=== PATIENT | male | born 1955 | race Caucasian/White ===

== ENCOUNTER → 2022-03-12 | Outpatient (CLI) | payer MEDICARE, SELFPAY ==
[2022-03-14 16:08] LABS: Endomysial Antibody IgA Negative (Negative)
[2022-03-15 17:27] LABS: Immunoglobulin A 416 mg/dL (61-437); t-Transglutaminase IgA <2 U/mL (0-3)
== END | disposition home or self-care (01) ==
PROVIDERS: PCP Nurse Practitioner Primary Care; Referring Provider Internal Medicine Gastroenterology; Visit Provider Internal Medicine Gastroenterology
DX: R19.7 Diarrhea, unspecified (principal)
CPT/HCPCS: 36415; 82784; 83516; 86140; 86255

== ENCOUNTER 2022-09-21 11:38 | Emergency (ER) | payer MEDICARE, MEDICAID, SELFPAY ==
[2022-09-21 11:38] VITALS: BP 159/99; PULSE 81; RESP 24; TEMP 35.3; O2SAT 94; BMI 50.8
--- NOTE | 2022-09-21 13:09 | EDS_ITS ---
HPI History of Present Illness Chief Complaint: General Illness Narrative Narrative: 67-year-old male presenting with presenting with chronic diarrhea which has had for a year. He states he had a colonoscopy in February with Dr. Paz and states he had a polyp removed. Patient states that there was an illness in his household last week and his and children were sick. They had cough and congestion. Over this timeframe he had nausea and vomiting 4 to 5 days ago. The nausea and vomiting has resolved but he continues to have diarrhea. He had no black or bloody emesis but does note that he had black stools for the last 4 to 5 days. He does admit to taking Pepto-Bismol. Patient states he took this for some epigastric discomfort he has been having. He has a history of GERD. Patient takes daily aspirin but no other oral anticoagulation. He has not had fever, chills. PFSH PFSH Medical History no medical history Allergy/AdvReac Type Severity Reaction Status Date / Time No Known Allergies Allergy Verified 09/21/22 11:41 Social History Smoking Status: Unknown if ever smoked ROS ROS ED Constitutional Constitutional ED: Denies chills or fever(s) Eyes Eyes: Denies change in vision or diplopia ENT ENT ED: Denies rhinorrhea or sore throat Cardiovascular Cardiovascular: Denies chest pain or palpitations Respiratory/Chest Respiratory/Chest: Denies cough or dyspnea Gastrointestinal Gastrointestinal: Reports abdominal pain, nausea and vomiting Genitourinary Genitourinary ED: Denies dysuria or hematuria Musculoskeletal Musculoskeletal: Denies arthralgias Integumentary Denies abscess or Abrasions Neurologic Neurologic: Denies headache(s) or paresthesias Psychiatric Psychiatric: Denies anxiety or depression EXAM Physical Exam Const Vital Signs: 09/21/22 11:38 09/21/22 13:17 09/21/22 13:59 Temperature 95.5 F L Temperature Source Temporal Pulse Rate 81 67 Respiratory Rate 24 H Respiratory Effort Normal Respiratory Pattern Normal Blood Pressure 159/99 H Blood Pressure Mean 119 Pulse Ox 94 95 Oxygen Delivery Method Room Air Room Air 09/21/22 15:22 Temperature 97.4 F L Temperature Source Temporal Pulse Rate 71 Respiratory Rate 17 Respiratory Effort Respiratory Pattern Blood Pressure 121/63 H Blood Pressure Mean 82 Pulse Ox 97 Oxygen Delivery Method Room Air Positive well nourished and obese General Appearance ED: NAD; Negative for pallor Nutritional Appearance: obese HEENT Reports moist mucous membranes Eyes PERRL Chest Wall inspection of chest normal and palpation of chest normal Resp normal respiratory effort and clear to auscultation bilaterally Cardio regular rate and regular rhythm GI Palpation: tender epigastric Back/Spine no CVA tenderness Neuro oriented x3 and CN's II-XII intact bilaterally Sensorium / Orientation: alert Psych mental status grossly normal Skin no rashes or lesions noted and no wounds General Skin Exam: Negative for jaundice or pallor MDM MDM MDM Narrative Medical decision making narrative: 67-year-old male presenting with epigastric pain which is mild. He has had nausea and vomiting this week which was resolved but now has diarrhea. He does state that his family is all been ill this last week. He denies fever, chills, body aches. Blood work was obtained and his CBC is unremarkable. Renal function and electrolytes are normal. LFTs within normal limits. Urinalysis negative for infection. CT of the abdomen pelvis with IV contrast does not show any acute intra-abdominal abnormality. The radiologist interpret a possible right lower lobe pneumonitis although the patient is not having cough, shortness of breath, chest pain. His lungs are clear. He is 97% on room air. I do not believe he needs antibiotics for this. Patient is to follow-up with Dr. Paz and his primary care physician. Return precautions discussed. Impression: 1. Abdominal pain 2. Nausea/vomiting resolved 3. Diarrhea Lab Data Attestation: I reviewed the patient's lab results. Labs: Laboratory Results - last 24 hr 09/21/22 09/21/22 09/21/22 13:20 13:30 13:30 WBC 10.6 RBC 5.27 Hgb 16.6 H Hct 47.9 MCV 90.9 MCH 31.5 MCHC 34.7 RDW Std Deviation 42.5 RDW Coeff of Nena 12.8 Plt Count 186 MPV 11.6 Immature Gran % (Auto) 0.300 Neut % (Auto) 55.0 Lymph % (Auto) 31.9 [place] % (Auto) 8.7 Eos % (Auto) 3.3 Baso % (Auto) 0.8 Absolute Neuts (auto) 5.8 Absolute Lymphs (auto) 3.37 Nucleated RBC % 0 Sodium 139 Potassium 3.6 Chloride 107 Carbon Dioxide 26.0 Anion Gap 6 BUN 15 Creatinine 0.93 Estim Creat Clear Calc 62.77 Est GFR (MDRD) Af Amer 104 Est GFR (MDRD) Non-Af 86 BUN/Creatinine Ratio 16.2 Glucose 95 Calcium 9.4 Total Bilirubin 0.50 AST 26 ALT 44 Alkaline Phosphatase 56 Total Protein 8.1 Albumin 3.1 L Globulin 5.0 H Albumin/Globulin Ratio 0.6 L Lipase 179 Urine Color Yellow Urine Clarity Clear Urine pH 7.0 Ur Specific [place] 1.010 Urine Protein 15 H Urine Glucose (UA) Normal Urine Ketones 5 H Urine Occult Blood 10 H Urine Nitrite Negative Urine Bilirubin Negative Urine Urobilinogen 4 H Ur Leukocyte Esterase 25 H Urine RBC 0 SEEN Urine WBC 0-5 SEEN Ur Squamous Epith Cells 0 SEEN Urine Bacteria 0 SEEN Urine Mucus 0 SEEN Radiography Diagnostic Testing: Clinical Impression(s) from Imaging Studies Abdomen/Pelvis CT 09/21/22 13:09 IMPRESSION: Mild right lower lobe pneumonia or pneumonitis. Colonic diverticulosis without acute diverticulitis. Hepatic steatosis. Cholecystectomy. Small renal cysts. Electronically Signed: Jaky Kwon MD at 15:25 EST , Discharge Plan Triage Chief Complaint: General Illness ED Provider: Salinas Viveros Dx/Rx/DC Orders Instructions: ED Diarrhea, Viral (Adult), ED Abdominal Pain Unkn Cause Male... Primary Care Provider: Iveth Arreola NP Referrals: Iveth Arreola NP, [employer] [Primary Care Provider] - Disposition Disposition: Home, Self Care
--- NOTE | 2022-09-21 13:09 | CT_ITS ---
HISTORY: epigastric, diarrhea. TECHNIQUE: Helically acquired images were obtained of the abdomen and pelvis after the intravenous administration of 100 mL Isovue-370 and oral Gastrografin. A radiation dose optimization technique was used for this scan. 480 images. COMPARISON: None. FINDINGS: LOWER CHEST: Mild groundglass tree-in-bud and nodular alveolar opacities in the dependent right lower lobe. BOWEL: Bowel including appendix nondilated. Colonic diverticulosis without focal inflammatory change observed. PERITONEUM: No significant ascites. Mildly prominent right upper quadrant lymph nodes, possibly reactive. LIVER: No enhancing mass. Fatty infiltration. GALLBLADDER/BILIARY TREE: Cholecystectomy. SPLEEN/PANCREAS: No enhancing lesions. KIDNEYS: No hydronephrosis. Small cysts bilaterally measuring up to 10 mm on the right. ADRENAL GLANDS: No nodules. VESSELS: No abdominal aortic aneurysm. PELVIC ORGANS: Small prostate calcifications. BONES: Degenerative change. CT/Abdomen/Pelvis WITH Contrast IMPRESSION: Mild right lower lobe pneumonia or pneumonitis. Colonic diverticulosis without acute diverticulitis. Hepatic steatosis. Cholecystectomy. Small renal cysts. Electronically Signed: Jaky Kwon MD at 15:25 EST ,
[2022-09-21] MEDS: 0.9% Normal Saline 1,000 ML 1000 ML IV (13:41)
[2022-09-21 13:44] LABS: Bacteria 0 SEEN /hpf (None Seen); Mucous, Urine 0 SEEN /hpf (<or=2+); Red Blood Cells-Urine 0 SEEN /hpf (0-5); Squamous Epithelial Cells - UA 0 SEEN /hpf (0-5)
[2022-09-21 13:46] LABS: Absolute Lymphocyte Count 3.37 X10^3/uL (0.83-4.51); Absolute Neutrophil Count 5.8 X10^3/uL (2.0-7.7); Basophil# 0.08 X10^3/uL; Basophil% 0.8 % (0-1); Eosinophil# 0.35 X10^3/uL; Eosinophils% 3.3 % (0-5); Hematocrit 47.9 % (40-54); Hemoglobin 16.6 g/dL (13.0-16.5); Lymphocyte # 3.37 X10^3/ul (0.83-4.51); Lymphocyte % 31.9 % (19-41); Mean Corp Hgb Conc 34.7 g/dL (32-36); Mean Corpuscular Hgb 31.5 pg (27.0-32.0); Mean Corpuscular Volume 90.9 fL (80-94); Mean Platelet Vol. 11.6 fl (6.2-12.0); Monocyte# 0.92 X10^3/uL; Monocyte% 8.7 % (0-10); NRBC Flagged by Analyzer 0 % (0-5); Platelet Count 186 K/mm3 (150-450); RBC Distribution Width CV 12.8 % (11.6-14.6); RBC Distribution Width SD 42.5 fl (35.1-43.9); Red Blood Count 5.27 M/mm3 (4.6-6.2); White Blood Count 10.6 K/mm3 (4.4-11.0)
[2022-09-21 13:51] LABS: Color, Urine Yellow (Yellow); Glucose, Dipstick Normal (Normal); Ketone-Dipstick 5 mg/dl (Negative); Leukocyte Esterase-Dipstick 25 /ul (Negative); Nitrite-Dipstick Negative (Negative); Occult Blood-Urine 10 /ul (Negative); Protein-Dipstick 15 mg/dl (Negative); Urine Bilirubin Dipstick Negative (Negative); Urine Clarity Clear (Clear); Urine Urobilinogen 4 mg/dl (Normal)
[2022-09-21 13:59] VITALS: PULSE 67; O2SAT 95
[2022-09-21 14:03] LABS: ALB/GLOB Ratio 0.6 RATIO (0.9-2.4); AST(SGOT) 26 U/L (15-37); Alanine Aminotransfer ALT/SGPT 44 U/L (16-61); Albumin, Serum 3.1 g/dL (3.2-5.0); Alkaline Phosphatase 56 U/L (45-117); Anion Gap 6 (5-15); BUN 15 mg/dL (7-18); BUN/Creat Ratio 16.2 RATIO (10-20); Calcium,Total 9.4 mg/dL (8.5-10.1); Chloride 107 mmol/L (98-107); Creatinine, Serum 0.93 mg/dL (0.70-1.30); EST Glomerular Filtration Rate 86 mL/min (>60); Est Glom Filt Rate - Afr Amer 104 mL/min (>60); Estimated Creatinine Clearance 62.77 ml/min; Glucose 95 mg/dL (74-106); Lipase 179 U/L (73-393); Potassium 3.6 mmol/L (3.5-5.1); Protein, Total 8.1 g/dL (6.4-8.2); Sodium Level 139 mmol/L (136-145)
[2022-09-21 14:07] LABS: White Blood Cells 0-5 SEEN /hpf (0-5)
[2022-09-21 15:22] VITALS: BP 121/63; PULSE 71; RESP 17; TEMP 36.3; O2SAT 97
[2022-09-21 17:04] VITALS: PULSE 77; RESP 17; O2SAT 96
== END 2022-09-21 17:09 | disposition home or self-care (01) ==
PROVIDERS: Emergency Provider Student in an Organized Health Care Education/Training Program; PCP Nurse Practitioner Primary Care; Visit Provider Student in an Organized Health Care Education/Training Program
DX: K52.9 Noninfective gastroenteritis and colitis, unspecified (principal); R11.2 Nausea with vomiting, unspecified; R10.9 Unspecified abdominal pain
CPT/HCPCS: 74177; 80053; 81001; 83690; 85025; 96360; 99283; J7030; Q9967

== ENCOUNTER → 2022-11-16 | Outpatient (CLI) | payer MEDICARE, MEDICAID, SELFPAY ==
--- NOTE | 2022-11-16 07:58 | MRI_ITS ---
STUDY: MRI RIGHT MIDFOOT REASON FOR EXAM: Male, 67 years old. RT MIDFOOT, OSTEOARTHRITIS FRACTURE TECHNIQUE: Standardized fat and water weighted pulse sequences were obtained in all 3 orthogonal planes. COMPARISON: None. FINDINGS: There is moderate degenerative arthrosis of the talonavicular articulation. Normal calcaneocuboid articulation. Normal navicular-cuneiform articulations. Normal intercuneiform articulations. Normal first tarsometatarsal articulation. Normal Lisfranc ligament. Mild second tarsal metatarsal joint arthrosis with small erosions of the second cuneiform bone. Normal third tarsometatarsal joint. Capsulitis of the fourth and fifth tarsometatarsal joints with effusions. Severe stress reaction of the proximal shaft of the third metatarsal bone. No discrete fracture. Normal tibialis anterior tendon. Normal extensor hallucis longus tendon. Normal extensor digitorum longus tendons. Normal peroneus longus tendon and distal insertion. Normal peroneus brevis tendon and distal insertion. Normal intrinsic muscles of the mid and forefoot region. Normal extensor digitorum brevis muscle. Normal subcutis adipose space. MRI/Lower Ext/No Jt/w/o IMPRESSION: 1. Mild midfoot arthrosis as described above. 2. Focal severe stress reaction the proximal shaft of the third metatarsal bone without discrete fracture. Electronically Signed: Stef Cannon MD at 9:03 EST ,
== END | disposition home or self-care (01) ==
PROVIDERS: PCP Nurse Practitioner Primary Care; Referring Provider Podiatrist; Visit Provider Podiatrist
DX: M19.071 Primary osteoarthritis, right ankle and foot (principal); M84.374A Stress fracture, right foot, initial encounter for fracture; X58.XXXA Exposure to other specified factors, initial encounter
CPT/HCPCS: 73718

== ENCOUNTER → 2022-11-28 | Outpatient (CLI) | payer MEDICARE, MEDICAID, SELFPAY ==
[2022-11-28 10:54] LABS: Vitamin D,25 Hydroxy 28.4 ng/mL
[2022-11-28 10:59] LABS: ALB/GLOB Ratio 0.7 RATIO (0.9-2.4); AST(SGOT) 42 U/L (15-37); Alanine Aminotransfer ALT/SGPT 44 U/L (16-61); Albumin, Serum 3.6 g/dL (3.2-5.0); Alkaline Phosphatase 48 U/L (45-117); Anion Gap 7 (5-15); BUN 21 mg/dL (7-18); BUN/Creat Ratio 16.7 RATIO (10-20); Calcium,Total 9.8 mg/dL (8.5-10.1); Chloride 105 mmol/L (98-107); Creatinine, Serum 1.26 mg/dL (0.70-1.30); EST Glomerular Filtration Rate 60 mL/min (>60); Est Glom Filt Rate - Afr Amer 73 mL/min (>60); Globulin 4.9 g/dL (2.2-4.2); Glucose 113 mg/dL (74-106); Potassium 3.9 mmol/L (3.5-5.1); Protein, Total 8.5 g/dL (6.4-8.2); Sodium Level 139 mmol/L (136-145)
== END | disposition home or self-care (01) ==
LOC: MTLAB 08:05
PROVIDERS: PCP Nurse Practitioner Primary Care; Referring Provider Podiatrist; Visit Provider Podiatrist
DX: M84.374A Stress fracture, right foot, initial encounter for fracture (principal)
CPT/HCPCS: 36415; 80053; 82306

== ENCOUNTER 2023-01-02 11:43 | Emergency (ER) | payer MEDICARE, MEDICAID, SELFPAY ==
[2023-01-02 11:43] VITALS: BP 135/74; PULSE 82; RESP 18; TEMP 37; O2SAT 98; BMI 49.6
--- NOTE | 2023-01-02 12:27 | EX.ED.DYSGE1 ---
HPI <BRENDA Blanco - Last Filed: 01/02/23 20:57> History of Present Illness Chief Complaint: Flank Pain Narrative Narrative: Patient presenting today with left side pain that he has had for the past 4 days. He states that the pain is worsened with movement and improves somewhat with rest. He states that sometimes feels like the muscles are spasming on the left side. He denies any injury to the area. He denies any urinary symptoms such as hematuria, dysuria, or urinary urgency/frequency. He denies a history of kidney stones, abdominal pain, nausea, vomiting, diarrhea, constipation, fever, and chills. PFSH <BRENDA Blanco - Last Filed: 01/02/23 20:57> PFSH Home Medications doxycycline hyclate 100 mg capsule 100 mg PO BID #20 caps 01/02/23 [Rx Last Taken Unknown] hydrocodone-acetaminophen 5-325mg 5mg-325mg 1 tab PO Q4H PRN PRN Pain 5 days #10 TABLETS 01/02/23 [Rx Last Taken Unknown] Allergy/AdvReac Type Severity Reaction Status Date / Time No Known Allergies Allergy Verified 01/02/23 11:46 Social History Smoking Status: Unknown if ever smoked ROS <BRENDA Blanco - Last Filed: 01/02/23 20:57> ROS ED Constitutional Constitutional ED: Denies chills, fever(s) or sweats Cardiovascular Cardiovascular: Denies chest pain or palpitations Respiratory/Chest Respiratory/Chest: Denies cough, dyspnea, tachypnea or wheezing Gastrointestinal Gastrointestinal: Denies abdominal pain, constipation, diarrhea, nausea or vomiting Genitourinary Genitourinary ED: Denies dysuria, hematuria or urinary urgency Musculoskeletal Musculoskeletal: Reports arthralgias and myalgias; Denies back pain or neck pain Integumentary Denies abscess, Abrasions or rash Neurologic Neurologic: Denies confusion, dizziness or paresthesias Psychiatric Psychiatric: Denies anxiety, depression, suicidal ideation or suicidal thoughts EXAM <BRENDA Blanco - Last Filed: 01/02/23 20:57> Physical Exam Const Vital Signs: 01/02/23 11:43 01/02/23 11:43 01/02/23 17:25 Temperature 98.6 F Temperature Source Temporal Pulse Rate 82 88 Respiratory Rate 18 19 H Blood Pressure 135/74 H 154/67 H Blood Pressure Mean 94 96 Pulse Ox 98 95 Oxygen Delivery Method Room Air Positive well nourished, well developed and no apparent distress General Appearance ED: well developed HEENT Reports normocephalic and head/scalp atraumatic Mouth ED: Yes moist mucous membranes normal Eyes PERRL and EOMs intact bilaterally Neck full ROM and supple Chest Wall inspection of chest normal Resp normal respiratory effort and clear to auscultation bilaterally Cardio regular rate and regular rhythm GI soft to palpation, non-distended and no masses GI Narrative: Left lower quadrant pain to palpation. Back/Spine normal ROM and normal to inspection Back/Spine Narrative: Pain to palpation to the left lateral rib cage. No ecchymosis or erythema to the area. General Back: Negative for CVA tenderness Extremity normal to inspection and full ROM Neuro oriented x3, CN's II-XII intact bilaterally, moves all extremities, no focal motor deficits and no sensory deficits noted Sensorium / Orientation: awake and alert Psych mental status grossly normal and thought process normal Skin no rashes or lesions noted and no wounds <Dr. Shelley Babin DO - Last Filed: 01/02/23 17:42> Physical Exam Const Vital Signs: 01/02/23 11:43 01/02/23 11:43 01/02/23 17:25 Temperature 98.6 F Temperature Source Temporal Pulse Rate 82 88 Respiratory Rate 18 19 H Blood Pressure 135/74 H 154/67 H Blood Pressure Mean 94 96 Pulse Ox 98 95 Oxygen Delivery Method Room Air [facility] <BRENDA Blanco - Last Filed: 01/02/23 20:57> [facility] Narrative Medical decision making narrative: Patient presenting today with pain in his left lateral rib cage and left lower abdomen that he has had for the past 4 days. Pain is worsened with movement and he is very tender to palpation along the left lateral rib cage and the left lower quadrant of the abdomen. Patient has been given pain control here. Because of patient's abdominal tenderness to palpation CT of the abdomen and pelvis with contrast will be obtained to rule out diverticulitis, kidney stone, and other abdominal etiology. This showed is patchy stable infiltrate of the right lower lobe. D-dimer was elevated for patient and a CTA was obtained which was negative for PE but did show right upper lobe infiltrate suspicious for pneumonia. Patient does have leukocytosis with a left shift. patient will be treated for this with doxycycline. He has been given pain control for home. I think patient's left-sided pain could likely be attributed to muscular strain. He will be discharged home in stable condition and is to follow-up with his PCP. He has been given return precautions and is comfortable with plan. I have personally performed a face to face assessment of the patient and have reviewed the [facility] Note. I performed a substantive portion of the visit including all aspects of the following. My crowe findings include: History is [patient presents with left-sided abdomen/flank pain that he has had for about 4 days. Patient tells me the pain is been continuous. Pain is worse with certain movements. Pain is not pleuritic. He denies nausea or vomiting. He denies diarrhea. He denies blood in his stool. Patient does tell me he has had some black-colored stools for about 6 months. Patient denies fevers. No history of kidney stones or diverticulitis history. Patient denies urinary symptoms. He denies recent travel or surgery. He denies chest pain.] Exam is [HEENT-PERRLA, EOMI. Cranial nerves II through XII grossly intact. TMs clear. Mucous membranes moist. No adenopathy. Cardiovascular-regular rate and rhythm without murmur or ectopy Lungs-clear to auscultation, chest wall stable without crepitus or subcu emphysema Abdomen-normoactive bowel sounds, soft. Patient has tenderness palpation over left lower quadrant with guarding. There is no rebound, rigidity, or. Signs. No mass palpated. Extremities-intact ?4, normal range of motion, normal pulses, atraumatic] Medical Decison Making [patient presented with nondescript left-sided abdominal pain. CBC with differential showed an elevated white count 15.2 and chemistries were unremarkable other than a slightly depressed potassium of 3.2 for which I did give him 40 mEq of potassium chloride p.o. Lactate was 2.0. LFTs unremarkable. Patient had a CT scan of the abdomen pelvis with IV contrast showed stable patchy infiltrate posterior segment right lower lobe as well as sigmoid diverticulosis without evidence of diverticulitis. Patient also had a urinalysis that was unremarkable. Patient had a D-dimer that was elevated at 1.86 and a CTA of the chest was obtained which was negative for PE but did show a right upper lobe infiltrate suspicious for pneumonia. Patient also had some thyroid nodules for which they recommended outpatient follow-up and ultrasound. I discussed all these results with the patient. I will start him on doxycycline and give him a few hydrocodone for pain. Patient pain resolved with Toradol and morphine. He is comfortable going home and following up with his PCP. Patient advised to return if worsening pain, increasing shortness of breath, or condition should worsen anyway.] Other additions or changes: [None] Lab Data Attestation: I reviewed the patient's lab results. Lab results narrative: WBC 15 2, D-dimer 1.86, sodium 135, potassium 2, BUN 20, AST 45, Labs: Laboratory Results - last 24 hr 01/02/23 01/02/23 01/02/23 13:00 13:00 13:00 WBC 15.2 H RBC 5.17 Hgb 15.8 Hct 46.6 MCV 90.1 MCH 30.6 MCHC 33.9 RDW Std Deviation 42.1 RDW Coeff of Nena 12.8 Plt Count 200 MPV 11.2 Immature Gran % (Auto) 0.300 Neut % (Auto) 78.4 H Lymph % (Auto) 13.4 L [place] % (Auto) 6.7 Eos % (Auto) 0.7 Baso % (Auto) 0.5 Absolute Neuts (auto) 11.9 H Absolute Lymphs (auto) 2.04 Nucleated RBC % 0 D-Dimer Quant (PE/DVT) Sodium 135 L Potassium 3.2 L Chloride 99 Carbon Dioxide 29.0 Anion Gap 7 BUN 20 H Creatinine 1.23 Estim Creat Clear Calc 47.46 Est GFR (MDRD) Af Amer 75 Est GFR (MDRD) Non-Af 62 BUN/Creatinine Ratio 16.3 Glucose 113 H Lactic Acid 2.0 Calcium 9.5 Total Bilirubin 0.90 AST 45 H ALT 46 Alkaline Phosphatase 39 L Total Protein 8.1 Albumin 3.4 Globulin 4.7 H Albumin/Globulin Ratio 0.7 L Urine Color Urine Clarity Urine pH Ur Specific What Cheer Urine Protein Urine Glucose (UA) Urine Ketones Urine Occult Blood Urine Nitrite Urine Bilirubin Urine Urobilinogen Ur Leukocyte Esterase Urine RBC Urine WBC Ur Squamous Epith Cells Urine Bacteria Urine Mucus 01/02/23 01/02/23 01/02/23 15:00 15:05 17:23 WBC RBC Hgb Hct MCV MCH MCHC RDW Std Deviation RDW Coeff of Nena Plt Count MPV Immature Gran % (Auto) Neut % (Auto) Lymph % (Auto) [place] % (Auto) Eos % (Auto) Baso % (Auto) Absolute Neuts (auto) Absolute Lymphs (auto) Nucleated RBC % D-Dimer Quant (PE/DVT) 1.86 H* Sodium Potassium Chloride Carbon Dioxide Anion Gap BUN Creatinine Estim Creat Clear Calc Est GFR (MDRD) Af Amer Est GFR (MDRD) Non-Af BUN/Creatinine Ratio Glucose Lactic Acid 1.8 Calcium Total Bilirubin AST ALT Alkaline Phosphatase Total Protein Albumin Globulin Albumin/Globulin Ratio Urine Color Straw Urine Clarity Clear Urine pH 7.0 Ur Specific What Cheer 1.010 Urine Protein 15 H Urine Glucose (UA) Normal Urine Ketones Negative Urine Occult Blood 10 H Urine Nitrite Negative Urine Bilirubin Negative Urine Urobilinogen 4 H Ur Leukocyte Esterase Negative Urine RBC 0 SEEN Urine WBC 0 SEEN Ur Squamous Epith Cells 0 SEEN Urine Bacteria 0 SEEN Urine Mucus 0 SEEN Radiography Diagnostic Testing: Clinical Impression(s) from Imaging Studies Abdomen/Pelvis CT 01/02/23 12:49 IMPRESSION: Stable patchy infiltrate in the posterior segment of the right lower lobe. Sigmoid diverticulosis with no radiographic evidence of acute diverticulitis. Fatty infiltration of the liver. Status post cholecystectomy. Electronically Signed: Darron Abdi MD at 14:27 EDT , Chest CTA 01/02/23 15:56 IMPRESSION: 1. No demonstrated pulmonary embolism or arterial dissection. 2. There is infiltrate in the right upper lobe and superior segment of the right lower lobe ingesting a pneumonia. 3. The thyroid is heterogenous. It contains nodules. This should be further evaluated with ultrasound. This can be performed as an outpatient. Electronically Signed: Ramses Courtney MD at 17:05 EDT , <Dr. Shelley Babin, DO - Last Filed: 01/02/23 17:42> [facility] Narrative Medical decision making narrative: Patient presenting today with pain in his left lateral rib cage and left lower abdomen that he has had for the past 4 days. Pain is worsened with movement and he is very tender to palpation along the left lateral rib cage and the left lower quadrant of the abdomen. Because of patient's abdominal tenderness to palpation CT of the abdomen and pelvis with contrast will be obtained to rule out diverticulitis, kidney stone, and other abdominal etiology. I have personally performed a face to face assessment of the patient and have reviewed the [facility] Note. I performed a substantive portion of the visit including all aspects of the following. My crowe findings include: History is [patient presents with left-sided abdomen/flank pain that he has had for about 4 days. Patient tells me the pain is been continuous. Pain is worse with certain movements. Pain is not pleuritic. He denies nausea or vomiting. He denies diarrhea. He denies blood in his stool. Patient does tell me he has had some black-colored stools for about 6 months. Patient denies fevers. No history of kidney stones or diverticulitis history. Patient denies urinary symptoms. He denies recent travel or surgery. He denies chest pain.] Exam is [HEENT-PERRLA, EOMI. Cranial nerves II through XII grossly intact. TMs clear. Mucous membranes moist. No adenopathy. Cardiovascular-regular rate and rhythm without murmur or ectopy Lungs-clear to auscultation, chest wall stable without crepitus or subcu emphysema Abdomen-normoactive bowel sounds, soft. Patient has tenderness palpation over left lower quadrant with guarding. There is no rebound, rigidity, or. Signs. No mass palpated. Extremities-intact ?4, normal range of motion, normal pulses, atraumatic] Medical Decison Making [patient presented with nondescript left-sided abdominal pain. CBC with differential showed an elevated white count 15.2 and chemistries were unremarkable other than a slightly depressed potassium of 3.2 for which I did give him 40 mEq of potassium chloride p.o. Lactate was 2.0. LFTs unremarkable. Patient had a CT scan of the abdomen pelvis with IV contrast showed stable patchy infiltrate posterior segment right lower lobe as well as sigmoid diverticulosis without evidence of diverticulitis. Patient also had a urinalysis that was unremarkable. Patient had a D-dimer that was elevated at 1.86 and a CTA of the chest was obtained which was negative for PE but did show a right upper lobe infiltrate suspicious for pneumonia. Patient also had some thyroid nodules for which they recommended outpatient follow-up and ultrasound. I discussed all these results with the patient. I will start him on doxycycline and give him a few hydrocodone for pain. Patient pain resolved with Toradol and morphine. He is comfortable going home and following up with his PCP. Patient advised to return if worsening pain, increasing shortness of breath, or condition should worsen anyway.] Other additions or changes: [None] Lab Data Labs: Laboratory Results - last 24 hr 01/02/23 01/02/23 01/02/23 13:00 13:00 13:00 WBC 15.2 H RBC 5.17 Hgb 15.8 Hct 46.6 MCV 90.1 MCH 30.6 MCHC 33.9 RDW Std Deviation 42.1 RDW Coeff of Nena 12.8 Plt Count 200 MPV 11.2 Immature Gran % (Auto) 0.300 Neut % (Auto) 78.4 H Lymph % (Auto) 13.4 L [place] % (Auto) 6.7 Eos % (Auto) 0.7 Baso % (Auto) 0.5 Absolute Neuts (auto) 11.9 H Absolute Lymphs (auto) 2.04 Nucleated RBC % 0 D-Dimer Quant (PE/DVT) Sodium 135 L Potassium 3.2 L Chloride 99 Carbon Dioxide 29.0 Anion Gap 7 BUN 20 H Creatinine 1.23 Estim Creat Clear Calc 47.46 Est GFR (MDRD) Af Amer 75 Est GFR (MDRD) Non-Af 62 BUN/Creatinine Ratio 16.3 Glucose 113 H Lactic Acid 2.0 Calcium 9.5 Total Bilirubin 0.90 AST 45 H ALT 46 Alkaline Phosphatase 39 L Total Protein 8.1 Albumin 3.4 Globulin 4.7 H Albumin/Globulin Ratio 0.7 L Urine Color Urine Clarity Urine pH Ur Specific What Cheer Urine Protein Urine Glucose (UA) Urine Ketones Urine Occult Blood Urine Nitrite Urine Bilirubin Urine Urobilinogen Ur Leukocyte Esterase Urine RBC Urine WBC Ur Squamous Epith Cells Urine Bacteria Urine Mucus 01/02/23 01/02/23 01/02/23 15:00 15:05 17:23 WBC RBC Hgb Hct MCV MCH MCHC RDW Std Deviation RDW Coeff of Nena Plt Count MPV Immature Gran % (Auto) Neut % (Auto) Lymph % (Auto) [place] % (Auto) Eos % (Auto) Baso % (Auto) Absolute Neuts (auto) Absolute Lymphs (auto) Nucleated RBC % D-Dimer Quant (PE/DVT) 1.86 H* Sodium Potassium Chloride Carbon Dioxide Anion Gap BUN Creatinine Estim Creat Clear Calc Est GFR (MDRD) Af Amer Est GFR (MDRD) Non-Af BUN/Creatinine Ratio Glucose Lactic Acid 1.8 Calcium Total Bilirubin AST ALT Alkaline Phosphatase Total Protein Albumin Globulin Albumin/Globulin Ratio Urine Color Straw Urine Clarity Clear Urine pH 7.0 Ur Specific [place]er 1.010 Urine Protein 15 H Urine Glucose (UA) Normal Urine Ketones Negative Urine Occult Blood 10 H Urine Nitrite Negative Urine Bilirubin Negative Urine Urobilinogen 4 H Ur Leukocyte Esterase Negative Urine RBC 0 SEEN Urine WBC 0 SEEN Ur Squamous Epith Cells 0 SEEN Urine Bacteria 0 SEEN Urine Mucus 0 SEEN Radiography Diagnostic Testing: Clinical Impression(s) from Imaging Studies Abdomen/Pelvis CT 01/02/23 12:49 IMPRESSION: Stable patchy infiltrate in the posterior segment of the right lower lobe. Sigmoid diverticulosis with no radiographic evidence of acute diverticulitis. Fatty infiltration of the liver. Status post cholecystectomy. Electronically Signed: Darron Abdi MD at 14:27 EDT , Chest CTA 01/02/23 15:56 IMPRESSION: 1. No demonstrated pulmonary embolism or arterial dissection. 2. There is infiltrate in the right upper lobe and superior segment of the right lower lobe ingesting a pneumonia. 3. The thyroid is heterogenous. It contains nodules. This should be further evaluated with ultrasound. This can be performed as an outpatient. Electronically Signed: Ramses Courtney MD at 17:05 EDT , Discharge Plan Triage Chief Complaint: Flank Pain ED Midlevel Provider: Lynne Mcduffie ED Provider: Shelley Babin Dx/Rx/DC Orders Clinical Impression: Abdominal pain, Pneumonia, Acute hypokalemia, Thyroid nodule, Abdominal pain of unknown etiology Instructions: Abdominal Pain, ED Pneumonia (Adult) Prescriptions: New doxycycline hyclate 100 mg capsule 100 mg PO BID Qty: 20 0RF hydrocodone-acetaminophen 5-325 mg tablet 1 tab PO Q4H PRN PRN (Reason: Pain) 5 Days Qty: 10 0RF Primary Care Provider: Iveth Arreola NP Referrals: Iveth Arreola NP, [employer] [Primary Care Provider] - 3-5 Days Activity Restrictions/Additional Instructions: The chest CTA did show nodules on your thyroid, please have this evaluated with your PCP via outpatient ultrasound. Return for any worsening of your symptoms. Disposition Disposition: Home, Self Care Discharge Date/Time: 01/02/23 17:54
--- NOTE | 2023-01-02 12:49 | CT_ITS ---
STUDY: CT ABDOMEN AND PELVIS WITH CONTRAST REASON FOR EXAM: Male, 67 years old. LLQ pain. PRIOR CHOLECYSTECTOMY RADIATION DOSAGE (If Supplied By Facility): CTDIvol = ( 24.22 ) mGy, DLP = ( 1965.88 ) mGycm TECHNIQUE: Transaxial images were obtained from the dome of the diaphragm to the symphysis pubis without oral contrast. IV 100mL Isovue-300 was administered. Sagittal and coronal images were reconstructed. Individualized dose optimization techniques were used for this CT. COMPARISON: Comparison is made with prior study dated September 21, 2022. FINDINGS: Patchy infiltrate in the posterior medial segment of the right lower lobe. This has progressed slightly as compared to prior study. The visualized portions of the heart are within normal limits. There is decreased attenuation of the liver consistent with steatosis. There are surgical clips in the gallbladder fossa consistent with a prior cholecystectomy. Normal spleen. Normal pancreas. Normal bilateral adrenal glands. Stable 1 cm cyst in the upper pole of the right kidney. Normal left kidney. Normal visualized stomach. Normal small intestine. There are multiple colonic diverticula consistent with diverticulosis. The appendix is visualized and appears normal. Normal abdominal aorta. Normal inferior vena cava. Normal retroperitoneum. Normal urinary bladder. There are prostatic calcifications. Normal abdominal wall. There are degenerative changes of the visualized lumbar spine. CT/Abdomen/Pelvis W IV Cont ONLY IMPRESSION: Stable patchy infiltrate in the posterior segment of the right lower lobe. Sigmoid diverticulosis with no radiographic evidence of acute diverticulitis. Fatty infiltration of the liver. Status post cholecystectomy. Electronically Signed: Darron Abdi MD at 14:27 EDT ,
[2023-01-02] MEDS: Ketorolac 15 MG/ML Vial IV (13:05)
[2023-01-02 13:12] LABS: Absolute Lymphocyte Count 2.04 X10^3/uL (0.83-4.51); Absolute Neutrophil Count 11.9 X10^3/uL (2.0-7.7); Basophil# 0.07 X10^3/uL; Basophil% 0.5 % (0-1); Eosinophil# 0.11 X10^3/uL; Eosinophils% 0.7 % (0-5); Hematocrit 46.6 % (40-54); Hemoglobin 15.8 g/dL (13.0-16.5); Lymphocyte # 2.04 X10^3/ul (0.83-4.51); Lymphocyte % 13.4 % (19-41); Mean Corp Hgb Conc 33.9 g/dL (32-36); Mean Corpuscular Hgb 30.6 pg (27.0-32.0); Mean Corpuscular Volume 90.1 fL (80-94); Mean Platelet Vol. 11.2 fl (6.2-12.0); Monocyte# 1.01 X10^3/uL; Monocyte% 6.7 % (0-10); NRBC Flagged by Analyzer 0 % (0-5); Neutrophil # 11.91 X10^3/uL (2.7-7.7); Neutrophil % 78.4 % (47-70); Platelet Count 200 K/mm3 (150-450); RBC Distribution Width CV 12.8 % (11.6-14.6); RBC Distribution Width SD 42.1 fl (35.1-43.9); Red Blood Count 5.17 M/mm3 (4.6-6.2); White Blood Count 15.2 K/mm3 (4.4-11.0)
[2023-01-02 13:22] LABS: ALB/GLOB Ratio 0.7 RATIO (0.9-2.4); AST(SGOT) 45 U/L (15-37); Alanine Aminotransfer ALT/SGPT 46 U/L (16-61); Albumin, Serum 3.4 g/dL (3.2-5.0); Alkaline Phosphatase 39 U/L (45-117); Anion Gap 7 (5-15); BUN 20 mg/dL (7-18); BUN/Creat Ratio 16.3 RATIO (10-20); Calcium,Total 9.5 mg/dL (8.5-10.1); Chloride 99 mmol/L (98-107); Creatinine, Serum 1.23 mg/dL (0.70-1.30); EST Glomerular Filtration Rate 62 mL/min (>60); Est Glom Filt Rate - Afr Amer 75 mL/min (>60); Estimated Creatinine Clearance 47.46 ml/min; Globulin 4.7 g/dL (2.2-4.2); Glucose 113 mg/dL (74-106); Potassium 3.2 mmol/L (3.5-5.1); Protein, Total 8.1 g/dL (6.4-8.2); Sodium Level 135 mmol/L (136-145)
--- NOTE | 2023-01-02 13:36 | ED.RN ---
PT LACTIC AT 2.0. DR MELO
[2023-01-02] MEDS: Morphine 4 MG/ML Syringe IV (13:48)
[2023-01-02] MEDS: 0.9% Normal Saline 1,000 ML 999 ML IV (13:48)
[2023-01-02 15:14] LABS: Bacteria 0 SEEN /hpf (None Seen); Mucous, Urine 0 SEEN /hpf (<or=2+); Red Blood Cells-Urine 0 SEEN /hpf (0-5); Squamous Epithelial Cells - UA 0 SEEN /hpf (0-5); White Blood Cells 0 SEEN /hpf (0-5)
[2023-01-02 15:28] LABS: Color, Urine Straw (Yellow); Glucose, Dipstick Normal (Normal); Ketone-Dipstick Negative (Negative); Leukocyte Esterase-Dipstick Negative /ul (Negative); Nitrite-Dipstick Negative (Negative); Occult Blood-Urine 10 /ul (Negative); Protein-Dipstick 15 mg/dl (Negative); Urine Bilirubin Dipstick Negative (Negative); Urine Clarity Clear (Clear); Urine Urobilinogen 4 mg/dl (Normal)
[2023-01-02 15:52] LABS: D-Dimer Quantitative (DVT/PE) 1.86 FEU/ug/m (0.27-0.49)
--- NOTE | 2023-01-02 15:56 | CT_ITS ---
EXAM: CT ANGIOGRAPHY CHEST WITHOUT AND WITH INTRAVENOUS CONTRAST CLINICAL INDICATION: chest pain, elevated d-dimer TECHNIQUE: Helically acquired angiography images were obtained of the chest without and with intravenous contrast. This CT exam was performed using one or more of the following dose reduction techniques: automated exposure control, adjustment of the mA and/or kV according to patient size, and/or use of iterative reconstruction technique. This report was created using [employer] report generation technology. MIP reconstructed images were created and reviewed. CONTRAST: IV 75mL Isovue-370 RADIATION DOSE: CTDIvol = 18.05 mGy, DLP = 744.66 mGy-cm COMPARISON: None. FINDINGS: PULMONARY ARTERIES: Unremarkable. No demonstrated pulmonary embolism or arterial dissection. AORTA: There is atherosclerotic calcification of the aortic arch with tortuosity and elongation of the aortic arch and descending thoracic aorta. Normal in caliber. No evidence of dissection. GREAT VESSELS OF AORTIC ARCH: See above. LUNGS AND PLEURAL SPACES: There is infiltrate in the right upper lobe and superior segment of the right lower lobe ingesting a pneumonia. No mass. No pleural effusion or thickening. HEART: Unremarkable. Heart size is normal. No pericardial effusion. No signs of right heart strain, ratio of right ventricle to left ventricle measures less than 1. MEDIASTINUM: Unremarkable. No mediastinal or hilar adenopathy. Esophagus is unremarkable. No hiatal hernia. THYROID: The thyroid is heterogenous. It contains nodules. This should be further evaluated with ultrasound. This can be performed as an outpatient. BONES/JOINTS: There are degenerative changes of the shoulders. There are multi-level degenerative changes of the thoracic spine. No suspicious lytic or blastic abnormality. GALLBLADDER AND BILE DUCTS: The gallbladder is surgically absent. CT/CTA Chest W/WO Contrast IMPRESSION: 1. No demonstrated pulmonary embolism or arterial dissection. 2. There is infiltrate in the right upper lobe and superior segment of the right lower lobe ingesting a pneumonia. 3. The thyroid is heterogenous. It contains nodules. This should be further evaluated with ultrasound. This can be performed as an outpatient. Electronically Signed: Ramses Courtney MD at 17:05 EDT ,
[2023-01-02] MEDS: Potassium Chloride Oral Tablet 20 MEQ 40 MEQ PO (15:58)
[2023-01-02 17:03] LABS: Reflex Lactate? Y
[2023-01-02 17:25] VITALS: BP 154/67; PULSE 88; RESP 19; O2SAT 95
[2023-01-02 17:51] LABS: Lactic Acid 1.8 mmol/L (0.4-1.9)
== END 2023-01-02 17:54 | disposition home or self-care (01) ==
PROVIDERS: Physician Assistant; Emergency Provider Emergency Medicine; PCP Nurse Practitioner Primary Care; Visit Provider Emergency Medicine
DX: R10.32 Left lower quadrant pain (principal); J18.9 Pneumonia, unspecified organism; E04.1 Nontoxic single thyroid nodule; E87.6 Hypokalemia
CPT/HCPCS: 71275; 74177; 80053; 81001; 83605; 85025; 85379; 99283; J7030; Q9967; A4216

== ENCOUNTER → 2023-01-29 | Outpatient (CLI) | payer MEDICARE, MEDICAID, SELFPAY ==
--- NOTE | 2023-01-29 09:54 | US_ITS ---
PROCEDURE: ULTRASOUND GUIDED RIGHT THYROID FNA/BIOPSY. DATE: January 29, 2023 INDICATION: Male, 67 years old. Right thyroid nodule. PHYSICIAN: Darron Abdi M.D. MEDICATIONS: 2% lidocaine administered subcutaneously for local anesthesia. ACCESS SITE: Right - anterior approach. NEEDLE: 25-gauge FNA needle. SPECIMEN: Multiple FNA specimen collected and given to pathology. EBL: None. COMPLICATIONS: None immediate. PROCEDURE: The risks, benefits, and alternatives to the procedure were explained to the patient. The specific risk of hemorrhage requiring further treatment or intervention was detailed and accepted. Written informed consent was obtained. The patient was brought into the ultrasound room and placed in the supine position on the stretcher. An appropriate entry site was identified. The overlying skin was prepped and draped in the usual sterile fashion. 2% lidocaine was administered subcutaneously for local anesthesia. Under ultrasound guidance, a 25-gauge FNA needle was advanced into the lesion. Aspiration was performed and the needle was withdrawn. A total of 3 passes were performed with specimen collected and given to the pathologist who was present during the procedure. Hemostasis was achieved with manual compression. Repeat ultrasound images of the biopsy area was performed which demonstrated no gross bleeding or hematoma. An antibiotic ointment dressing was placed and the patient was given an icepack. The patient tolerated the procedure well without immediate complications. The patient was discharged in stable condition. US/FNA 1st Biopsy w/ US IMPRESSION: Successful ultrasound-guided right thyroid nodule FNA/biopsy, as described above. Electronically Signed: Darron Abdi MD at 12:40 EDT ,
[2023-01-29] MEDS: Lidocaine 2% (20 ml mdv) 20 ML Vial INFILT (10:45)
--- NOTE | 2023-01-29 11:00 | ASPIG_PTH ---
PATIENT: NELSON GOMEZ Sr. LOC: [facility]#:[id number] AGE/SX: 67/M ROOM: RE01/29/[address]: Iveth Arreola NP : 1955 BED: DIS: 01/29/2023 SPEC #: [id number] RECD: 01/29/23 12:22 STATUS: KERRIE BRITNEY #: [id number] HARRIET: 01/29/23 11:[address]: Iveth Arreola NP DEPT: CYTOLOGY RECD BY: Francesca Donaldson Tissues: Thyroid gland, NOS Procedures: FNA Specimen Adequacy Special Stain Group II Surgery Specimen Level IV Cytology Other HEADER OPERATION: Ultrasound-guided fine needle aspiration of right thyroid PRE-OP DIAGNOSIS: Right thyroid nodule TISSUE SUBMITTED: Right thyroid nodule DIAGNOSIS CYTOLOGY Fine needle aspiration, right thyroid nodule (smears, cytospin and cell block): 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 See comment. AM:rachael 01/30/2023 COMMENT The specimen is evaluated at the time of ultrasound by Dr. Castro. Immediate Evaluation: Pass 1 - Follicular cells are present. Pass 2 - Follicular cells are present. Pass 3 - Follicular cells are present. Per recommendations and a clinician-approved plan (a call was made to the referring doctor about the recommendation), genomic testing (Afirma) has been submitted. Results will be reported as an addendum and faxed to clinician. CYTOLOGY STUDY Slides are reviewed. CYTOLOGY GROSS Pass 1 - Received is 0.25 ml of reddish fluid labeled with the patient's name, and designated right thyroid nodule. Five imprints and three Paps are made from the submitted fluid and the rest is added to CytoLyt for cell block preparation. Submitted for cytology study. Pass 2 - Received is 0.2 ml of reddish fluid labeled with the patient's name, and designated right thyroid nodule. Four imprints and one pap are made from the submitted fluid and the rest is added to CytoLyt for cell block preparation. Submitted for cytology study. Pass 3 - Received is 0.25 ml of reddish fluid labeled with the patient's name, and designated right thyroid nodule. Three imprints and two Paps are made from the submitted fluid and the rest is added to CytoLyt for cell block preparation. Submitted for cytology study. / AM:rachael 01/29/2023 TC:? 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 Clinical correlation and surgical resection should be considered. Please see complete report in e-chart or EMR
== END | disposition home or self-care (01) ==
PROVIDERS: PCP Nurse Practitioner Primary Care; Referring Provider Nurse Practitioner Primary Care; Visit Provider Nurse Practitioner Primary Care
DX: E04.1 Nontoxic single thyroid nodule (principal)
CPT/HCPCS: 10006; 10005; 88161; 88172; 88305; 88313

== ENCOUNTER → 2023-09-24 | Outpatient (CLI) | payer MEDICARE, MEDICAID, SELFPAY ==
--- NOTE | 2023-09-24 13:56 | CT_ITS ---
STUDY: LOW DOSE CT LUNG CANCER SCREENING REASON FOR EXAM: Male, 68 years old. SCREENING. The patient smoked 1 pack per day for 57 years. RADIATION DOSAGE (If Supplied By Facility): CTDIvol = ( 4.02 ) mGy, DLP = ( 133.41 ) mGycm TECHNIQUE: No contrast was administered. Low dose technique was utilized (average mAS-38 and kVp 120). 1.25 mm axial source images with a slice interval of 1.25-mm were reconstructed in lung windows. 2.5 mm axial source images with a slice interval of 2.5-mm were reconstructed in lung windows. 5.0 mm axial source images with a slice interval of 5.0-mm were reconstructed in soft tissue windows. COMPARISON: Comparison is made with prior study dated January 02, 2023. NODULES: No suspicious nodule is seen. Emphysema: Mild emphysematous changes. Endobronchial lesion: None Aorta: Atherosclerotic calcific plaques CORONARY ARTERIES: Coronary artery calcification is not seen. Heart: Unremarkable Pulmonary artery: Unremarkable Mediastinal nodes: Unremarkable Other chest and abdominal findings: CT/Low Dose CT Lung Screening IMPRESSION: Lung-RADS category 2 - Continue annual screening with LDCT in 12 months. IMPORTANT NOTES FOR USE: ACR Lung-RADS Version 1.1 Assessment Categories Release Date: 2018 Category: Coded 0-4 bases on nodule(s) with highest degree of suspicion. Negative screen is defined as categories 1 and 2; a positive screen is defined as categories 3 and 4. Category 3 and 4A nodules that are unchanged on interval CT should be coded as category 2, and individuals returned to screening in 12 months. Category 4X: Category 3 or 4 nodules with additional imaging findings that increase the suspicion of lung cancer, such as spiculation, GGN that doubles in size in 1 year, enlarged lymph notes, etc. Category Modifiers: S (significant finding unrelated to lung cancer) Electronically Signed: Darron Abdi MD at 14:22 EST ,
== END | disposition home or self-care (01) ==
LOC: CT 13:49
PROVIDERS: PCP Nurse Practitioner Primary Care; Referring Provider Nurse Practitioner Primary Care; Visit Provider Nurse Practitioner Primary Care
DX: Z12.2 Encounter for screening for malignant neoplasm of respiratory organs (principal); F17.210 Nicotine dependence, cigarettes, uncomplicated
CPT/HCPCS: 71271

== ENCOUNTER 2023-10-11 06:00 | Emergency (ER) | payer MEDICAID, SELFPAY ==
[2023-10-11 06:01] VITALS: BP 130/69; PULSE 57; RESP 15; TEMP 36.6; O2SAT 95; BMI 49.1
[2023-10-11 06:30] LABS: Bacteria 0 SEEN /hpf (None Seen); Mucous, Urine 0 SEEN /hpf (<or=2+); Red Blood Cells-Urine 0 SEEN /hpf (0-5); Squamous Epithelial Cells - UA 0 SEEN /hpf (0-5); White Blood Cells 0 SEEN /hpf (0-5)
[2023-10-11 06:32] LABS: Absolute Lymphocyte Count 2.98 X10^3/uL (0.83-4.51); Absolute Neutrophil Count 4.5 X10^3/uL (2.0-7.7); Basophil# 0.08 X10^3/uL; Basophil% 0.9 % (0-1); Eosinophil# 0.33 X10^3/uL; Eosinophils% 3.8 % (0-5); Hematocrit 44.2 % (40-54); Hemoglobin 14.9 g/dL (13.0-16.5); Lymphocyte # 2.98 X10^3/ul (0.83-4.51); Lymphocyte % 34.3 % (19-41); Mean Corp Hgb Conc 33.7 g/dL (32-36); Mean Corpuscular Hgb 30.8 pg (27.0-32.0); Mean Corpuscular Volume 91.3 fL (80-94); Mean Platelet Vol. 11.9 fl (6.2-12.0); Monocyte# 0.76 X10^3/uL; Monocyte% 8.8 % (0-10); NRBC Flagged by Analyzer 0 % (0-5); Neutrophil # 4.51 X10^3/uL (2.7-7.7); Platelet Count 170 K/mm3 (150-450); RBC Distribution Width CV 12.8 % (11.6-14.6); RBC Distribution Width SD 42.9 fl (35.1-43.9); Red Blood Count 4.84 M/mm3 (4.6-6.2); White Blood Count 8.7 K/mm3 (4.4-11.0)
[2023-10-11 06:32] LABS: Color, Urine Yellow (Yellow); Glucose, Dipstick Normal (Normal); Ketone-Dipstick Negative (Negative); Leukocyte Esterase-Dipstick Negative /ul (Negative); Nitrite-Dipstick Negative (Negative); Occult Blood-Urine 10 /ul (Negative); Protein-Dipstick 15 mg/dl (Negative); Specific Gravity, Urine 1.015 (1.002-1.030); Urine Bilirubin Dipstick Negative (Negative); Urine Clarity Clear (Clear); Urine Urobilinogen 1 mg/dl (Normal); Urine pH 6.5 (5.0 - 8.0)
--- OUTSIDE RECORDS SUMMARY | 2023-10-11 06:36 | XMS RPT_ITS | CCD ---
Author Name Unknown Address [address] [facility] [address] [place] [id number] Organization [facility] Care Team Providers Care Director Dietetics Department Name Role Phone KINGA SOOD Primary Care Unavailable Carter John () Primary Care Provider [phone] Unavailable Primary Care Provider JE Ramirez Attending Unavailable SIOBHAN LAM Attending Unavailable Kinga Sood Primary Care Provider SEFFENS CRM MARKETING SPECIALIST-INSURANCE PROCESSOR, EMERITA Primary Care Physician FFENS CRM MARKETING SPECIALIST-INSURANCE PROCESSOR, EMERITA Attending Unavai lable SEFFEMILLIE CRM MARKETING SPECIALIST-INSURANCE PROCESSOR, EMERITA Primary Care Unavai lable FFEMILLIE CRM MARKETING SPECIALIST-INSURANCE PROCESSOR, EMERITA Attending Unavai lable FFEMILLIE CRM MARKETING SPECIALIST-INSURANCE PROCESSOR, EMERITA Primary Care Unavai lable FFEMILLIE CRM MARKETING SPECIALIST-INSURANCE PROCESSOR, EMERITA Attending Unavai lable XIOMY CRM MARKETING SPECIALIST-INSURANCE PROCESSOR, EMERITA Primary Care Unavai lable KARLEE MESA - KHADAR, EDELMIRA Jacome Attending U navailable SEFFENS CRM MARKETING SPECIALIST-INSURANCE PROCESSOR, EMERITA Primary Care Unavai lable KARLEE CRM MARKETING SPECIALIST - INSURANCE PROCESSOREDELMIRA Attending U navailable SEFFENS CRM MARKETING SPECIALIST-INSURANCE PROCESSOR, EMERITA Primary Care Unavai lable FFENS CRM MARKETING SPECIALIST-INSURANCE PROCESSOR, EMERITA Primary Care Unavai lable JOSEPHINE CRM MARKETING SPECIALIST-PEACE RUBALCAVA Admitting Unavailab Jennifer RAMIREZ, NATALIO Attending Unavailable ABIEL RAMIREZ, NATALIO Referring Unavailable SEFFENS CRM MARKETING SPECIALIST-INSURANCE PROCESSOR, EMERITA Attending Unavai lable SEFFENS CRM MARKETING SPECIALIST-INSURANCE PROCESSOR, EMERITA Primary Care Unavai lable SEFFENS CRM MARKETING SPECIALIST-INSURANCE PROCESSOR, EMERITA Attending Unavai lable FFENS CRM MARKETING SPECIALIST-INSURANCE PROCESSOR, EMERITA Primary Care Unavai lable SEFFENS CRM MARKETING SPECIALIST-INSURANCE PROCESSOR, EMERITA Attending Unavai lable SEFFENS CRM MARKETING SPECIALIST-INSURANCE PROCESSOR, EMERITA Primary Care Unavai lable SEFFENS CRM MARKETING SPECIALIST-INSURANCE PROCESSOR, EMERITA Attending Unavai lable SEFFENS CRM MARKETING SPECIALIST-INSURANCE PROCESSOR, EMERITA Primary Care Unavai lable SEFFENS CRM MARKETING SPECIALIST-INSURANCE PROCESSOR, EMERITA Attending Unavai lable SEFFENS CRM MARKETING SPECIALIST-INSURANCE PROCESSOR, EMERITA Primary Care Unavai lable SEFFENS CRM MARKETING SPECIALIST-INSURANCE PROCESSOR, EMERITA Attending Unavai lable SEFFENS CRM MARKETING SPECIALIST-INSURANCE PROCESSOR, EMERITA Primary Care Unavai lable SEFFENS CRM MARKETING SPECIALIST-INSURANCE PROCESSOR, EMERITA Attending Unavai lable SEFFENS CRM MARKETING SPECIALIST-INSURANCE PROCESSOR, [facility] Primary Care Unavai lable SEFFENS CRM MARKETING SPECIALIST-INSURANCE PROCESSOR, EMERITA Attending Unavai lable SEFFENS CRM MARKETING SPECIALIST-INSURANCE PROCESSOR, [facility] Primary Care Unavai lable SEFFENS CRM MARKETING SPECIALIST-INSURANCE PROCESSOR, EMERITA Attending Unavai lable SEFFENS CRM MARKETING SPECIALIST-INSURANCE PROCESSOR, [facility] Primary Care Unavai lable ÁNGELA RAMIREZ, DR YOSSI Lombardi Admitting Unavai lable SEFFENS CRM MARKETING SPECIALIST-INSURANCE PROCESSOR, [facility] Primary Care Unavai lable CED RAMIREZ, MIN Attending Unavailable JONATHAN MALDONADO MD Consulting Unavailable Unavailable Primary Care Provider UnavailLUIS Riggs Referring Unavailable LUIS CORONEL Attending Unavailable Medications Current Medications Medication Drug Class(es) Dates Sig (Normalized) Sig (Original) acetaminophen 500 mg oral tablet (9 sources) Start: 05-21-2022 Tylenol Extra Strength 500 mg oral tablet Dose : 2,000 mg = 4 tab(s), Oral, qAM, PRN as needed for fever Start Date: 05/21/22 Status: Ordered acetaminophen 325 mg / HYDROcodone bitartrate 5 mg oral tablet (3 sources) Opioid Agonist Start: 01-07-2023 End: 01-14-2023 take 1 tablet by mouth four times daily as needed for pain acetaminophen-hyd rocodone 325 mg-5 mg oral tablet Dose = 1 tab(s), Oral, QID, PRN as needed for pain, Fill Date: 01/07/2023, X 7 day(s), # 28 tab(s), 0 Refill(s), Pharmacy: [facility], Flank pain Thoracic back pain, 169.5, cm, 01/07/23 15:10:00 EDT, Height, 134.9 Start Date: 01/07/23 Stop Date: 01/14/23 Status: Ordered 200 actuat albuterol 0.09 mg/actuat metered dose inhaler (1 source) beta2-Adrenergic Agonist Start: 07-06-2020 take 2 puff(s) by inhalation four times daily as needed for wheezing albuterol sulfate HFA (VENTOLIN HFA) 108 (90 Base) MCG/ACT inhaler Inhale 2 puffs into the lungs 4 times daily as needed for Wheezing 1 Inhaler 0 07/06/2020 Active albuterol 90 mcg/actuation inhaler (1 source) Start: 03-28-2020 take 2 puff(s) by inhalation every six hours as needed for wheezing albuterol 90 mcg/actuation inhaler Inhale 2 (two) puffs every 6 (six) hours as needed for wheezing or shortness of breath . 1 Inhaler 2 03/28/2020 Active albuterol MDI (90 mcg/inh) CFC free inhalation aerosol (16 sources) Start: 12-13-2022 End: 03-13-2023 take 2 puff(s) by inhalation every six hours as needed for wheezing albuterol MDI (90 mcg/inh) CFC free inhalation aerosol 2 puff(s), Inhalation, q6hr, PRN as needed for wheezing, # 18 gram(s), 2 Refill(s), Pharmacy: [facility], 169.5, cm, 11/19/22 9:28:00 EST, Height, kg, 11/19/22 8:40:00 EST, Dosing Weight Start Date: 12/13/22 Stop Date: 03/13/23 Status: Ordered Completed/Discontinued Medications Medication Drug Class(es) Dates Sig (Normalized) Sig (Original) albuterol 0.833 mg/ml / ipratropium bromide 0.167 mg/ml inhalation solution (15 sources) Anticholinergic, beta2-Adrenergic Agonist Start: 08-20-2022 End: 12-07-2022 take 1 dose by inhalation every six hours as needed for wheezing albuterol-ipratro pium 2.5 mg-0.5 mg/3 mL inhalation solution Dose = 3 mL, Inhalation, q6hr, PRN Shortness of breath or wheezing, # 180 mL, 1 Refill(s), Pharmacy: [facility] [place], 169, cm, 10/08/22 8:59:00 EST, Height, kg, 10/08/22 8:59:00 EST, Dosing Weight Start Date: 10/08/22 Stop Date: 12/07/22 Status: Ordered Problems Active Problems Problem Classification Problem Date Documented Da te Episodic/Chronic Acute and unspecified renal failure (1 source) Acute renal failure syndrome; Translations: [Acute kidney failure, unspecified] Episodic Cataract (16 sources) Cataract 08-01-2021 Chronic Chronic kidney disease (1 source) Chronic kidney disease stage 2; Translations: [Chronic kidney disease, stage 2 (mild)] Chronic Chronic obstructive pulmonary disease and bronchiectasis (17 sources) Acute exacerbation of chronic obstructive airways disease; Translations: [Chronic obstructive lung disease] 03-28-2020 Chronic Diabetes mellitus with complications (1 source) Chronic kidney disease due to type 2 diabetes mellitus; Translations: [Type 2 diabetes mellitus with diabetic chronic kidney disease] Chronic Diabetes mellitus without complication (20 sources) Type 2 diabetes mellitus; Translations: [Diabetes mellitus] Onset: 05-09-2022 07-25-2021 Chronic Disorders of lipid metabolism (14 sources) Hypertriglyceridemia ; Translations: [Mixed hyperlipidemia] Onset: 08-15-2022 05-23-2022 Chronic Diverticulosis and diverticulitis (3 sources) Diverticulitis of intestine 01-07-2023 Chronic Essential hypertension (20 sources) Hypertensive disorder; Translations: [Hypertension] 03-28-2020 Chronic Fluid and electrolyte disorders (5 sources) Acidosis; Translations: [Acidosis] Episodic Fracture of lower limb (11 sources) Fracture of foot ; Translations: [Unspecified fracture of right foot, subsequent encounter for fracture with routine healing] 05-08-2022 Episodic Gout and other crystal arthropathies (13 sources) Acute gout; Translations: [Gout] 04-05-2022 Chronic Hypertension with complications and secondary hypertension (1 source) Hypertensive urgency ; Translations: [Hypertensive urgency] Chronic Noninfectious gastroenteritis (20 sources) Chronic diarrhea; Translations: [Noninfectious enteritis] 01-18-2022 Episodic Osteoarthritis (1 source) Primary gonarthrosis, bilateral; Translations: [Bilateral primary osteoarthritis of knee] 06-02-2023 Chronic Other circulatory disease (1 source) Low blood pressure; Translations: [Hypotension, unspecified] Episodic Other connective tissue disease (2 sources) Swelling of lower limb; Translations: [Leg swelling] Episodic Other connective tissue disease (13 sources) Recurrent falls 12-04-2021 Episodic Other ear and sense organ disorders (13 sources) Lesion of external ear 01-18-2022 Episodic Other ear and sense organ disorders (13 sources) Lesion of skin of left ear 01-18-2022 Episodic Other gastrointestinal disorders (1 source) Diarrhea; Translations: [Diarrhea, unspecified] Onset: 05-22-2022 Episodic Other liver diseases (3 sources) Steatosis of liver 01-07-2023 Chronic Other lower respiratory disease (3 sources) Rib pain 01-07-2023 Episodic Other non-traumatic joint disorders (1 source) Ankle joint pain; Translations: [Pain in right ankle and joints of right foot] Onset: 02-03-2022 Episodic Other non-traumatic joint disorders (6 sources) Knee pain; Translations: [Pain in right knee] 08-24-2022 Episodic Other non-traumatic joint disorders (2 sources) Pain in right knee; Translations: [Pain in joint, lower leg] Onset: 06-02-2023 06-02-2023 Episodic Other non-traumatic joint disorders (1 source) Pain in left knee; Translations: [Pain in both knees, unspecified chronicity] Onset: 06-02-2023 Episodic Other nutritional; endocrine; and metabolic disorders (11 sources) Body mass index 40+ - severely obese; Translations: [Body mass index (BMI) 45.0-49.9, adult] 05-08-2022 Chronic Other nutritional; endocrine; and metabolic disorders (1 source) Morbid obesity; Translations: [Morbid (severe) obesity due to excess calories] Chronic Other nutritional; endocrine; and metabolic disorders (4 sources) Severe obesity; Translations: [Morbid (severe) obesity due to excess calories] 11-19-2022 Chronic Pneumonia (except that caused by tuberculosis or sexually transmitted disease) (3 sources) Right lower zone pneumonia 01-07-2023 Episodic Residual codes; unclassified (15 sources) Obstructive sleep apnea syndrome; Translations: [Obstructive sleep apnea (adult) (pediatric)] 08-29-2021 Chronic Residual codes; unclassified (11 sources) Did not attend 03-05-2022 Episodic Past or Other Problems Problem Classification Problem Date Documented Da te Episodic/Chronic Abdominal pain (5 sources) Flank pain; Translations: [Unspecified abdominal pain] Onset: 01-07-2023 01-07-2023 Episodic Bacterial infection; unspecified site (2 sources) Other bacterial infections of unspecified site; Translations: [Other bacterial infections of unspecified site] Onset: 07-07-2022 Episodic Intestinal infection (2 sources) Other intestinal Escherichia coli infections; Translations: [Other intestinal Escherichia coli infections] Onset: 07-07-2022 Episodic Other connective tissue disease (2 sources) Pain in right foot; Translations: [Pain in right foot] Onset: 05-09-2022 Episodic Other screening for suspected conditions (not mental disorders or infectious disease) (13 sources) Imaging of abdomen abnormal; Translations: [Abnormal findings on diagnostic imaging of other abdominal regions, including retroperitoneum] Onset: 05-09-2022 Episodic Results Test Name Value Interpretation Reference Range Facil ity Vital Signs Date Time Vital Sign Value Performing Clinician Faci lity 05-23-2022 11:08-0400 Body temperature 96.8 [degF] DR YOSSI [facility] 05-23-2022 11:08-0400 Diastolic blood pressure 90 mm[Hg] DR YOSSI MOTTA [facility] 05-23-2022 11:08-0400 Heart rate 63 /min DR YOSSI MOTTA MD [facility] 05-23-2022 11:08-0400 Mean blood pressure 112 mm[Hg] DR YOSSI MOTTA MD [facility] 05-23-2022 11:08-0400 Reason For Taking VItal Signs DR YOSSI MOTTA MD [facility] 05-23-2022 11:08-0400 Respiratory rate 22 /min DR YOSSI MOTTA MD [address] 05-23-2022 11:08-0400 Systolic blood pressure 156 mm[Hg] DR YOSSI MOTTA MD [address] [place] [address] 05-23-2022 10:28-0400 Heart rate 72 /min DR YOSSI MOTTA MD [address] [place] [address] 05-23-2022 10:28-0400 Respiratory rate 18 /min DR YOSSI MOTTA MD [address] [place] [address] 05-23-2022 07:35-0400 Body temperature 98.6 [degF] DR YOSSI MOTTA MD [address] [place] [address] 05-23-2022 07:35-0400 Diastolic blood pressure 66 mm[Hg] DR YOSSI MOTTA MD [address] [place] [address] 05-23-2022 07:35-0400 Heart rate 71 /min DR YOSSI MOTTA MD [address] [place] [address] 05-23-2022 07:35-0400 Mean blood pressure 91 mm[Hg] DR YOSSI MOTTA MD [address] [place] [address] 05-23-2022 07:35-0400 Reason For Taking VItal Signs DR YOSSI MOTTA MD [address] [place] [address] 05-23-2022 07:35-0400 Respiratory rate 18 /min DR YOSSI MOTTA MD [address] [place] [address] 05-23-2022 07:35-0400 Systolic blood pressure 140 mm[Hg] DR YOSSI MOTTA MD [address] [place] [address] 05-23-2022 06:32-0400 Heart rate 67 /min DR YOSSI MOTTA MD [address] [place] [address] 05-23-2022 05:23-0400 Body temperature 98.6 [degF] DR YOSSI MOTTA MD [address] [place] [address] 05-23-2022 05:23-0400 Diastolic blood pressure 91 mm[Hg] DR YOSSI MOTTA MD [address] [address] 05-23-2022 05:23-0400 Heart rate 65 /min DR YOSSI MOTTA MD [address] [place] [address] 05-23-2022 05:23-0400 Mean blood pressure 107 mm[Hg] DR YOSSI MOTTA MD [address] [place] [address] 05-23-2022 05:23-0400 Reason For Taking VItal Signs DR YOSSI MOTTA MD [address] [place] [address] 05-23-2022 05:23-0400 Systolic blood pressure 139 mm[Hg] DR YOSSI MOTTA MD [address] [place] [address] 05-22-2022 18:31-0400 Heart rate 77 /min DR YOSSI MOTTA MD [address] [place] [address] 05-21-2022 22:41-0400 Heart rate 97 /min DR YOSSI MOTTA MD [address] [place] [address] 05-21-2022 19:51-0400 Heart rate 101 /min DR YOSSI MOTTA MD [address] [place] [address] 05-21-2022 19:41-0400 Body height 167.[address] YOSSI MOTTA MD [address] [place] [address] 05-21-2022 19:41-0400 Body weight [address] YOSSI MOTTA MD [address] [place] [address] 05-21-2022 19:41-0400 Body weight 46.99 kg/m2 DR YOSSI MOTTA MD [address] [place] [address] 03-13-2022 23:50-0400 Diastolic blood pressure 78 mm[Hg] OSMAN GOMEZ DO [facility] 03-13-2022 23:50-0400 Heart rate 66 /min OSMAN GOMEZ DO [facility] 03-13-2022 23:50-0400 Respiratory rate 22 /min OSMAN GOMEZ DO [facility] 03-13-2022 23:50-0400 Systolic blood pressure 125 mm[Hg] OSMAN GOMEZ DO [facility] 03-13-2022 21:59-0400 Body temperature 98.06 [degF] OSMAN GOMEZ DO [facility] 03-13-2022 21:59-0400 Diastolic blood pressure 87 mm[Hg] OSMAN GOMEZ DO [facility] 03-13-2022 21:59-0400 Heart rate 71 /min OSMAN GOMEZ DO [facility] 03-13-2022 21:59-0400 Respiratory rate 20 /min OSMAN GOMEZ DO [facility] 03-13-2022 21:59-0400 Systolic blood pressure 152 mm[Hg] OSMAN GOMEZ DO [facility] 02-03-2022 09:53-0400 Body temperature 98.06 [degF] THAI BRYSON MD [facility] 02-03-2022 09:53-0400 Diastolic blood pressure 92 mm[Hg] THAI BRYSON MD [facility] 02-03-2022 09:53-0400 Heart rate 65 /min THAI BRYSON MD [facility] 02-03-2022 09:53-0400 Respiratory rate 18 /min THAI BRYSON MD [facility] 02-03-2022 09:53-0400 Systolic blood pressure 153 mm[Hg] THAI BRYSON MD [facility] 08-25-2021 11:52-0500 Body temperature 98.06 [degF] LUIS OLIVER MD [facility] 08-25-2021 11:52-0500 Diastolic blood pressure 73 mm[Hg] LUIS OLIVER MD [facility] 08-25-2021 11:52-0500 Heart rate 82 /min LUIS OLIVER MD [facility] 08-25-2021 11:52-0500 Respiratory rate 18 /min LUIS OLIVER MD [facility] 08-25-2021 11:52-0500 Systolic blood pressure 135 mm[Hg] LUIS OLIVER MD [facility] 07-20-2021 14:30-0400 Diastolic blood pressure 85 mm[Hg] ARMANDO TRAN DO [facility] 07-20-2021 14:30-0400 Heart rate 84 /min ARMANDO TRAN DO [facility] 07-20-2021 14:30-0400 Reason For Taking VItal Signs ARMANDO TRAN DO [facility] 07-20-2021 14:30-0400 Respiratory rate 18 /min ARMANDO TRAN DO [facility] 07-20-2021 14:30-0400 Systolic blood pressure 139 mm[Hg] ARMANDO TRAN DO [facility] 07-20-2021 13:55-0400 Body temperature 97.88 [degF] ARMANDO TRAN DO [facility] 07-20-2021 13:55-0400 Diastolic blood pressure 82 mm[Hg] ARMANDO TRAN DO [facility] 07-20-2021 13:55-0400 Heart rate 78 /min ARMANDO TRAN DO [facility] 07-20-2021 13:55-0400 Mean blood pressure 106 mm[Hg] ARMANDO TRAN DO [facility] 07-20-2021 13:55-0400 Respiratory rate 18 /min ARMANDO TRAN DO [facility] 07-20-2021 13:55-0400 Systolic blood pressure 153 mm[Hg] ARMANDO TRAN DO [facility] 07-06-2020 20:39-0400 Pulse (Heart Rate) 79 /min [facility], [place] 07-06-2020 19:26-0400 Body Temperature 98.29 [degF] [facility] 07-06-2020 19:26-0400 BP Diastolic 100 mm[Hg] [facility] , [place] 07-06-2020 19:26-0400 BP Systolic 158 mm[Hg] [facility] , [place] 07-06-2020 19:26-0400 Pulse Oximetry 94 % [facility] , [place] 07-06-2020 19:26-0400 Respiratory Rate 18 /min [facility] [place] 07-06-2020 15:30-0400 Height 167.6 cm [facility] , [place] 07-06-2020 15:26-0400 BMI (Body Mass Index) 48.1 kg/m2 [facility], [place] 07-06-2020 15:26-0400 Body weight 135.17 kg [facility] , [place] 07-04-2020 11:57-0400 BP Diastolic 130 mm[Hg] [facility] , [place] 07-04-2020 11:57-0400 BP Systolic 202 mm[Hg] [facility] , [place] 07-04-2020 11:54-0400 BMI (Body Mass Index) 51.49 kg/m2 [facility], [place] 07-04-2020 11:54-0400 Body weight 136.08 kg [facility] , [place] 07-04-2020 11:54-0400 Height 162.6 cm [facility] , [place] 07-04-2020 11:54-0400 Respiratory Rate 18 /min [facility] TIAN Hanna 07-04-2020 11:15-0400 Body Temperature 99.3 [degF] [facility] 07-04-2020 11:15-0400 Pulse (Heart Rate) 91 /min Je Paz [facility] TIAN OLIVAREZ 07-04-2020 11:15-0400 Pulse Oximetry 95 % Je Reyes [facility] TIAN Encounters Encounter Date Encounter Type Care Provider Facility Start: 06-02-2023 End: 06-02-2023 ambulatory LUIS CORONEL Facility:[facility] Start: 06-02-2023 End: 06-02-2023 Subsequent hospital visit by physician Xr [facility] [place] Work Phone: Radiology Procedures Date Procedure Procedure Detail Performing Clinician Start: 06-02-2023 Radiologic exam knee complete 4/more views Luis Coronel MD Work Phone: Start: 04-15-2022 Bilateral cataracts (disorder) EMERITA STAUFFER CRM MARKETING SPECIALIST-INSURANCE PROCESSOR Plan of Treatment Date Care Activity Detail Author Start: 06-06-2023 Influenza vaccination Influenza Vaccine (#1) [facility] Start: 10-06-2022 Advance Directive Discussion Advance Directive Discussion [facility] Start: 10-06-2022 Depression Assessment Depression Assessment [facility] Start: 06-06-2020 Influenza vaccination Flu vaccine (#1) [place] Start: 06-06-2020 Influenza vaccination given Sequential Influenza Vaccine (#1) [facility] Start: 2018 Pneumococcal 65+ years Vaccine (1 of 1 - PPSV23) Pneumococcal 65+ years Vaccine (1 of 1 - PPSV23) [place] Start: 2018 Pneumococcal vaccination Pneumococcal Vaccine Age 65+ (1 of 2 - PCV13) [facility] Start: 2013 RSV Vaccine (1 - 1-dose 60+ series) RSV Vaccine (1 - 1-dose 60+ series) [facility] Start: 2003 Administration of herpes zoster vaccine Zoster Vaccines (1 of 2) [facility] Start: 2003 Screening for malignant neoplasm of colon [place], [place] Start: 2003 Shingles Vaccine (1 of 2) Shingles Vaccine (1 of 2) [place] Start: 2003 Shingrix Vaccine (1 of 2) Shingrix Vaccine (1 of 2) [facility] Start: 1998 Cologuard (FIT-DNA) Cologuard (FIT-DNA) [facility] Start: 1998 Colonoscopy Colonoscopy [facility] Start: 1998 Colorectal Cancer Screening Colorectal Cancer Screening [facility] Start: [address] COLONOGRAPHY [facility] Start: 1998 Diabetes Screening Diabetes Screening [facility] Start: 1998 Fecal Occult Blood Fecal Occult Blood [facility] Start: 1998 SIGMOIDOSCOPY SIGMOIDOSCOPY [facility] Start: 1993 Diabetes screen Diabetes screen [place], [place] Start: 1993 Lipid panel Lipid screen [place] Start: 1988 Lipid 1996 panel - Serum or Plasma Lipid Screening [facility] Start: 1972 DTaP/Tdap/Td vaccine (1 - Tdap) DTaP/Tdap/Td vaccine (1 - Tdap) [place] Start: 1972 Urine microalbumin profile DTaP,Tdap,Td Vaccine (1 - Tdap) [facility] Start: 1971 Hepatitis C antibody, confirmatory test Hepatitis C Screening [facility] Start: 1971 Hepatitis C Screening Hepatitis C Screening [facility] Start: 1969 COVID-19 Vaccine (1 of 2) COVID-19 Vaccine (1 of 2) [facility] Start: 1965 Adolescent depression screening assessment Depression Screening (PHQ9) [facility] Start: 1959 Pneumococcal Vaccine: 65+ (1 - PCV) Pneumococcal Vaccine: 65+ (1 - PCV) [facility] Start: 1956 History and physical examination, annual for health maintenance Wellness Visit [facility] Start: 1953 Covid-19 Vaccine (#1) Covid-19 Vaccine (#1) [facility] Start: 1953 Abdominal aortic aneurysm screening AAA screen [place], [place] Start: 1953 Abdominal Aortic Aneurysm Screening Abdominal Aortic Aneurysm Screening [facility] Start: 1953 Fall risk assessment Falls Risk Assessment [facility] Start: 1953 [facility]atitis C [facility]: [facility] Prostate specific antigen measurement PSA Level [facility] Start: 1953 Tetanus vaccination Tetanus: Every 10yrs [facility] Start: 1953 US scan of abdominal aorta Abdominal Aortic Ultrasound [facility] EKG 12 Lead EKG 12 Lead ECG STAT 07/04/2020 12:01 PM [facility] End: 07-06-2020 Nebulizer therapy [facility] Treatment Respiratory Care STAT One Time for 1 Occurrences starting 07/06/2020 until 07/06/2020 [facility] Payers Date Payer Category Payer Medicare [id number] 2020 Unknown [id number] 2020 Unknown ANTHEM BLUE CROS S AND BLUE SHIELD ANTHEM MEDIBLUE HMO [id number] 2020-Present [phone] [address] [place] [address] O [id number] 2020 Medicaid [id number] 2020 Medicaid [id number] 2019 Medicare MEDICARE MEDICAR E PART A & B [id number] 2019-Present [place] [id number] 1953 Unknown [id number] [id number] 1953 Unknown [id number] 2.16.840.1.026149.3.579.2.204 1953 Unknown [id number] 2.16.840.1.398674.3.579.2.627 1953 Unknown [id number] 2.16.840.1.586917.3.579.2.627 1953 Unknown [id number] 2.16.840.1.935617.3.579.2.627 1953 Unknown [id number] 2.16.840.1.347169.3.579.2.627 1953 Unknown [id number] 2.16.840.1.632928.3.579.2.62 1953 Unknown [id number] 2.16.840.1.288177.3.579.2.62 1953 Unknown [id number] 2.16.840.1.838397.3.579.2.62 1953 Unknown [id number] 2.16.840.1.063433.3.579.2.62 1953 Unknown [id number] 2.16.840.1.411051.3.579.2.62 1953 Unknown [id number] 2.16.840.1.496656.3.579.2.62 1953 Unknown [id number] 2.16.840.1.485109.3.579.2.62 1953 Unknown [id number] 2.16.840.1.834718.3.579.2.62 1953 Unknown [id number] 2.16.840.1.529370.3.579.2.62 1953 Unknown [id number] 2.16.840.1.098960.3.579.2.62 1953 Unknown [id number] 2.16.840.1.294595.3.579.2. 1953 Unknown [id number] 2.16.840.1.464298.3.579.2.627 Medicaid [facility] MEDICAID [facility] [id number] Effective for all dates [id number] Medicaid [place] [id number] Effective for all dates [id number] Social History Date Type Detail Facility Tobacco smoking stat us ORIS Unknown if ever smoked [facility] Start: 1955 Sex Assigned At Not on file [facility] Start: 07-04-2020 End: 06-02-2023 Tobacco smoking status NHIS Current every day smoker [facility] Start: 07-04-2020 End: 06-02-2023 Cigarettes smoked current (pack per day) - Reported [employer] Start: 07-04-2020 End: 06-02-2023 Tobacco use and exposure Never used [employer] Start: 07-04-2020 End: 07-06-2020 Alcohol intake Lifetime non-drinker (finding) [employer] Start: 07-04-2020 History SDOH Alcohol Frequency 1 [employer] Exposure to SARS-CoV -2 (event) Not sure [employer] History of tobacco use Cigarette Smoker [facility] Start: 03-28-2020 End: 06-02-2023 Alcohol intake Ex-drinker (finding) [facility] Tobacco Nicotine Use: 1 pack of cigarettes daily. [facility] Sex Assigned At [facility] Start: 02-08-2022 End: 05-03-2022 Tobacco smoking status Heavy tobacco smoker (finding) [facility] Start: 05-20-2022 Tobacco smoking status Light t obacco smoker (finding) [facility] [place] Start: 08-20-2022 Tobacco smoking status Ex-smoker (fi nding) [facility] [place] Start: 06-02-2023 Tobacco use panel [facility] National Score (1-10 0), lower number is lower risk 71 [facility] Medical Equipment Procedure Code Equipment Code Equipment Origin al Text Equipment Identifier Dates See Instructions , 1=2 bottles of 50 Check blood glucose twice per day and as needed, # 1 EA, 11 Refill(s), Pharmacy: [facility], Type 2 diabetes mellitus, 167, cm, 07/08/22 11:16:00 EDT, Height, 135, kg, 07/08/22 11:08:00 EDT, Dosing Weight Start: 07-08-2022 See Instructions , Check blood glucose twice per day and as needed. 1 month supply, # 1 EA, 11 Refill(s), Pharmacy: [facility], Type 2 diabetes mellitus, 167, cm, 05/31/22 16:05:00 EDT, Height, 134.2 Start: 06-21-2022 See Instructions , 1=2 bottles of 50 Check blood glucose twice per day and as needed, # 1 EA, 11 Refill(s), Pharmacy: [facility], Type 2 diabetes mellitus, 167, cm, 07/08/22 11:16:00 EDT, Height, 135, kg, 07/08/22 11:08:00 EDT, Dosing Weight Start: 07-08-2022 See Instructions , Check blood glucose twice per day and as needed. 1 month supply, # 1 EA, 11 Refill(s), Pharmacy: [facility], Type 2 diabetes mellitus, 167, cm, 05/31/22 16:05:00 EDT, Height, 134.2 Start: 06-21-2022 See Instructions , 1=2 bottles of 50 Check blood glucose twice per day and as needed, # 1 EA, 11 Refill(s), Pharmacy: [facility], Type 2 diabetes mellitus, 167, cm, 07/08/22 11:16:00 EDT, Height, 135, kg, 07/08/22 11:08:00 EDT, Dosing Weight Start: 07-08-2022 See Instructions , Check blood glucose twice per day and as needed. 1 month supply, # 1 EA, 11 Refill(s), Pharmacy: [facility], Type 2 diabetes mellitus, 167, cm, 05/31/22 16:05:00 EDT, Height, 134.2 Start: 06-21-2022 See Instructions , 1=2 bottles of 50 Check blood glucose twice per day and as needed, # 1 EA, 11 Refill(s), Pharmacy: [facility], Type 2 diabetes mellitus, 167, cm, 07/08/22 11:16:00 EDT, Height, 135, kg, 07/08/22 11:08:00 EDT, Dosing Weight Start: 07-08-2022 See Instructions , Check blood glucose twice per day and as needed. 1 month supply, # 1 EA, 11 Refill(s), Pharmacy: [facility], Type 2 diabetes mellitus, 167, cm, 05/31/22 16:05:00 EDT, Height, 134.2 Start: 06-21-2022 See Instructions , 1=2 bottles of 50 Check blood glucose twice per day and as needed, # 1 EA, 11 Refill(s), Pharmacy: [facility], Type 2 diabetes mellitus, 167, cm, 07/08/22 11:16:00 EDT, Height, 135, kg, 07/08/22 11:08:00 EDT, Dosing Weight Start: 07-08-2022 See Instructions , Check blood glucose twice per day and as needed. 1 month supply, # 1 EA, 11 Refill(s), Pharmacy: [facility], Type 2 diabetes mellitus, 167, cm, 05/31/22 16:05:00 EDT, Height, 134.2 Start: 06-21-2022 See Instructions , Check blood glucose twice per day and as needed. 1 month supply, # 1 EA, 11 Refill(s), Pharmacy: [facility], Type 2 diabetes mellitus, 167, cm, 05/31/22 16:05:00 EDT, Height, 134.2 Start: 06-21-2022 See Instructions , Check blood glucose twice per day and as needed. 1 month supply, # 1 EA, 11 Refill(s), Pharmacy: [facility], Type 2 diabetes mellitus, 167, cm, 05/31/22 16:05:00 EDT, Height, 134.2 Start: 06-21-2022 See Instructions , Check blood glucose twice per day and as needed. 1 month supply, # 1 EA, 11 Refill(s), Pharmacy: [facility], Type 2 diabetes mellitus, 167, cm, 05/31/22 16:05:00 EDT, Height, 134.2 Start: 06-21-2022 Functional Status Date Assessment Result Facility 05-23-2022 Functional Status Watching TV [facility] 05-23-2022 Functional Status Room check performed [facility] 05-23-2022 Functional Status [facility] 05-23-2022 Functional Status [facility] 05-23-2022 Functional Status [facility] 05-23-2022 Functional Status [facility] 05-23-2022 Functional Status COVID 19 Surge in Effec t Yes [facility] 05-22-2022 Functional Status [facility] 05-22-2022 Functional Status Hospital bed [facility] 05-22-2022 Functional Status Home independe ntly, Lives with spouse [facility] 05-22-2022 Functional Status Done [facility] 05-21-2022 Functional Status Sensory Defici ts Blind, left eye [facility] 03-13-2022 Functional Status Room check performed [facility] 03-13-2022 Functional Status [facility] 02-03-2022 Functional Status [facility] Mental Status Date Assessment Result Facility 05-23-2022 Mental Status Orientation Oriented x 4 [facility] 05-23-2022 Mental Status [facility] 05-22-2022 Mental Status [facility] 03-14-2022 Mental Status Orientation Oriented x 4 [facility] 03-13-2022 Mental Status [facility] 02-03-2022 Mental Status [facility] Clinical Notes 01-14-2020 to 06-02-2023 Luis Coronel MD - 06/02/2023 2:44 PM EDT Note Date & Type Note Facility 06-02-2023 Note HNO ID: [id number] Author: Luis Coronel MD Service: ? Author Type: Physician Type: Progress Notes Filed: 06/27/2023 3:29 PM Note Text: Luis Coronel MD Department of Orthopaedics [facility] [address] [place] [address] Dept: [phone] Dept June 02, 2023 CHIEF COMPLAINT: Knee Pain of the Right Knee (Xray taken today) HPI Patient presents with: Right Knee - Knee Pain: Xray taken today Patient reports pian in the right knee that is constant. He is 20+ years post surgery on the right knee. He has completed some physical therapy more recently. He also reports he got some relief with knee injections. He uses voltaren gel. AMB ROOMING INTAKE FLOWSHEET DATA Risk Screening Do you have concerns about personal safety or safety in the home?: No Pain Pain Level: 5 Pain Location: Knee-Right Description: Sharp Frequency: Continuous Intervention/Comfort measure: Medication ASSESSMENT: E66.01, Z68.42 Class 3 severe obesity due to excess calories without serious comorbidity with body mass index (BMI) of 45.0 to 49.9 in adult (HCC) (primary encounter diagnosis) M25.561, M25.562, G89.29 Chronic pain of both knees M17.0 Primary osteoarthritis of both knees PLAN: We discussed the treatment options for knee OA/pain. He has to improve his weight to begin discussions about TKA. I'll get him a nutrition consult. Quick smoking. Strengthening. Injections. FOLLOW UP INSTRUCTIONS: Follow up with non-op or wt. Management. Mr. Nelson Gomez was advised as to contrast therapies and/or to take analgesics/anti-inflammatories as needed and all contraindications were reviewed. OBJECTIVE: Mr. Nelson Gomez is a pleasant 67 year old in no apparent distress. Gen:There were no vitals taken for this visit. nl development, morbidly obese , no deformities ENT: Normocephalic, normal hearing, moist mucosa CV: Pulses:DP/PT= 2+ and symmetric, capillary refill < 2 secs, no peripheral edema/varicosities Skin: no rash, bruising or lesions. Good turgor. Psych: cooperative and appropriate, alert and oriented x 3, good mood and affect. Musculoskeletal: Knee Musculoskeletal Exam Gait Antalgic: right Inspection Leg length disparity: no discrepancy Right Erythema: none Effusion: mild Edema: mild Ecchymosis: none Deformity: mild Alignment: valgus Previous incision: arthroscopic portals Left Erythema: none Effusion: mild Edema: mild Ecchymosis: none Deformity: mild Alignment: varus Palpation Right Tenderness: present Lateral joint line: moderate Left Tenderness: present Medial joint line: mild Range of Motion Right Active extension: 5 Passive extension: 5 Active flexion: 115 Left Active extension: 5 Passive extension: 0 Active flexion: 120 Strength Right Right knee strength is normal. Left Left knee strength is normal. Neurovascular Right Right knee neurovascular exam is normal. Left Left knee neurovascular exam is normal. IMAGING: IMPRESSION: Osteoarthritis Circus Agent: PSCB Transcribe Date/Time: Jun 05 2023 8:22A Dictated by : KOFFI WHITAKER MD This examination was interpreted and the report reviewed and electronically signed by: KOFFI WHITAKER MD on Jun 05 2023 8:24AM EST Results-Findings * * *Final Report* * * DATE OF EXAM: Jun 02 2023 2:38PM [id number] - XR KNEE 4V AP/PA/LAT/MERCH SIN / PROCEDURE REASON: multiple diagnoses * * * * Physician Interpretation * * * * Bilateral knees HISTORY: 67 years old Clinical information: Pain in both knees, unspecified chronicity Chronic bilateral knee pain. TECHNIQUE: Images: XR KNEE 4V AP/PA/LAT/MERCH SIN Comparison: None. RESULT: Findings: Right knee: Severe narrowing lateral knee joint compartment with peripheral and central lateral compartment hypertrophic spurring. Patellofemoral hypertrophic spurring. Small effusion. Mild genu valgus.No acute fracture Left knee: Marked narrowing lateral knee joint compartment with lateral compartment hypertrophic spurring. Mild patellofemoral hypertrophic spurring. Trace effusion. No acute fracture Supporting Subjective Information Below: Past Medical History: No past medical history on file. Past Surgical History: No past surgical history on file. Family History: No family history on file. Social History: Social History Tobacco Use Smoking status: Every Day Packs/day: .5 Types: Cigarettes Smokeless tobacco: Never Vaping Use Vaping Use: Never used Substance Use Topics Alcohol use: Not Currently Drug use: Not Currently Medications: Current Outpatient Medications Medication Sig allopurinol (ZYLOPRIM) 100 mg tablet aspirin 81 mg chewable tablet Take 81 mg by mouth. diclofenac (VOLTAREN) 1 % topical gel hydroCHLOROthiazide 25 mg tablet lisinopril (ZESTRIL) 40 mg tablet metoprolol succinate ER (TOPROL XL) 100 mg omeprazole (P (more content not included)... [facility] 06-02-2023 Note HNO ID: [id number] Author: Mary Lou Rayo RT(R) Service: ? Author Type: Coffee Shop Attendant Type: Progress Notes Filed: 06/02/2023 2:35 PM Note Text: Radiology Service Progress Note PATIENT NAME: Nelson Gomez DATE OF SERVICE: June 02, 2023 TIME: 2:01 PM PATIENT IDENTITY VERIFICATION COMPLETED USING TWO (2) IDENTIFIERS: Name and Date of confirmed by patient verbally. FALL SCREENING: Has the patient had 2 falls in the last year or 1 fall with injury or currently using an Ambulatory Assistive Device (Walker, Cane, Wheelchair, Crutches, etc.)? Yes, Patient High Risk for Falls What interventions were put in place to prevent falls during this visit? Offered Assistance with Transfers/Clothing, Instructed Patient to Remain Seated (Not on Exam Table) Until Exam, and Increased Observations by Caregivers PATIENT GENDER DATA: Male PATIENT RELEVANT IMPLANT DATA REVIEWED: Yes RADIOLOGY DEPARTMENT: General X-ray: Exam(s) Completed: Chest X-Ray PERIPHERAL IV DATA: Not applicable SIGNED BY: RT Mariza(R) June 02, 2023 2:01 PM [facility] 06-02-2023 History of Presen t illness Narrative Luis Coronel MD Department of Orthopaedics Orthopa[facility]ics [address] [place] [address] Dept: [phone] Dept June 02, 2023 CHIEF COMPLAINT: Knee Pain of the Right Knee (Xray taken today) HPI Patient presents with: Right Knee - Knee Pain: Xray taken today Patient reports pian in the right knee that is constant. He is 20+ years post surgery on the right knee. He has completed some physical therapy more recently. He also reports he got some relief with knee injections. He uses voltaren gel. AMB ROOMING INTAKE FLOWSHEET DATA Risk Screening Do you have concerns about personal safety or safety in the home?: No Pain Pain Level: 5 Pain Location: Knee-Right Description: Sharp Frequency: Continuous Intervention/Comfort measure: Medication ASSESSMENT: E66.01, Z68.42 Class 3 severe obesity due to excess calories without serious comorbidity with body mass index (BMI) of 45.0 to 49.9 in adult (HCC) (primary encounter diagnosis) M25.561, M25.562, G89.29 Chronic pain of both knees M17.0 Primary osteoarthritis of both knees PLAN: We discussed the treatment options for knee OA/pain. He has to improve his weight to begin discussions about TKA. I'll get him a nutrition consult. Quick smoking. Strengthening. Injections. FOLLOW UP INSTRUCTIONS: Follow up with non-op or wt. Management. Mr. Nelson Gomez was advised as to contrast therapies and/or to take analgesics/anti-inflammatories as needed and all contraindications were reviewed. OBJECTIVE: Mr. Nelson Gomez is a pleasant 67 year old in no apparent distress. Gen:There were no vitals taken for this visit. nl development, morbidly obese , no deformities ENT: Normocephalic, normal hearing, moist mucosa CV: Pulses:DP/PT= 2+ and symmetric, capillary refill < 2 secs, no peripheral edema/varicosities Skin: no rash, bruising or lesions. Good turgor. Psych: cooperative and appropriate, alert and oriented x 3, good mood and affect. Musculoskeletal: Knee Musculoskeletal Exam Gait Antalgic: right Inspection Leg length disparity: no discrepancy Right Erythema: none Effusion: mild Edema: mild Ecchymosis: none Deformity: mild Alignment: valgus Previous incision: arthroscopic portals Left Erythema: none Effusion: mild Edema: mild Ecchymosis: none Deformity: mild Alignment: varus Palpation Right Tenderness: present Lateral joint line: moderate Left Tenderness: present Medial joint line: mild Range of Motion Right Active extension: 5 Passive extension: 5 Active flexion: 115 Left Active extension: 5 Passive extension: 0 Active flexion: 120 Strength Right Right knee strength is normal. Left Left knee strength is normal. Neurovascular Right Right knee neurovascular exam is normal. Left Left knee neurovascular exam is normal. IMAGING: IMPRESSION: Osteoarthritis Circus Agent: PSCB Transcribe Date/Time: Jun 05 2023 8:22A Dictated by : KOFFI WHITAKER MD This examination was interpreted and the report reviewed and electronically signed by: KOFFI WHITAKER MD on Jun 05 2023 8:24AM EST Results-Findings * * *Final Report* * * DATE OF EXAM: Jun 02 2023 2:38PM [id number] - XR KNEE 4V AP/PA/LAT/MERCH SIN / PROCEDURE REASON: multiple diagnoses * * * * Physician Interpretation * * * * Bilateral knees HISTORY: 67 years old Clinical information: Pain in both knees, unspecified chronicity Chronic bilateral knee pain. TECHNIQUE: Images: XR KNEE 4V AP/PA/LAT/MERCH SIN Comparison: None. RESULT: Findings: Right knee: Severe narrowing lateral knee joint compartment with peripheral and central lateral compartment hypertrophic spurring. Patellofemoral hypertrophic spurring. Small effusion. Mild genu valgus.No acute fracture Left knee: Marked narrowing lateral knee joint compartment with lateral compartment hypertrophic spurring. Mild patellofemoral hypertrophic spurring. Trace effusion. No acute fracture Supporting Subjective Information Below: Past Medical History: No past medical history on file. Past Surgical History: No past surgical history on file. Family History: No family history on file. Social History: Social History Tobacco Use Smoking status: Every Day Packs/day: .5 Types: Cigarettes Smokeless tobacco: Never Vaping Use Vaping Use: Never used Substance Use Topics Alcohol use: Not Currently Drug use: Not Currently Medications: Current Outpatient Medications Medication Sig allopurinol (ZYLOPRIM) 100 mg tablet aspirin 81 mg chewable tablet Take 81 mg by mouth. diclofenac (VOLTAREN) 1 % topical gel hydroCHLOROthiazide 25 mg tablet lisinopril (ZESTRIL) 40 mg tablet metoprolol succinate ER (TOPROL XL) 100 mg omeprazole (PRILOSEC) 20 mg capsule No current facility-administered medications for this visit. Allergies: Patient has no known allergies. ROS: General (negative for fatigue, malaise, weight loss/gain) HEENT (negative for headache, earache, recent vision changes, sinus pain, sore throat) Respiratory (no recent shortness of breath, hemoptysis) CV (negative for chest tightness, palpitations) Musculoskeletal (see HPI) Psych (no depression, anxiety) Luis Coronel MD documented in this encounter [facility] 01-13-2023 Note ORIGINAL EXAMINATION: 4 XRAY VIEWS OF THE LEFT RIBS01/13/2023 8:20 am TECHNIQUE: AP view centered high and low and oblique views of the left ribs were obtained. COMPARISON: CT abdomen pelvis 05/20/2022, chest radiograph 05/20/2022 HISTORY: ORDERING SYSTEM PROVIDED HISTORY: Reason for Exam: Left lateral lower rib pain, no known injury FINDINGS: There is no visible rib fracture. The visualized lungs are clear. No pneumothorax is identified. The soft tissues are unremarkable. IMPRESSION: No visible rib fracture. I have personally reviewed the images of this examination and agree with the resident's findings and interpretation. Interpreted by: Osman Isabel DO Preliminary Report By: Lavern Walker Electronically signed By Osman Isabel DO Dictated Date: 01/13/2023 2:55:59 PM Prelim Date: 01/13/2023 4:18:47 PM Sign Date: 01/13/2023 4:18:47 PM Ordering Provider: [facility] 01-13-2023 Note ORIGINAL EXAMINATION: TWO XRAY VIEWS OF THE CHEST01/13/2023 8:21 am COMPARISON: Chest radiograph 05/20/2022, same day left rib radiograph HISTORY: ORDERING SYSTEM PROVIDED HISTORY: Reason for Exam: Previous right-sided pneumonia, left lateral lower rib pain, no known injury FINDINGS: The cardiomediastinal silhouette is normal. No focal consolidation or pulmonary edema. Mild lung hyperexpansion with flattening of the diaphragms bilaterally. Scattered linear opacities bilaterally are likely due to mild subsegmental atelectasis. No pneumothorax or pleural effusion. No acute osseous abnormalities. Mild degenerative changes of the thoracic spine. IMPRESSION: No acute radiographic findings. Mild subsegmental atelectasis. I have personally reviewed the images of this examination and agree with the resident's findings and interpretation. Interpreted by: Osman Isabel DO Preliminary Report By: Lavern Walker Electronically signed By Osman Isabel DO Dictated Date: 01/13/2023 2:49:44 PM Prelim Date: 01/13/2023 4:17:33 PM Sign Date: 01/13/2023 4:17:33 PM Ordering Provider: [facility] 01-13-2023 Note ORIGINAL EXAMINATION: LIMITED ABDOMINAL ULTRASOUND01/13/2023 8:19 am Ultrasound of the RIGHT upper quadrant COMPARISON: CT 05/20/2022 HISTORY: ORDERING SYSTEM PROVIDED HISTORY: Reason for Exam: new onset fatty liver with discomfort post cholecystectomy, FINDINGS: The gallbladder is surgically absent. There is no intrahepatic bile duct dilatation. The common duct is 5.6 mm at the meg hepatis. The visualized liver is enlarged and shows coarsening of echotexture and mildly increased echogenicity. Although nonspecific, this is usually from fatty infiltration. No suspicious focal mass is seen. No obvious nodularity of the liver margins. The pancreas as visualized is normal but some portions are obscured by bowel gas. No ascites is seen in the RIGHT upper quadrant. Limited survey images of the RIGHT kidney show normal cortical thickness and echogenicity with no pelvocaliectasis. There is a 1.4 cm cyst in the upper right kidney. Limited visualization of the aorta and IVC. Visualized aorta is nonaneurysmal. IMPRESSION: Hepatic steatosis or other diffuse hepatocellular disease. No acute findings. Interpreted by: Burton Engel MD Preliminary Report By: Burton Engel MD Electronically signed By Burton Engel MD Dictated Date: 01/13/2023 1:37:17 PM Prelim Date: 01/13/2023 1:38:38 PM Sign Date: 01/13/2023 1:38:38 PM Ordering Provider: [facility] 01-13-2023 Note ORIGINAL EXAMINATION: Ultrasound Thyroid COMPARISON: None HISTORY: ORDERING SYSTEM PROVIDED HISTORY: Reason for Exam: incidental thyroid nodules seen on CT at [facility], on Ozempic, FINDINGS: Size right thyroid lobe: 6.9 x 4.3 x 4.0 cm Size left thyroid lobe: 4.0 x 1.9 x 2.3 cm Size isthmus: 0.3 cm Texture: Homogeneous with normal vascularity. Estimated total number of nodules greater than or equal to 1 cm: 2 Nodule #: # 1: This is a large nodule in the mid to lower right lobe that is 5.5 x 4.5 x 3.7 cm. The nodule is solid isoechoic wider than tall with mostly smooth margins and no echogenic foci. ACR Total Points: 3; ACR TI-RADS risk category: TR3 - mildly suspicious nodule. Nodule #: # 2: This is a nodule in the mid left lobe that is 1.2 x 1.0 x 0.8 cm. The nodule is spongiform. ACR Total Points: 0; ACR TI-RADS risk category: TR1 - benign nodule There are other tiny subcentimeter bilateral thyroid nodules that are not considered suspicious by ACR TIRADS. IMPRESSION: Enlarged thyroid particularly the right lobe with a large dominant nodule as described. 1. Nodule 1: ACR TI-RADS 2017 Category 3. Recommend: See below 2. Nodule 2: ACR TI-RADS 2017 Category 1. Recommend: See below ACR TI-RADS 2017 Recommendations: TR1(0 points) : No FNA or follow up TR2 (2 points) : No FNA or follow up TR3 (3 points) : FNA if >/= 2.5 cm, follow up if 1.5 - 2.4 cm in 1, 3, and 5 years TR4 (4-6 points) : FNA if >/= 1.5 cm, follow up if 1.0 - 1.4 cm in 1, 2, 3, and 5 years TR5 (>/= 7 points) : FNA if >/= 1.0 cm, follow up if 0.5 - 0.9 cm every year for 5 years *ACR TI-RADS recommends that no more than two nodules with the highest ACR TI-RADS total point should be biopsied and no more than four nodules should be followed. Interpreted by: Burton Engel MD Preliminary Report By: Burton Engel MD Electronically signed By Burton Engel MD Dictated Date: 01/13/2023 12:41:41 PM Prelim Date: 01/13/2023 12:44:04 PM Sign Date: 01/13/2023 12:44:04 PM Ordering Provider: [facility] 01-13-2023 Note ORIGINAL EXAMINATION: TWO XRAY VIEWS OF THE CHEST01/13/2023 8:21 am COMPARISON: Chest radiograph 05/20/2022, same day left rib radiograph HISTORY: ORDERING SYSTEM PROVIDED HISTORY: Reason for Exam: Previous right-sided pneumonia, left lateral lower rib pain, no known injury FINDINGS: The cardiomediastinal silhouette is normal. No focal consolidation or pulmonary edema. Mild lung hyperexpansion with flattening of the diaphragms bilaterally. Scattered linear opacities bilaterally are likely due to mild subsegmental atelectasis. No pneumothorax or pleural effusion. No acute osseous abnormalities. Mild degenerative changes of the thoracic spine. IMPRESSION: No acute radiographic findings. Mild subsegmental atelectasis. I have personally reviewed the images of this examination and agree with the resident's findings and interpretation. Interpreted by: Osman Isabel DO Preliminary Report By: Lavern Walker Electronically signed By Osman Isabel DO Dictated Date: 01/13/2023 2:49:44 PM Prelim Date: 01/13/2023 4:17:33 PM Sign Date: 01/13/2023 4:17:33 PM Ordering Provider: EDELMIRA [facility] 01-13-2023 Note ORIGINAL EXAMINATION: 4 XRAY VIEWS OF THE LEFT RIBS01/13/2023 8:20 am TECHNIQUE: AP view centered high and low and oblique views of the left ribs were obtained. COMPARISON: CT abdomen pelvis 05/20/2022, chest radiograph 05/20/2022 HISTORY: ORDERING SYSTEM PROVIDED HISTORY: Reason for Exam: Left lateral lower rib pain, no known injury FINDINGS: There is no visible rib fracture. The visualized lungs are clear. No pneumothorax is identified. The soft tissues are unremarkable. IMPRESSION: No visible rib fracture. I have personally reviewed the images of this examination and agree with the resident's findings and interpretation. Interpreted by: Osman Isabel DO Preliminary Report By: Lavern Walker Electronically signed By Osman Isabel DO Dictated Date: 01/13/2023 2:55:59 PM Prelim Date: 01/13/2023 4:18:47 PM Sign Date: 01/13/2023 4:18:47 PM Ordering Provider: EDELMIRA [facility] 01-13-2023 Note ORIGINAL EXAMINATION: LIMITED ABDOMINAL ULTRASOUND01/13/2023 8:19 am Ultrasound of the RIGHT upper quadrant COMPARISON: CT 05/20/2022 HISTORY: ORDERING SYSTEM PROVIDED HISTORY: Reason for Exam: new onset fatty liver with discomfort post cholecystectomy, FINDINGS: The gallbladder is surgically absent. There is no intrahepatic bile duct dilatation. The common duct is 5.6 mm at the meg hepatis. The visualized liver is enlarged and shows coarsening of echotexture and mildly increased echogenicity. Although nonspecific, this is usually from fatty infiltration. No suspicious focal mass is seen. No obvious nodularity of the liver margins. The pancreas as visualized is normal but some portions are obscured by bowel gas. No ascites is seen in the RIGHT upper quadrant. Limited survey images of the RIGHT kidney show normal cortical thickness and echogenicity with no pelvocaliectasis. There is a 1.4 cm cyst in the upper right kidney. Limited visualization of the aorta and IVC. Visualized aorta is nonaneurysmal. IMPRESSION: Hepatic steatosis or other diffuse hepatocellular disease. No acute findings. Interpreted by: Burton Engel MD Preliminary Report By: Burton Engel MD Electronically signed By Burton Engel MD Dictated Date: 01/13/2023 1:37:17 PM Prelim Date: 01/13/2023 1:38:38 PM Sign Date: 01/13/2023 1:38:38 PM Ordering Provider: EDELMIRA [facility] 01-13-2023 Note ORIGINAL EXAMINATION: Ultrasound Thyroid COMPARISON: None HISTORY: ORDERING SYSTEM PROVIDED HISTORY: Reason for Exam: incidental thyroid nodules seen on CT at [facility], on Ozempic, FINDINGS: Size right thyroid lobe: 6.9 x 4.3 x 4.0 cm Size left thyroid lobe: 4.0 x 1.9 x 2.3 cm Size isthmus: 0.3 cm Texture: Homogeneous with normal vascularity. Estimated total number of nodules greater than or equal to 1 cm: 2 Nodule #: # 1: This is a large nodule in the mid to lower right lobe that is 5.5 x 4.5 x 3.7 cm. The nodule is solid isoechoic wider than tall with mostly smooth margins and no echogenic foci. ACR Total Points: 3; ACR TI-RADS risk category: TR3 - mildly suspicious nodule. Nodule #: # 2: This is a nodule in the mid left lobe that is 1.2 x 1.0 x 0.8 cm. The nodule is spongiform. ACR Total Points: 0; ACR TI-RADS risk category: TR1 - benign nodule There are other tiny subcentimeter bilateral thyroid nodules that are not considered suspicious by ACR TIRADS. IMPRESSION: Enlarged thyroid particularly the right lobe with a large dominant nodule as described. 1. Nodule 1: ACR TI-RADS 2017 Category 3. Recommend: See below 2. Nodule 2: ACR TI-RADS 2017 Category 1. Recommend: See below ACR TI-RADS 2017 Recommendations: TR1(0 points) : No FNA or follow up TR2 (2 points) : No FNA or follow up TR3 (3 points) : FNA if >/= 2.5 cm, follow up if 1.5 - 2.4 cm in 1, 3, and 5 years TR4 (4-6 points) : FNA if >/= 1.5 cm, follow up if 1.0 - 1.4 cm in 1, 2, 3, and 5 years TR5 (>/= 7 points) : FNA if >/= 1.0 cm, follow up if 0.5 - 0.9 cm every year for 5 years *ACR TI-RADS recommends that no more than two nodules with the highest ACR TI-RADS total point should be biopsied and no more than four nodules should be followed. Interpreted by: Burton Engel MD Preliminary Report By: Burton Engel MD Electronically signed By Burton Engel MD Dictated Date: 01/13/2023 12:41:41 PM Prelim Date: 01/13/2023 12:44:04 PM Sign Date: 01/13/2023 12:44:04 PM Ordering Provider: EMERITA [facility] 01-09-2023 Note . MICRO - Microbiology PROCEDURE: Urine Culture [*1] SOURCE: Urine, Clean Catch BODY SITE: COLLECTED DATE/TIME: 01/07/2023 20:29 EDT RECEIVED DATE/TIME: 01/08/2023 15:35 EDT START DATE/TIME: 01/08/2023 15:35 EDT FREE TEXT SOURCE: FINAL REPORTS Final Report [] Verified Date/Time/Personnel: 01/09/2023 14:53 EDT <10,000 cfu/ml. No Significant growth. Sensitivity not indicated. Performing Locations *1: This test was performed at: [facility], [address] [place] [address], [id number] , [facility] ([place]) 07-11-2022 Note . MICRO - Microbiology PROCEDURE: Stool Culture with Yersinia [^1 *1] SOURCE: Stool BODY SITE: COLLECTED DATE/TIME: 07/08/2022 18:21 EDT RECEIVED DATE/TIME: 07/08/2022 20:01 EDT START DATE/TIME: 07/08/2022 20:01 EDT FREE TEXT SOURCE: FINAL REPORTS Final Report [] Verified Date/Time/Personnel: 07/11/2022 11:31 EDT Normal stool corbin present - coliforms absent. Salmonella: Negative Shigella: Negative Campylobacter: Negative Yersinia: Negative PRELIMINARY REPORTS Preliminary Report [] Verified Date/Time/Personnel: 07/10/2022 12:47 EDT Normal stool corbin present - coliforms absent. Negative for stool pathogens at 48 hours. Final report to follow. Interpretive Data ^1: Culture Stool/Yersinia Requests for alternative pathogens including C. difficile toxin, E. coli 0157 Rotavirus, Giardia and parasites require specific requests. Performing Locations *1: This test was performed at: [address], [facility] , [facility] ([place]) 07-09-2022 Note . MICRO - Microbiology PROCEDURE: Shiga Toxins 1 and 2 [[id number]: [id number] ^1 *1] SOURCE: Stool BODY SITE: COLLECTED DATE/TIME: 07/08/2022 20:01 EDT RECEIVED DATE/TIME: 07/08/2022 20:01 EDT START DATE/TIME: 07/08/2022 20:01 EDT FREE TEXT SOURCE: FINAL REPORTS Final Report [] Verified Date/Time/Personnel: 07/09/2022 13:07 EDT Absence of Shiga toxin 1 Absence of Shiga toxin 2 Order Comments O1: Shiga Toxins 1 and 2 ordered by lab as part of Culture Stool Panel Interpretive Data ^1: Shiga Toxins 1 and 2 Testing performed by immunochromatography. Performing Locations *1: This test was performed at: [address], [facility] , [facility] ([place]) 05-27-2022 Note . MICRO - Microbiology PROCEDURE: Blood Culture (bacterial) [*1] SOURCE: Blood BODY SITE: COLLECTED DATE/TIME: 05/21/2022 22:59 EDT RECEIVED DATE/TIME: 05/22/2022 01:53 EDT START DATE/TIME: 05/22/2022 01:53 EDT FREE TEXT SOURCE: FINAL REPORTS Final Report [] Verified Date/Time/Personnel: 05/27/2022 01:59 EDT Blood Culture: No Growth at 5 days. PRELIMINARY REPORTS Preliminary Report [] Verified Date/Time/Personnel: 05/22/2022 02:59 EDT Culture has been received in lab and is no growth to date. Routine cultures are held for 5 days. Performing Locations *1: This test was performed at: [address], [facility] , [facility] ([place]) 05-27-2022 Note . MICRO - Microbiology PROCEDURE: Blood Culture (bacterial) [*1] SOURCE: Blood BODY SITE: COLLECTED DATE/TIME: 05/21/2022 22:59 EDT RECEIVED DATE/TIME: 05/22/2022 01:53 EDT START DATE/TIME: 05/22/2022 01:53 EDT FREE TEXT SOURCE: FINAL REPORTS Final Report [] Verified Date/Time/Personnel: 05/27/2022 01:59 EDT Blood Culture: No Growth at 5 days. PRELIMINARY REPORTS Preliminary Report [] Verified Date/Time/Personnel: 05/22/2022 02:59 EDT Culture has been received in lab and is no growth to date. Routine cultures are held for 5 days. Performing Locations *1: This test was performed at: [address], [facility] , [facility] ([place]) 05-24-2022 Note . MICRO - Microbiology PROCEDURE: Giardia Antigen [*1] SOURCE: Stool BODY SITE: COLLECTED DATE/TIME: 05/22/2022 17:55 EDT RECEIVED DATE/TIME: 05/22/2022 18:05 EDT START DATE/TIME: 05/22/2022 18:05 EDT FREE TEXT SOURCE: FINAL REPORTS Final Report [] Verified Date/Time/Personnel: 05/24/2022 14:27 EDT Giardia Antigen by EIA: Negative A single diagnostic assay should not be used as the basis for forming a clinical conclusion. Giardia antigens are shed very sporadically. It is recommended that two separate stools be tested for Giardia antigen. If both are negative, then it is less likely that Giardia is present. Results should be supported by correlation with the patient symptoms and the overall clinical picture. Performing Locations *1: This test was performed at: [address], [address] [place] [address]) 05-24-2022 Note . MICRO - Microbiology PROCEDURE: Urine Culture [*1] SOURCE: Urine, Clean Catch BODY SITE: COLLECTED DATE/TIME: 05/21/2022 23:51 EDT RECEIVED DATE/TIME: 05/22/2022 07:49 EDT START DATE/TIME: 05/22/2022 07:49 EDT FREE TEXT SOURCE: FINAL REPORTS Final Report [] Verified Date/Time/Personnel: 05/24/2022 07:35 EDT No growth at 48 hours. PRELIMINARY REPORTS Preliminary Report [] Verified Date/Time/Personnel: 05/23/2022 10:21 EDT No growth to date Performing Locations *1: This test was performed at: [address], [address] [place] [address] ([place]) 05-23-2022 Hospital Discharg e instructions Patient Education 05/23/2022 13:47:53 Diarrhea, Adult Diarrhea, Adult Diarrhea is frequent loose and watery bowel movements. Diarrhea can make you feel weak and cause you to become dehydrated. Dehydration can make you tired and thirsty, cause you to have a dry mouth, and decrease how often you urinate. Diarrhea typically lasts 2 3 days. However, it can last longer if it is a sign of something more serious. It is important to treat your diarrhea as told by your health care provider. Follow these instructions at home: Eating and drinking Follow these recommendations as told by your health care provider: Take an oral rehydration solution (ORS). This is an rkia-lgy-tvagtmj medicine that helps return your body to its normal balance of nutrients and water. It is found at pharmacies and retail stores. Drink plenty of fluids, such as water, ice chips, diluted fruit juice, and low-calorie sports drinks. You can drink milk also, if desired. Avoid drinking fluids that contain a lot of sugar or caffeine, such as energy drinks, sports drinks, and soda. Eat bland, cajc-ls-wtzkxo foods in small amounts as you are able. These foods include bananas, applesauce, rice, lean meats, toast, and crackers. Avoid alcohol. Avoid spicy or fatty foods. Medicines Take mawj-ynz-svnokcm and prescription medicines only as told by your health care provider. If you were prescribed an antibiotic medicine, take it as told by your health care provider. Do not stop using the antibiotic even if you start to feel better. General instructions Wash your hands often using soap and water. If soap and water are not available, use a hand services manager. Others in the household should wash their hands as well. Hands should be washed: ?After using the toilet or changing a diaper. ?Before preparing, cooking, or serving food. ?While caring for a sick person or while visiting someone in a hospital. Drink enough fluid to keep your urine pale yellow. Rest at home while you recover. Watch your condition for any changes. Take a warm bath to relieve any burning or pain from frequent diarrhea episodes. Keep all follow-up visits as told by your health care provider. This is important. Contact a health care provider if: You have a fever. Your diarrhea gets worse. You have new symptoms. You cannot keep fluids down. You feel light-headed or dizzy. You have a headache. You have muscle cramps. Get help right away if: You have chest pain. You feel extremely weak or you faint. You have bloody or black stools or stools that look like tar. You have severe pain, cramping, or bloating in your abdomen. You have trouble breathing or you are breathing very quickly. Your heart is beating very quickly. Your skin feels cold and clammy. You feel confused. You have signs of dehydration, such as: ?Dark urine, very little urine, or no urine. ?Cracked lips. ?Dry mouth. ?Sunken eyes. ?Sleepiness. ?Weakness. Summary Diarrhea is frequent loose and watery bowel movements. Diarrhea can make you feel weak and cause you to become dehydrated. Drink enough fluids to keep your urine pale yellow. Make sure that you wash your hands after using the toilet. If soap and water are not available, use hand services manager. Contact a health care provider if your diarrhea gets worse or you have new symptoms. Get help right away if you have signs of dehydration. This information is not intended to replace advice given to you by your health care provider. Make sure you discuss any questions you have with your health care provider. Document Released: 09/12/2003 Document Revised: 02/08/2020 Document Reviewed: 02/26/2019 [employer] Patient Education 2020 [employer]. Follow Up Care 05/21/2022 19:24:17 With:EMERITA STAUFFER APRN-INSURANCE PROCESSOR Address: [address] [place] [id number] When:1-2 days Comments:Please call the office to schedule a follow up appointment With:HOME MED- Patient's own med. Please send home with patient on discharge. Address:Unknown When:1-2 days [facility] 05-23-2022 Note . MICRO - Microbiology PROCEDURE: Shiga Toxins 1 and 2 [^1ACCESSION: [id number] *1] SOURCE: Stool BODY SITE: COLLECTED DATE/TIME: 05/22/2022 17:55 EDT RECEIVED DATE/TIME: 05/22/2022 18:04 EDT START DATE/TIME: 05/22/2022 18:05 EDT FREE TEXT SOURCE: FINAL REPORTS Final Report [] Verified Date/Time/Personnel: 05/23/2022 13:42 EDT Absence of Shiga toxin 1 Absence of Shiga toxin 2 Interpretive Data ^1: Shiga Toxins 1 and 2 Testing performed by immunochromatography. Performing Locations *1: This test was performed at: [facility], [address] [place] [address], [facility]- , [facility] ([place]) 05-23-2022 Note . MICRO - Microbiology PROCEDURE: Cryptosporidium Screen [*1] SOURCE: Stool BODY SITE: COLLECTED DATE/TIME: 05/22/2022 17:55 EDT RECEIVED DATE/TIME: 05/22/2022 18:04 EDT START DATE/TIME: 05/22/2022 18:05 EDT FREE TEXT SOURCE: FINAL REPORTS Final Report [] Verified Date/Time/Personnel: 05/23/2022 13:41 EDT Cryptosporidium Antigen by rapid membrane immunoassay: Absent or below detectable levels. Multiple specimens collected over several days can be tested for patients suspected of cryptosporidiosis. The results obtained should be used in conjunction with other clinical information available. Performing Locations *1: This test was performed at: [facility], [address] [place] [address], [id number] , [facility] ([place]) 05-23-2022 Infectious diseas e Progress note Date of Service 05/22/2022 Chief Complaint Chart Reviewed. Patient is a 66yo M admitted 05/21/2022 for colitis, sepsis, hypotension and JAMES. He has PMH significant for type 2 diabetes mellitus, COPD, tobacco abuse, hypertension, obstructive sleep apnea and morbid obesity. The patient presented to [facility] ED due to c/o nausea, vomiting, and diarrhea. The patient was transferred to [facility] with a chief concern for sepsis likely due to enteritis/colitis. On admission, patient was afebrile [temp 36.3] with leukocytosis [WBC 16.4]. Other lab work was significant for hyperkalemia [K 5.6], elevated BUN [24], elevated Creatinine [1.99], elevated AST [58], elevated ALT [70], elevated lactic acid [3.2], negative SARS COVID, and negative CDIFF PCR. Physical assessment was significant for hypotension [BP 70/39] and tachypnea [RR 22]. CXR was completed which showed hypoventilatory changes with bibasilar linear airspace opacities, most likely atelectasis. CT of Abdomen/Pelvis was completed which showed fluid-filled small and large bowel throughout the abdomen with wall thickening of the jejunum and ileum (most likely secondary to an acute infectious or inflammatory process such as enteritis and colitis), mild hepatomegaly and hepatic steatosis, mild ground-glass opacity in the bilateral lower lobes,ankylosis of the bilateral sacroiliac joints, indeterminate left adrenal gland nodule measuring 1 cm, and small amount of free fluid in the right paracolic gutter, most likely reactive. XR of Right Foot was completed which showed no acute osseous abnormality but a 2 mm linear density in the soft tissues inferior to the 5th proximal phalange that may represent a foreign body such as a splinter. Stool, Urine and Blood Cultures were obtained. The patient received Cipro, Flagyl, and IVF. ID was consulted for further recommendations regarding sepsis thought to be secondary to colitis. Patient has remained afebrile for the last 24 hours [max temp 36.8] with continued leukocytosis [WBC 15.2]. Lactic acid has trended down [1.8]. Blood Cultures are pending in lab with no growth to date. Urine Culture has been collected and is pending. Stool Culture is pending. The patient has been maintained on Zosyn. GI consult is pending. Objective Vitals and Measurements T: 36.6 C (Oral) TMIN: 36.6 C (Oral) TMAX: 36.8 C (Oral) HR: 81 RR: 20 BP: 136/75 SpO2: 95% HT: 167.6 cm WT: 132 kg BMI: 46.99 Intake and Output 7AM Yesterday to 7AM Today Intake and Output (Last 24 hours) Intake Output Urine Voided 600.00 Total Summary Total Intake 0.00 Total Output 600.00 Fluid Balance -600.00 Medications Medications (11) Active Scheduled: (6) albuterol - ipratropium 2.5 mg-0.5 mg/3 mL Inhal Kinjal UD 3 mL, Inhalation, QIDRT famotidine 20 mg/2 mL vial 20 mg 2 mL, IV Push, BID heparin 5,000 units/mL (1 mL) vial 5,000 unit(s) 1 mL, Subcutaneous, q8h icosapent 1 g capsule 2 gram(s) 2 cap(s), Oral, BID insulin lispro 100 units/mL Soln (3 mL) Give 0-10 units/dose, Subcutaneous, TIDAC piperacillin-tazobactam PMX 3.375 gram(s) 50 mL, IV Piggyback, q8h Continuous: (1) NS (0.9% nacl) 1,000 mL 1,000 mL, Intravenous, 100 mL/hr PRN: (4) albuterol 0.083% Soln UD (2.5mg/3 mL) 2.5 mg 3 mL, Nebulized, q6hRT melatonin 3 mg tablet 3 mg 1 tab(s), Oral, qHS morphine 2 mg/mL 1 mL syringe 2 mg 1 mL, IV Push, q4h ondansetron 2 mg/ 1 mL 2 mL INJ 4 mg 2 mL, IV Push, q6h Lab Results 05/22 02:15 WBC: 15.2 H Hgb: 14.1 Hct: 42.2 Platelet: 167 Neutrophil %: 87.7 H Glucose Level: 144 H Sodium Level: 139 Potassium Level: 4.2 BUN: 42.0 H Creatinine Lvl (s): 1.69 H 05/21 22:59 WBC: 16.8 H Hgb: 14.3 Hct: 42.7 Platelet: 193 Neutrophil %: 87.9 H Protime: 12.9 PT International Ratio: 1.1 Glucose Level: 153 H Sodium Level: 139 Potassium Level: 4.4 BUN: 42.0 H Creatinine Lvl (s): 1.90 H Imaging Results and Diagnostics XR Foot Minimum 3 Views Right Result Date: May 21, 2022 Verified By: ISELA RAMIREZ, NAY Bermeo CLINICAL STATEMENT: IMPRESSION: No acute osseous abnormality. 2 mm linear density in the soft tissues inferior to the 5th proximal phalangemay represent a foreign body such as a splinter. Recommend directvisualization. I have personally reviewed the images of this examination and agree with the resident's findings and interpretation. Digitally Signed by Michelle Phelps RN on 05/22/2022 07:23 AM [facility] 05-23-2022 Note Discharge Instructions Thank you for allowing [facility] to assist you with your healthcare needs. The following is important discharge information regarding your hospital visit. Your Care Team EMERITA STAUFFER Your Diagnosis Diarrhea Abnormal CT of the abdomen What to do next Scheduled Follow-Up Appointments Appointment Type When With Where Contact InformationPC Nurse Lab 08/15/2022 11:15 AM [facility] Follow Up 08/20/2022 08:00 AM [facility] Follow Up Appointments Follow Up with HOME MED- Patient's own med. Please send home with patient on discharge. When Within 1-2 days The Following Activity and Diet Have Been Ordered for You Discharge Activity - Ordered -- NO activity restrictions, 05/23/22 13:11:00 EDT Discharge Diet - Ordered -- No changes were made to your diet during your hospital stay. Please resume your pre hospitalization diet on discharge., 05/23/22 13:11:00 EDT The Following Equipment Has Been Ordered for You No qualifying data available. The Following Treatments Have Been Ordered for You Discharge Labs No qualifying data available. Discharge Radiology No qualifying data available. Other Therapies No qualifying data available. Post Acute Orders No qualifying data available. Someone Will Contact You Regarding These Home Health Referrals No home referrals have been ordered for you. No one will call you. Allergies NKA Medications Please ask your primary doctor or pharmacist before taking any other medication not listed, including over the counter drugs, herbal medications, vitamins and or supplements as they may interact with your home medications. What How Much When Instructions Last Dose Unchanged acetaminophen (Tylenol Extra Strength 500 mg oral tablet) 4 tab(s) by mouth Once a day (in the morning) as needed for as needed for fever Unchanged albuterol (albuterol MDI (90 mcg/ inh) CFC free inhalation aerosol) 2 puff(s) by inhalation Every 6 hours as needed for as needed for wheezing Duration: 30 Days Unchanged albuterol-ipratropium (albuterol-ipratropium 2.5 mg-0.5 mg/ 3 mL inhalation solution) 3 Milliliter by inhalation Every 6 hours as needed for Shortness of breath or wheezing Duration: 30 Days Unchanged aspirin (aspirin 81 mg oral delayed release tablet) 1 tab(s) by mouth Once a day take 1 tablet by mouth once daily Unchanged diclofenac topical (diclofenac 1% topical gel) 1 application Topical Four (4) times a day Duration: 30 Days not to exceed 8 grams/ day/ single joint of upper extremities not to exceed 16 grams/ day/ single joint of lower extremities Unchanged hydroCHLOROthiazide (hydroCHLOROthiazide 25 mg oral tablet) 1 tab(s) by mouth Once a day Unchanged icosapent (Vascepa 1 g oral capsule) 2 cap by mouth Two (2) times a day Duration: 90 Days Unchanged lisinopril (lisinopril 40 mg oral tablet) 1 tab(s) by mouth Once a day Unchanged metFORMIN (MetFORMIN (Eqv-Glucophage XR) 500 mg oral tablet, EXTENDED RELEASE) 2 tab(s) by mouth Once a day Duration: 90 Days Unchanged metoprolol (metoprolol succinate 100 mg oral TABLET extended release) 1 tab(s) by mouth Once a day Unchanged omeprazole (PriLOSEC OTC 20 mg oral delayed release tablet) 1 tab(s) by mouth Once a day before a meal Unchanged semaglutide (Ozempic 2 mg/ 1.5 mL (0.25 mg or 0.5 mg dose) subcutaneous solution) 0.5 Milligram Subcutaneous Every Friday What How Much When Why Comments Stop Taking DME (Nebulizer) See instructions COPD with exacerbation Dispense one nebulizer and tubing as well as mask Stop Taking DME (Walker, platform) See instructions Dispense one walker Stop Taking ibuprofen (ibuprofen 200 mg oral capsule) 6 cap by mouth Once a day (in the morning) Please take this list to your next doctor s visit. Bring all medications you take, including over the counter medications, herbals and other supplements with you to your doctor s visit. Patients and families are reminded to discard old lists and to update any records with all medication providers or retail pharmacies. Education Materials Diarrhea, Adult Diarrhea is frequent loose and watery bowel movements. Diarrhea can make you feel weak and cause you to become dehydrated. Dehydration can make you tired and thirsty, cause you to have a dry mouth, and decrease how often you urinate. Diarrhea typically lasts 2 3 days. However, it can last longer if it is a sign of something more serious. It is important to treat your diarrhea as told by your health care provider. Follow these instructions at home: Eating and drinking Follow these recommendations as told by your health care provider: Take an oral rehydration solution (ORS). This is an ihwi-zjd-dkseldr medicine that helps return your body to its normal balance of nutrients and water. It is found at pharmacies and retail stores. Drink plenty of fluids, such as water, ice chips, diluted fruit juice, and low-calorie sports drinks. You can drink milk also, if desired. Avoid drinking fluids that contain a lot of sugar or caffeine, such as energy drinks, sports drinks, and soda. Eat bland, shkd-iz-nscyqt foods in small amounts as you are able. These foods include bananas, applesauce, rice, lean meats, toast, and crackers. Avoid alcohol. Avoid spicy or fatty foods. Medicines Take jiuq-vwm-lffmvwl and prescription medicines only as told by your health care provider. If you were prescribed an antibiotic medicine, take it as told by your health care provider. Do not stop using the antibiotic even if you start to feel better. General instructions Wash your hands often using soap and water. If soap and water are not available, use a hand services manager. Others in the household should wash their hands as well. Hands should be washed: ? After using the toilet or changing a diaper. ? Before preparing, cooking, or serving food. ? While caring for a sick person or while visiting someone in a hospital. Drink enough fluid to keep your urine pale yellow. Rest at home while you recover. Watch your condition for any changes. Take a warm bath to relieve any burning or pain from frequent diarrhea episodes. Keep all follow-up visits as told by your health care provider. This is important. Contact a health care provider if: You have a fever. Your diarrhea gets worse. You have new symptoms. You cannot keep fluids down. You feel light-headed or dizzy. You have a headache. You have muscle cramps. Get help right away if: You have chest pain. You feel extremely weak or you faint. You have bloody or black stools or stools that look like tar. You have severe pain, cramping, or bloating in your abdomen. You have trouble breathing or you are breathing very quickly. Your heart is beating very quickly. Your skin feels cold and clammy. You feel confused. You have signs of dehydration, such as: ? Dark urine, very little urine, or no urine. ? Cracked lips. ? Dry mouth. ? Sunken eyes. ? Sleepiness. ? Weakness. Summary Diarrhea is frequent loose and watery bowel movements. Diarrhea can make you feel weak and cause you to become dehydrated. Drink enough fluids to keep your urine pale yellow. Make sure that you wash your hands after using the toilet. If soap and water are not available, use hand services manager. Contact a health care provider if your diarrhea gets worse or you have new symptoms. Get help right away if you have signs of dehydration. This information is not intended to replace advice given to you by your health care provider. Make sure you discuss any questions you have with your health care provider. Document Released: 09/12/2003 Document Revised: 02/08/2020 Document Reviewed: 02/26/2019 Elsevier Patient Education 2020 [employer] Additional Information VACCINATE! IT SAVES LIVES! Members of the community who have not yet received the COVID-19 vaccine and would like to receive it can visit one of [facility] vaccine clinics. There are many vaccine clinic locations within the [facility]. For locations and available times, please visit [email or web address] It is important to note that some COVID mobile vaccine clinics are held outdoors and may be canceled in rainy or stormy conditions. To learn more about pediatric vaccinations (ages 5-11), we invite you to visit the [facility] webpage. [email or web address] To learn more about the COVID-19 vaccine, we invite you to visit the [facility] website for a list of frequently asked questions. [email or web address] [facility] Patient Portal Access Instructions: Stay connected with your healthcare team and access your personal medical information anytime with the [facility] Patient Portal.If you would like a full copy of your medical records, please contact the [facility] Medical Records Department, Friday through Friday between 8a.m. and 4:30p.m. Please follow the directions below to access the portal: 1.Access the email account you provided upon registration to the [facility].2.Look for an invitation email from [facility].3.Open the email and access the invitation link: Accept Invitation to [facility].Fill in the required turk to create your account. Sign into [email or web address].[email or web address] with your username and password that you created in the above steps to stay up to date. You can then view a summary of results, a summary of your visits, and the ability to download your summaries to your computer or send the information securely to a physician. Remember that your healthcare information is confidential, so carefully consider who you will allow to register on the [facility] Patient Portal for access to your information. You can also access the [facility] Patient Portal on the [employer]. Simply click on Health Records under Health Data and then click on the [facility] logo. HOW TO SAFELY DISPOSE OF PRESCRIPTION MEDICATIONS Please use one of the following methods to safely dispose of your unused medications. 1.Use a drug disposal kit: the drug disposal pouch allows you to safely discard your old and unused drugs. Ask your nurse to give you one when you are discharged.2.Visit a local take-back location: Many local pharmacies and police departments have programs that collect old and unwanted prescription drugs. Call your local pharmacy or go to [email or web address] to find one close to you.3.Make use of household items: Use cat litter or old coffee grounds to dispose medications if other options are not available. Mix your drugs with these household products, seal them in an airtight container and throw it into the garbage. Call [facility]: [phone] to be sure your drugs can be disposed of in this way. Some medicines may require a different approach.4.Never flush your medications down the toilet. IF YOU HAVE BEEN PRESCRIBED AN OPIOID FOR PAIN If you have been prescribed an opioid (such as hydrocodone, oxycodone or morphine), it is critical to understand the possible side effects and risks of opioid pain medications. Even when taken as directed, opioids can have several side effects including: Tolerance, meaning you might need to take more of a medication for the same pain relief. Nausea, vomiting and/or constipation. Sleepiness, dizziness, dry mouth, confusion, depression or itching. Physical dependence, meaning you have withdrawal symptoms when a medication is stopped, can develop within a few days. KNOW YOUR RESPONSIBILITIES It is important to know exactly how much and how often to take the opioid pain medications you are prescribed. Never take opioids in higher amounts or more often than prescribed. Do not combine opioids with alcohol or other drugs that cause drowsiness, such as benzodiazepines, also known as benzos, including diazepam and alprazolam, muscle relaxants or sleep aids. Never sell or share prescription opioids. This is illegal. Store opioids in a secure place and out of reach of others (including children, family, friends and visitors). The last page of this document has been signed and retained as a CHART COPY. Signatures Patient Education Materials Diarrhea, Adult Medication Leaflets My discharge plan and instructions have been reviewed and explained to me and I,JASON LOO, NELSON Arredondo understand my current condition and have read and understand these discharge instructions. I have received a written copy of the plan/instructions. If I have questions, I am aware that I should contact my doctor. Patient/Head [employer] Signature: Date/Time: Relationship to Patient: Witness Name/Signature: Date/Time: [facility] 05-23-2022 Infectious diseas e Progress note Date of Service 05/23/2022 Objective Vitals and Measurements T: 37.0 C (Oral) TMIN: 36.6 C (Oral) TMAX: 37 C (Oral) HR: 71(Monitored) RR: 18 BP: 140/66 SpO2: 95% Physical Exam Chart reviewed, patient examined. Patient is alert and oriented x3, resting in bed eating breakfast. No c/o NV. Reports continued diarrhea, overall unchanged. No new complaints this AM, reports he is hoping to discharge today. Respirations easy and nonlabored, 95% on RA. Patient has remained afebrile for the last 24 hours. COVID POC negative CDIFF PCR negative GI PCR on stool pending FOCUSED ASSESSMENT: CVS: Regular S1S2, NSR on monitor LUNGS: Clear diminished bilaterally, denies SOB, occasional cough ABDOMEN: Rounded, soft, nontender, hyperactive bowel sounds, passing gas, continued diarrhea SKIN: No rashes noted INCISIONS/DRESSINGS: None EXTREMITIES: +1 BLE edema, RLE in boot, RLE weakness LINES/TUBES/DRAINS: LAC IV dressing dry & intact, no drainage or erythema at site CURRENT ANTIBIOTICS: Flagyl 500mg IV Q8h 05/20 - 05/21 Cipro 400mg IV x1 05/21 Vanco 125mg PO x1 05/21 - present Zosyn 3.375g IV Q8h 05/21 - present CULTURE RESULTS/ADORE: 8/16 Stool Culture -P In Transit 05/21 Blood Cultures 2/2 no growth to date -P 05/21 Urine Culture -P No growth to date 05/22 Cryptosporidium Screen -P In-lab 05/22 Shiga 1/2 -P In-lab 05/22 Giardia Antigen -P In-lab Weight Dosing Weight: 132 kg (05/21/22) Medications Medications (14) Active Scheduled: (9) albuterol - ipratropium 2.5 mg-0.5 mg/3 mL Inhal Kinjal UD 3 mL, Inhalation, QIDRT famotidine 20 mg/2 mL vial 20 mg 2 mL, IV Push, BID heparin 5,000 units/mL (1 mL) vial 5,000 unit(s) 1 mL, Subcutaneous, q8h icosapent 1 g capsule 2 gram(s) 2 cap(s), Oral, BID insulin lispro 100 units/mL Soln (3 mL) Give 0-10 units/dose, Subcutaneous, TIDAC Misc communication order Home Meds Verified, Miscellaneous, qDay Nicoderm patch REMOVAL 1 EA, Miscellaneous, q24h nicotine 14 mg/24 hr ER patch 14 mg 1 patch(es), Transdermal, q24h piperacillin-tazobactam PMX 3.375 gram(s) 50 mL, IV Piggyback, q8h Continuous: (1) NS (0.9% nacl) 1,000 mL 1,000 mL, Intravenous, 100 mL/hr PRN: (4) albuterol 0.083% Soln UD (2.5mg/3 mL) 2.5 mg 3 mL, Nebulized, q6hRT melatonin 3 mg tablet 3 mg 1 tab(s), Oral, qHS morphine 2 mg/mL 1 mL syringe 2 mg 1 mL, IV Push, q4h ondansetron 2 mg/ 1 mL 2 mL INJ 4 mg 2 mL, IV Push, q6h Lab Results 05/22 02:15 WBC: 15.2 H Hgb: 14.1 Hct: 42.2 Platelet: 167 Neutrophil %: 87.7 H Glucose Level: 144 H Sodium Level: 139 Potassium Level: 4.2 BUN: 42.0 H Creatinine Lvl (s): 1.69 H 05/21 22:59 WBC: 16.8 H Hgb: 14.3 Hct: 42.7 Platelet: 193 Neutrophil %: 87.9 H Protime: 12.9 PT International Ratio: 1.1 Glucose Level: 153 H Sodium Level: 139 Potassium Level: 4.4 BUN: 42.0 H Creatinine Lvl (s): 1.90 H Imaging Results and Diagnostics XR Foot Minimum 3 Views Right Result Date: May 21, 2022 Verified By: ISELA RAMIREZ, NAY Bermeo CLINICAL STATEMENT: IMPRESSION: No acute osseous abnormality. 2 mm linear density in the soft tissues inferior to the 5th proximal phalangemay represent a foreign body such as a splinter. Recommend directvisualization. I have personally reviewed the images of this examination and agree with the resident's findings and interpretation. Problem List 1. Diarrhea 2. Abnormal CT of the abdomen Digitally Signed by Michelle Phelps RN on 05/23/2022 10:32 AM [facility] 05-23-2022 Gastroenterology Progress note Date of Service May 23, 2022 Chief Complaint Diarrhea Subjective Reports 3 bowel movements in the last 24 hours. No bleeding per rectum or melena. Overall noticed significant improvement in his diarrhea after being started on antibiotic therapy. Objective Vitals and Measurements T: 36.0 C (Oral) TMIN: 36.0 C (Oral) TMAX: 37 C (Oral) HR: 63(Monitored) RR: 22 BP: 156/90 SpO2: 94% Intake and Output 7AM Yesterday to 7AM Today Intake and Output (Last 24 hours) Intake Administration Information 1600.00 Oral Intake 600.00 Output Urine Voided 0.00 Stool Count 0.00 Urine Count 1.00 Total Summary Total Intake 2200.00 Total Output 0.00 Fluid Balance 2200.00 Physical Exam Physical exam: Gen/Neuro: AAO X 3. He is on oxygen Skin: normal HEENT: PERRL, EOMI. Neck: Supple. Cardiac: S1/S2 present. Lungs: CTAB Abd: +BS, Soft, NT/ND. No HSM or ascites. Obese abdomen Ext: edema + Weight Dosing Weight: 132 kg (05/21/22) Medications Medications (14) Active Scheduled: (9) albuterol - ipratropium 2.5 mg-0.5 mg/3 mL Inhal Kinjal UD 3 mL, Inhalation, QIDRT famotidine 20 mg/2 mL vial 20 mg 2 mL, IV Push, BID heparin 5,000 units/mL (1 mL) vial 5,000 unit(s) 1 mL, Subcutaneous, q8h icosapent 1 g capsule 2 gram(s) 2 cap(s), Oral, BID insulin lispro 100 units/mL Soln (3 mL) Give 0-10 units/dose, Subcutaneous, TIDAC Misc communication order Home Meds Verified, Miscellaneous, qDay Nicoderm patch REMOVAL 1 EA, Miscellaneous, q24h nicotine 14 mg/24 hr ER patch 14 mg 1 patch(es), Transdermal, q24h piperacillin-tazobactam PMX 3.375 gram(s) 50 mL, IV Piggyback, q8h Continuous: (1) NS (0.9% nacl) 1,000 mL 1,000 mL, Intravenous, 100 mL/hr PRN: (4) albuterol 0.083% Soln UD (2.5mg/3 mL) 2.5 mg 3 mL, Nebulized, q6hRT melatonin 3 mg tablet 3 mg 1 tab(s), Oral, qHS morphine 2 mg/mL 1 mL syringe 2 mg 1 mL, IV Push, q4h ondansetron 2 mg/ 1 mL 2 mL INJ 4 mg 2 mL, IV Push, q6h Lab Results 05/22 02:15 WBC: 15.2 H Hgb: 14.1 Hct: 42.2 Platelet: 167 Neutrophil %: 87.7 H Glucose Level: 144 H Sodium Level: 139 Potassium Level: 4.2 BUN: 42.0 H Creatinine Lvl (s): 1.69 H EKG EKG - Completed -- 05/21/22 20:46:00 EDT Assessment/Plan 1. Diarrhea 2. Abnormal CT of the abdomen Problem list: Acute on chronic diarrhea likely infectious. Chronic diarrhea follows up with his programming coordinator. High-dose NSAID use. Plan: TSH is low. Defer further recommendations per primary team. IgA within normal limits. Celiac panel is pending. This can be even followed up as an outpatient by his programming coordinator. Positive FOBT test, patient recently underwent a colonoscopy by his programming coordinator in March this year. Further recommendations per his programming coordinator in the outpatient setting. Currently on Zosyn. Stool studies are pending. At the time of discharge, patient needs to follow-up with his programming coordinator for further recommendations regarding chronic diarrhea and positive FOBT stool. He wants to get home today. Recommendations regarding antibiotic per primary team and ID. We will sign off. Please call us back if needed Digitally Signed by SHANICE HERRERA MD on 05/23/2022 11:42 AM [facility] 05-23-2022 Infectious diseas e Progress note Date of Service 05/23/2022 Objective Vitals and Measurements T: 37.0 C (Oral) TMIN: 36.6 C (Oral) TMAX: 37 C (Oral) HR: 71(Monitored) RR: 18 BP: 140/66 SpO2: 95% Physical Exam Chart reviewed, patient examined. Patient is alert and oriented x3, resting in bed eating breakfast. No c/o NV. Reports continued diarrhea, overall unchanged. No new complaints this AM, reports he is hoping to discharge today. Respirations easy and nonlabored, 95% on RA. Patient has remained afebrile for the last 24 hours. COVID POC negative CDIFF PCR negative GI PCR on stool pending FOCUSED ASSESSMENT: CVS: Regular S1S2, NSR on monitor LUNGS: Clear diminished bilaterally, denies SOB, occasional cough ABDOMEN: Rounded, soft, nontender, hyperactive bowel sounds, passing gas, continued diarrhea SKIN: No rashes noted INCISIONS/DRESSINGS: None EXTREMITIES: +1 BLE edema, RLE in boot, RLE weakness LINES/TUBES/DRAINS: LAC IV dressing dry & intact, no drainage or erythema at site CURRENT ANTIBIOTICS: Flagyl 500mg IV Q8h 05/20 - 05/21 Cipro 400mg IV x1 05/21 Vanco 125mg PO x1 05/21 - present Zosyn 3.375g IV Q8h 05/21 - present CULTURE RESULTS/ADORE: 05/21 Stool Culture -P In Transit 05/21 Blood Cultures 2/ no growth to date -P 05/21 Urine Culture -P No growth to date 05/22 Cryptosporidium Screen -P In-lab 05/22 Shiga 1/2 -P In-lab 05/22 Giardia Antigen -P In-lab Weight Dosing Weight: 132 kg (05/21/22) Medications Medications (14) Active Scheduled: (9) albuterol - ipratropium 2.5 mg-0.5 mg/3 mL Inhal Kinjal UD 3 mL, Inhalation, QIDRT famotidine 20 mg/2 mL vial 20 mg 2 mL, IV Push, BID heparin 5,000 units/mL (1 mL) vial 5,000 unit(s) 1 mL, Subcutaneous, q8h icosapent 1 g capsule 2 gram(s) 2 cap(s), Oral, BID insulin lispro 100 units/mL Soln (3 mL) Give 0-10 units/dose, Subcutaneous, TIDAC Misc communication order Home Meds Verified, Miscellaneous, qDay Nicoderm patch REMOVAL 1 EA, Miscellaneous, q24h nicotine 14 mg/24 hr ER patch 14 mg 1 patch(es), Transdermal, q24h piperacillin-tazobactam PMX 3.375 gram(s) 50 mL, IV Piggyback, q8h Continuous: (1) NS (0.9% nacl) 1,000 mL 1,000 mL, Intravenous, 100 mL/hr PRN: (4) albuterol 0.083% Soln UD (2.5mg/3 mL) 2.5 mg 3 mL, Nebulized, q6hRT melatonin 3 mg tablet 3 mg 1 tab(s), Oral, qHS morphine 2 mg/mL 1 mL syringe 2 mg 1 mL, IV Push, q4h ondansetron 2 mg/ 1 mL 2 mL INJ 4 mg 2 mL, IV Push, q6h Lab Results 05/22 02:15 WBC: 15.2 H Hgb: 14.1 Hct: 42.2 Platelet: 167 Neutrophil %: 87.7 H Glucose Level: 144 H Sodium Level: 139 Potassium Level: 4.2 BUN: 42.0 H Creatinine Lvl (s): 1.69 H 05/21 22:59 WBC: 16.8 H Hgb: 14.3 Hct: 42.7 Platelet: 193 Neutrophil %: 87.9 H Protime: 12.9 PT International Ratio: 1.1 Glucose Level: 153 H Sodium Level: 139 Potassium Level: 4.4 BUN: 42.0 H Creatinine Lvl (s): 1.90 H Imaging Results and Diagnostics XR Foot Minimum 3 Views Right Result Date: May 21, 2022 Verified By: ISELA RAMIREZ, NAY Bermeo CLINICAL STATEMENT: IMPRESSION: No acute osseous abnormality. 2 mm linear density in the soft tissues inferior to the 5th proximal phalangemay represent a foreign body such as a splinter. Recommend directvisualization. I have personally reviewed the images of this examination and agree with the resident's findings and interpretation. Problem List 1. Diarrhea 2. Abnormal CT of the abdomen Digitally Signed by Michelle Phelps RN on 05/23/2022 10:32 AM [facility] 05-23-2022 Note Chief Complaint Transition Plan. Transitional Action Points Patient is a readmission less than 30 days Is hospitalized with colitis, nausea vomiting He is from home with his is independent he has had no falls he states he has not utilize a cane or a walker He states he has followed up with all of his providers on a regular basis We will continue to follow to low readmission risk. Assessment/Plan Age-related debility Obesity Colitis Readmission Risk Points Age greater than 65 Multiple hospitalizations Readmission CPAP use History of Present Illness 58-year-old male here following nausea vomiting septic shock due to colitis. He has had no hospitalizations in the past year was living home with his prior to admission, states he was independent of ADLs, denies previous dependence on, felt states that he was driving. Review of Symptoms General: Denies fever chills HEENT: Denies blurry vision, headache, congestion Respiratory: Denies shortness of breath or cough Cardio: Denies chest pain or palpitations GI: Denies abdominal pain or change in appetite Musculoskeletal: Denies injury Neuro: Denies dizziness or confusion Psych: Denies depression or anxiety Physical exam General: No acute distress, lies in bed, debilitated, obese HEENT: Oral mucosa moist, eyes following movement Respiratory: On room air Musculoskeletal: Weakness present Neurological: No tremors or focal deficit Psych: Mood cooperative, alert and oriented Vitals Signs(Last 24 hrs)__Last Charted Minimum Maximum Temp37(MAY 22 22:48)36.6(MAY 22 11:02)37(MAY 22 14:25) Heart Rate83(MAY 22 22:48)72(MAY 22 14:25)92(MAY 22 19:07) Resp Rate20(MAY 22 22:48)18(MAY 22 11:02)H 22(MAY 22 05:16) OGB863(MAY 22 22:48)94(MAY 22 05:16)140(MAY 22 11:02) DBP76(MAY 22 22:48)L 59(MAY 22 05:16)76(MAY 22 22:48) Problem List/ Past Medical History BMI 45.0-49.9, adult COPD - Chronic obstructive pulmonary disease Cataract Chronic diarrhea Colitis Diabetes Foot fracture, right Frequent falls Gout flare HTN (hypertension) Hypertension Hypertension Immunization not carried out because of patient refusal Lesion of skin of left ear Lesion of skin of left ear No-show for appointment GIRMA (obstructive sleep apnea) Sepsis Smoking greater than 30 pack years Type 2 diabetes mellitus Type 2 diabetes mellitus Well adult No qualifying data available. Procedure/ Surgical History Cataracts: 04/15/22 Colonoscopy: 03/2022 Cholelithiasis: 1995 Medication List Active Medications Ordered albuterol: 2.5 mg, 3 mL, Nebulized, q6hRT, PRN: Shortness of breath or wheezing. albuterol-ipratropium: 3 mL, Inhalation, QIDRT. famotidine: 20 mg, 2 mL, IV Push, BID. heparin: 5,000 unit(s), 1 mL, Subcutaneous, q8h. icosapent: 2 gram(s), 2 cap(s), Oral, BID. insulin lispro (HumaLOG): Give 0-10 units/dose, Subcutaneous, TIDAC. melatonin: 3 mg, 1 tab(s), Oral, qHS, PRN: Sleep. morphine: 2 mg, 1 mL, IV Push, q4h, PRN: Pain, scale 1-10. nicotine: 14 mg, 1 patch(es), Transdermal, q24h. nicotine (Nicoderm Patch REMOVAL): 1 EA, Miscellaneous, q24h. ondansetron: 4 mg, 2 mL, IV Push, q6h, PRN: Nausea. .PharmacyCommunication: Home Meds Verified, Miscellaneous, qDay. piperacillin-tazobactam: 3.375 gram(s), 50 mL, 12.5 mL/hr, IV Piggyback, q8h. Sodium Chloride 0.9% intravenous solution 1,000 mL: 100 mL/hr, Intravenous. Prescribed albuterol: 2 puff(s), Inhalation, q6hr, for 30 day(s), PRN: as needed for wheezing, 18 gram(s), 2 Refill(s). albuterol-ipratropium: 3 mL, Inhalation, q6hr, for 30 day(s), PRN: Shortness of breath or wheezing, 180 mL, 0 Refill(s). aspirin: 81 mg, 1 tab(s), Oral, qDay, take 1 tablet by mouth once daily, 90 tab(s), 3 Refill(s). diclofenac topical: 1 bhavin, Topical, QID, for 30 day(s), not to exceed 8 grams/day/single joint of upper extremities not to exceed 16 grams/day/single joint of lower extremities, 100 gram(s), 11 Refill(s). DME: See Instructions, Dispense one nebulizer and tubing as well as mask, 1 EA, 0 Refill(s). DME: See Instructions, Dispense one walker, 1 EA, 0 Refill(s). hydroCHLOROthiazide: 25 mg, 1 tab(s), Oral, qDay, 90 tab(s), 3 Refill(s). icosapent: 2 gram(s), 2 cap(s), Oral, BID, for 90 day(s), 360 cap(s), 1 Refill(s). lisinopril: 40 mg, 1 tab(s), Oral, qDay, 90 tab(s), 3 Refill(s). metFORMIN: 1,000 mg, 2 tab(s), Oral, qDay, for 90 day(s), 180 tab(s), 1 Refill(s). metoprolol: 100 mg, 1 tab(s), Oral, qDay, 90 tab(s), 3 Refill(s). Documented acetaminophen: 2,000 mg, 4 tab(s), Oral, qAM, PRN: as needed for fever. ibuprofen: 1,200 mg, 6 cap(s), Oral, qAM, 0 Refill(s). omeprazole: 20 mg, 1 tab(s), Oral, qDayAC, 0 Refill(s). semaglutide: 0.5 mg, Subcutaneous, Friday. Medications Inactivated in the Last 72 Hours acetaminophen: 650 mg, 2 tab(s), Oral, q4h, PRN: Pain, scale 1-3. acetaminophen: 650 mg, 2 tab(s), Oral, q4h, PRN: TEMP greater than 38.6 degrees Celsius. albuterol-ipratropium: 3 mL, Inhalation, q15min. albuterol-ipratropium: 3 mL, Inhalation, q2hRT, PRN: Shortness of breath or wheezing. albuterol-ipratropium: 3 mL, Inhalation, QIDRT. Al hydroxide/Mg hydroxide/simethicone: 15 mL, Oral, q4h, PRN: Gastric Upset. benzocaine-menthol topical: 1 lozenge(s), Oral, q2h, PRN: Sore throat. benzonatate: 100 mg, 1 cap(s), Oral, TID, PRN: Cough. budesonide: 0.5 mg, 2 mL, Inhalation, BIDRT. budesonide-formoterol: 2 puff(s), Inhalation, BID, for 90 day(s), 3 EA, 3 Refill(s). calcium carbonate: 500 mg, 1 tab(s), Chewed, TID, PRN: Heartburn. ciprofloxacin: 400 mg, 200 mL, 200 mL/hr, IV Piggyback, Once. ciprofloxacin: 400 mg, 200 mL, 200 mL/hr, IV Piggyback, q12h. colchicine: See Instructions, take 2 tabs at the first sign of a gout flare followed by 0.6 mg one hour later, 3 tab(s), 1 Refill(s). docusate: 100 mg, 1 cap(s), Oral, BID, PRN: Constipation. guaiFENesin: 200 mg, 10 mL, Oral, q4h, PRN: Cough. insulin lispro (HumaLOG): Give 0-5 units/dose, Subcutaneous, achs. Lactated Ringers Infusion: 500 mL, IV Bolus, Once. Lactated Ringers Infusion 1,000 mL: 125 mL/hr, Intravenous. melatonin: 6 mg, 2 tab(s), Oral, qHS, PRN: Sleep. methylPREDNISolone: 125 mg, 2 mL, IV Push, Once. methylPREDNISolone: 60 mg, 1.5 mL, IV Push, q8h. metroNIDAZOLE: 500 mg, 100 mL, 100 mL/hr, IV Piggyback, Once. metroNIDAZOLE: 500 mg, 100 mL, 100 mL/hr, IV Piggyback, q8h. nicotine: 21 mg, 1 patch(es), Transdermal, q24h. nicotine (Nicoderm Patch REMOVAL): 1 EA, Miscellaneous, Once. nicotine (Nicoderm Patch REMOVAL): 1 EA, Miscellaneous, Once. nicotine (Nicoderm Patch REMOVAL): 1 EA, Miscellaneous, q24h. ondansetron: Miscellaneous, Once. ondansetron: 4 mg, 2 mL, IV Push, q4h, PRN: Nausea/Vomiting. pantoprazole: 40 mg, 2 tab(s), Oral, qDayAC. piperacillin-tazobactam: Miscellaneous, Once. piperacillin-tazobactam: 3.375 gram(s), 25 mL/hr, IV Piggyback, q8h. semaglutide: 0.5 mg, Subcutaneous, qWeek, for 30 day(s), rotate injection sites, 1 EA, 1 Refill(s). Sodium Chloride 0.9% intravenous solution: 1,000 mL, IV Bolus, Once. Sodium Chloride 0.9% intravenous solution: 1,000 mL, IV Bolus, Once. Sodium Chloride 0.9% intravenous solution: 1,000 mL, IV Bolus, Once. Sodium Chloride 0.9% intravenous solution: Miscellaneous, Once. Sodium Chloride 0.9% intravenous solution: 1,000 mL, IV Bolus, Once. Sodium Chloride 0.9% intravenous solution: 1,000 mL, IV Bolus, Once. tadalafil: 10 mg, 1 tab(s), Oral, qDay, for 30 day(s), PRN: as needed for erectile dysfunction, 5 tab(s), 0 Refill(s). vancomycin: 125 mg, 2.5 mL, Oral, q6h. Allergies NKA Social HX Alcohol Risk Assessment: No Risk; Details: Use: Past. Nutrition/Health Details: Caffeine intake amount: coffee- 1 cup daily. Substance Abuse Risk Assessment: No Risk; Details: Use: Never. Tobacco Risk Assessment: High Risk; Details: Nicotine Use: 5-9 cigarettes (between 1/4 to 1/2 pack)/day in last 30 days, Vaping Product in Last 90 Days, sometimes its a full pack of cigarettes. Family medical HX Mother: Diabetes; Hypertension; Rheumatoid arthritis Father: Diabetes; Heart disease; Hypercholesterolemia; Hypertension Code Status Code Status - Ordered -- 05/21/22 20:40:00 EDT, Full Code, Constant Order I Coy ESPINOSA, am scribing for Thai Ogden NP, in the presence of Thai Ogden NP, personally performed the services described in this documentation, as described by Coy ESPINOSA in my presence and it is both accurate and complete. This document transcribed using voice recognition software may contain typographical errors. Digitally Signed by THAI OGDEN on 05/23/2022 02:37 PM [facility] 05-23-2022 Note Date of Service 05/22/22 Chief Complaint N+/V+ Subjective Pt was seen and examined, feels much better, no abd pain, nausea and vomiting resolved. Objective Vitals and Measurements T: 37 C (Oral) TMIN: 36.6 C (Oral) TMAX: 37 C (Oral) HR: 83(Monitored) RR: 20 BP: 123/76 SpO2: 96% Intake and Output 7AM Yesterday to 7AM Today Intake and Output (Last 24 hours) Intake Output Urine Voided 600.00 Total Summary Total Intake 0.00 Total Output 600.00 Fluid Balance -600.00 Physical Exam Gen: Appears comfortable, not in distress. HEENT: No pallor, no icterus, neck supple. Lungs: Diminished breath sounds. no wheezing or crackles CVS: S1-S2 regular rate and rhythm, no murmur noted Abd: Nontender, bowel sounds noted, no organomegaly Ext: Pulses symmetric, b/l LE edema Skin: No rash, no nodules Neuro: Alert, no focal deficits. Weight Dosing Weight: 132 kg (05/21/22) Medications Medications (14) Active Scheduled: (9) albuterol - ipratropium 2.5 mg-0.5 mg/3 mL Inhal Kinjal UD 3 mL, Inhalation, QIDRT famotidine 20 mg/2 mL vial 20 mg 2 mL, IV Push, BID heparin 5,000 units/mL (1 mL) vial 5,000 unit(s) 1 mL, Subcutaneous, q8h icosapent 1 g capsule 2 gram(s) 2 cap(s), Oral, BID insulin lispro 100 units/mL Soln (3 mL) Give 0-10 units/dose, Subcutaneous, TIDAC Misc communication order Home Meds Verified, Miscellaneous, qDay Nicoderm patch REMOVAL 1 EA, Miscellaneous, q24h nicotine 14 mg/24 hr ER patch 14 mg 1 patch(es), Transdermal, q24h piperacillin-tazobactam PMX 3.375 gram(s) 50 mL, IV Piggyback, q8h Continuous: (1) NS (0.9% nacl) 1,000 mL 1,000 mL, Intravenous, 100 mL/hr PRN: (4) albuterol 0.083% Soln UD (2.5mg/3 mL) 2.5 mg 3 mL, Nebulized, q6hRT melatonin 3 mg tablet 3 mg 1 tab(s), Oral, qHS morphine 2 mg/mL 1 mL syringe 2 mg 1 mL, IV Push, q4h ondansetron 2 mg/ 1 mL 2 mL INJ 4 mg 2 mL, IV Push, q6h Lab Results 05/22 02:15 WBC: 15.2 H Hgb: 14.1 Hct: 42.2 Platelet: 167 Neutrophil %: 87.7 H Glucose Level: 144 H Sodium Level: 139 Potassium Level: 4.2 BUN: 42.0 H Creatinine Lvl (s): 1.69 H 05/21 22:59 WBC: 16.8 H Hgb: 14.3 Hct: 42.7 Platelet: 193 Neutrophil %: 87.9 H Protime: 12.9 PT International Ratio: 1.1 Glucose Level: 153 H Sodium Level: 139 Potassium Level: 4.4 BUN: 42.0 H Creatinine Lvl (s): 1.90 H EKG EKG - Completed -- 05/21/22 20:46:00 EDT Assessment/Plan Severe sepsis without septic shock: resolved. Acute infectious Enteritis/colitis: Abdominal imaging done at [facility] revealed fluid-filled small and large bowel throughout the abdomen with wall thickening of jejunum/ileum with findings consistent with enteritis/colitis. Patient started on IV Zosyn C. difficile PCR ordered, if C. difficile is positive then day team can switch patient to oral vancomycin GI has been consulted Acute kidney injury superimposed on chronic kidney disease: improved. Patient presented with BUNs/creatinine of 24/1.99 with baseline BUN/creatinine around 18/1.16 which corresponds to a GFR of 63 and CKD stage II. Kidney function worsened initially at [facility] with BUNs/creatinine of 23/2.85 in the production bow maker of May 21 which eventually improved to 36/2.51 after IV fluids gestation. Lactic acidosis: likely due to sepsis, IV fluids Right foot fracture: Injury to right foot happened 2 months ago and about the patient he has had a foot fracture X-ray of the right foot ordered Day team can consider consulting podiatry as appropriate Type 2 diabetes mellitus: ADA clear liquid diet Insulin lispro sliding scale COPD: DuoNeb scheduled Albuterol as needed for shortness of breath/wheezing Hypertension: Avoid antihypertensives for now as patient was hypotensive at [facility] Obstructive sleep apnea: Avoid CPAP for now as it can cause reduced preload that can lead to hypotension Tobacco abuse: Patient continues to smoke one quarter of pack of cigarettes on a daily basis Tobacco treatment coordinator consulted, counseled patient to cut down on tobacco use Possible melena: GI consulted DVT prophylaxis: Bilateral SCDs Heparin 5000 units subcutaneous Digitally Signed by BRIGETTE MCKENZIE MD on 05/23/2022 01:38 AM [facility] 05-22-2022 History and physical note Date of Service May 21, 2022 Chief Complaint Nausea and vomiting, chronic diarrhea. History of Present Illness A 66 years old male with past medical history significant for type 2 diabetes mellitus, COPD, tobacco abuse, hypertension, obstructive sleep apnea and morbid obesity was transferred from [facility] to [facility] in the evening of 04/20/2022 with a chief concern for sepsis likely due to enteritis/colitis. Patient presented to the [facility] in the afternoon of May 20, 2022 with a chief concern of nausea and multiple episodes of vomiting. Patient endorsed chronic diarrhea on my evaluation. Patient also noticed 2 episodes of black stools over the past 6 months with last episode happening at [facility]. Patient had CT abdomen/pelvis with contrast done at [facility] that revealed fluid-filled small and large bowel throughout the abdomen with wall thickening of the jejunum/ileum with findings consistent for enteritis/colitis. Abdominal imaging also revealed mild metabolically/hepatic steatosis, mild groundglass opacity in bilateral lower lobes likely atelectasis, ankylosis of bilateral sacroiliac joints and indeterminate left adrenal gland nodule measuring 1 cm, small amount of free fluid in the right paracolic gutter. Chest x-ray done at [facility] on May 20 was not clinically significant, initial labs on presentation to [facility] were significant for white count of 16,400 with left shift, potassium of 5.6, BUN/creatinine of 24/1.99 with baseline BUN/creatinine around 18/1.16, lactic acid 3.2. COVID-19 test was negative at [facility]. Stool culture was ordered at [facility]. EKG ordered at [facility] revealed sinus rhythm with evidence of left anterior fascicular block, left ventricular hypertrophy and QTC of 445 ms. Patient also stated that he had a fall couple months ago where he injured his right foot and according to the it field technician he is seeing, his right foot is fractured and he has been wearing right lower extremity boot for the past couple of months. During stay at [facility], patient was hypotensive and received total of 3.5 L normal sign bolus along with ciprofloxacin/Flagyl. Patient's white count improved to 14,200 on May 21, lactic acid improved to 2.5. Review of Systems Review of systems are negative except as mentioned in HPI. Physical Exam Vitals and Measurements T: 36.7 C (Oral) HR: 101(Apical) RR: 22 BP: 105/68 SpO2: 93% HT: 167.6 cm WT: 132 kg BMI: 46.99 Weight Dosing Weight: 132 kg (05/21/22) General Appearance: Appears to be stable and in no acute distress Head: Atraumatic and normocephalic EENT: EOMI, PERRLA, no oropharyngeal erythema, no tonsillar exudates, no conjunctival injection. sclera anicteric. Neck: No thyromegaly, no cervical lymphadenopathy, trachea midline Cardiac: S1 and S2 normal. RRR. No murmurs, rubs, or gallops. No JVD. No hepatojugular reflex. Lungs: Good air entry bilaterally. No increased work for breathing. No wheezes, rhonchi, or rales. Abdomen: Soft, nontender, nondistended. Normoactive bowel sounds. No rebound or guarding. Negative Francis's sign. No hepatosplenomegaly. Musculoskeletal: Full range of motion upper and lower extremities. No CVA tenderness. Extremities: Right lower extremity was covered in boot Neurological: No gross motor deficits Skin: No abrasions, scars, or hematomas on visible skin. No cyanosis. No purulent discharge. Psychiatric: Alert and oriented, well groomed, euthymic. cooperative Lab Results Basic labs pending Imaging Results and Diagnostics As above EKG EKG at [facility] as above EKG pending at [facility]. Assessment/Plan Severe sepsis without septic shock: Patient had features of sepsis at on May 20, 2022 that included hypotension, tachycardia, leukocytosis and lactic acidosis. Patient normotensive on my evaluation Patient received total of 3.5 L IV fluids at [facility] Ordered 2 L additional Normal Saline bolus at [facility] and patient was started on continuous IV fluids. Patient started on IV Zosyn Blood cultures, stool culture, urinalysis and urine culture ordered Infectious disease has been consulted Enteritis/colitis: Abdominal imaging done at [facility] revealed fluid-filled small and large bowel throughout the abdomen with wall thickening of jejunum/ileum with findings consistent with enteritis/colitis. Patient is taking [id number] Prilosec at home that increased risk of C. difficile infection. Patient started on IV Zosyn C. difficile PCR ordered, if C. difficile is positive then day team can switch patient to oral vancomycin GI has been consulted Patient started on ADA clear liquid diet Acute kidney injury superimposed on chronic kidney disease: Patient presented with BUNs/creatinine of 24/1.99 with baseline BUN/creatinine around 18/1.16 which corresponds to a GFR of 63 and CKD stage II. Kidney function worsened initially at [facility] with BUNs/creatinine of 23/2.85 in the production bow maker of May 21 which eventually improved to 36/2.51 after IV fluids gestation. Likely prerenal injury due to sepsis IV fluids Repeat kidney function Lactic acidosis: Initial lactic acid level of 3.2 that eventually improved to 2.5 Repeat lactic acid level Likely due to sepsis IV fluids Right foot fracture: Injury to right foot happened 2 months ago and about the patient he has had a foot fracture X-ray of the right foot ordered Day team can consider consulting podiatry as appropriate Type 2 diabetes mellitus: ADA clear liquid diet Insulin lispro sliding scale COPD: DuoNeb scheduled Albuterol as needed for shortness of breath/wheezing Hypertension: Avoid antihypertensives for now as patient was hypotensive at [facility] Obstructive sleep apnea: Avoid CPAP for now as it can cause reduced preload that can lead to hypotension Tobacco abuse: Patient continues to smoke one quarter of pack of cigarettes on a daily basis Tobacco treatment coordinator consulted, counseled patient to cut down on tobacco use Possible melena: Patient did endorse couple of episodes of black stool in the past 6 months with last episode happening at [facility] Hemoglobin of 14.2 on May 21 Stool for occult blood ordered GI has already been consulted for enteritis/colitis Hold home medication of aspirin for now DVT prophylaxis: Bilateral SCDs Heparin 5000 units subcutaneous every 8 hours due to acute kidney injury Note was written using [employer] securities settlement processor software. Some of the meaning of the words and sentences might have changed during securities settlement processor, if there was ever some confusion about the meaning of some sentences, please do not hesitate to contact me. Problem List/Past Medical History Ongoing BMI 45.0-49.9, adult Cataract Chronic diarrhea Colitis COPD - Chronic obstructive pulmonary disease Diabetes Foot fracture, right Frequent falls Gout flare HTN (hypertension) Hypertension Hypertension Immunization not carried out because of patient refusal Lesion of skin of left ear Lesion of skin of left ear No-show for appointment GIRMA (obstructive sleep apnea) Sepsis Smoking greater than 30 pack years Type 2 diabetes mellitus Type 2 diabetes mellitus Well adult Historical No qualifying data Procedure/Surgical History Cataracts: 04/15/22 Colonoscopy: 03/2022 Cholelithiasis: 1995 Medications Home Medications (15) Active albuterol MDI (90 mcg/inh) CFC free inhalation aerosol 2 puff(s), PRN, Inhalation, q6hr albuterol-ipratropium 2.5 mg-0.5 mg/3 mL inhalation solution 3 mL, PRN, Inhalation, q6hr aspirin 81 mg oral delayed release tablet 81 mg = 1 tab(s), Oral, qDay diclofenac 1% topical gel 1 bhavin, Topical, QID hydroCHLOROthiazide 25 mg oral tablet 25 mg = 1 tab(s), Oral, qDay ibuprofen 200 mg oral capsule 1,200 mg = 6 cap(s), Oral, qAM lisinopril 40 mg oral tablet 40 mg = 1 tab(s), Oral, qDay MetFORMIN (Eqv-Glucophage XR) 500 mg oral tablet, EXTENDED RELEASE 1,000 mg = 2 tab(s), Oral, qDay metoprolol succinate 100 mg oral TABLET extended release 100 mg = 1 tab(s), Oral, qDay Nebulizer See Instructions Ozempic 2 mg/1.5 mL (0.25 mg or 0.5 mg dose) subcutaneous solution 0.5 mg, Subcutaneous, Friday PriLOSEC OTC 20 mg oral delayed release tablet 20 mg = 1 tab(s), Oral, qDayAC Tylenol Extra Strength 500 mg oral tablet 2,000 mg = 4 tab(s), PRN, Oral, qAM Vascepa 1 g oral capsule 2 gram(s) = 2 cap(s), Oral, BID Walker, platform See Instructions Allergies NKA Social History Alcohol - No Risk, 08/25/2021 Use: Past., 07/25/2021 Nutrition/Health Caffeine intake amount: coffee- 1 cup daily., 07/25/2021 Substance Abuse - No Risk, 08/25/2021 Use: Never., 07/25/2021 Tobacco - High Risk, 08/25/2021 Nicotine Use: 5-9 cigarettes (between 1/4 to 1/2 pack)/day in last 30 days, Vaping Product in Last 90 Days, sometimes its a full pack of cigarettes., 05/20/2022 Family History Diabetes: Mother and Father. Heart disease: Father. Hypercholesterolemia: Father. Hypertension: Mother and Father. Rheumatoid arthritis: Mother. Immunizations No qualifying data available. Code Status Code Status - Ordered -- 05/21/22 20:40:00 EDT, Full Code, Constant Order Digitally Signed by KIERSTEN BRAUN MD on 05/21/2022 09:09 PM [facility] 05-22-2022 Gastroenterology Consult note Date of Service 05/22/2022 Reason for Consultation Acute on chronic diarrhea, abnormal CT of the abdomen and pelvis Referring Physician Dr. Mckenzie History of Present Illness The patient is a 66-year-old male, who has a past medical history significant for T2DM, COPD, tobacco abuse, HTN, GIRMA and morbid obesity who was transferred to [facility] from [facility] on 04/20/2022 for further evaluation and treatment of severe sepsis. Patient initially presented to [facility] on 05/20/2022 for further evaluation and treatment of a sudden onset of nausea, vomiting with heavy retching and dry heaves, and worsening of chronic diarrhea. On arrival to the ER the patient was noted to have multiple lab abnormalities including leukocytosis with WC count 16.2 and lactic acidosis Actiq acid level 3.2. He was tachycardic and hypotensive. CT of abdomen pelvis with contrast was notable for multiple abnormal findings including mild groundglass opacities in bilateral lobes, hepatic steatosis and hepatomegaly, mild circumferential wall thickening of the bladder, fluid-filled small and large bowel throughout the abdomen with wall thickening of the jejunum and ileum, per read report likely secondary to acute infectious or inflammatory process and small amount of free fluid in the paracolic gutter. She was started on IV fluids, antibiotics of Cipro and Flagyl. Patient was transferred to [facility] for further evaluation antibiotics have been switched to Zosyn. We have been asked to see the patient from a GI standpoint. Infectious disease has been consulted, there is also questionable foreign body in patient's right foot. This morning patient was seen and examined resting in bed. He reports that he feels 100% better. C. difficile PCR is negative. He has had no further nausea or vomiting. He is tolerating clear liquid difficulty. As above he does have history of chronic diarrhea and has seen by programming coordinator Dr. Paz in [place], [place]. Colonoscopy in March 2022 for evaluation of his chronic diarrhea was reportedly negative for inflammation notable for polyp. He was instructed to follow-up in the outpatient setting for further evaluation. Patient states that he has been struggling with chronic diarrhea for the past year and a half. Accompanied by occasional nighttime awakenings, fecal urgency and incontinence. States that his stools are described as large volume, loose and clumpy and are typically brown in color. The frequency varies but on average she has 2-6 bowel movements per day. He denies cramping or significant abdominal pain. Patient denies any melena or visible blood in the stool. There was some question of hematemesis versus reddish color to his emesis. Has no known family history for GI diseases malignancies. He is on multiple medications for his diabetes. He is on aspirin 81 mg/day and also takes OTC NSAIDs daily for musculoskeletal pain. He is on PPI therapy of omeprazole. He is a non-smoker, nondrinker and denies any illicit or recreational drug use. Patient is afebrile and hemodynamically stable. He did have some hypoxia overnight and was started on O2 at 3 L/min. Review of Systems 10 system review of systems was completed all pertinent positives were described above and are otherwise negative. Physical Exam Vitals and Measurements T: 36.6 C (Oral) TMIN: 36.6 C (Oral) TMAX: 36.8 C (Oral) HR: 84 RR: 18 BP: 140/72 SpO2: 94% HT: 167.6 cm WT: 132 kg BMI: 46.99 Weight Dosing Weight: 132 kg (05/21/22) General Appearance: Patient is alert, well-appearing, in no acute distress. Appropriate mood and affect. Head: Head is normocephalic and atraumatic. EENT: Conjunctivae are clear without exudates or hemorrhage sclera is nonicteric. Nasal mucosa is pink and moist. Oral mucosa is pink and moist. The pharynx is normal in appearance. Neck: The neck is supple without adenopathy. Trachea is midline. Cardiac: Heart rate and rhythm are normal. S1 and S2 are heard and are of normal intensity. Lungs: No signs of respiratory distress. Lung sounds are diminished bilaterally. Patient on 02 at 3 L/min. Abdomen: Abdomen is soft, obese, symmetric and nontender without distention. There are no visible lesions or scars. Umbilicus is midline without herniation. Bowel sounds are present and active in all 4 quadrants. No masses, hepatomegaly or splenomegaly are noted. Extremities: No edema noted. Pulses palpable. Neurological: The patient is alert awake and oriented to person,place, and time with normal speech. Skin: Skin is warm and dry. Intact without lesions or rashes. Appropriate color for ethnicity. Lab Results 05/22 02:15 WBC: 15.2 H Hgb: 14.1 Hct: 42.2 Platelet: 167 Neutrophil %: 87.7 H Glucose Level: 144 H Sodium Level: 139 Potassium Level: 4.2 BUN: 42.0 H Creatinine Lvl (s): 1.69 H 05/21 22:59 WBC: 16.8 H Hgb: 14.3 Hct: 42.7 Platelet: 193 Neutrophil %: 87.9 H Protime: 12.9 PT International Ratio: 1.1 Glucose Level: 153 H Sodium Level: 139 Potassium Level: 4.4 BUN: 42.0 H Creatinine Lvl (s): 1.90 H Assessment/Plan 1. Diarrhea 2. Abnormal CT of the abdomen We have been consulted to see the patient for acute on chronic diarrhea and an abnormal CT scan of the abdomen pelvis with findings of fluid-filled large and small bowel throughout the abdomen and wall thickening of the jejunum and ileum. As described in HPI the patient does have a complex medical history notable for multiple comorbidities and initially presented to the hospital for sudden onset of nausea, vomiting and worsening of chronic diarrhea. He was admitted for sepsis and started on Eprex and IV fluids. Overall, patient reports improvement in his symptoms. He is tolerating clear liquid diet difficulty. He denies abdominal pain. There is been no further nausea or vomiting. There was some report of reddish emesis/hematemesis but do wonder if this is secondary to an acute infectious gastroenteritis versus Ale[place]ja tear with heavy retching and recurrent nausea and vomiting. Hemoglobin did decrease to 14.1 but suspect it is secondary to aggressive fluid resuscitation. Etiology of acute on chronic diarrhea remains unknown but suspect it is secondary to infectious etiology. C. difficile PCR is negative. Patient does have a history of chronic diarrhea and has been seen by programming coordinator Dr. Paz in [facility] for this. There are multiple differentials that could be considered for this, which include but are not limited to medication side effects (patient is on multiple medications including hypoglycemic agents and NSAIDs which can cause chronic diarrhea) versus dietary malabsorption including lactose deficiency and/or celiac versus IBS versus SIBO with his diabetes versus small bowel IBD. Does not appear to be microscopic colitis or colonic IBD based on colonoscopy report do not have any pathology to confirm this.. For completeness sake will add this Giardia, Shiga toxins and Cryptosporidium to stool studies. We will follow-up on stool culture. Check TSH. Check celiac serologies. Consider obtaining chest x-ray as patient had hypoxia overnight and is now requiring O2 for further evaluation of his sepsis. Antibiotics per primary team and infectious disease teams. Do not recommend FOBT testing. Fecal occult blood testing is designed for colon cancer screening and healthy, asymptomatic outpatients, and even at that sensitivity is low. It is not an accurate assessment of active GI bleeding. Certainly outpatient follow-up with his established programming coordinator for further evaluation of his chronic diarrhea would be beneficial for this patient going forward. After resolution of his acute on chronic issues. Thank for this consult we will follow with you. Please call with questions. Refer to Dr. Herrera's addendum to my note for further recommendations. Orders: Cryptosporidium Screen Giardia Antigen IgA Shiga Toxins 1 and 2 TGT Ab (IGA) Thyroid Stimulating Hormone Problem List/Past Medical History Ongoing BMI 45.0-49.9, adult Cataract Chronic diarrhea Colitis COPD - Chronic obstructive pulmonary disease Diabetes Foot fracture, right Frequent falls Gout flare HTN (hypertension) Hypertension Hypertension Immunization not carried out because of patient refusal Lesion of skin of left ear Lesion of skin of left ear No-show for appointment GIRMA (obstructive sleep apnea) Sepsis Smoking greater than 30 pack years Type 2 diabetes mellitus Type 2 diabetes mellitus Well adult Historical No qualifying data Procedure/Surgical History Cataracts: 04/15/22 Colonoscopy: 03/2022 Cholelithiasis: 1995 Medications Inpatient albuterol 2.5 mg/3 mL (0.083%) inhalation solution, 2.5 mg= 3 mL, Nebulized, q6hRT, PRN DuoNeb, 3 mL, Inhalation, QIDRT famotidine, 20 mg= 2 mL, IV Push, BID heparin 5000 units/mL injection, 5000 unit(s)= 1 mL, Subcutaneous, q8h HumaLOG 100 units/mL subcutaneous solution, Give 0-10 units/dose, Subcutaneous, TIDAC melatonin, 3 mg= 1 tab(s), Oral, qHS, PRN morphine, 2 mg= 1 mL, IV Push, q4h, PRN Nicoderm C-Q 14 mg/24 hr transdermal film, extended release, 14 mg= 1 patch(es), Transdermal, q24h nicotine (Nicoderm Patch REMOVAL), 1 EA, Miscellaneous, q24h NS 1,000 mL, 1000 mL, Intravenous Vascepa, 2 gram(s)= 2 cap(s), Oral, BID Zofran, 4 mg= 2 mL, IV Push, q6h, PRN Zosyn, 3.375 gram(s)= 50 mL, IV Piggyback, q8h Home albuterol MDI (90 mcg/inh) CFC free inhalation aerosol, 2 puff(s), Inhalation, q6hr, PRN, 2 refills albuterol-ipratropium 2.5 mg-0.5 mg/3 mL inhalation solution, 3 mL, Inhalation, q6hr, PRN aspirin 81 mg oral delayed release tablet, 81 mg= 1 tab(s), Oral, qDay, 3 refills diclofenac 1% topical gel, 1 bhavin, Topical, QID, 11 refills hydroCHLOROthiazide 25 mg oral tablet, 25 mg= 1 tab(s), Oral, qDay, 3 refills ibuprofen 200 mg oral capsule, 1200 mg= 6 cap(s), Oral, qAM lisinopril 40 mg oral tablet, 40 mg= 1 tab(s), Oral, qDay, 3 refills MetFORMIN (Eqv-Glucophage XR) 500 mg oral tablet, EXTENDED RELEASE, 1000 mg= 2 tab(s), Oral, qDay, 1 refills metoprolol succinate 100 mg oral TABLET extended release, 100 mg= 1 tab(s), Oral, qDay, 3 refills Nebulizer, See Instructions Ozempic 2 mg/1.5 mL (0.25 mg or 0.5 mg dose) subcutaneous solution, 0.5 mg, Subcutaneous, Friday PriLOSEC OTC 20 mg oral delayed release tablet, 20 mg= 1 tab(s), Oral, qDayAC Tylenol Extra Strength 500 mg oral tablet, 2000 mg= 4 tab(s), Oral, qAM, PRN Vascepa 1 g oral capsule, 2 gram(s)= 2 cap(s), Oral, BID, 1 refills, New Prescription: Has not started yet. herbert Nichols, See Instructions Allergies NKA Social History Alcohol - No Risk, 08/25/2021 Use: Past., 07/25/2021 Nutrition/Health Caffeine intake amount: coffee- 1 cup daily., 07/25/2021 Substance Abuse - No Risk, 08/25/2021 Use: Never., 07/25/2021 Tobacco - High Risk, 08/25/2021 Nicotine Use: 5-9 cigarettes (between 1/4 to 1/2 pack)/day in last 30 days, Vaping Product in Last 90 Days, sometimes its a full pack of cigarettes., 05/20/2022 Family History Diabetes: Mother and Father. Heart disease: Father. Hypercholesterolemia: Father. Hypertension: Mother and Father. Rheumatoid arthritis: Mother. Immunizations No qualifying data available. Digitally Signed by DANIAL CHAIREZ on 05/22/2022 01:34 PM [facility] 05-22-2022 Infectious diseas e Consult note Date of Service 05/22/2022 Reason for Consultation Diarrhea abnormal CT scan Referring Physician Dr. Mckenzie History of Present Illness Patient is a 66yo M admitted 05/21/2022 for colitis, sepsis, hypotension and JAMES. He has PMH significant for type 2 diabetes mellitus, COPD, tobacco abuse, hypertension, obstructive sleep apnea and morbid obesity. The patient presented to [facility] ED due to c/o nausea, vomiting, and diarrhea. Patient reports to me that he has had chronic diarrhea for 1-1/2-year. He reports that he had seen a programming coordinator and had colonoscopy performed during which time a polyp was removed, the patient is unable to provide any further details regarding the colonoscopy findings. Patient reports that he was in his usual state of health up until last Friday when he suddenly had nausea vomiting and diarrhea. Patient's reports that the prior day on Friday patient had lunch at worship. His symptoms started Friday afternoon with profuse vomiting followed by diarrhea. He was admitted to [facility] and subsequently transferred here. Apparently patient did have C. difficile testing obtained which came back negative. Patient had CT scan of abdomen and pelvis which was concerning for enteritis colitis. On admission, patient was afebrile [temp 36.3] with leukocytosis [WBC 16.4]. Other lab work was significant for hyperkalemia [K 5.6], elevated BUN [24], elevated Creatinine [1.99], elevated AST [58], elevated ALT [70], elevated lactic acid [3.2], negative SARS COVID, and negative CDIFF PCR. Physical assessment was significant for hypotension [BP 70/39] and tachypnea [RR 22]. CXR was completed which showed hypoventilatory changes with bibasilar linear airspace opacities, most likely atelectasis. CT of Abdomen/Pelvis was completed which showed fluid-filled small and large bowel throughout the abdomen with wall thickening of the jejunum and ileum (most likely secondary to an acute infectious or inflammatory process such as enteritis and colitis), mild hepatomegaly and hepatic steatosis, mild ground-glass opacity in the bilateral lower lobes,ankylosis of the bilateral sacroiliac joints, indeterminate left adrenal gland nodule measuring 1 cm, and small amount of free fluid in the right paracolic gutter, most likely reactive. XR of Right Foot was completed which showed no acute osseous abnormality but a 2 mm linear density in the soft tissues inferior to the 5th proximal phalange that may represent a foreign body such as a splinter. Stool, Urine and Blood Cultures were obtained. The patient received Cipro, Flagyl, and IVF. ID was consulted for further recommendations regarding sepsis thought to be secondary to colitis. Patient has remained afebrile for the last 24 hours [max temp 36.8] with continued leukocytosis [WBC 15.2]. Lactic acid has trended down [1.8]. Blood Cultures are pending in lab with no growth to date. Urine Culture has been collected and is pending. Stool Culture is pending. The patient has been maintained on Zosyn. GI consult is pending. Review of Systems 12 point review of systems is reviewed and is negative except for noted above. Physical Exam Vitals and Measurements T: 37 C (Oral) TMIN: 36.6 C (Oral) TMAX: 37 C (Oral) HR: 79 RR: 18 BP: 122/73 SpO2: 95% HT: 167.6 cm WT: 132 kg BMI: 46.99 Weight Dosing Weight: 132 kg (05/21/22) General Appearance: Patient is laying in the bed not in any apparent distress morbidly obese male alert awake oriented x3 HEENT: Atraumatic normocephalic, EOMI Neck: Neck supple oral mucosa moist Cardiac: first and second heart sounds audible Lungs: Clear to auscultation bilaterally Abdomen: Soft nontender nondistended bowel sounds positive Musculoskeletal: No tenderness over large joints Extremities: Trace bilateral lower extremity edema Neurological: Grossly non focal Skin: No rash Lab Results 05/22 02:15 WBC: 15.2 H Hgb: 14.1 Hct: 42.2 Platelet: 167 Neutrophil %: 87.7 H Glucose Level: 144 H Sodium Level: 139 Potassium Level: 4.2 BUN: 42.0 H Creatinine Lvl (s): 1.69 H 05/21 22:59 WBC: 16.8 H Hgb: 14.3 Hct: 42.7 Platelet: 193 Neutrophil %: 87.9 H Protime: 12.9 PT International Ratio: 1.1 Glucose Level: 153 H Sodium Level: 139 Potassium Level: 4.4 BUN: 42.0 H Creatinine Lvl (s): 1.90 H Imaging Results and Diagnostics XR Foot Minimum 3 Views Right Result Date: May 21, 2022 Verified By: ISELA RAMIREZ, NAY Bermeo CLINICAL STATEMENT: IMPRESSION: No acute osseous abnormality. 2 mm linear density in the soft tissues inferior to the 5th proximal phalangemay represent a foreign body such as a splinter. Recommend directvisualization. I have personally reviewed the images of this examination and agree with the resident's findings and interpretation. Assessment/Plan 1. Diarrhea 2. Abnormal CT of the abdomen Patient is a 66-year-old male with multiple medical comorbid conditions who is presented to the hospital with acute on chronic diarrhea associated with nausea and vomiting which started Friday. Initially presented to [facility] where he was noted to have leukocytosis and CT abdomen and pelvis suggestive of fluid-filled small and large bowel throughout the abdomen with thickening of the jejunum and consistent with enteritis and colitis. CT also shows ankylosis of bilateral sacroiliac joints. Patient was initially treated with Cipro and Flagyl and subsequently transition to Zosyn. Multiple stool studies are pending at this time to elucidate any infectious etiology to his symptoms. We will additionally obtain GI pathogen PCR on stool. Continue Zosyn limit antibiotics to total 3 days, can tentatively stop Zosyn tomorrow GI is on board regarding thickening of jejunum and ileum, defer further GI work-up to them. Await results of GI pathogen PCR. Orders: [facility] Lab Send Out (Non-Blood Specimens) Problem List/Past Medical History Ongoing BMI 45.0-49.9, adult Cataract Chronic diarrhea Colitis COPD - Chronic obstructive pulmonary disease Diabetes Foot fracture, right Frequent falls Gout flare HTN (hypertension) Hypertension Hypertension Immunization not carried out because of patient refusal Lesion of skin of left ear Lesion of skin of left ear No-show for appointment GIRMA (obstructive sleep apnea) Sepsis Smoking greater than 30 pack years Type 2 diabetes mellitus Type 2 diabetes mellitus Well adult Historical No qualifying data Procedure/Surgical History Cataracts: 04/15/22 Colonoscopy: 03/2022 Cholelithiasis: 1995 Medications Inpatient albuterol 2.5 mg/3 mL (0.083%) inhalation solution, 2.5 mg= 3 mL, Nebulized, q6hRT, PRN DuoNeb, 3 mL, Inhalation, QIDRT famotidine, 20 mg= 2 mL, IV Push, BID heparin 5000 units/mL injection, 5000 unit(s)= 1 mL, Subcutaneous, q8h HumaLOG 100 units/mL subcutaneous solution, Give 0-10 units/dose, Subcutaneous, TIDAC melatonin, 3 mg= 1 tab(s), Oral, qHS, PRN morphine, 2 mg= 1 mL, IV Push, q4h, PRN Nicoderm C-Q 14 mg/24 hr transdermal film, extended release, 14 mg= 1 patch(es), Transdermal, q24h nicotine (Nicoderm Patch REMOVAL), 1 EA, Miscellaneous, q24h NS 1,000 mL, 1000 mL, Intravenous Vascepa, 2 gram(s)= 2 cap(s), Oral, BID Zofran, 4 mg= 2 mL, IV Push, q6h, PRN Zosyn, 3.375 gram(s)= 50 mL, IV Piggyback, q8h Home albuterol MDI (90 mcg/inh) CFC free inhalation aerosol, 2 puff(s), Inhalation, q6hr, PRN, 2 refills albuterol-ipratropium 2.5 mg-0.5 mg/3 mL inhalation solution, 3 mL, Inhalation, q6hr, PRN aspirin 81 mg oral delayed release tablet, 81 mg= 1 tab(s), Oral, qDay, 3 refills diclofenac 1% topical gel, 1 bhavin, Topical, QID, 11 refills hydroCHLOROthiazide 25 mg oral tablet, 25 mg= 1 tab(s), Oral, qDay, 3 refills ibuprofen 200 mg oral capsule, 1200 mg= 6 cap(s), Oral, qAM lisinopril 40 mg oral tablet, 40 mg= 1 tab(s), Oral, qDay, 3 refills MetFORMIN (Eqv-Glucophage XR) 500 mg oral tablet, EXTENDED RELEASE, 1000 mg= 2 tab(s), Oral, qDay, 1 refills metoprolol succinate 100 mg oral TABLET extended release, 100 mg= 1 tab(s), Oral, qDay, 3 refills Nebulizer, See Instructions Ozempic 2 mg/1.5 mL (0.25 mg or 0.5 mg dose) subcutaneous solution, 0.5 mg, Subcutaneous, Friday PriLOSEC OTC 20 mg oral delayed release tablet, 20 mg= 1 tab(s), Oral, qDayAC Tylenol Extra Strength 500 mg oral tablet, 2000 mg= 4 tab(s), Oral, qAM, PRN Vascepa 1 g oral capsule, 2 gram(s)= 2 cap(s), Oral, BID, 1 refills, New Prescription: Has not started yet. herbert Nichols, See Instructions Allergies NKA Social History Alcohol - No Risk, 08/25/2021 Use: Past., 07/25/2021 Nutrition/Health Caffeine intake amount: coffee- 1 cup daily., 07/25/2021 Substance Abuse - No Risk, 08/25/2021 Use: Never., 07/25/2021 Tobacco - High Risk, 08/25/2021 Nicotine Use: 5-9 cigarettes (between 1/4 to 1/2 pack)/day in last 30 days, Vaping Product in Last 90 Days, sometimes its a full pack of cigarettes., 05/20/2022 Family History Diabetes: Mother and Father. Heart disease: Father. Hypercholesterolemia: Father. Hypertension: Mother and Father. Rheumatoid arthritis: Mother. Immunizations No qualifying data available. Digitally Signed by JONATHAN MALDONADO MD on 05/22/2022 05:14 PM [facility] 05-22-2022 Gastroenterology Consult note Date of Service 05/22/2022 Reason for Consultation Acute on chronic diarrhea, abnormal CT of the abdomen and pelvis Referring Physician Dr. Mckenzie History of Present Illness The patient is a 66-year-old male, who has a past medical history significant for T2DM, COPD, tobacco abuse, HTN, GIRMA and morbid obesity who was transferred to [facility] on 04/20/2022 for further evaluation and treatment of severe sepsis. Patient initially presented to [facility] ER on 05/20/2022 for further evaluation and treatment of a sudden onset of nausea, vomiting with heavy retching and dry heaves, and worsening of chronic diarrhea. On arrival to the ER the patient was noted to have multiple lab abnormalities including leukocytosis with WC count 16.2 and lactic acidosis Actiq acid level 3.2. He was tachycardic and hypotensive. CT of abdomen pelvis with contrast was notable for multiple abnormal findings including mild groundglass opacities in bilateral lobes, hepatic steatosis and hepatomegaly, mild circumferential wall thickening of the bladder, fluid-filled small and large bowel throughout the abdomen with wall thickening of the jejunum and ileum, per read report likely secondary to acute infectious or inflammatory process and small amount of free fluid in the paracolic gutter. She was started on IV fluids, antibiotics of Cipro and Flagyl. Patient was transferred to [facility] for further evaluation antibiotics have been switched to Zosyn. We have been asked to see the patient from a GI standpoint. Infectious disease has been consulted, there is also questionable foreign body in patient's right foot. This morning patient was seen and examined resting in bed. He reports that he feels 100% better. C. difficile PCR is negative. He has had no further nausea or vomiting. He is tolerating clear liquid difficulty. As above he does have history of chronic diarrhea and has seen by programming coordinator Dr. Paz in [place], [place]. Colonoscopy in March 2022 for evaluation of his chronic diarrhea was reportedly negative for inflammation notable for polyp. He was instructed to follow-up in the outpatient setting for further evaluation. Patient states that he has been struggling with chronic diarrhea for the past year and a half. Accompanied by occasional nighttime awakenings, fecal urgency and incontinence. States that his stools are described as large volume, loose and clumpy and are typically brown in color. The frequency varies but on average she has 2-6 bowel movements per day. He denies cramping or significant abdominal pain. Patient denies any melena or visible blood in the stool. There was some question of hematemesis versus reddish color to his emesis. Has no known family history for GI diseases malignancies. He is on multiple medications for his diabetes. He is on aspirin 81 mg/day and also takes OTC NSAIDs daily for musculoskeletal pain. He is on PPI therapy of omeprazole. He is a non-smoker, nondrinker and denies any illicit or recreational drug use. Patient is afebrile and hemodynamically stable. He did have some hypoxia overnight and was started on O2 at 3 L/min. Review of Systems 10 system review of systems was completed all pertinent positives were described above and are otherwise negative. Physical Exam Vitals and Measurements T: 36.6 C (Oral) TMIN: 36.6 C (Oral) TMAX: 36.8 C (Oral) HR: 84 RR: 18 BP: 140/72 SpO2: 94% HT: 167.6 cm WT: 132 kg BMI: 46.99 Weight Dosing Weight: 132 kg (05/21/22) General Appearance: Patient is alert, well-appearing, in no acute distress. Appropriate mood and affect. Head: Head is normocephalic and atraumatic. EENT: Conjunctivae are clear without exudates or hemorrhage sclera is nonicteric. Nasal mucosa is pink and moist. Oral mucosa is pink and moist. The pharynx is normal in appearance. Neck: The neck is supple without adenopathy. Trachea is midline. Cardiac: Heart rate and rhythm are normal. S1 and S2 are heard and are of normal intensity. Lungs: No signs of respiratory distress. Lung sounds are diminished bilaterally. Patient on 02 at 3 L/min. Abdomen: Abdomen is soft, obese, symmetric and nontender without distention. There are no visible lesions or scars. Umbilicus is midline without herniation. Bowel sounds are present and active in all 4 quadrants. No masses, hepatomegaly or splenomegaly are noted. Extremities: No edema noted. Pulses palpable. Neurological: The patient is alert awake and oriented to person,place, and time with normal speech. Skin: Skin is warm and dry. Intact without lesions or rashes. Appropriate color for ethnicity. Lab Results 05/22 02:15 WBC: 15.2 H Hgb: 14.1 Hct: 42.2 Platelet: 167 Neutrophil %: 87.7 H Glucose Level: 144 H Sodium Level: 139 Potassium Level: 4.2 BUN: 42.0 H Creatinine Lvl (s): 1.69 H 05/21 22:59 WBC: 16.8 H Hgb: 14.3 Hct: 42.7 Platelet: 193 Neutrophil %: 87.9 H Protime: 12.9 PT International Ratio: 1.1 Glucose Level: 153 H Sodium Level: 139 Potassium Level: 4.4 BUN: 42.0 H Creatinine Lvl (s): 1.90 H Assessment/Plan 1. Diarrhea 2. Abnormal CT of the abdomen We have been consulted to see the patient for acute on chronic diarrhea and an abnormal CT scan of the abdomen pelvis with findings of fluid-filled large and small bowel throughout the abdomen and wall thickening of the jejunum and ileum. As described in HPI the patient does have a complex medical history notable for multiple comorbidities and initially presented to the hospital for sudden onset of nausea, vomiting and worsening of chronic diarrhea. He was admitted for sepsis and started on Eprex and IV fluids. Overall, patient reports improvement in his symptoms. He is tolerating clear liquid diet difficulty. He denies abdominal pain. There is been no further nausea or vomiting. There was some report of reddish emesis/hematemesis but do wonder if this is secondary to an acute infectious gastroenteritis versus [place] tear with heavy retching and recurrent nausea and vomiting. Hemoglobin did decrease to 14.1 but suspect it is secondary to aggressive fluid resuscitation. Etiology of acute on chronic diarrhea remains unknown but suspect it is secondary to infectious etiology. C. difficile PCR is negative. Patient does have a history of chronic diarrhea and has been seen by programming coordinator Dr. Paz in [facility] for this. There are multiple differentials that could be considered for this, which include but are not limited to medication side effects (patient is on multiple medications including hypoglycemic agents and NSAIDs which can cause chronic diarrhea) versus dietary malabsorption including lactose deficiency and/or celiac versus IBS versus SIBO with his diabetes versus small bowel IBD. Does not appear to be microscopic colitis or colonic IBD based on colonoscopy report do not have any pathology to confirm this.. For completeness sake will add this Giardia, Shiga toxins and Cryptosporidium to stool studies. We will follow-up on stool culture. Check TSH. Check celiac serologies. Consider obtaining chest x-ray as patient had hypoxia overnight and is now requiring O2 for further evaluation of his sepsis. Antibiotics per primary team and infectious disease teams. Do not recommend FOBT testing. Fecal occult blood testing is designed for colon cancer screening and healthy, asymptomatic outpatients, and even at that sensitivity is low. It is not an accurate assessment of active GI bleeding. Certainly outpatient follow-up with his established programming coordinator for further evaluation of his chronic diarrhea would be beneficial for this patient going forward. After resolution of his acute on chronic issues. Thank for this consult we will follow with you. Please call with questions. Refer to Dr. Herrera's addendum to my note for further recommendations. Orders: Cryptosporidium Screen Giardia Antigen IgA Shiga Toxins 1 and 2 TGT Ab (IGA) Thyroid Stimulating Hormone Problem List/Past Medical History Ongoing BMI 45.0-49.9, adult Cataract Chronic diarrhea Colitis COPD - Chronic obstructive pulmonary disease Diabetes Foot fracture, right Frequent falls Gout flare HTN (hypertension) Hypertension Hypertension Immunization not carried out because of patient refusal Lesion of skin of left ear Lesion of skin of left ear No-show for appointment GIRMA (obstructive sleep apnea) Sepsis Smoking greater than 30 pack years Type 2 diabetes mellitus Type 2 diabetes mellitus Well adult Historical No qualifying data Procedure/Surgical History Cataracts: 04/15/22 Colonoscopy: 03/2022 Cholelithiasis: 1995 Medications Inpatient albuterol 2.5 mg/3 mL (0.083%) inhalation solution, 2.5 mg= 3 mL, Nebulized, q6hRT, PRN DuoNeb, 3 mL, Inhalation, QIDRT famotidine, 20 mg= 2 mL, IV Push, BID heparin 5000 units/mL injection, 5000 unit(s)= 1 mL, Subcutaneous, q8h HumaLOG 100 units/mL subcutaneous solution, Give 0-10 units/dose, Subcutaneous, TIDAC melatonin, 3 mg= 1 tab(s), Oral, qHS, PRN morphine, 2 mg= 1 mL, IV Push, q4h, PRN Nicoderm C-Q 14 mg/24 hr transdermal film, extended release, 14 mg= 1 patch(es), Transdermal, q24h nicotine (Nicoderm Patch REMOVAL), 1 EA, Miscellaneous, q24h NS 1,000 mL, 1000 mL, Intravenous Vascepa, 2 gram(s)= 2 cap(s), Oral, BID Zofran, 4 mg= 2 mL, IV Push, q6h, PRN Zosyn, 3.375 gram(s)= 50 mL, IV Piggyback, q8h Home albuterol MDI (90 mcg/inh) CFC free inhalation aerosol, 2 puff(s), Inhalation, q6hr, PRN, 2 refills albuterol-ipratropium 2.5 mg-0.5 mg/3 mL inhalation solution, 3 mL, Inhalation, q6hr, PRN aspirin 81 mg oral delayed release tablet, 81 mg= 1 tab(s), Oral, qDay, 3 refills diclofenac 1% topical gel, 1 bhavin, Topical, QID, 11 refills hydroCHLOROthiazide 25 mg oral tablet, 25 mg= 1 tab(s), Oral, qDay, 3 refills ibuprofen 200 mg oral capsule, 1200 mg= 6 cap(s), Oral, qAM lisinopril 40 mg oral tablet, 40 mg= 1 tab(s), Oral, qDay, 3 refills MetFORMIN (Eqv-Glucophage XR) 500 mg oral tablet, EXTENDED RELEASE, 1000 mg= 2 tab(s), Oral, qDay, 1 refills metoprolol succinate 100 mg oral TABLET extended release, 100 mg= 1 tab(s), Oral, qDay, 3 refills Nebulizer, See Instructions Ozempic 2 mg/1.5 mL (0.25 mg or 0.5 mg dose) subcutaneous solution, 0.5 mg, Subcutaneous, Friday PriLOSEC OTC 20 mg oral delayed release tablet, 20 mg= 1 tab(s), Oral, qDayAC Tylenol Extra Strength 500 mg oral tablet, 2000 mg= 4 tab(s), Oral, qAM, PRN Vascepa 1 g oral capsule, 2 gram(s)= 2 cap(s), Oral, BID, 1 refills, New Prescription: Has not started yet. herbert Nichols, See Instructions Allergies NKA Social History Alcohol - No Risk, 08/25/2021 Use: Past., 07/25/2021 Nutrition/Health Caffeine intake amount: coffee- 1 cup daily., 07/25/2021 Substance Abuse - No Risk, 08/25/2021 Use: Never., 07/25/2021 Tobacco - High Risk, 08/25/2021 Nicotine Use: 5-9 cigarettes (between 1/4 to 1/2 pack)/day in last 30 days, Vaping Product in Last 90 Days, sometimes its a full pack of cigarettes., 05/20/2022 Family History Diabetes: Mother and Father. Heart disease: Father. Hypercholesterolemia: Father. Hypertension: Mother and Father. Rheumatoid arthritis: Mother. Immunizations No qualifying data available. Digitally Signed by DANIAL CHAIREZ on 05/22/2022 01:34 PM [facility] 05-22-2022 Infectious diseas e Progress note Date of Service 05/22/2022 Chief Complaint Chart Reviewed. Patient is a 66yo M admitted 05/21/2022 for colitis, sepsis, hypotension and JAMES. He has PMH significant for type 2 diabetes mellitus, COPD, tobacco abuse, hypertension, obstructive sleep apnea and morbid obesity. The patient presented to [facility] ED due to c/o nausea, vomiting, and diarrhea. The patient was transferred to [facility] with a chief concern for sepsis likely due to enteritis/colitis. On admission, patient was afebrile [temp 36.3] with leukocytosis [WBC 16.4]. Other lab work was significant for hyperkalemia [K 5.6], elevated BUN [24], elevated Creatinine [1.99], elevated AST [58], elevated ALT [70], elevated lactic acid [3.2], negative SARS COVID, and negative CDIFF PCR. Physical assessment was significant for hypotension [BP 70/39] and tachypnea [RR 22]. CXR was completed which showed hypoventilatory changes with bibasilar linear airspace opacities, most likely atelectasis. CT of Abdomen/Pelvis was completed which showed fluid-filled small and large bowel throughout the abdomen with wall thickening of the jejunum and ileum (most likely secondary to an acute infectious or inflammatory process such as enteritis and colitis), mild hepatomegaly and hepatic steatosis, mild ground-glass opacity in the bilateral lower lobes,ankylosis of the bilateral sacroiliac joints, indeterminate left adrenal gland nodule measuring 1 cm, and small amount of free fluid in the right paracolic gutter, most likely reactive. XR of Right Foot was completed which showed no acute osseous abnormality but a 2 mm linear density in the soft tissues inferior to the 5th proximal phalange that may represent a foreign body such as a splinter. Stool, Urine and Blood Cultures were obtained. The patient received Cipro, Flagyl, and IVF. ID was consulted for further recommendations regarding sepsis thought to be secondary to colitis. Patient has remained afebrile for the last 24 hours [max temp 36.8] with continued leukocytosis [WBC 15.2]. Lactic acid has trended down [1.8]. Blood Cultures are pending in lab with no growth to date. Urine Culture has been collected and is pending. Stool Culture is pending. The patient has been maintained on Zosyn. GI consult is pending. Objective Vitals and Measurements T: 36.6 C (Oral) TMIN: 36.6 C (Oral) TMAX: 36.8 C (Oral) HR: 81 RR: 20 BP: 136/75 SpO2: 95% HT: 167.6 cm WT: 132 kg BMI: 46.99 Intake and Output 7AM Yesterday to 7AM Today Intake and Output (Last 24 hours) Intake Output Urine Voided 600.00 Total Summary Total Intake 0.00 Total Output 600.00 Fluid Balance -600.00 Medications Medications (11) Active Scheduled: (6) albuterol - ipratropium 2.5 mg-0.5 mg/3 mL Inhal Kinjal UD 3 mL, Inhalation, QIDRT famotidine 20 mg/2 mL vial 20 mg 2 mL, IV Push, BID heparin 5,000 units/mL (1 mL) vial 5,000 unit(s) 1 mL, Subcutaneous, q8h icosapent 1 g capsule 2 gram(s) 2 cap(s), Oral, BID insulin lispro 100 units/mL Soln (3 mL) Give 0-10 units/dose, Subcutaneous, TIDAC piperacillin-tazobactam PMX 3.375 gram(s) 50 mL, IV Piggyback, q8h Continuous: (1) NS (0.9% nacl) 1,000 mL 1,000 mL, Intravenous, 100 mL/hr PRN: (4) albuterol 0.083% Soln UD (2.5mg/3 mL) 2.5 mg 3 mL, Nebulized, q6hRT melatonin 3 mg tablet 3 mg 1 tab(s), Oral, qHS morphine 2 mg/mL 1 mL syringe 2 mg 1 mL, IV Push, q4h ondansetron 2 mg/ 1 mL 2 mL INJ 4 mg 2 mL, IV Push, q6h Lab Results 05/22 02:15 WBC: 15.2 H Hgb: 14.1 Hct: 42.2 Platelet: 167 Neutrophil %: 87.7 H Glucose Level: 144 H Sodium Level: 139 Potassium Level: 4.2 BUN: 42.0 H Creatinine Lvl (s): 1.69 H 05/21 22:59 WBC: 16.8 H Hgb: 14.3 Hct: 42.7 Platelet: 193 Neutrophil %: 87.9 H Protime: 12.9 PT International Ratio: 1.1 Glucose Level: 153 H Sodium Level: 139 Potassium Level: 4.4 BUN: 42.0 H Creatinine Lvl (s): 1.90 H Imaging Results and Diagnostics XR Foot Minimum 3 Views Right Result Date: May 21, 2022 Verified By: ISELA RAMIREZ, NAY Bermeo CLINICAL STATEMENT: IMPRESSION: No acute osseous abnormality. 2 mm linear density in the soft tissues inferior to the 5th proximal phalangemay represent a foreign body such as a splinter. Recommend directvisualization. I have personally reviewed the images of this examination and agree with the resident's findings and interpretation. Digitally Signed by Michelle Phelps RN on 05/22/2022 07:23 AM [facility] 05-22-2022 History and physical note Date of Service May 21, 2022 Chief Complaint Nausea and vomiting, chronic diarrhea. History of Present Illness A 66 years old male with past medical history significant for type 2 diabetes mellitus, COPD, tobacco abuse, hypertension, obstructive sleep apnea and morbid obesity was transferred from [facility] to [facility] in the evening of 04/20/2022 with a chief concern for sepsis likely due to enteritis/colitis. Patient presented to the [facility] in the afternoon of May 20, 2022 with a chief concern of nausea and multiple episodes of vomiting. Patient endorsed chronic diarrhea on my evaluation. Patient also noticed 2 episodes of black stools over the past 6 months with last episode happening at [facility]. Patient had CT abdomen/pelvis with contrast done at [facility] that revealed fluid-filled small and large bowel throughout the abdomen with wall thickening of the jejunum/ileum with findings consistent for enteritis/colitis. Abdominal imaging also revealed mild metabolically/hepatic steatosis, mild groundglass opacity in bilateral lower lobes likely atelectasis, ankylosis of bilateral sacroiliac joints and indeterminate left adrenal gland nodule measuring 1 cm, small amount of free fluid in the right paracolic gutter. Chest x-ray done at [facility] on May 20 was not clinically significant, initial labs on presentation to [facility] were significant for white count of 16,400 with left shift, potassium of 5.6, BUN/creatinine of 24/1.99 with baseline BUN/creatinine around 18/1.16, lactic acid 3.2. COVID-19 test was negative at [facility]. Stool culture was ordered at [facility]. EKG ordered at [facility] revealed sinus rhythm with evidence of left anterior fascicular block, left ventricular hypertrophy and QTC of 445 ms. Patient also stated that he had a fall couple months ago where he injured his right foot and according to the it field technician he is seeing, his right foot is fractured and he has been wearing right lower extremity boot for the past couple of months. During stay at [facility], patient was hypotensive and received total of 3.5 L normal sign bolus along with ciprofloxacin/Flagyl. Patient's white count improved to 14,200 on May 21, lactic acid improved to 2.5. Review of Systems Review of systems are negative except as mentioned in HPI. Physical Exam Vitals and Measurements T: 36.7 C (Oral) HR: 101(Apical) RR: 22 BP: 105/68 SpO2: 93% HT: 167.6 cm WT: 132 kg BMI: 46.99 Weight Dosing Weight: 132 kg (05/21/22) General Appearance: Appears to be stable and in no acute distress Head: Atraumatic and normocephalic EENT: EOMI, PERRLA, no oropharyngeal erythema, no tonsillar exudates, no conjunctival injection. sclera anicteric. Neck: No thyromegaly, no cervical lymphadenopathy, trachea midline Cardiac: S1 and S2 normal. RRR. No murmurs, rubs, or gallops. No JVD. No hepatojugular reflex. Lungs: Good air entry bilaterally. No increased work for breathing. No wheezes, rhonchi, or rales. Abdomen: Soft, nontender, nondistended. Normoactive bowel sounds. No rebound or guarding. Negative Francis's sign. No hepatosplenomegaly. Musculoskeletal: Full range of motion upper and lower extremities. No CVA tenderness. Extremities: Right lower extremity was covered in boot Neurological: No gross motor deficits Skin: No abrasions, scars, or hematomas on visible skin. No cyanosis. No purulent discharge. Psychiatric: Alert and oriented, well groomed, euthymic. cooperative Lab Results Basic labs pending Imaging Results and Diagnostics As above EKG EKG at [facility] as above EKG pending at [facility]. Assessment/Plan Severe sepsis without septic shock: Patient had features of sepsis at on May 20, 2022 that included hypotension, tachycardia, leukocytosis and lactic acidosis. Patient normotensive on my evaluation Patient received total of 3.5 L IV fluids at [facility] Ordered 2 L additional Normal Saline bolus at [facility] and patient was started on continuous IV fluids. Patient started on IV Zosyn Blood cultures, stool culture, urinalysis and urine culture ordered Infectious disease has been consulted Enteritis/colitis: Abdominal imaging done at [facility] revealed fluid-filled small and large bowel throughout the abdomen with wall thickening of jejunum/ileum with findings consistent with enteritis/colitis. Patient is taking [id number] Prilosec at home that increased risk of C. difficile infection. Patient started on IV Zosyn C. difficile PCR ordered, if C. difficile is positive then day team can switch patient to oral vancomycin GI has been consulted Patient started on ADA clear liquid diet Acute kidney injury superimposed on chronic kidney disease: Patient presented with BUNs/creatinine of 24/1.99 with baseline BUN/creatinine around 18/1.16 which corresponds to a GFR of 63 and CKD stage II. Kidney function worsened initially at [facility] with BUNs/creatinine of 23/2.85 in the production bow maker of May 21 which eventually improved to 36/2.51 after IV fluids gestation. Likely prerenal injury due to sepsis IV fluids Repeat kidney function Lactic acidosis: Initial lactic acid level of 3.2 that eventually improved to 2.5 Repeat lactic acid level Likely due to sepsis IV fluids Right foot fracture: Injury to right foot happened 2 months ago and about the patient he has had a foot fracture X-ray of the right foot ordered Day team can consider consulting podiatry as appropriate Type 2 diabetes mellitus: ADA clear liquid diet Insulin lispro sliding scale COPD: DuoNeb scheduled Albuterol as needed for shortness of breath/wheezing Hypertension: Avoid antihypertensives for now as patient was hypotensive at [facility] Obstructive sleep apnea: Avoid CPAP for now as it can cause reduced preload that can lead to hypotension Tobacco abuse: Patient continues to smoke one quarter of pack of cigarettes on a daily basis Tobacco treatment coordinator consulted, counseled patient to cut down on tobacco use Possible melena: Patient did endorse couple of episodes of black stool in the past 6 months with last episode happening at [facility] Hemoglobin of 14.2 on May 21 Stool for occult blood ordered GI has already been consulted for enteritis/colitis Hold home medication of aspirin for now DVT prophylaxis: Bilateral SCDs Heparin 5000 units subcutaneous every 8 hours due to acute kidney injury Note was written using Poach[employer] securities settlement processor software. Some of the meaning of the words and sentences might have changed during securities settlement processor, if there was ever some confusion about the meaning of some sentences, please do not hesitate to contact me. Problem List/Past Medical History Ongoing BMI 45.0-49.9, adult Cataract Chronic diarrhea Colitis COPD - Chronic obstructive pulmonary disease Diabetes Foot fracture, right Frequent falls Gout flare HTN (hypertension) Hypertension Hypertension Immunization not carried out because of patient refusal Lesion of skin of left ear Lesion of skin of left ear No-show for appointment GIRMA (obstructive sleep apnea) Sepsis Smoking greater than 30 pack years Type 2 diabetes mellitus Type 2 diabetes mellitus Well adult Historical No qualifying data Procedure/Surgical History Cataracts: 04/15/22 Colonoscopy: 03/2022 Cholelithiasis: 1995 Medications Home Medications (15) Active albuterol MDI (90 mcg/inh) CFC free inhalation aerosol 2 puff(s), PRN, Inhalation, q6hr albuterol-ipratropium 2.5 mg-0.5 mg/3 mL inhalation solution 3 mL, PRN, Inhalation, q6hr aspirin 81 mg oral delayed release tablet 81 mg = 1 tab(s), Oral, qDay diclofenac 1% topical gel 1 bhavin, Topical, QID hydroCHLOROthiazide 25 mg oral tablet 25 mg = 1 tab(s), Oral, qDay ibuprofen 200 mg oral capsule 1,200 mg = 6 cap(s), Oral, qAM lisinopril 40 mg oral tablet 40 mg = 1 tab(s), Oral, qDay MetFORMIN (Eqv-Glucophage XR) 500 mg oral tablet, EXTENDED RELEASE 1,000 mg = 2 tab(s), Oral, qDay metoprolol succinate 100 mg oral TABLET extended release 100 mg = 1 tab(s), Oral, qDay Nebulizer See Instructions Ozempic 2 mg/1.5 mL (0.25 mg or 0.5 mg dose) subcutaneous solution 0.5 mg, Subcutaneous, Friday PriLOSEC OTC 20 mg oral delayed release tablet 20 mg = 1 tab(s), Oral, qDayAC Tylenol Extra Strength 500 mg oral tablet 2,000 mg = 4 tab(s), PRN, Oral, qAM Vascepa 1 g oral capsule 2 gram(s) = 2 cap(s), Oral, BID Walker, platform See Instructions Allergies NKA Social History Alcohol - No Risk, 08/25/2021 Use: Past., 07/25/2021 Nutrition/Health Caffeine intake amount: coffee- 1 cup daily., 07/25/2021 Substance Abuse - No Risk, 08/25/2021 Use: Never., 07/25/2021 Tobacco - High Risk, 08/25/2021 Nicotine Use: 5-9 cigarettes (between 1/4 to 1/2 pack)/day in last 30 days, Vaping Product in Last 90 Days, sometimes its a full pack of cigarettes., 05/20/2022 Family History Diabetes: Mother and Father. Heart disease: Father. Hypercholesterolemia: Father. Hypertension: Mother and Father. Rheumatoid arthritis: Mother. Immunizations No qualifying data available. Code Status Code Status - Ordered -- 05/21/22 20:40:00 EDT, Full Code, Constant Order Digitally Signed by KIERSTEN BRAUN MD on 05/21/2022 09:09 PM [facility] 05-21-2022 Note ORIGINAL EXAMINATION: THREE XRAY VIEWS OF THE RIGHT FOOT 05/21/2022 9:43 pm COMPARISON: X-ray foot 03/13/2022 HISTORY: ORDERING SYSTEM PROVIDED HISTORY: Reason for Exam: Fracture of right foot, pain across top of the right foot FINDINGS: No acute fracture or dislocation. The joint spaces are maintained. The tarsal bones are intact. A well corticated osseous density measuring 4 mm posterior to the posterior malleolus is likely a sequel of prior trauma. Calcaneal enthesiophyte at the insertion of Achilles tendon and plantar fascia are noted. There is a 2 mm linear density along the inferior and lateral aspect of the 5th proximal phalange, in the inferior soft tissues. IMPRESSION: No acute osseous abnormality. 2 mm linear density in the soft tissues inferior to the 5th proximal phalange may represent a foreign body such as a splinter. Recommend direct visualization. I have personally reviewed the images of this examination and agree with the resident's findings and interpretation. Interpreted by: Nay Schroeder MD Preliminary Report By: Lizette Sorto Electronically signed By Nay Schroeder MD Dictated Date: 05/21/2022 10:43:56 PM Prelim Date: 05/21/2022 10:50:10 PM Sign Date: 05/21/2022 10:51:46 PM Ordering Provider: KIERSTEN BRAUN [facility] 05-21-2022 Note ORIGINAL EXAMINATION: THREE XRAY VIEWS OF THE RIGHT FOOT 05/21/2022 9:43 pm COMPARISON: X-ray foot 03/13/2022 HISTORY: ORDERING SYSTEM PROVIDED HISTORY: Reason for Exam: Fracture of right foot, pain across top of the right foot FINDINGS: No acute fracture or dislocation. The joint spaces are maintained. The tarsal bones are intact. A well corticated osseous density measuring 4 mm posterior to the posterior malleolus is likely a sequel of prior trauma. Calcaneal enthesiophyte at the insertion of Achilles tendon and plantar fascia are noted. There is a 2 mm linear density along the inferior and lateral aspect of the 5th proximal phalange, in the inferior soft tissues. IMPRESSION: No acute osseous abnormality. 2 mm linear density in the soft tissues inferior to the 5th proximal phalange may represent a foreign body such as a splinter. Recommend direct visualization. I have personally reviewed the images of this examination and agree with the resident's findings and interpretation. Interpreted by: Nay Schroeder MD Preliminary Report By: Lizette Sorto Electronically signed By Nay Schroeder MD Dictated Date: 05/21/2022 10:43:56 PM Prelim Date: 05/21/2022 10:50:10 PM Sign Date: 05/21/2022 10:51:46 PM Ordering Provider: KIERSTEN BRAUN [facility] 05-21-2022 History and physical note Date of Service May 21, 2022 Chief Complaint Nausea and vomiting, chronic diarrhea. History of Present Illness A 66 years old male with past medical history significant for type 2 diabetes mellitus, COPD, tobacco abuse, hypertension, obstructive sleep apnea and morbid obesity was transferred from [facility] to [facility] in the evening of 04/20/2022 with a chief concern for sepsis likely due to enteritis/colitis. Patient presented to the [facility] in the afternoon of May 20, 2022 with a chief concern of nausea and multiple episodes of vomiting. Patient endorsed chronic diarrhea on my evaluation. Patient also noticed 2 episodes of black stools over the past 6 months with last episode happening at [facility]. Patient had CT abdomen/pelvis with contrast done at [facility] that revealed fluid-filled small and large bowel throughout the abdomen with wall thickening of the jejunum/ileum with findings consistent for enteritis/colitis. Abdominal imaging also revealed mild metabolically/hepatic steatosis, mild groundglass opacity in bilateral lower lobes likely atelectasis, ankylosis of bilateral sacroiliac joints and indeterminate left adrenal gland nodule measuring 1 cm, small amount of free fluid in the right paracolic gutter. Chest x-ray done at [facility] on May 20 was not clinically significant, initial labs on presentation to [facility] were significant for white count of 16,400 with left shift, potassium of 5.6, BUN/creatinine of 24/1.99 with baseline BUN/creatinine around 18/1.16, lactic acid 3.2. COVID-19 test was negative at [facility]. Stool culture was ordered at [facility]. EKG ordered at [facility] revealed sinus rhythm with evidence of left anterior fascicular block, left ventricular hypertrophy and QTC of 445 ms. Patient also stated that he had a fall couple months ago where he injured his right foot and according to the it field technician he is seeing, his right foot is fractured and he has been wearing right lower extremity boot for the past couple of months. During stay at [facility], patient was hypotensive and received total of 3.5 L normal sign bolus along with ciprofloxacin/Flagyl. Patient's white count improved to 14,200 on May 21, lactic acid improved to 2.5. Review of Systems Review of systems are negative except as mentioned in HPI. Physical Exam Vitals and Measurements T: 36.7 C (Oral) HR: 101(Apical) RR: 22 BP: 105/68 SpO2: 93% HT: 167.6 cm WT: 132 kg BMI: 46.99 Weight Dosing Weight: 132 kg (05/21/22) General Appearance: Appears to be stable and in no acute distress Head: Atraumatic and normocephalic EENT: EOMI, PERRLA, no oropharyngeal erythema, no tonsillar exudates, no conjunctival injection. sclera anicteric. Neck: No thyromegaly, no cervical lymphadenopathy, trachea midline Cardiac: S1 and S2 normal. RRR. No murmurs, rubs, or gallops. No JVD. No hepatojugular reflex. Lungs: Good air entry bilaterally. No increased work for breathing. No wheezes, rhonchi, or rales. Abdomen: Soft, nontender, nondistended. Normoactive bowel sounds. No rebound or guarding. Negative Francis's sign. No hepatosplenomegaly. Musculoskeletal: Full range of motion upper and lower extremities. No CVA tenderness. Extremities: Right lower extremity was covered in boot Neurological: No gross motor deficits Skin: No abrasions, scars, or hematomas on visible skin. No cyanosis. No purulent discharge. Psychiatric: Alert and oriented, well groomed, euthymic. cooperative Lab Results Basic labs pending Imaging Results and Diagnostics As above EKG EKG at [facility] as above EKG pending at [facility]. Assessment/Plan Severe sepsis without septic shock: Patient had features of sepsis at on May 20, 2022 that included hypotension, tachycardia, leukocytosis and lactic acidosis. Patient normotensive on my evaluation Patient received total of 3.5 L IV fluids at [facility] Ordered 2 L additional Normal Saline bolus at [facility] and patient was started on continuous IV fluids. Patient started on IV Zosyn Blood cultures, stool culture, urinalysis and urine culture ordered Infectious disease has been consulted Enteritis/colitis: Abdominal imaging done at [facility] revealed fluid-filled small and large bowel throughout the abdomen with wall thickening of jejunum/ileum with findings consistent with enteritis/colitis. Patient is taking [id number] Prilosec at home that increased risk of C. difficile infection. Patient started on IV Zosyn C. difficile PCR ordered, if C. difficile is positive then day team can switch patient to oral vancomycin GI has been consulted Patient started on ADA clear liquid diet Acute kidney injury superimposed on chronic kidney disease: Patient presented with BUNs/creatinine of 24/1.99 with baseline BUN/creatinine around 18/1.16 which corresponds to a GFR of 63 and CKD stage II. Kidney function worsened initially at [facility] with BUNs/creatinine of 23/2.85 in the production bow maker of May 21 which eventually improved to 36/2.51 after IV fluids gestation. Likely prerenal injury due to sepsis IV fluids Repeat kidney function Lactic acidosis: Initial lactic acid level of 3.2 that eventually improved to 2.5 Repeat lactic acid level Likely due to sepsis IV fluids Right foot fracture: Injury to right foot happened 2 months ago and about the patient he has had a foot fracture X-ray of the right foot ordered Day team can consider consulting podiatry as appropriate Type 2 diabetes mellitus: ADA clear liquid diet Insulin lispro sliding scale COPD: DuoNeb scheduled Albuterol as needed for shortness of breath/wheezing Hypertension: Avoid antihypertensives for now as patient was hypotensive at [facility] Obstructive sleep apnea: Avoid CPAP for now as it can cause reduced preload that can lead to hypotension Tobacco abuse: Patient continues to smoke one quarter of pack of cigarettes on a daily basis Tobacco treatment coordinator consulted, counseled patient to cut down on tobacco use Possible melena: Patient did endorse couple of episodes of black stool in the past 6 months with last episode happening at [facility] Hemoglobin of 14.2 on May 21 Stool for occult blood ordered GI has already been consulted for enteritis/colitis Hold home medication of aspirin for now DVT prophylaxis: Bilateral SCDs Heparin 5000 units subcutaneous every 8 hours due to acute kidney injury Note was written using Poach[employer] securities settlement processor software. Some of the meaning of the words and sentences might have changed during securities settlement processor, if there was ever some confusion about the meaning of some sentences, please do not hesitate to contact me. Problem List/Past Medical History Ongoing BMI 45.0-49.9, adult Cataract Chronic diarrhea Colitis COPD - Chronic obstructive pulmonary disease Diabetes Foot fracture, right Frequent falls Gout flare HTN (hypertension) Hypertension Hypertension Immunization not carried out because of patient refusal Lesion of skin of left ear Lesion of skin of left ear No-show for appointment GIRMA (obstructive sleep apnea) Sepsis Smoking greater than 30 pack years Type 2 diabetes mellitus Type 2 diabetes mellitus Well adult Historical No qualifying data Procedure/Surgical History Cataracts: 04/15/22 Colonoscopy: 03/2022 Cholelithiasis: 1995 Medications Home Medications (15) Active albuterol MDI (90 mcg/inh) CFC free inhalation aerosol 2 puff(s), PRN, Inhalation, q6hr albuterol-ipratropium 2.5 mg-0.5 mg/3 mL inhalation solution 3 mL, PRN, Inhalation, q6hr aspirin 81 mg oral delayed release tablet 81 mg = 1 tab(s), Oral, qDay diclofenac 1% topical gel 1 bhavin, Topical, QID hydroCHLOROthiazide 25 mg oral tablet 25 mg = 1 tab(s), Oral, qDay ibuprofen 200 mg oral capsule 1,200 mg = 6 cap(s), Oral, qAM lisinopril 40 mg oral tablet 40 mg = 1 tab(s), Oral, qDay MetFORMIN (Eqv-Glucophage XR) 500 mg oral tablet, EXTENDED RELEASE 1,000 mg = 2 tab(s), Oral, qDay metoprolol succinate 100 mg oral TABLET extended release 100 mg = 1 tab(s), Oral, qDay Nebulizer See Instructions Ozempic 2 mg/1.5 mL (0.25 mg or 0.5 mg dose) subcutaneous solution 0.5 mg, Subcutaneous, Friday PriLOSEC OTC 20 mg oral delayed release tablet 20 mg = 1 tab(s), Oral, qDayAC Tylenol Extra Strength 500 mg oral tablet 2,000 mg = 4 tab(s), PRN, Oral, qAM Vascepa 1 g oral capsule 2 gram(s) = 2 cap(s), Oral, BID Walker, platform See Instructions Allergies NKA Social History Alcohol - No Risk, 08/25/2021 Use: Past., 07/25/2021 Nutrition/Health Caffeine intake amount: coffee- 1 cup daily., 07/25/2021 Substance Abuse - No Risk, 08/25/2021 Use: Never., 07/25/2021 Tobacco - High Risk, 08/25/2021 Nicotine Use: 5-9 cigarettes (between 1/4 to 1/2 pack)/day in last 30 days, Vaping Product in Last 90 Days, sometimes its a full pack of cigarettes., 05/20/2022 Family History Diabetes: Mother and Father. Heart disease: Father. Hypercholesterolemia: Father. Hypertension: Mother and Father. Rheumatoid arthritis: Mother. Immunizations No qualifying data available. Code Status Code Status - Ordered -- 05/21/22 20:40:00 EDT, Full Code, Constant Order Digitally Signed by KIERSTEN BRAUN MD on 05/21/2022 09:09 PM [facility] Severe sepsis without septic shock: Patient had features of sepsis at on May 20, 2022 that included hypotension, tachycardia, leukocytosis and lactic acidosis. Patient normotensive on my evaluation Patient received total of 3.5 L IV fluids at [facility] Ordered 2 L additional Normal Saline bolus at [facility] and patient was started on continuous IV fluids. Patient started on IV Zosyn Blood cultures, stool culture, urinalysis and urine culture ordered Infectious disease has been consulted Enteritis/colitis: Abdominal imaging done at [facility] revealed fluid-filled small and large bowel throughout the abdomen with wall thickening of jejunum/ileum with findings consistent with enteritis/colitis. Patient is taking [id number] Prilosec at home that increased risk of C. difficile infection. Patient started on IV Zosyn C. difficile PCR ordered, if C. difficile is positive then day team can switch patient to oral vancomycin GI has been consulted Patient started on ADA clear liquid diet Acute kidney injury superimposed on chronic kidney disease: Patient presented with BUNs/creatinine of 24/1.99 with baseline BUN/creatinine around 18/1.16 which corresponds to a GFR of 63 and CKD stage II. Kidney function worsened initially at [facility] with BUNs/creatinine of 23/2.85 in the production bow maker of May 21 which eventually improved to 36/2.51 after IV fluids gestation. Likely prerenal injury due to sepsis IV fluids Repeat kidney function Lactic acidosis: Initial lactic acid level of 3.2 that eventually improved to 2.5 Repeat lactic acid level Likely due to sepsis IV fluids Right foot fracture: Injury to right foot happened 2 months ago and about the patient he has had a foot fracture X-ray of the right foot ordered Day team can consider consulting podiatry as appropriate Type 2 diabetes mellitus: ADA clear liquid diet Insulin lispro sliding scale COPD: DuoNeb scheduled Albuterol as needed for shortness of breath/wheezing Hypertension: Avoid antihypertensives for now as patient was hypotensive at [facility] Obstructive sleep apnea: Avoid CPAP for now as it can cause reduced preload that can lead to hypotension Tobacco abuse: Patient continues to smoke one quarter of pack of cigarettes on a daily basis Tobacco treatment coordinator consulted, counseled patient to cut down on tobacco use Possible melena: Patient did endorse couple of episodes of black stool in the past 6 months with last episode happening at [facility] Hemoglobin of 14.2 on May 21 Stool for occult blood ordered GI has already been consulted for enteritis/colitis Hold home medication of aspirin for now DVT prophylaxis: Bilateral SCDs Heparin 5000 units subcutaneous every 8 hours due to acute kidney injury Note was written using [employer] securities settlement processor software. Some of the meaning of the words and sentences might have changed during securities settlement processor, if there was ever some confusion about the meaning of some sentences, please do not hesitate to contact me. Addendum by KIERSTEN BRAUN MD on May 22, 2022 06:29:51 EDT X-ray right foot on admission did not show any acute osseous abnormality, it did show 2 mm linear density in the soft tissues inferior to the fifth proximal phalanx representing a foreign body such as splinter. Day team can consider consulting podiatry as appropriate. Patient's mean arterial pressure has been in 60s and 70s since admission. Patient received total of 2 L Normal Saline bolus on admission and was started on continuous IV fluids. Kidney function has improved since admission, lactic acid level has improved from 2.4-1.8 since admission. Addendum by KIERSTEN BRAUN MD on May 22, 2022 19:50:18 EDT [facility] Future Appointments Appointment Date:08/15/2022 11:15:00 AM Scheduled Provider: Location:[facility] Appointment Type:PC Nurse Lab Appointment Date:08/20/2022 08:00:00 AM Scheduled Provider:EMERITA STAUFFER Location:[facility] Appointment Type:PC OV Follow Up Diagnostic Tests Pending * Giardia Antigen 05/22/22 * TGT Ab (IGA) 05/22/22 * [facility] (Non-Blood Specimens) 05/22/22 Future Scheduled Tests Laboratory* Lipid Profile 05/20/22 * Lipid Profile 11/13/21 * Complete Metabolic Panel 05/20/22 * Complete Metabolic Panel 11/13/21 Radiology* CT Low Dose Lung Cancer Screening (LDCT) 12/14/21 * XR Elbow Minimum 3 Views Left 12/03/21 * XR Finger Thumb 3 Views Left 12/03/21 * XR Knee 3 Views Right 10/12/21 * XR Wrist Minimum 3 Views Left 12/03/21 [facility] 06-09-2022 Hospital Discharge instructions Patient Education 03/14/2022 00:03:23 Foot Contusion Foot Contusion You have a contusion. This is also called a bruise. There is swelling and some bleeding under the skin, but no broken bones. This injury generally takes a few days to a few weeks to heal. During thattime, the bruise will typically change in color from reddish, to purple-blue, to greenish-yellow, then to yellow-brown. Home care Elevate the foot to reduce pain and swelling. As much as possible, sit or lie down with the foot raised about the level of your heart. This is especially important during the first 48 hours. Ice the foot to help reduce pain and swelling. Wrap a cold source (ice pack or ice cubes in a plastic bag) in a thin towel. Apply to the bruised area for 20 minutes every 1 to 2 hours the first day. Continue this 3 to 4 times a day until the pain and swelling goes away. Unless another medicine was prescribed, you can take acetaminophen, ibuprofen, or naproxen to control pain. (If you have chronic liver or kidney disease or ever had a stomach ulcer or gastrointestinal bleeding, talk with your healthcare provider before using these medicines.) Follow up Follow up with your healthcare provider or our staff as advised. Call if you are not improving within 1 to 2 weeks. When to seek medical advice Call your healthcare provider right away if you have any of the following: Increased pain or swelling Foot or leg becomes cold, blue, numb or tingly Signs of infection: Warmth, drainage, or increased redness or pain around the bruise Inability to move the injured foot Frequent bruising for unknown reasons [id number] [facility]. [address] [place] [address]. All rights reserved. This information is not intended as a substitute for professional medical care. Always follow yourhealthcare professional's instructions. Follow Up Care 03/13/2022 21:56:28 With:EMERITA STAUFFER APRN-INSURANCE PROCESSOR Address: [address] [facility] [place], [place] [phone] When:2-4 days [facility] 05-01-2022 Hospital Discharge instructions Patient Education 02/03/2022 09:59:00 Osteoarthritis Osteoarthritis Osteoarthritis (also called degenerative joint disease) happens when the cartilage in a joint becomes damaged and worn. This may be due to age, wear and tear, overuse of the joint, or other problems.Osteoarthritis can affect any joint. But it is most common in hands, knees, spine, hips, and feet. Symptoms include joint stiffness, pain, and swelling. Home care When a joint is more sore than usual, rest it for a day or two. Heat can help relieve stiffness. Take a hot bath or apply a heating pad for up to 30 minutes at a time. If symptoms are worse in the morning, using heat just after awakening can help relax the muscleand soothe the joints. Ice helps relieve pain and swelling. It is often used after activity. Use a cold pack wrapped in a thin cloth on the joint for 10 to 15 minutes at a time. Alternating hot and cold can also help relieve pain. Try this for 20 minutes at a time, several times per day. Exercise helps prevent the muscles and ligaments around the joint from becoming weak. It also helpsmaintain function in the joint. Be as active as you can. Talk to your healthcare provider about what activity program is best for you. Excess weight puts a lot of extra strain on weight-bearing joints of the lower back, hips, knees, feet and ankles. If you are overweight, talk to your healthcare provider about a safe and effective weight loss program. Use anti-inflammatory medicines as prescribed for pain. This includes acetaminophen or NSAIDs such as ibuprofen or naproxen. If needed, topical or injected medicines may be recommended. Talk to your healthcare provider if these options are not enough to manage your pain. Talk with your healthcare provider about devices that might help improve your function and reduce pain. Follow-up care Follow up with your healthcare provider as advised by our staff. When to seek medical advice Call your healthcare provider right away if any of these occur: Redness or swelling of a painful joint Discharge or pus from a painful joint Fever of 100.4 F (38 C) or higher, or as directed by your healthcare provider Worsening joint pain Decreased ability to move the joint or bear weight on the joint [id number] [employer]. [address] [place] [address]. All rights reserved. This information is not intended as a substitute for professional medical care. Always follow yourhealthcare professional's instructions. 02/03/2022 09:58:56 Gout Gout Gout is an inflammation of a joint due to a build-up of gout crystals in the joint fluid. This occurs when there is an excess of uric acid (a normal waste product) in the body. Uric acid builds up inthe body when the kidneys are unable to filter enough of it from the blood. This may occur with age. It is also associated with kidney disease. Gout occurs more often in people with obesity, diabetes, high blood pressure, or high levels of fats in the blood. It may run in families. Gout tends to come and go. A flare up of gout is called an attack. Drinking alcohol or eating certain foods (such asshellfish or foods with additives such as high-fructose corn syrup) may increase uric acid levels in the blood and cause a gout attack. During a gout attack, the affected joint may become a hot, red, swollen and painful. If you have had one attack of gout, you are likely to have another. An attack of gout can be treated with medicine. If these attacks become frequent, a daily medicine may be prescribed to help the kidneys remove uric acid from the body. Home care During a gout attack: Rest painful joints. If gout affects the joints of your foot or leg, you may want to use crutches for the first few days to keep from bearing weight on the affected joint. When sitting or lying down, raise the painful joint to a level higher than your heart. Apply an ice pack (ice cubes in a plastic bag wrapped in a thin towel) over the injured area for 20minutes every 1 to 2 hours the first day for pain relief. Continue this 3 to 4 times a day for swelling and pain. Avoid alcohol and foods listed below (see Preventing attacks) during a gout attack. Drink extra fluid to help flush the uric acid through your kidneys. If you were prescribed a medicine to treat gout, take it as your healthcare provider has instructed. Don't skip doses. Take anti-inflammatory medicine as directed. If pain medicines have been prescribed, take them exactly as directed. Preventing attacks Minimize or avoid alcohol use. Excess alcohol intake can cause a gout attack. Limit these foods and beverages: oOrgan meats, such as kidneys and liver oCertain seafoods (anchovies, sardines, shrimp, scallops, rodrigues, mackerel) oWild game, meat extracts and meat gravies oFoods and beverages sweetened with high-fructose corn syrup, such as sodas Eat a healthy diet including low-fat and nonfat dairy, whole grains, and vegetables. If you are overweight, talk to your healthcare provider about a weight reduction plan. Avoid fasting or extreme low calorie diets (less than 900 calories per day). This will increase uric acid levelsin the body. If you have diabetes or high blood pressure, work with your doctor to manage these conditions. Protect the joint from injury. Trauma can trigger a gout attack. Follow-up care Follow up with your healthcare provider, or as advised. When to seek medical advice Call your healthcare provider if you have any of the following: Fever over 100.4 F (38. C) with worsening joint pain Increasing redness around the joint Pain developing in another joint Repeated vomiting, abdominal pain, or blood in the vomit or stool (black or red color) [id number] [employer]. [address] [place] [address], [place] [address]. All rights reserved. This information is not intended as a substitute for professional medical care. Always follow yourhealthcare professional's instructions. Follow Up Care 02/03/2022 09:45:58 With:EMERITA STAUFFER APRN-INSURANCE PROCESSOR Address: [address] [facility] [place] [phone] When:2-4 days [facility] 11-20-2021 Hospital Discharge instructions Patient Education 08/25/2021 11:59:23 Cellulitis Skin Infection Cellulitis Cellulitis is an infection of the deep layers of skin. A break in the skin, such as a cut or scratch, can let bacteria under the skin. If the bacteria get to deep layers of the skin, it can be serious. If not treated, cellulitis can get into the bloodstream and lymph nodes. The infection can then spread throughout the body. This causes serious illness. Cellulitis causes the affected skin to become red, swollen, warm, and sore. The reddened areas havea visible border. An open sore may leak fluid (pus). You may have a fever, chills, and pain. Cellulitis is treated with antibiotics taken for 7 to 10 days. An open sore may be cleaned and covered with cool wet gauze. Symptoms should get better 1 to 2 days after treatment is started. Make sure to take all the antibiotics for the full number of days until they are gone. Keep taking the medicine even if your symptoms go away. Home care Follow these tips: Limit the use of the part of your body with cellulitis. If the infection is on your leg, keep your leg raised while sitting. This will help to reduce swelling. Take all of the antibiotic medicine exactly as directed until it is gone. Do not miss any doses, especially during the first 7 days. Don t stop taking the medicine when your symptoms get better. Keep the affected area clean and dry. Wash your hands with soap and warm water before and after touching your skin. Anyone else who touches your skin should also wash his or her hands. Don't share towels. Follow-up care Follow up with your healthcare provider, or as advised. If your infection does not go away on the first antibiotic, your healthcare provider will prescribe a different one. When to seek medical advice Call your healthcare provider right away if any of these occur: Red areas that spread Swelling or pain that gets worse Fluid leaking from the skin (pus) Fever higher of 100.4 F (38.0 C) or higher after 2 days on antibiotics [phone] [employer]. [address] [place] [address]. All rights reserved. This information is not intended as a substitute for professional medical care. Always follow yourhealthcare professional's instructions. Follow Up Care 08/25/2021 11:46:34 With:EMERITA STAUFFERINSURANCE PROCESSOR Address: [address] [place] [address] [place] [phone] When:2-4 days [facility] 10-15-2021 Hospital Discharge instructions Patient Education 07/20/2021 14:34:57 Cellulitis Skin Infection Cellulitis Cellulitis is an infection of the deep layers of skin. A break in the skin, such as a cut or scratch, can let bacteria under the skin. If the bacteria get to deep layers of the skin, it can be serious. If not treated, cellulitis can get into the bloodstream and lymph nodes. The infection can then spread throughout the body. This causes serious illness. Cellulitis causes the affected skin to become red, swollen, warm, and sore. The reddened areas havea visible border. An open sore may leak fluid (pus). You may have a fever, chills, and pain. Cellulitis is treated with antibiotics taken for 7 to 10 days. An open sore may be cleaned and covered with cool wet gauze. Symptoms should get better 1 to 2 days after treatment is started. Make sure to take all the antibiotics for the full number of days until they are gone. Keep taking the medicine even if your symptoms go away. Home care Follow these tips: Limit the use of the part of your body with cellulitis. If the infection is on your leg, keep your leg raised while sitting. This will help to reduce swelling. Take all of the antibiotic medicine exactly as directed until it is gone. Do not miss any doses, especially during the first 7 days. Don t stop taking the medicine when your symptoms get better. Keep the affected area clean and dry. Wash your hands with soap and warm water before and after touching your skin. Anyone else who touches your skin should also wash his or her hands. Don't share towels. Follow-up care Follow up with your healthcare provider, or as advised. If your infection does not go away on the first antibiotic, your healthcare provider will prescribe a different one. When to seek medical advice Call your healthcare provider right away if any of these occur: Red areas that spread Swelling or pain that gets worse Fluid leaking from the skin (pus) Fever higher of 100.4 F (38.0 C) or higher after 2 days on antibiotics [phone] [facility]. [address] [place] [address]. All rights reserved. This information is not intended as a substitute for professional medical care. Always follow yourhealthcare professional's instructions. Follow Up Care 07/20/2021 13:48:26 With:EMERITA STAUFFER Address: [address] [place] [phone] When:2-4 days [facility] 04-10-2020 Evaluation + Plan note Future Appointments Appointment Date:01/13/2023 07:30:00 AM Scheduled Provider: Location:[facility] Appointment Type:US Abdomen Limited Appointment Date:01/13/2023 08:00:00 AM Scheduled Provider: Location:[facility] Appointment Type:US Thyroid Appointment Date:01/21/2023 08:00:00 AM Scheduled Provider:EMERITA STAUFFER Location:[facility] Appointment Type:PC OV Follow Up Appointment Date:02/17/2023 08:30:00 AM Scheduled Provider:EMERITA STAUFFER Location:[facility] Appointment Type:PC OV Follow Up Future Scheduled Tests Laboratory* Urinalysis 10/08/22 * Thyroid Antibodies 01/03/23 * Thyroid Stimulating Hormone 02/16/23 * Thyroid Stimulating Hormone 08/20/22 * Thyroid Stimulating Hormone 01/03/23 * Free T4 02/16/23 * Free T4 08/20/22 * Free T4 01/03/23 * Urine Culture 10/08/22 * Complete Blood Count 02/16/23 * Complete Blood Count 09/10/22 * Complete Blood Count 10/08/22 * Complete Blood Count 01/07/23 * Lipid Profile 02/16/23 * Total T3 01/03/23 * Vitamin D Level 02/16/23 * Complete Metabolic Panel 02/16/23 * Complete Metabolic Panel 09/10/22 * Complete Metabolic Panel 10/08/22 * Complete Metabolic Panel 01/03/23 * Complete Metabolic Panel 01/07/23 Radiology* NM Myocardial Spect Rest/Stress 09/10/22 * US Abdomen Limited 01/13/23 * XR Chest 2 Views (PA & Lateral) 01/07/23 * XR Ribs 2 Views Left 01/07/23 * CT Abdomen and Pelvis w/o contrast 11/04/22 * US Thyroid 01/13/23 [facility] Evaluation + Plan note Future Appointments Appointment Date:07/25/2021 10:00:00 AM Scheduled Provider:EMERITA STAUFFER Location:[facility] Appointment Type:PC PSYCHIATRY INSTRUCTOR [facility] Evaluation + Plan note Future Appointments Appointment Date:08/08/2021 11:00:00 AM Scheduled Provider:EMERITA STAUFFER Location:[facility] Appointment Type:PC Wellness Medicare with Labs [facility] Evaluation + Plan note Future Appointments Appointment Date:08/29/2021 07:30:00 AM Scheduled Provider: Location:[facility] Appointment Type:US Abdomen/Aorta Appointment Date:10/03/2021 04:00:00 PM Scheduled Provider: Location:[facility] Appointment Type:CT Thorax Screening w/o Contrast Appointment Date:11/07/2021 11:00:00 AM Scheduled Provider:EMERITA STAUFFER Location:[facility] Appointment Type:PC OV Future Scheduled Tests Radiology* US Abdomen and Aorta 08/29/21 * CT Low Dose Lung Cancer Screening (LDCT) 10/03/21 [facility] Evaluation + Plan note Future Appointments Appointment Date:12/14/2021 02:00:00 PM Scheduled Provider: Location:[facility] Appointment Type:CT Thorax Screening w/o Contrast Appointment Date:03/05/2022 08:30:00 AM Scheduled Provider:EMERITA STAUFFER Location:[facility] Appointment Type:PC OV Appointment Date:05/09/2022 09:00:00 AM Scheduled Provider: Location:[facility] Appointment Type:PC Nurse Lab Appointment Date:05/20/2022 11:00:00 AM Scheduled Provider:EMERITA SATUFFER Location:[facility] Appointment Type:PC OV Follow Up Future Scheduled Tests Laboratory* Prostate Specific Antigen 11/13/21 * Lipid Profile 11/13/21 * Complete Metabolic Panel 11/13/21 Radiology* XR Elbow Minimum 3 Views Left 12/03/21 * XR Finger Thumb 3 Views Left 12/03/21 * XR Knee 3 Views Right 10/12/21 * XR Wrist Minimum 3 Views Left 12/03/21 * CT Low Dose Lung Cancer Screening (LDCT) 12/14/21 [facility] Evaluation + Plan note Future Appointments Appointment Date:03/05/2022 08:30:00 AM Scheduled Provider:EMERITA STAUFFER Location:[facility] Appointment Type:PC OV Appointment Date:05/09/2022 09:00:00 AM Scheduled Provider: Location:[facility] Appointment Type:PC Nurse Lab Appointment Date:05/20/2022 11:00:00 AM Scheduled Provider:EMERITA STAUFFER Location:[facility] Appointment Type:PC OV Follow Up Diagnostic Tests Pending * Shiga Toxins 1 and 2 01/19/22 * Stool Culture with Yersinia 01/19/22 Future Scheduled Tests Laboratory* Prostate Specific Antigen 11/13/21 * Lipid Profile 11/13/21 * Complete Metabolic Panel 11/13/21 Radiology* CT Low Dose Lung Cancer Screening (LDCT) 12/14/21 * XR Elbow Minimum 3 Views Left 12/03/21 * XR Finger Thumb 3 Views Left 12/03/21 * XR Knee 3 Views Right 10/12/21 * XR Wrist Minimum 3 Views Left 12/03/21 [facility] Evaluation + Plan note Future Appointments Appointment Date:03/05/2022 08:30:00 AM Scheduled Provider:EMERITA STAUFFER Location:[facility] Appointment Type:PC OV Appointment Date:05/09/2022 09:00:00 AM Scheduled Provider: Location:[facility] Appointment Type:PC Nurse Lab Appointment Date:05/20/2022 11:00:00 AM Scheduled Provider:EMERITA STAUFFER Location:[facility] Appointment Type:PC OV Follow Up Future Scheduled Tests Laboratory* Prostate Specific Antigen 11/13/21 * Lipid Profile 11/13/21 * Complete Metabolic Panel 11/13/21 Radiology* CT Low Dose Lung Cancer Screening (LDCT) 12/14/21 * XR Elbow Minimum 3 Views Left 12/03/21 * XR Finger Thumb 3 Views Left 12/03/21 * XR Knee 3 Views Right 10/12/21 * XR Wrist Minimum 3 Views Left 12/03/21 [facility] Evaluation + Plan note Future Appointments Appointment Date:05/09/2022 09:00:00 AM Scheduled Provider: Location:[facility] Appointment Type:PC Nurse Lab Appointment Date:05/20/2022 11:00:00 AM Scheduled Provider:EMERITA STAUFFER Location:[facility] Appointment Type:PC OV Follow Up Future Scheduled Tests Laboratory* Prostate Specific Antigen 11/13/21 * Lipid Profile 11/13/21 * Complete Metabolic Panel 11/13/21 Radiology* CT Low Dose Lung Cancer Screening (LDCT) 12/14/21 * XR Elbow Minimum 3 Views Left 12/03/21 * XR Finger Thumb 3 Views Left 12/03/21 * XR Knee 3 Views Right 10/12/21 * XR Wrist Minimum 3 Views Left 12/03/21 [facility] Evaluation + Plan note Future Appointments Appointment Date:05/20/2022 11:00:00 AM Scheduled Provider:EMERITA STAUFFER Location:[facility] Appointment Type:PC OV Follow Up Future Scheduled Tests Laboratory* Lipid Profile 11/13/21 * Complete Metabolic Panel 11/13/21 Radiology* CT Low Dose Lung Cancer Screening (LDCT) 12/14/21 * XR Elbow Minimum 3 Views Left 12/03/21 * XR Finger Thumb 3 Views Left 12/03/21 * XR Knee 3 Views Right 10/12/21 * XR Wrist Minimum 3 Views Left 12/03/21 [facility] Evaluation + Plan note Future Appointments Appointment Date:08/15/2022 11:15:00 AM Scheduled Provider: Location:[facility] Appointment Type:PC Nurse Lab Appointment Date:08/20/2022 08:00:00 AM Scheduled Provider:EMERITA STAUFFER Location:[facility] Appointment Type:PC OV Follow Up Future Scheduled Tests Laboratory* Lipid Profile 05/20/22 * Lipid Profile 11/13/21 * Complete Metabolic Panel 05/20/22 * Complete Metabolic Panel 11/13/21 Radiology* CT Low Dose Lung Cancer Screening (LDCT) 12/14/21 * XR Elbow Minimum 3 Views Left 12/03/21 * XR Finger Thumb 3 Views Left 12/03/21 * XR Knee 3 Views Right 10/12/21 * XR Wrist Minimum 3 Views Left 12/03/21 [facility] Evaluation + Plan note Future Appointments Appointment Date:08/20/2022 08:00:00 AM Scheduled Provider:EMERITA STAUFFER Location:[facility] Appointment Type:PC OV Follow Up Future Scheduled Tests Laboratory* Lipid Profile 11/13/21 * Complete Metabolic Panel 11/13/21 Radiology* CT Low Dose Lung Cancer Screening (LDCT) 12/14/21 * XR Elbow Minimum 3 Views Left 12/03/21 * XR Finger Thumb 3 Views Left 12/03/21 * XR Knee 3 Views Right 10/12/21 * XR Wrist Minimum 3 Views Left 12/03/21 [facility] Evaluation + Plan note Future Appointments Appointment Date:09/26/2022 08:30:00 AM Scheduled Provider: Location:[facility] Appointment Type:yyNM Myocard Spect R/S 2 Day S2 - Brittany Appointment Date:10/08/2022 09:00:00 AM Scheduled Provider:EMERITA STAUFFER Location:[facility] Appointment Type:PC OV ED Follow Up Appointment Date:11/19/2022 08:00:00 AM Scheduled Provider:EMERITA STAUFFER Location:[facility] Appointment Type:PC OV Follow Up Future Scheduled Tests Laboratory* Thyroid Stimulating Hormone 08/20/22 * Free T4 08/20/22 * Complete Blood Count 09/10/22 * Lipid Profile 11/13/21 * Complete Metabolic Panel 09/10/22 * Complete Metabolic Panel 11/13/21 Radiology* CT Low Dose Lung Cancer Screening (LDCT) 12/14/21 * NM Myocardial Spect Rest/Stress 09/10/22 * XR Elbow Minimum 3 Views Left 12/03/21 * XR Finger Thumb 3 Views Left 12/03/21 * XR Knee 3 Views Right 10/12/21 * XR Wrist Minimum 3 Views Left 12/03/21 [facility] Evaluation + Plan note Future Appointments Appointment Date:10/08/2022 09:00:00 AM Scheduled Provider:EMERITA STAUFFER Location:[facility] Appointment Type: OV ED Follow Up Appointment Date:11/19/2022 08:30:00 AM Scheduled Provider:EMERITA STAUFFER Location:[facility] Appointment Type: OV Follow Up Future Scheduled Tests Laboratory* Thyroid Stimulating Hormone 08/20/22 * Free T4 08/20/22 * Complete Blood Count 09/10/22 * Lipid Profile 11/13/21 * Complete Metabolic Panel 09/10/22 * Complete Metabolic Panel 11/13/21 Radiology* CT Low Dose Lung Cancer Screening (LDCT) 12/14/21 * NM Myocardial Spect Rest/Stress 09/10/22 * XR Elbow Minimum 3 Views Left 12/03/21 * XR Finger Thumb 3 Views Left 12/03/21 * XR Knee 3 Views Right 10/12/21 * XR Wrist Minimum 3 Views Left 12/03/21 [facility] Evaluation + Plan note Future Appointments Appointment Date:01/21/2023 08:00:00 AM Scheduled Provider:EMERITA STAUFFER Location:[facility] Appointment Type: OV Follow Up Appointment Date:02/17/2023 08:30:00 AM Scheduled Provider:EMERITA STAUFFER Location:[facility] Appointment Type:PC OV Follow Up Future Scheduled Tests Laboratory* Urinalysis 10/08/22 * Thyroid Antibodies 01/03/23 * Thyroid Stimulating Hormone 08/20/22 * Thyroid Stimulating Hormone 01/03/23 * Free T4 08/20/22 * Free T4 01/03/23 * Urine Culture 10/08/22 * Complete Blood Count 09/10/22 * Complete Blood Count 10/08/22 * Complete Blood Count 01/07/23 * Total T3 01/03/23 * Complete Metabolic Panel 09/10/22 * Complete Metabolic Panel 10/08/22 * Complete Metabolic Panel 01/03/23 * Complete Metabolic Panel 01/07/23 Radiology* NM Myocardial Spect Rest/Stress 09/10/22 * CT Abdomen and Pelvis w/o contrast 11/04/22 [facility] Evaluation note* Diagnosis Class 3 severe obesity due to excess calories without serious comorbidity with body mass index (BMI) of 45.0 to 49.9 in adult (HCC)- Primary Chronic pain of both knees Primary osteoarthritis of both knees Primary localized osteoarthrosis, lower leg [facility] Diagnosis Pain in both knees, unspecified chronicity [facility] N[facility] No data available for this section [facility] Discharge instructions No data available for this section [facility] Progress note No data available for this section [facility] Reason for referral (narrative)* Diagnostic Procedure Only (Routine) - Closed Specialty Diagnoses / Procedures Referred By Contpriya t Referred To Contact XR IMAGING Diagnoses Pain in both knees, unspecified chronicity Procedures XR KNEE GENERAL 4V AP BOTH/PA BOTH/LAT/MERC BILATERAL RADIOLOGIC EXAM KNEE COMPLETE 4/MORE VIEWS Luis Coronel MD [address] [place] [address] [place] [address] Referral ID Status Reason Start Date Expiration Date V isits Requested Visits Authorized [id number] Closed Auto-Generate d Referral 05/28/2023 06/26/2024 1 1 [facility]* Diagnostic Procedure Only (Routine) - Closed Specialty Diagnoses / Procedures Referred By Parish t Referred To Contact XR IMAGING Diagnoses Pain in both knees, unspecified chronicity Procedures XR KNEE GENERAL 4V AP BOTH/PA BOTH/LAT/MERC BILATERAL RADIOLOGIC EXAM KNEE COMPLETE 4/MORE VIEWS Luis Coronel MD [address] [place] [address] [place] [address] Referral ID Status Reason Start Date Expiration Date V isits Requested Visits Authorized [id number] Closed Auto-Generate d Referral 05/28/2023 06/26/2024 1 1 [facility] Summary Purpose Family History No Family History Records FoundNo Family History Records FoundNo Family History Records FoundNo Family History Records Found Advance Directives Documents on File Type Date Recorded Patient [employer] Expl anation Advance Directives and Living Will Assessments Diagnosis Eloped from emergency department Leg swelling Swelling of limb Diagnosis COPD exacerbation (HCC) Obstructive chronic bronchitis with exacerbation Leg swelling Swelling of limb Hypertensive urgency Unspecified essential hypertension Cellulitis of right lower extremity Cellulitis and abscess of leg, except foot Discharge Instructions * Attachments The following attachments cannot be sent through Care Everywhere. * Cellulitis (Thai) * COPD: General Info (Thai) * Hypertension: Acute (Thai) documented in this encounter Reason for Referral Specialty Diagnoses / Procedures Referred By Parish fisher Referred To Contact Nutrition Diagnoses Class 3 severe obesity due to excess calories without serious comorbidity with body mass index (BMI) of 45.0 to 49.9 in adult (HCC) Chronic pain of both knees Primary osteoarthritis of both knees Procedures CONSULT TO NUTRITION THERAPY MEDICAL NUTRITION ASSMT&IVNTJ INDIV EACH 15 TN MEDICAL NUTRITION ASSMT&IVNTJ INDIV EACH 15 TN MEDICAL NUTRITION ASSMT&IVNTJ INDIV EACH 15 TN MEDICAL NUTRITION ASSMT&IVNTJ INDIV EACH 15 TN Luis Coronel MD [address] [place] [address] Referral ID Status Reason Start Date Expiration Date Visits Requested Visits Authorized [id number] Pending Review PCP Requested Referral 06/02/2023 06/01/2024 1 1 Additional Source Comments (unrecognized sect ion and content) No Status Records FoundNo Status Records FoundNo Status Records FoundNo Status Records Found INFORMATION SOURCE (unrecogn ized section and content) DATE CREATED AUTHOR AUTHOR'S ORGANIZ ATION 07/08/2020 [facility] DATE CREATED AUTHOR AUTHOR'S ORGANIZ ATION 04/25/2023 [facility] ([place]) DATE CREATED AUTHOR AUTHOR'S ORGANIZ ATION 06/29/2023 [facility] Source Comments (unrecognize d section and content) In the event this informatio n is protected by the Federal Confidentiality of Alcohol and Drug Abuse Patient Records regulations: The Federal rules restrict any use of the information to criminally investigate or prosecute any alcohol or drug abuse patient.[facility] the event this information is protected by the Federal Confidentiality of Alcohol and Drug Abuse Patient Records regulations: The Federal rules restrict any use of the information to criminally investigate or prosecute any alcohol or drug abuse patient.[facility] the event this information is protected by the Federal Confidentiality of Alcohol and Drug Abuse Patient Records regulations: The Federal rules restrict any use of the information to criminally investigate or prosecute any alcohol or drug abuse patient.[facility] Reason for Visit (unrecogniz ed section and content) Reason Comments Leg Swelling RLE, swelling starte d 10 days ago per pt, was just seen here on [facility] for same but eloped, SOB with exertion Reason Comments Knee Pain Xray taken today Care Team (unrecognized sect ion and content) Personnel Name: EMERITA STAUFFER Address: [address] [place] [address] Personnel Name: EMERITA STAUFFER Address: [address] [place] [address] Personnel Name: EMERITA STAUFFER Address: [address] [place] [address] Care Team Personnel Name: EMERITA STAUFFER Position: P4 Advanced Assistant Vice President Member Role: Primary Care Physician Address: Address: [address] [place] [address] Care Team Related Persons Name: LEIDY GOMEZ Care Team Personnel Name: EMERITA STAUFFER Position: P4 Advanced Assistant Vice President Member Role: Primary Care Physician Address: Address: [address] [place] [address] Care Team Related Persons Name: LEIDY GOMEZ Care Team Personnel Name: EMERITA STAUFFER Position: P4 Advanced Assistant Vice President Member Role: Primary Care Physician Address: Address: [address] [place] [address] Care Team Related Persons Name: LEIDY GOMEZ Care Team (unrecognized sect ion and content) Care Team Personnel Name: EMERITA STAUFFER Position: P4 Advanced Practice Nurse Med Service: Active Provider Member Role: Primary Care Physician Address: Address: [address] [place] [address] Care Team Related Persons Name: LEIDY GOMEZ Care Team Personnel Name: EMERITA STAUFFER CRM MARKETING SPECIALIST-INSURANCE PROCESSOR Position: P4 Advanced Practice Nurse Med Service: Active Provider Member Role: Primary Care Physician Address: Address: [address] [place] [address]- Care Team Related Persons Name: LEIDY GOMEZ Care Team Personnel Name: EMERITA STAUFFER CRM MARKETING SPECIALIST-INSURANCE PROCESSOR Position: P4 Advanced Practice Nurse Med Service: Active Provider Member Role: Primary Care Physician Address: Address: [address] [place] [address]- Care Team Related Persons Name: LEIDY GOMEZ Care Team Personnel Name: EMERITA STAUFFER CRM MARKETING SPECIALIST-INSURANCE PROCESSOR Position: P4 Advanced Practice Nurse Med Service: Active Provider Member Role: Primary Care Physician Address: Address: [address] [place] [address]- Care Team Related Persons Name: LEIDY GOMEZ Care Team Personnel Name: EMERITA STAUFFER CRM MARKETING SPECIALIST-INSURANCE PROCESSOR Position: P4 Advanced Practice Nurse Member Role: Primary Care Physician Address: Address: [address] [place] [address]- Care Team Related Persons Name: LEIDY GOMEZ Care Team Personnel Name: EEMRITA STAUFFER CRM MARKETING SPECIALIST-INSURANCE PROCESSOR Position: P4 Advanced Practice Nurse Member Role: Primary Care Physician Address: Address: [address] [place] [address]- Care Team Related Persons Name: LEIDY GOMEZ Care Team Personnel Name: EMERITA STAUFFER CRM MARKETING SPECIALIST-INSURANCE PROCESSOR Position: P4 Advanced Practice Nurse Member Role: Primary Care Physician Address: Address: [address] [place] [address]- Care Team Related Persons Name: JASON LEIDY FOR RECORDS PERTAINING TO PATIENTS WHO ARE OR HAVE BEEN ENROLLED IN A CHEMICAL DEPENDENCY/SUBSTANCEABUSE PROGRAM, SOME INFORMATION MAY BE OMITTED. This clinical summary was aggregated from multiple sources. Caution should be exercised in using it in the provision of clinical care. This summary normalizes information from multiple sources, and as a consequence, information in this document may materially change the coding, format and clinical context of patient data. In addition, data may be omitted in some cases. CLINICAL DECISIONS SHOULD BE BASED ON THE PRIMARY CLINICAL RECORDS. [facility] [employer] [facility]. provides no warranty or guarantee of the accuracy or completeness of information in this document.
[2023-10-11 06:51] LABS: ALB/GLOB Ratio 0.7 RATIO (0.9-2.4); AST(SGOT) 21 U/L (15-37); Alanine Aminotransfer ALT/SGPT 28 U/L (16-61); Albumin, Serum 3.2 g/dL (3.2-5.0); Alkaline Phosphatase 44 U/L (45-117); Anion Gap 4 (5-15); BUN 21 mg/dL (7-18); Calcium,Total 9.3 mg/dL (8.5-10.1); Chloride 112 mmol/L (98-107); Creatinine, Serum 0.91 mg/dL (0.70-1.30); EST Glomerular Filtration Rate 87 mL/min (>60); Est Glom Filt Rate - Afr Amer 105 mL/min (>60); Estimated Creatinine Clearance 68.16 ml/min; Globulin 4.5 g/dL (2.2-4.2); Glucose 125 mg/dL (74-106); Potassium 3.6 mmol/L (3.5-5.1); Protein, Total 7.7 g/dL (6.4-8.2); Sodium Level 140 mmol/L (136-145)
--- NOTE | 2023-10-11 07:24 | CT_ITS ---
HISTORY: right flank pain. TECHNIQUE: Helically acquired images were obtained of the abdomen and pelvis after the intravenous administration of 100mL Isovue-300. A radiation dose optimization technique was used for this scan. 481 images. COMPARISON: 01/02/2023. FINDINGS: LOWER CHEST: Lung bases clear with resolution of right lower lobe pneumonia. BOWEL: Bowel including appendix nondilated. Moderate stool in the colon. Colonic diverticulosis without focal inflammatory change observed. PERITONEUM: No significant ascites. LIVER: Enlarged with fatty infiltration. GALLBLADDER/BILIARY TREE: Cholecystectomy. SPLEEN/PANCREAS/ADRENAL GLANDS: Homogeneous and nonenlarged. KIDNEYS: No hydronephrosis. Stable small cysts measuring up to 1.1 cm on the right. VESSELS: No abdominal aortic aneurysm. Mild atherosclerosis. PELVIC ORGANS: Small prostate calcifications. BONES: Degenerative change. CT/Abdomen/Pelvis W IV Cont ONLY IMPRESSION: Colonic diverticulosis without acute diverticulitis. Moderate stool in the colon. Hepatic steatosis with hepatomegaly. Cholecystectomy. Stable small renal cysts. Electronically Signed: Jaky Kwon MD at 8:55 EST ,
--- NOTE | 2023-10-11 07:25 | EX.ED.GUMALE ---
HPI History of Present Illness Chief Complaint: Flank Pain Narrative Narrative: 68-year-old male present with right flank pain. Onset was 4 days ago. Patient states is progressively worsening. He does admit to foul-smelling urine. He has history of UTIs. Denies fever, chills, nausea, vomiting. Denies constipation or diarrhea. Patient states he has no history of kidney stones. PFSH PFSH Home Medications doxycycline hyclate 100 mg capsule 100 mg PO BID #20 caps 01/02/23 [Rx Last Taken Unknown] hydrocodone-acetaminophen 5-325mg 5mg-325mg 1 tab PO Q4H PRN PRN Pain 5 days #10 TABLETS 01/02/23 [Rx Last Taken Unknown] lisinopril 40 mg tablet 40 mg PO DAILY 10/11/23 [History Last Taken Unknown] Allergy/AdvReac Type Severity Reaction Status Date / Time No Known Allergies Allergy Verified 10/11/23 06:06 Social History Smoking Status: Current every day smoker tobacco type: cigarettes ROS ROS ED Constitutional Constitutional ED: Denies chills, fever(s) or sweats Eyes Eyes: Denies blurry vision or change in vision ENT ENT ED: Denies ear pain or sore throat Cardiovascular Cardiovascular: Denies chest pain, palpitations or racing heartbeat Respiratory/Chest Respiratory/Chest: Denies cough, dyspnea or sputum Gastrointestinal Gastrointestinal: Denies abdominal pain, constipation, diarrhea, nausea or vomiting Genitourinary Genitourinary ED: Reports dysuria and hematuria; Denies urinary frequency Musculoskeletal Musculoskeletal: Reports back pain; Denies arthralgias, myalgias or neck pain Integumentary Denies abscess, Abrasions or rash Neurologic Neurologic: Denies headache(s), paresthesias or weakness Psychiatric Psychiatric: Denies anxiety, depression, suicidal ideation or suicidal thoughts Endocrine Endocrinology: Denies polydipsia or polyuria EXAM Physical Exam Const Vital Signs: 10/11/23 06:01 Temperature 97.8 F Temperature Source Oral Pulse Rate 57 L Respiratory Rate 15 Blood Pressure 130/69 H Blood Pressure Mean 89 Pulse Ox 95 Oxygen Delivery Method Room Air Positive well nourished and obese General Appearance ED: Negative for pallor Nutritional Appearance: obese HEENT Reports moist mucous membranes Eyes PERRL Resp normal respiratory effort Cardio regular rate and regular rhythm GI non-tender Bladder / Kidney Exam: CVA tenderness right Neuro oriented x3 and CN's II-XII intact bilaterally Sensorium / Orientation: alert Psych mental status grossly normal Skin General Skin Exam: Negative for jaundice or pallor MDM MDM MDM Narrative Medical decision making narrative: Presenting with right flank pain. Differential includes UTI, pyelonephritis, kidney stone, colitis, diverticulitis, dehydration, anemia, electrolyte normalities. Patient medicated with morphine, Zofran, given a liter of normal saline. CBC was obtained to assess white blood cell count, hemoglobin, platelets. P to assess liver function, renal function, electrolytes, glucose. Urinalysis to assess for UTI and occult blood. CBC and CMP unremarkable. Urinalysis negative for infection. Given the patient's symptoms and CVA tenderness I will have a CT of the abdomen pelvis performed another etiology for the patient's pain. CBC, CMP unremarkable. Analysis negative. CT of the ab pelvis with IV contrast was obtained and is negative for acute finding except for constipation. Patient counseled on findings. Recommended laxatives for home. Plenty of hydration. Follow-up with PCP as needed. Impression: 1. Abdominal pain 2. Constipation Lab Data Attestation: I reviewed the patient's lab results. Labs: Laboratory Results - last 24 hr 10/11/23 10/11/23 06:10 06:20 WBC 8.7 RBC 4.84 Hgb 14.9 Hct 44.2 MCV 91.3 MCH 30.8 MCHC 33.7 RDW Std Deviation 42.9 RDW Coeff of Nena 12.8 Plt Count 170 MPV 11.9 Immature Gran % (Auto) 0.200 Neut % (Auto) 52.0 Lymph % (Auto) 34.3 Lamar % (Auto) 8.8 Eos % (Auto) 3.8 Baso % (Auto) 0.9 Absolute Neuts (auto) 4.5 Absolute Lymphs (auto) 2.98 Nucleated RBC % 0 Sodium 140 Potassium 3.6 Chloride 112 H Carbon Dioxide 24.0 Anion Gap 4 L BUN 21 H Creatinine 0.91 Estim Creat Clear Calc 68.16 Est GFR (MDRD) Af Amer 105 Est GFR (MDRD) Non-Af 87 BUN/Creatinine Ratio 23.0 H Glucose 125 H Calcium 9.3 Total Bilirubin 0.30 AST 21 ALT 28 Alkaline Phosphatase 44 L Total Protein 7.7 Albumin 3.2 Globulin 4.5 H Albumin/Globulin Ratio 0.7 L Urine Color Yellow Urine Clarity Clear Urine pH 6.5 Ur Specific [place] 1.015 Urine Protein 15 H Urine Glucose (UA) Normal Urine Ketones Negative Urine Occult Blood 10 H Urine Nitrite Negative Urine Bilirubin Negative Urine Urobilinogen 1 H Ur Leukocyte Esterase Negative Urine RBC 0 SEEN Urine WBC 0 SEEN Ur Squamous Epith Cells 0 SEEN Urine Bacteria 0 SEEN Urine Mucus 0 SEEN Radiography Diagnostic Testing: Clinical Impression(s) from Imaging Studies Abdomen/Pelvis CT 10/11/23 07:24 IMPRESSION: Colonic diverticulosis without acute diverticulitis. Moderate stool in the colon. Hepatic steatosis with hepatomegaly. Cholecystectomy. Stable small renal cysts. Electronically Signed: Jaky Kwon MD at 8:55 EST , Discharge Plan Triage Chief Complaint: Flank Pain ED Provider: Salinas Viveros Dx/Rx/DC Orders Instructions: ED Constipation (Adult), ED Abdominal Pain Unkn Cause Male... Prescriptions: No Action doxycycline hyclate 100 mg capsule 100 mg PO BID Qty: 20 0RF hydrocodone-acetaminophen 5-325 mg tablet 1 tab PO Q4H PRN PRN (Reason: Pain) 5 Days Qty: 10 0RF lisinopril 40 mg tablet 40 mg PO DAILY Primary Care Provider: Mary Dempsey NP Referrals: Mary Dempsey NP, [employer] ARCHITECT-C [Primary Care Provider] - Disposition Disposition: Home, Self Care
[2023-10-11] MEDS: Morphine 4 MG/ML Syringe IV (07:49)
[2023-10-11] MEDS: Ondansetron 4 MG/2 ML Vial IV (07:49)
[2023-10-11] MEDS: 0.9% Normal Saline (1000mL) 1,000 ML 999 ML IV (07:50)
[2023-10-11 09:42] VITALS: BP 126/85; PULSE 61
== END 2023-10-11 09:54 | disposition home or self-care (01) ==
PROVIDERS: Emergency Provider Student in an Organized Health Care Education/Training Program; PCP Registered Nurse; Visit Provider Student in an Organized Health Care Education/Training Program
DX: R10.9 Unspecified abdominal pain (principal); K59.00 Constipation, unspecified; F17.210 Nicotine dependence, cigarettes, uncomplicated; Z79.899 Other long term (current) drug therapy
CPT/HCPCS: 74177; 80053; 81001; 85025; 96361; 96374; 96375; 99283; J7030; Q9967; A4216; J2405

== ENCOUNTER → 2024-01-15 | Outpatient (CLI) | payer MEDICARE, MEDICAID, SELFPAY ==
[2024-01-15 12:20] LABS: Hematocrit 45.7 % (40-54); Mean Corp Hgb Conc 32.8 g/dL (32-36); Mean Corpuscular Hgb 30.4 pg (27.0-32.0); Mean Corpuscular Volume 92.7 fL (80-94); Mean Platelet Vol. 12.5 fl (6.2-12.0); Platelet Count 189 K/mm3 (150-450); RBC Distribution Width CV 13.2 % (11.6-14.6); Red Blood Count 4.93 M/mm3 (4.6-6.2); White Blood Count 10.5 K/mm3 (4.4-11.0)
[2024-01-15 13:03] LABS: ALB/GLOB Ratio 0.7 RATIO (0.9-2.4); AST(SGOT) 28 U/L (15-37); Alanine Aminotransfer ALT/SGPT 37 U/L (16-61); Albumin, Serum 3.4 g/dL (3.2-5.0); Alkaline Phosphatase 53 U/L (45-117); Anion Gap 2 (5-15); BUN 17 mg/dL (7-18); BUN/Creat Ratio 16.5 RATIO (10-20); Calcium,Total 9.2 mg/dL (8.5-10.1); Chloride 108 mmol/L (98-107); Cholesterol 98 mg/dL (200); Creatinine, Serum 1.03 mg/dL (0.70-1.30); EST Glomerular Filtration Rate 76 mL/min (>60); Est Glom Filt Rate - Afr Amer 92 mL/min (>60); Globulin 4.7 g/dL (2.2-4.2); Glucose 122 mg/dL (74-106); High Density Lipoprotein 28 mg/dL; PSA,Total - Annual Screen 0.32 ng/mL (0.00-4.00); Potassium 3.5 mmol/L (3.5-5.1); Protein, Total 8.1 g/dL (6.4-8.2); Sodium Level 137 mmol/L (136-145); Triglycerides 188 mg/dL; Very Low Density Lipoprotein 38 mg/dL (5-40)
== END | disposition home or self-care (01) ==
LOC: LAB 11:09
PROVIDERS: PCP Registered Nurse; Referring Provider Registered Nurse; Visit Provider Registered Nurse
DX: I10 Essential (primary) hypertension (principal); E11.9 Type 2 diabetes mellitus without complications; Z12.5 Encounter for screening for malignant neoplasm of prostate
CPT/HCPCS: 36415; 80053; 80061; 84153; 85027; G0103

== ENCOUNTER 2024-02-14 17:01 | Emergency (ER) | payer MEDICARE, MEDICAID, SELFPAY ==
[2024-02-14 17:01] VITALS: BP 132/85; PULSE 65; RESP 20; TEMP 36.1
[2024-02-14 17:08] VITALS: BP 132/85; PULSE 65; RESP 16; TEMP 36.1; BMI 48.7
--- NOTE | 2024-02-14 17:41 | EX.ED.DYSGE1 ---
HPI <BRENDA Blanco - Last Filed: 02/14/24 18:49> History of Present Illness Chief Complaint: Wound Check Narrative Narrative: Patient presenting today with concerns for infection to his surgical incision scar. He reports that on he had a partial thyroidectomy where the left lobe was removed and part of the right was removed due to thyroid cancer. This was performed by Dr. Sheldon. There were no surgical complications. He reports that he has been doing well since the surgery. Today, his noticed more swelling around the area and thought she had seen some drainage below his bandage and wanted him to come in to be checked out. He denies any fevers and reports that he feels well otherwise. He reports that he does occasionally have the chills but that is not uncommon for him and has not been worse since his surgery. PFSH <BRENDA Blanco - Last Filed: 02/14/24 18:49> PENDING SALE TO [facility] Medical History (Updated 02/14/24 @ 17:55 by Delma Michel) GERD (gastroesophageal reflux disease) High cholesterol HTN (hypertension) Thyroid cancer Home Medications lisinopril 40 mg tablet 40 mg PO DAILY 10/11/23 [History Last Taken 02/14/24] cephalexin 500 mg capsule 500 mg PO TID #20 caps 02/14/24 [Rx Last Taken Unknown] hydrochlorothiazide 25 mg tablet 25 mg PO DAILY 02/14/24 [History Last Taken 02/14/24] metoprolol succinate 100 mg tablet,extended release 24 hr 100 mg PO DAILY 02/14/24 [History Last Taken Unknown] omeprazole 20 mg capsule,delayed release 20 mg PO DAILY 02/14/24 [History Last Taken 02/14/24] rosuvastatin 10 mg tablet 10 mg PO QHS 02/14/24 [History Last Taken 02/13/24] Allergy/AdvReac Type Severity Reaction Status Date / Time No Known Allergies Allergy Verified 02/14/24 17:03 Surgical History (Updated 02/14/24 @ 17:55 by Delma Michel) S/P removal of thyroid nodule Social History Smoking Status: Current every day smoker tobacco type: cigarettes ROS <BRENDA Blanco - Last Filed: 02/14/24 18:49> ROS ED Constitutional Constitutional ED: Denies chills or fever(s) Cardiovascular Cardiovascular: Denies chest pain Respiratory/Chest Respiratory/Chest: Denies dyspnea or wheezing Gastrointestinal Gastrointestinal: Denies abdominal pain, nausea or vomiting Musculoskeletal Musculoskeletal: Denies arthralgias or myalgias Integumentary Denies rash Neurologic Neurologic: Denies weakness EXAM <BRENDA Blanco - Last Filed: 02/14/24 18:49> Physical Exam Const Vital Signs: 02/14/24 17:08 02/14/24 17:01 02/14/24 18:29 Temperature 97.0 F L 97.0 F L 97.9 F Temperature Source Temporal Temporal Pulse Rate 65 65 70 Respiratory Rate 16 20 H 16 Blood Pressure 132/85 H 132/85 H 124/78 H Blood Pressure Mean 100 100 93 Pulse Ox 97 Positive well nourished, well developed and no apparent distress General Appearance ED: well developed HEENT Reports normocephalic and head/scalp atraumatic Mouth ED: Yes moist mucous membranes normal Eyes PERRL and EOMs intact bilaterally Neck full ROM and supple Neck Narrative: Intact surgical incision to base of the the anterior neck, no dehiscence, no purulent discharge, no edema, minimal surrounding erythema. Moderate bruising under his chin. Chest Wall inspection of chest normal Resp normal respiratory effort and clear to auscultation bilaterally Cardio regular rate and regular rhythm GI soft to palpation, non-tender, non-distended and no masses Back/Spine normal ROM and normal to inspection Extremity normal to inspection and full ROM Neuro oriented x3, CN's II-XII intact bilaterally, moves all extremities, no focal motor deficits and no sensory deficits noted Sensorium / Orientation: awake and alert Psych mental status grossly normal and thought process normal Skin no rashes or lesions noted and no wounds <Dr. Norberto Marquez MD - Last Filed: 02/14/24 17:58> Physical Exam Const Vital Signs: 02/14/24 17:08 02/14/24 17:01 02/14/24 18:29 Temperature 97.0 F L 97.0 F L 97.9 F Temperature Source Temporal Temporal Pulse Rate 65 65 70 Respiratory Rate 16 20 H 16 Blood Pressure 132/85 H 132/85 H 124/78 H Blood Pressure Mean 100 100 93 Pulse Ox 97 MDM <BRENDA Blanco - Last Filed: 02/14/24 18:49> [facility] Narrative Medical decision making narrative: Patient presenting requesting to have his surgical incision evaluated. He had a partial thyroidectomy performed on . He is well-appearing and in no acute distress, his vitals are unremarkable. He does not have any other acute complaints. The surgical incision is intact, minimal surrounding erythema, moderate amount of bruising under his chin, no dehiscence, edema, or purulent discharge. Given the minimal erythema and bruising, we will place patient on Keflex with first dose here. He is encouraged to follow-up with the surgeon as an outpatient. He will be discharged home in stable condition and is comfortable with plan. I have personally performed a face to face assessment of the patient and have reviewed the ZAHIRA Note. I performed a substantive portion of the visit including all aspects of the following. My crowe findings include: History is 68-year-old male status post partial thyroidectomy surgery done at [facility] surgery [facility]. Family brought him in today to make sure was not infected. He denies any fever. Denies any purulent discharge. Previously was on antibiotics both Augmentin and Bactrim for wounds on his leg. Exam is [well-appearing 68-year-old male. Vital signs stable afebrile. H EENT exam unremarkable. Neck is a well-healing thyroid surgery incision. It is dry and clean. There is some bruising above it and also mild redness. Is minimally warm to touch. There is no lymphadenopathy. This could all be bruising or also early signs of infection. Lungs clear to auscultation. Heart regular rhythm. Abdomen soft nontender. Moving all 4 extremities. Nontender no edema. Neurologically is awake and alert. Answering questions following commands.] Medical Decision Making [patient be started on Keflex 503 times a day. Given a dose here. Follow-up with the surgeon. Stop the current antibiotics he is on which are Augmentin and Bactrim.] Other additions or changes: [None] <Dr. Norberto Marquez MD - Last Filed: 02/14/24 17:58> [facility] Narrative Medical decision making narrative: Patient presenting requesting to have his surgical incision evaluated. He had a partial thyroidectomy performed on . He is well-appearing and in no acute distress, his vitals are unremarkable. He does not have any other acute complaints. The surgical incision is intact, minimal surrounding erythema, moderate amount of bruising under his chin, no dehiscence, edema, or purulent discharge. I have personally performed a face to face assessment of the patient and have reviewed the ZAHIRA Note. I performed a substantive portion of the visit including all aspects of the following. My crowe findings include: History is 68-year-old male status post partial thyroidectomy surgery done at [facility] surgery [facility]. Family brought him in today to make sure was not infected. He denies any fever. Denies any purulent discharge. Previously was on antibiotics both Augmentin and Bactrim for wounds on his leg. Exam is [well-appearing 68-year-old male. Vital signs stable afebrile. H EENT exam unremarkable. Neck is a well-healing thyroid surgery incision. It is dry and clean. There is some bruising above it and also mild redness. Is minimally warm to touch. There is no lymphadenopathy. This could all be bruising or also early signs of infection. Lungs clear to auscultation. Heart regular rhythm. Abdomen soft nontender. Moving all 4 extremities. Nontender no edema. Neurologically is awake and alert. Answering questions following commands.] Medical Decision Making [patient be started on Keflex 503 times a day. Given a dose here. Follow-up with the surgeon. Stop the current antibiotics he is on which are Augmentin and Bactrim.] Other additions or changes: [None] Discharge Plan Triage Chief Complaint: Wound Check ED Midlevel Provider: Lynne Mcduffie ED Provider: Norberto Marquez Dx/Rx/DC Orders Clinical Impression: Infected surgical wound Instructions: ED Wound Infection after surgery Prescriptions: New cephalexin 500 mg capsule 500 mg PO TID Qty: 20 0RF No Action lisinopril 40 mg tablet 40 mg PO DAILY hydrochlorothiazide 25 mg tablet 25 mg PO DAILY metoprolol succinate 100 mg tablet extended release 24 hr 100 mg PO DAILY omeprazole 20 mg capsule,delayed release(DR/EC) 20 mg PO DAILY rosuvastatin 10 mg tablet 10 mg PO QHS Primary Care Provider: Mary Dempsey NP Referrals: Mary Dempsey NP, [facility] [Primary Care Provider] - Activity Restrictions/Additional Instructions: Please follow-up with your surgeon and return for any worsening of your symptoms. Disposition Disposition: Home, Self Care Discharge Date/Time: 02/14/24 18:32
[2024-02-14] MEDS: Cephalexin 250 MG Capsule 500 MG PO (18:06)
[2024-02-14 18:29] VITALS: BP 124/78; PULSE 70; RESP 16; TEMP 36.6; O2SAT 97
== END 2024-02-14 18:32 | disposition home or self-care (01) ==
LOC: ED 18:07
PROVIDERS: Emergency Provider Emergency Medicine; PCP Registered Nurse; Visit Provider Emergency Medicine
DX: T81.49XA Infection following a procedure, other surgical site, initial encounter (principal); C73 Malignant neoplasm of thyroid gland; F17.210 Nicotine dependence, cigarettes, uncomplicated; Y83.6 Removal of other organ (partial) (total) as the cause of abnormal reaction of the patient, or of later complication, without mention of misadventure at the time of the procedure; K21.9 Gastro-esophageal reflux disease without esophagitis; I10 Essential (primary) hypertension; E78.00 Pure hypercholesterolemia, unspecified; Z79.899 Other long term (current) drug therapy
CPT/HCPCS: 99283

== ENCOUNTER 2024-02-21 05:30 | Emergency (ER) | payer MEDICARE, MEDICAID, SELFPAY ==
[2024-02-21 05:31] VITALS: BP 122/74; PULSE 75; RESP 19; TEMP 36.2; O2SAT 98; BMI 47.5
--- NOTE | 2024-02-21 05:53 | CT_ITS ---
STUDY: CT SOFT TISSUE NECK WITH CONTRAST REASON FOR EXAM: Male, 68 years old patient with questionable abscess. Thyroid cancer with right lobe removed 02/12/24. RADIATION DOSAGE (If Supplied By Facility): CTDIvol = ( 21.45 ) mGy, DLP = ( 562.75 ) mGycm TECHNIQUE: The patient was scanned in a multi-detector CT scanner. High resolution transaxial imaging was performed following intravenous administration of 100 mL of IV Isovue-370. Sagittal and coronal images were reconstructed. Individualized dose optimization techniques were used for this CT. COMPARISON: None. FINDINGS: Normal bilateral parotid glands. Normal bilateral payment collector spaces. Normal bilateral parapharyngeal spaces. Normal bilateral carotid spaces. Normal bilateral sublingual and submandibular glands and spaces. Normal visualized nasopharynx. Normal retropharyngeal space. Normal perivertebral space. Normal visualized bilateral faucial tonsils. The visualized tongue, tongue base and oropharynx are normal. Patient is edentulous. The visualized cervical lymph nodes (levels I-) are within normal size limits, and maintain normal morphology. There is no demonstrated solid or cystic mass lesion. There is no abnormal contrast enhancement. Normal epiglottis, bilateral vallecula and hypopharynx. The pre-epiglottic and paraglottic adipose spaces are normal. Normal visualized bilateral piriform sinuses, aryepiglottic folds, vocal cords, and arytenoid-cricoid articulations. Normal subglottic trachea. There is abnormal soft tissue in the region of the right lobe of the thyroid extending into the anterior neck. This abnormal soft tissue measures approximately 7.2 x 3.5 x 5.9 cm in size. This may represent phlegmon and/or hematoma. This appears to have minimal enhancement. The left lobe of the thyroid has a grossly normal appearance. Normal visualized pulmonary apices. Normal visualized paranasal sinuses. There is multilevel degenerative changes of the cervical spine. CT/Soft Tissue Neck WITH Contrast IMPRESSION: Abnormal soft tissue in the region of the right lobe of the thyroid extending into the anterior neck suggests possible phlegmon and/or hematoma. Electronically Signed: Sruthi Ledesma MD at 7:57 EDT ,
--- NOTE | 2024-02-21 05:58 | EDS_ITS ---
HPI History of Present Illness Chief Complaint: Wound Informant: patient Narrative Narrative: Patient is a 68-year-old male with past medical history of hypertension hyperlipidemia GERD and thyroid cancer. He underwent thyroid surgery on February 11. He had been on Augmentin and Bactrim for leg wounds prior to surgery. He was evaluated on February 13 secondary concern for potential postoperative infection. At that time he was transitioned to Keflex. He reports he has been taking as directed and only has 1 pill left. He states that he feels the area is more swollen than the surgeon had led him to believe it would be at this time and with concern for developing infection he comes in for evaluation. He denies any fevers or chills any change in voice difficulty with secretions or shortness of breath PFSH [facility] Medical History GERD (gastroesophageal reflux disease) High cholesterol HTN (hypertension) Thyroid cancer Home Medications ?Medication ?Instructions ?Recorded ?Last Taken ?Type lisinopril 40 mg tablet 40 mg PO DAILY 10/11/23 02/14/24 History cephalexin 500 mg capsule 500 mg PO TID #20 caps 02/14/24 Unknown Rx hydrochlorothiazide 25 mg tablet 25 mg PO DAILY 02/14/24 02/14/24 History metoprolol succinate 100 mg 100 mg PO DAILY 02/14/24 Unknown History tablet,extended release 24 hr omeprazole 20 mg capsule,delayed 20 mg PO DAILY 02/14/24 02/14/24 History release rosuvastatin 10 mg tablet 10 mg PO QHS 02/14/24 02/13/24 History aspirin 81 mg tablet,delayed 81 mg PO DAILY 02/21/24 Unknown History release (Adult Aspirin Regimen) Allergy/AdvReac Type Severity Reaction Status Date / Time No Known Allergies Allergy Verified 02/14/24 17:03 Surgical History (Updated 02/21/24 @ 07:[address] Reinaldo Whaley DO) S/P removal of thyroid nodule Social History Smoking Status: Current every day smoker tobacco type: cigarettes ROS ROS ED Constitutional Constitutional ED: Denies chills or fever(s) ENT ENT ED: Reports other Details: Positive surgical wound ; Denies sore throat Cardiovascular Cardiovascular: Denies chest pain Respiratory/Chest Respiratory/Chest: Denies cough or dyspnea Gastrointestinal Gastrointestinal: Denies abdominal pain, diarrhea, nausea or vomiting Genitourinary Genitourinary ED: Denies dysuria Musculoskeletal Musculoskeletal: Reports neck pain; Denies myalgias Integumentary Reports other Details: Positive surgical wound ; Denies rash Neurologic Neurologic: Denies headache(s) Hematologic/Lymphatic Hematologic/Lymphatic: Denies easy bleeding or easy bruising EXAM Physical Exam Const Vital Signs: 02/21/24 05:31 02/21/24 06:34 Temperature 97.1 F L 97.5 F L Temperature Source Temporal Temporal Pulse Rate 75 78 Respiratory Rate 19 H 17 Blood Pressure 122/74 H 155/98 H Blood Pressure Mean 90 117 Pulse Ox 98 100 Oxygen Delivery Method Room Air Room Air Positive well nourished, well developed and obese General Appearance ED: well developed Nutritional Appearance: obese HEENT Reports moist mucous membranes HEENT Narrative: No tongue or lip swelling no oral lesions no airway edema or compromise No signs of infection noted in the posterior pharynx Eyes PERRL and EOMs intact bilaterally General Eye ED: Negative for scleral icterus Neck supple Neck Narrative: In the lower anterior neck is a healing linear incision that is clean dry and intact. There is mild firmness around the aspects of the wound concerning or consistent with development of a keloid scar. However there is no erythema or warmth no lymphangitic streaking no active discharge or drainage. No crepitance palpated No brawny edema in the submental space noted to suggest Manjeet's angina. Resp normal respiratory effort and clear to auscultation bilaterally Resp Narrative: No nasal flaring retractions tachypnea or accessory muscle use Cardio regular rate and regular rhythm Extremity normal to inspection Neuro oriented x3, CN's II-XII intact bilaterally and no sensory deficits noted Sensorium / Orientation: alert Motor Exam: strength 5/5 throughout Psych mental status grossly normal Skin no rashes or lesions noted Skin Narrative: Postsurgical changes to the lower anterior midline neck as documented above MDM MDM MDM Narrative Medical decision making narrative: Patient arrived to the ER with stable vitals and he is in no respiratory distress. Differential diagnosis is for development of cellulitis versus abscess versus seroma versus hematoma versus Manjeet's angina versus epiglottitis. Secondary to his basic labs were obtained as well as a CT scan with IV contrast. Labs showed no elevation to the white blood cell count and no left shift going against acute infection which does correlate with his stable vitals as well as his physical exam. CT scan soft tissue of the neck did not show any obvious drainable fluid collection or sign of secondary infection either. Therefore at this time as vitals are stable laboratory studies normal and CT scan is not showing any signs of acute inflammatory or infectious pathology patient is safe for discharge and can follow-up with the surgeon as previously directed History & Record Review Discussion w/independent historian: Patient Lab Data Attestation: I reviewed the patient's lab results. Labs: Laboratory Results - last 24 hr 02/21/24 05:48 WBC 9.4 RBC 4.64 Hgb 14.2 Hct 43.2 MCV 93.1 MCH 30.6 MCHC 32.9 RDW Std Deviation 43.8 RDW Coeff of Nena 12.8 Plt Count 234 MPV 11.2 Immature Gran % (Auto) 0.400 Neut % (Auto) 51.7 Lymph % (Auto) 32.7 Brule % (Auto) 10.4 H Eos % (Auto) 3.8 Baso % (Auto) 1.0 Absolute Neuts (auto) 4.9 Absolute Lymphs (auto) 3.08 Nucleated RBC % 0 Sodium 137 Potassium 3.4 L Chloride 106 Carbon Dioxide 26.0 Anion Gap 5 BUN 25 H Creatinine 1.16 Estim Creat Clear Calc 76.81 Est GFR (MDRD) Af Amer 80 Est GFR (MDRD) Non-Af 66 BUN/Creatinine Ratio 21.6 H Glucose 144 H Calcium 9.4 Discharge Plan Triage Chief Complaint: Wound ED Provider: Reinaldo Whaley Dx/Rx/DC Orders Clinical Impression: Post-operative state, Hypertension, Hyperlipidemia, History of thyroid cancer Instructions: Caring for Your Incision Prescriptions: No Action lisinopril 40 mg tablet 40 mg PO DAILY aspirin [Adult Aspirin Regimen] 81 mg tablet,delayed release (DR/EC) 81 mg PO DAILY cephalexin 500 mg capsule 500 mg PO TID Qty: 20 0RF hydrochlorothiazide 25 mg tablet 25 mg PO DAILY metoprolol succinate 100 mg tablet extended release 24 hr 100 mg PO DAILY omeprazole 20 mg capsule,delayed release(DR/EC) 20 mg PO DAILY rosuvastatin 10 mg tablet 10 mg PO QHS Primary Care Provider: Mary Dempsey NP Referrals: Mary Dempsey NP, [employer] [Primary Care Provider] - Activity Restrictions/Additional Instructions: Please follow-up with your surgeon as previously directed return to the ER should you have any further concerns Print Language: Czech Disposition Disposition: Home, Self Care
[2024-02-21 06:01] LABS: Absolute Lymphocyte Count 3.08 X10^3/uL (0.83-4.51); Absolute Neutrophil Count 4.9 X10^3/uL (2.0-7.7); Basophil# 0.09 X10^3/uL; Eosinophil# 0.36 X10^3/uL; Eosinophils% 3.8 % (0-5); Hematocrit 43.2 % (40-54); Hemoglobin 14.2 g/dL (13.0-16.5); Lymphocyte # 3.08 X10^3/ul (0.83-4.51); Lymphocyte % 32.7 % (19-41); Mean Corp Hgb Conc 32.9 g/dL (32-36); Mean Corpuscular Hgb 30.6 pg (27.0-32.0); Mean Corpuscular Volume 93.1 fL (80-94); Mean Platelet Vol. 11.2 fl (6.2-12.0); Monocyte# 0.98 X10^3/uL; Monocyte% 10.4 % (0-10); NRBC Flagged by Analyzer 0 % (0-5); Neutrophil # 4.86 X10^3/uL (2.7-7.7); Neutrophil % 51.7 % (47-70); Platelet Count 234 K/mm3 (150-450); RBC Distribution Width CV 12.8 % (11.6-14.6); RBC Distribution Width SD 43.8 fl (35.1-43.9); Red Blood Count 4.64 M/mm3 (4.6-6.2); White Blood Count 9.4 K/mm3 (4.4-11.0)
[2024-02-21] MEDS: 0.9% Normal Saline (500mL Bag) 500 ML 999 ML IV (06:04)
[2024-02-21 06:17] LABS: Anion Gap 5 (5-15); BUN 25 mg/dL (7-18); BUN/Creat Ratio 21.6 RATIO (10-20); Calcium,Total 9.4 mg/dL (8.5-10.1); Chloride 106 mmol/L (98-107); Creatinine, Serum 1.16 mg/dL (0.70-1.30); EST Glomerular Filtration Rate 66 mL/min (>60); Est Glom Filt Rate - Afr Amer 80 mL/min (>60); Estimated Creatinine Clearance 76.81 ml/min; Glucose 144 mg/dL (74-106); Potassium 3.4 mmol/L (3.5-5.1); Sodium Level 137 mmol/L (136-145)
[2024-02-21 06:34] VITALS: BP 155/98; PULSE 78; RESP 17; TEMP 36.4; O2SAT 100
[2024-02-21 08:21] VITALS: BP 125/76; PULSE 62; RESP 18; TEMP 36.6; O2SAT 97
[2024-02-21] MEDS: predniSONE 20 MG Tablet 40 MG PO (08:23)
== END 2024-02-21 08:23 | disposition home or self-care (01) ==
PROVIDERS: Emergency Provider Emergency Medicine; PCP Registered Nurse; Visit Provider Emergency Medicine
DX: I10 Essential (primary) hypertension (principal); E78.5 Hyperlipidemia, unspecified; F17.210 Nicotine dependence, cigarettes, uncomplicated; Z79.82 Long term (current) use of aspirin; Z79.899 Other long term (current) drug therapy
CPT/HCPCS: 70491; 80048; 85025; 96360; 99283; J7040; Q9967; A4216

== ENCOUNTER 2024-06-07 07:56 | Emergency (ER) | payer MEDICARE, MEDICAID, SELFPAY ==
[2024-06-07 07:56] VITALS: BP 130/72; PULSE 58; RESP 16; TEMP 36.6; O2SAT 97; BMI 45.7
[2024-06-07 08:23] VITALS: O2SAT 100
--- NOTE | 2024-06-07 08:23 | EKG12_ITS ---
Test Reason : CP/SOB Blood Pressure : / mmHG Vent. Rate : 058 BPM Atrial Rate : 058 BPM P-R Int : 210 ms QRS Dur : 082 ms QT Int : 394 ms P-R-T Axes : 001 -58 -11 degrees QTc Int : 386 ms Sinus bradycardia with 1st degree A-V block with Fusion complexes Left axis deviation Inferior infarct , age undetermined Abnormal ECG Confirmed by KINGA RAMIREZ, MELANIE ([id number]), television news video editor MAI PETERSEN ([id number]) on 06/08/2024 1:12:36 PM Referred By: BB Confirmed By:MELANIE DONATO MD
--- NOTE | 2024-06-07 08:24 | ED.VIS.DYS ---
HPI History of Present Illness Chief Complaint: Chest Pain Informant: patient Narrative Narrative: Patient presenting with 3 days of substernal chest tightness and shortness of breath in the form of wheezing. He had a nonproductive cough in that amount of time as well. He does not have a rescue inhaler, just a red 1 and he states he has a nebulizer machine somewhere but does not know where it is. He has COPD and this feels like it. He is not on home oxygen. He continues to smoke. He has chronic leg swelling and states it is no different. Denies orthopnea. [facility] Medical History GERD (gastroesophageal reflux disease) High cholesterol HTN (hypertension) Thyroid cancer Home Medications ?Medication ?Instructions ?Recorded ?Last Taken ?Type lisinopril 40 mg tablet 40 mg PO DAILY 10/11/23 02/14/24 History hydrochlorothiazide 25 mg tablet 25 mg PO DAILY 02/14/24 02/14/24 History metoprolol succinate 100 mg 100 mg PO DAILY 02/14/24 Unknown History tablet,extended release 24 hr omeprazole 20 mg capsule,delayed 20 mg PO DAILY 02/14/24 02/14/24 History release rosuvastatin 10 mg tablet 10 mg PO QHS 02/14/24 02/13/24 History aspirin 81 mg tablet,delayed 81 mg PO DAILY 02/21/24 Unknown History release (Adult Aspirin Regimen) albuterol sulfate 90 mcg/actuation 1 - 2 puff inhalation Q4H PRN PRN 06/07/24 Unknown Rx aerosol inhaler (Ventolin HFA) Wheezing ##1 doxycycline monohydrate 100 mg 100 mg PO BID #14 CAPSULES 06/07/24 Unknown Rx capsule prednisone 20 mg tablet 40 mg (2 x 20 mg) PO BID #10 tabs 06/07/24 Unknown Rx Allergy/AdvReac Type Severity Reaction Status Date / Time No Known Allergies Allergy Verified 06/07/24 07:56 Surgical History S/P removal of thyroid nodule Social History Smoking Status: Current every day smoker tobacco type: cigarettes ROS ROS ED Constitutional Constitutional ED: Denies body ache(s), chills, fever(s) or headache(s) Eyes Eyes: Denies change in vision or diplopia ENT ENT ED: Denies rhinorrhea or sore throat Cardiovascular Cardiovascular: Reports chest pain; Denies orthopnea or palpitations Respiratory/Chest Respiratory/Chest: Reports chest tightness, cough, dyspnea and dyspnea on exertion; Denies orthopnea or pain on inspiration Gastrointestinal Gastrointestinal: Denies abdominal pain, diarrhea, nausea or vomiting Genitourinary Genitourinary ED: Denies dysuria or hematuria Musculoskeletal Musculoskeletal: Denies back pain or neck pain Integumentary Denies abscess or rash Neurologic Neurologic: Denies headache(s), paresthesias or weakness Psychiatric Psychiatric: Denies anxiety or suicidal thoughts EXAM Physical Exam Const Vital Signs: 06/07/24 07:56 06/07/24 08:23 06/07/24 08:30 Temperature 98 F Temperature Source Temporal Pulse Rate 58 L Respiratory Rate 16 Blood Pressure 130/72 H Blood Pressure Mean 91 Pulse Ox 97 100 93 Oxygen Delivery Method Room Air Room Air Room Air 06/07/24 08:30 06/07/24 09:56 Temperature Temperature Source Pulse Rate 56 L 81 Respiratory Rate 20 H 18 Blood Pressure 123/81 H Blood Pressure Mean 95 Pulse Ox 95 Oxygen Delivery Method Room Air Positive well nourished, well developed and obese General Appearance ED: well developed and NAD Nutritional Appearance: obese HEENT Reports moist mucous membranes normocephalic and atraumatic Eyes PERRL and EOMs intact bilaterally Neck full ROM, supple, no meningeal signs and no JVD Resp normal respiratory effort Resp Narrative: Diffuse expiratory wheezing otherwise clear. Diminished throughout symmetrically. Trachea midline. Cardio regular rate, regular rhythm and no murmurs GI non-tender and non-distended Auscultation: normoactive bowel sounds Palpation: soft Back/Spine no CVA tenderness General Back: other FROM Extremity normal to inspection General Extremety ED: Yes edema; Negative for pulses abnormal or tenderness General Extremity: edema bilateral lower extremity Details: mild; Negative for pulses abnormal Neuro oriented x3, CN's II-XII intact bilaterally and no sensory deficits noted Sensorium / Orientation: awake and alert Motor Exam: strength 5/5 throughout Psych mental status grossly normal Skin no rashes or lesions noted and no wounds MDM MDM MDM Narrative Medical decision making narrative: Patient doing much better after several nebulizer treatments. He is ambulatory without hypoxemia or exertional angina. 2 view chest x-ray mitral rotation shows no acute ammonia. Radiology in agreement. We did COVID/influenza/RSV swab is negative, his blood sugar is 131. I did an EKG given his chest discomfort which I think is pulmonary-related EKG is normal so I do not think he needs emergent blood work right now. Patient states he was diagnosed with COPD, I do not see that diagnosis pre-existing in the EMR nor do I see a history of pulmonary function studies but that is just at this hospital. I am going to treat him like a COPD exacerbation. He states he is a borderline diabetic, going to put him on a short course of prednisone burst along with antibiotics to prevent bacterial superinfection, he is comfortable that overall plan. Also prescribing him an albuterol inhaler so he has a rescue inhaler at home before he follows up. Lab Data Attestation: I reviewed the patient's lab results. Labs: Laboratory Results - last 24 hr 06/07/24 08:33 POC Glucose 131 H Radiography Diagnostic Testing: Clinical Impression(s) from Imaging Studies Chest X-Ray 06/07/24 09:00 IMPRESSION: Hyperinflated lungs with interstitial prominence although no focal pneumonia consistent with COPD. Electronically Signed: Toño Gonzalez, at 9:16 EDT , Rhythm Strip Rhythm Strip: Sinus Rhythm Rate: 58 Ectopy: None EKG Initial EKG: Attestation: I personally reviewed and interpreted this EKG as follows: Interpretation: Sinus Rhythm, No Acute Injury Pattern and AV Block (1st deg) Comments: Normal EKG except for first-degree AV block borderline Prior EKG tracings: not available for review Prior: No Prior Discharge Plan Triage Chief Complaint: Chest Pain ED Provider: Parish Gross Dx/Rx/DC Orders Clinical Impression: Acute bronchitis, COPD exacerbation, Chest tightness Instructions: ED COPD Flare Prescriptions: New doxycycline monohydrate 100 mg capsule 100 mg PO BID Qty: 14 0RF albuterol sulfate [Ventolin HFA] 90 mcg/actuation HFA aerosol inhaler 1 - 2 puff inhalation Q4H PRN PRN (Reason: Wheezing) Qty: 1 0RF Continued lisinopril 40 mg tablet 40 mg PO DAILY aspirin [Adult Aspirin Regimen] 81 mg tablet,delayed release (DR/EC) 81 mg PO DAILY hydrochlorothiazide 25 mg tablet 25 mg PO DAILY metoprolol succinate 100 mg tablet extended release 24 hr 100 mg PO DAILY omeprazole 20 mg capsule,delayed release(DR/EC) 20 mg PO DAILY rosuvastatin 10 mg tablet 10 mg PO QHS Changed prednisone 20 mg tablet 40 mg PO BID Qty: 10 0RF Discontinued cephalexin 500 mg capsule 500 mg PO TID Qty: 20 0RF Primary Care Provider: Stef Frey NP Referrals: Mary Dempsey NP, COMPLIANCE TECHNICIAN-C [Non-Staff] - 3-5 Days Print Language: German Disposition Disposition: Home, Self Care
[2024-06-07] MEDS: Albuterol 2.5 MG/3 ML VIAL.NEB. INHALATION (08:28)
[2024-06-07] MEDS: Ipratropium/Albuterol Sulfate 3 ML AMPUL.NEB INHALATION (08:28)
[2024-06-07 08:30] VITALS: PULSE 56; RESP 20; O2SAT 93
[2024-06-07] MEDS: predniSONE 20 MG Tablet 40 MG PO (08:34)
[2024-06-07 08:51] LABS: Bedside Glucose 131 mg/dL (74-106)
--- NOTE | 2024-06-07 09:00 | RAD_ITS ---
EXAM: XR CHEST, 2 VIEWS CLINICAL INDICATION: cough, sob, copd TECHNIQUE: Frontal and lateral views of the chest. COMPARISON: Chest CT, 09/24/2023 FINDINGS: LUNGS AND PLEURAL SPACES: Hyperinflated lungs with interstitial prominence although no focal pneumonia consistent with COPD. No pneumothorax. No effusion. HEART: No significant abnormality. Cardiac silhouette not enlarged. MEDIASTINUM: Central airways and mediastinal contour are unremarkable. BONES/JOINTS: No significant abnormality. No acute fracture. SOFT TISSUES: No significant abnormality. RAD/Chest PA and Lateral IMPRESSION: Hyperinflated lungs with interstitial prominence although no focal pneumonia consistent with COPD. Electronically Signed: Toño Gonzalez DO at 9:16 EDT ,
[2024-06-07 09:42] VITALS: O2SAT 92
[2024-06-07 09:56] VITALS: BP 123/81; PULSE 81; RESP 18; O2SAT 95
[2024-06-07 10:14] VITALS: BP 132/78; PULSE 80; RESP 22; TEMP 36.6; O2SAT 95
== END 2024-06-07 10:18 | disposition home or self-care (01) ==
PROVIDERS: Emergency Provider Emergency Medicine; PCP Nurse Practitioner Family; Visit Provider Emergency Medicine
DX: J44.0 Chronic obstructive pulmonary disease with (acute) lower respiratory infection (principal); J41.1 Mucopurulent chronic bronchitis; E78.00 Pure hypercholesterolemia, unspecified; I10 Essential (primary) hypertension; J20.9 Acute bronchitis, unspecified; F17.210 Nicotine dependence, cigarettes, uncomplicated; Z79.82 Long term (current) use of aspirin; Z79.899 Other long term (current) drug therapy
CPT/HCPCS: 71046; 82962; 87631; 93005; 94640; 99282

== ENCOUNTER 2024-07-31 17:47 | Emergency (ER) | payer MEDICARE, MEDICAID, SELFPAY ==
[2024-07-31 17:48] VITALS: BP 135/70; PULSE 61; RESP 20; TEMP 36.5; O2SAT 96; BMI 51.1
--- NOTE | 2024-07-31 17:53 | EX.ED.UPPERE ---
HPI <Dr. Frantz Sahu DO - Last Filed: 07/31/24 22:53> History of Present Illness Chief Complaint: Upper Extremity Injury <Dr. Luis A Javier DO - Last Filed: 08/01/24 00:11> History of Present Illness HPI Narrative: Patient presents with right wrist injury that occurred today. Patient states he slipped and was falling. Patient states he put his right hand out to catch himself. Patient states he felt a crack in his wrist. Patient states his pain is worse with certain movements. Patient states it is better with rest. Patient describes his pain as stabbing. Patient denies any paresthesias or weakness. Patient denies any other injuries. Informant: patient Occured/Mechanism Mechanism/Context: Yes direct blow and Yes fall Onset/Context/Timing Onset: Today Context: Sudden Onset Timing: Continuous Quality of Pain: Stabbing Location: Right wrist Worsened by: Movement Relieved by: Rest Associated Symptoms Associated Symptoms: Negative for Parasthesia, Weakness or Loss of Funtion PFSH <Dr. Frantz Sahu DO - Last Filed: 07/31/24 22:53> [facility] Medical History GERD (gastroesophageal reflux disease) High cholesterol HTN (hypertension) Thyroid cancer Home Medications ?Medication ?Instructions ?Recorded ?Last Taken ?Type lisinopril 40 mg tablet 40 mg PO DAILY 10/11/23 02/14/24 History hydrochlorothiazide 25 mg tablet 25 mg PO DAILY 02/14/24 02/14/24 History metoprolol succinate 100 mg 100 mg PO DAILY 02/14/24 Unknown History tablet,extended release 24 hr omeprazole 20 mg capsule,delayed 20 mg PO DAILY 02/14/24 02/14/24 History release rosuvastatin 10 mg tablet 10 mg PO QHS 02/14/24 02/13/24 History aspirin 81 mg tablet,delayed 81 mg PO DAILY 02/21/24 Unknown History release (Adult Aspirin Regimen) albuterol sulfate 90 mcg/actuation 1 - 2 puff inhalation Q4H PRN PRN 06/07/24 Unknown Rx aerosol inhaler (Ventolin HFA) Wheezing ##1 doxycycline monohydrate 100 mg 100 mg PO BID #14 CAPSULES 06/07/24 Unknown Rx capsule prednisone 20 mg tablet 40 mg (2 x 20 mg) PO BID #10 tabs 06/07/24 Unknown Rx Allergy/AdvReac Type Severity Reaction Status Date / Time No Known Allergies Allergy Verified 07/31/24 17:48 Surgical History S/P removal of thyroid nodule Social History Smoking Status: Current every day smoker tobacco type: cigarettes ROS <Dr. Luis A Javier DO - Last Filed: 08/01/24 00:11> ROS ED Constitutional Constitutional ED: Denies chills or fever(s) Eyes Eyes: Denies blurry vision or change in vision ENT ENT ED: Denies rhinorrhea or sore throat Cardiovascular Cardiovascular: Denies chest pain or palpitations Respiratory/Chest Respiratory/Chest: Reports cough; Denies dyspnea Gastrointestinal Gastrointestinal: Denies nausea or vomiting Genitourinary Genitourinary ED: Denies dysuria or hematuria Musculoskeletal Musculoskeletal: Denies back pain or neck pain Integumentary Denies abscess or rash Neurologic Neurologic: Denies headache(s) or weakness Allergic/Immunologic Allergic/Immunologic ED: Denies mouth swelling or urticaria EXAM <Dr. Luis A Javier, - Last Filed: 08/01/24 00:11> Physical Exam Const Vital Signs: 07/31/24 17:48 Temperature 97.7 F L Temperature Source Temporal Pulse Rate 61 Respiratory Rate 20 H Blood Pressure 135/70 H Blood Pressure Mean 91 Pulse Ox 96 Oxygen Delivery Method Room Air Positive well nourished and well developed General Appearance ED: well developed and NAD HEENT Reports moist mucous membranes normocephalic Neck full ROM and supple Extremity Extremity Narrative: There is tenderness to palpation over the ulnar aspect of the right wrist. There is no deformity noted. Range of motion was slightly limited in all motions of the right wrist secondary to pain. Strength is 5/5 in the radial, median, and ulnar areas. Sensation was intact to light touch in the radial, median, and ulnar areas. Radial pulses are equal bilaterally. Neuro oriented x3, CN's II-XII intact bilaterally, moves all extremities, no focal motor deficits and no sensory deficits noted Sensorium / Orientation: alert Motor Exam: strength 5/5 throughout Psych mental status grossly normal MDM <Dr. Frantz Adelina, DO - Last Filed: 07/31/24 22:53> [facility] Narrative Medical decision making narrative: HISTORY OF PRESENT ILLNESS: 69-year-old male here with wrist injury. Patient notes he fell today and comes on the right hand injuring his wrist. Denies any other injury. Patient states REVIEW OF SYSTEMS: Pertinent positives: Pertinent negatives: [] PHYSICAL EXAM: Nursing triage notes reviewed, Vital signs reviewed Constitutional: please see [facility] HENT: MMM Eyes: Pupils equal round and reactive to light, Extraocular muscles intact Neck: No stridor, no JVD, full neck ROM Lungs: Clear to auscultation, No wheezing or rales. No increased work of breathing, no conversational dyspnea, no accessory muscle use, no nasal flaring. No respiratory distress noted Heart: Regular rate and rhythm, No murmurs, No rubs and No gallops, 2+ distal pulses (radial, femoral, posterior tibial) in all extremities Abdomen: Soft, there is no tenderness, rigidity, rebound or guarding, no obvious peritoneal signs, no palpable pulsatile abdominal masses, no auscultated abdominal bruit : No CVAT Extremities: No edema Neuro: No focal neurological deficits, cranial nerves II through XII intact, 5/5 strength in all extremities. Intact sensation to light touch in all extremities, 2+ reflexes bilateral patella tendons. Normal gait. No ataxia. Skin: No rash or lesions noted MEDICAL DECISION MAKING: Chief Complaint: Wrist pain External records reviewed: Hypertension compartment anemia, GERD, hyperlipidemia Factors affecting care: none Social determinants of health: none History obtained from others: none Consults: none [facility] Narrative: Patient was hemodynamically stable, afebrile, nontoxic-appearing. Exam I considered the following differential diagnosis: Fracture, dislocation ALL IMAGES (IF OBTAINED) HAVE BEEN PERSONALLY REVIEWED AND INTERPRETED BY MYSELF. [] The patient and/or family, caregivers express understanding. The patient and/or family, caregivers agrees with the plan. Shared decision making: I will have a discussion with the patient and or visitors regarding risk/benefits of further testing or admission. They will be made aware of of the risk/benefits inherent in this decision they will be given the opportunity to voice understanding. Total critical care time today provided was at least 0 [] minutes. This excludes separately billable procedures. Critical care time (if documented) is secondary to the patient having high probability of clinically significant/life threatening deterioration in the patient's condition which required my urgent intervention. Impression: [] Dispo: [] This note was generated with [employer] dictation software. It may contain incorrect words, spelling, and punctuation that were not noted in review of the chart prior to signing. <Dr. Luis A Javier, DO - Last Filed: 08/01/24 00:11> [facility] Narrative Medical decision making narrative: Differential diagnosis includes fracture, sprain, and contusion. X-rays of the right wrist will be obtained to assess for fracture. Radiography Diagnostic Testing: X-rays of the right wrist were obtained. There are 3 views. On my independent interpretation, there is no acute fracture or dislocation noted. There is some mild soft tissue swelling. Radiologist also interpreted the x-rays and agrees. Treatment and Re-Evaluation Narrative: Patient was advised of his findings. Patient was given a Velcro wrist splint. Patient was instructed use ice to the area. Patient was instructed to take Tylenol or ibuprofen as needed for pain. Patient was instructed to follow-up with his primary care physician in 5 to 7 days. Patient understood and was agreeable with plan. All questions were answered. Discharge Plan Triage Chief Complaint: Upper Extremity Injury ED Provider: Luis A Javier Dx/Rx/DC Orders Clinical Impression: Right wrist sprain, Fall Instructions: ED Wrist Sprain Prescriptions: No Action lisinopril 40 mg tablet 40 mg PO DAILY aspirin [Adult Aspirin Regimen] 81 mg tablet,delayed release (DR/EC) 81 mg PO DAILY hydrochlorothiazide 25 mg tablet 25 mg PO DAILY metoprolol succinate 100 mg tablet extended release 24 hr 100 mg PO DAILY omeprazole 20 mg capsule,delayed release(DR/EC) 20 mg PO DAILY rosuvastatin 10 mg tablet 10 mg PO QHS doxycycline monohydrate 100 mg capsule 100 mg PO BID Qty: 14 0RF albuterol sulfate [Ventolin HFA] 90 mcg/actuation HFA aerosol inhaler 1 - 2 puff inhalation Q4H PRN PRN (Reason: Wheezing) Qty: 1 0RF prednisone 20 mg tablet 40 mg PO BID Qty: 10 0RF Primary Care Provider: Care Physician,No Primary Referrals: Care Physician,No Primary [Primary Care Provider] - Mary Dempsey [employer], [employer] [Non-Staff] - 5-7 Days Print Language: Panamanian Disposition Disposition: Home, Self Care Discharge Date/Time: 07/31/24 19:38
--- OUTSIDE RECORDS SUMMARY | 2024-07-31 18:12 | XMS RPT_ITS | CCD ---
Author Organization [facility] Inform ion Partnership [facility] Care Team Providers Care Historiographer Name Role Phone KINGA SOOD Primary Care Unavailable aCrter John () Primary Care Provider [phone] Unavailable Primary Care Provider UnavailJE Contreras Attending Unavailable DEIDRE LAM Attending Unavailable Kinga Sood Primary Care Provider XIOMY ELIGIBILITY CONSULTANT-KHADAR, EMERITA Primary Care Physician Unavailable Primary Care Provider UnavailPARISH Riggs Referring Unavailable PARISH CORONEL Attending Unavailable Janusz VAZQUEZN - SWITCH CLEANER, Mary Primary Care Provi enriqueta JANUSZ VAZQUEZN-SWITCH CLEANER, MARY Brush Primary Care Physi selvin EMERITA CHA Attending Unamargaret STAUFFER APRN-SWITCH CLEANER, EMERITA Primary Care Unavasurjit BOUDREAUX APRN-KHADAR, MARY Brush Attending Un available JANUSZ VAZQUEZN-SWITCH CLEANER, MARY A Primary Care Un available JANUSZ MESA-KHADAR, MARY A Attending Un available JANUSZ VAZQUEZN-SWITCH CLEANER, MARY A Primary Care Un available DR ADLA LUCERO DO Attending Unavailable JANUSZ VAZQUEZN-SWITCH CLEANER, MARY A Primary Care Un available KOFFI SHELDON Admitting Unavailable KOFFI SHELDON Attending Unavailable MARY BOUDREAUX Primary Care Unavailable KOFFI SHELDON Attending Unavailable MARY BOUDREAUX Primary Care Unavailable KOFFI SHELDON Attending Unavailable KOFFI SHELDON Referring Unavailable MARY BOUDREAUX Primary Care Unavailable KOFFI SHELDON Attending Unavailable KOFFI SHELDON Referring Unavailable MARY BOUDREAUX Primary Care Unavailable Medications Current Medications Medication Drug Class(es) Dates Sig (Normalized) Sig (Original) acetaminophen 325 mg / HYDROcodone bitartrate 5 mg oral tablet (5 sources) Opioid Agonist Start: 02-12-2024 End: 02-17-2024 take 1 tablet by mouth every six hours as needed for pain HYDROcodone-aceta minophen ([place]) 5-325 MG tablet 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 20 tablet 0 02/12/2024 02/17/2024 Active Start: 01-07-2023 End: 01-14-2023 take 1 tablet by mouth four times daily as needed for pain acetaminophen-hydrocodone 325 mg-5 mg or al tablet Dose = 1 tab(s), Oral, QID, PRN as needed for pain, Fill Date: 01/07/2023, X 7 day(s), # 28 tab(s), 0 Refill(s), Pharmacy: [facility], Flank pain Thoracic back pain, 169.5, [...] wheezing, # 18 gram(s), 2 Refill(s), Pharmacy: [facility], 169.5, cm, 11/19/22 9:28:00 EST, Height, kg, 11/19/22 8:40:00 EST, Dosing Weight Start Date: 12/13/22 Stop Date: 03/13/23 Status: Ordered Start: 05-06-2022 End: 08-04-2022 take 2 puff(s) by inhalation every six hours as needed for wheezing albuterol MDI (90 mcg/inh) CFC free inhalation aerosol 2 puff(s), Inhalation, q6hr, PRN as needed for wheezing, # 18 gram(s), 2 Refill(s), Pharmacy: [facility], 167, cm, 05/03/22 13:49:00 EDT, Height, kg, 05/03/22 13:26:00 EDT, Dosing Weight Start Date: 05/06/22 Stop Date: 08/04/22 Status: Ordered Start: 11-13-2021 End: 02-11-2022 take 2 puff(s) by inhalation every six hours as needed for wheezing albuterol MDI (90 mcg/inh) CFC free inhalation aerosol 2 puff(s), Inhalation, q6hr, PRN as needed for wheezing, # 18 gram(s), 2 Refill(s), [facility]: [facility], 167, cm, 11/13/21 11:08:00 EST, Height, kg, 11/13/21 11:08:00 EST, Dosing Weight Start Date: 11/13/21 Stop Date: 02/11/22 Status: Ordered Start: 07-25-2021 take 1 puff(s) by in halation every four hours as needed for wheezing albuterol MDI (90 mcg/inh) CFC free inhalation aerosol 1 puff(s), Inhalation, q4h, PRN as needed for wheezing, # 18 gram(s), 0 Refill(s) Start Date: 07/25/21 Status: Ordered Alcohol Swabs (10 sources) Start: 06-21-2022 Alcohol Swabs See Instructions, 1=100 qs for 1 montth supply, # 1 EA, 11 Refill(s), Pharmacy: [facility], Type 2 diabetes mellitus, 167, cm, 05/31/22 16:05:00 EDT, Height, 134.2 Start Date: 06/21/22 Status: Ordered amoxicillin 875 mg / clavulanate 125 mg oral tablet (1 source) Penicillin-class Antibacterial Start: 02-02-2024 End: 02-12-2024 take 1 tablet by mouth every twelve hours amoxicillin-clavula lorenzo 875 mg-125 mg oral tablet 1 tab(s), Oral, q12h, X 10 day(s), # 20 tab(s), 0 Refill(s), 02/12/24 11:37:00 AM EDT, [facility]acy: [facility] #[id number], Cellulitis of left leg Open wound of leg, 169.5, cm, 02/02/24 11:04:00 EDT, Height, 136.5, kg, 02/02/24 11:04:00 EDT, Dosing Weight Start Date: 02/02/24 Stop Date: 02/12/24 Status: Ordered Aspercreme Arthritis Pain 1% topical gel (1 source) Start: 10-13-2023 Aspercreme Arthritis Pain 1% topical gel 0 Refill(s) Start Date: 10/13/23 Status: Ordered aspirin 81 mg delayed release oral tablet (20 sources) Platelet Aggregation Inhibitor, Nonsteroidal Anti-inflammatory Drug Start: 07-16-2023 End: 07-10-2024 aspirin 81 mg oral delayed release tablet Dose : 81 mg = 1 tab(s), Oral, qDay, take 1 tablet by mouth once daily, # 90 tab(s), 3 Refill(s), Pharmacy: [facility], 169.5, cm, 07/16/23 10:08:00 EDT, Height, kg, 07/16/23 10:08:00 EDT, Dosing Weight Start Date: 07/16/23 Stop Date: 07/10/24 Status: Ordered Start: 10-08-2022 aspirin 81 mg oral delayed release tablet Dose : 81 mg = 1 tab(s), Oral, qDay, take 1 tablet by mouth once daily, # 90 tab(s), 3 Refill(s), Pharmacy: [facility], 169, cm, 10/08/22 8:59:00 EST, Height, kg, 10/08/22 8:59:00 EST, Dosing Weight Start Date: 10/08/22 Status: Ordered Start: 01-07-2022 aspirin 81 mg oral delayed release tablet Dose : 81 mg = 1 tab(s), Oral, qDay, take 1 tablet by mouth once daily, # 90 tab(s), 3 Refill(s), Pharmacy: [facility], 167, cm, 12/03/21 8:47:00 EST, Height, kg, 12/03/21 8:37:00 EST, Dosing Weight Start Date: 01/07/22 Status: Ordered Start: 10-12-2021 aspirin 81 mg oral delayed release tablet Dose : 81 mg = 1 tab(s), Oral, qDay, take 1 tablet by mouth once daily, # 30 tab(s), 0 Refill(s), Pharmacy: [facility] - [id number], 170.8, cm, 10/12/21 14:12:00 EST, Height, kg, 10/12/21 14:06:00 EST, Dosing Weight Start Date: 10/12/21 Status: Ordered Start: 07-25-2021 aspirin 81 mg oral delayed release tablet Dose : 81 mg = 1 tab(s), take 1 tablet by mouth once daily Start Date: 07/25/21 Status: Ordered Start: 07-06-2020 take 1 tablet by adelita th once daily aspirin EC 81 MG EC tablet Take 1 tablet by mouth daily 30 tablet 0 07/06/2020 Active Start: 03-28-2020 aspirin 81 mg chewable tablet Take 81 mg by mouth. 0 03/28/2020 Active Comment on above: Take 81 mg by mouth. Blood Glucose Test Machine (10 sources) Start: 06-21-2022 Blood Glucose Test Machine See Instructions, Use as directed Brand type per insurance or patient preference, # 1 EA, 0 Refill(s), Pharmacy: [facility], Type 2 diabetes mellitus, 167, cm, 05/31/22 16:05:00 EDT, Height, 134.2 Start Date: 06/21/22 Status: Ordered Blood Pressure Cuff (1 source) Start: 05-01-2024 Blood Pressure Cuff See Instructions, Check and Log Blood Pressure Daily, # 1 EA, 0 Refill(s), HTN (hypertension), 136.5 Start Date: 02/04/24 Status: Ordered cephalexin 500 mg oral capsule (1 source) Cephalosporin Antibacterial Start: 08-25-2021 End: 09-01-2021 cephalexin 500 mg oral capsule Dose : 500 mg = 1 cap(s), Oral, QID, X 7 day(s), # 28 cap(s), 0 Refill(s), 09/01/21 11:58:00 EST, Cellulitis, 142.5 Start Date: 08/25/21 Stop Date: 09/01/21 Status: Ordered clindamycin 300 mg oral capsule (2 sources) Lincosamide Antibacterial Start: 08-25-2021 End: 09-01-2021 clindamycin 300 mg oral capsule Dose : 300 mg = 1 cap(s), Oral, q6h, X 7 day(s), # 28 cap(s), 0 Refill(s), 09/01/21 11:58:00 EST, Cellulitis, 142.5 Start Date: 08/25/21 Stop Date: 09/01/21 Status: Ordered Start: 07-20-2021 End: 07-27-2021 clindamycin 300 mg oral caps ule Dose : 300 mg = 1 cap(s), Oral, q6h, X 7 day(s), # 28 cap(s), 0 Refill(s), 07/27/21 14:34:00 EDT Start Date: 07/20/21 Stop Date: 07/27/21 Status: Ordered doxycycline hyclate 100 mg oral tablet (1 source) Tetracycline-class Drug Start: 07-06-2020 End: 07-13-2020 take 1 tablet by mouth twice daily doxycycline hyclate (VIBRA-TABS) 100 MG tablet Take 1 tablet by mouth 2 times daily for 7 days 14 tablet 0 07/06/2020 07/13/2020 Active 60 actuat fluticasone propionate 0.25 mg/actuat / salmeterol 0.05 mg/actuat dry powder inhaler (2 sources) Corticosteroid, beta2-Adrenergic Agonist Start: 03-28-2020 take 1 puff(s) by mouth twice daily fluticasone-salme terol (ADVAIR DISKUS) 250-50 MCG/DOSE AEPB Inhale 1 puff into the lungs 2 times daily Rinse mouth after use. 1 Inhaler 0 07/06/2020 Active furosemide 20 mg oral tablet (4 sources) Loop Diuretic Start: 08-25-2021 End: 09-04-2021 Lasix 20 mg oral tablet Dose : 20 mg = 1 tab(s), Oral, qDay, # 10 tab(s), 0 Refill(s), Cellulitis Start Date: 08/25/21 Stop Date: 09/04/21 Status: Ordered Start: 07-06-2020 furosemide (LA SIX) injection 40 mg Start: 03-28-2020 End: 03-28-2021 take 1 tablet by mouth once daily furosemide (LASIX) 20 MG tablet Take 1 tablet by mouth daily for 7 days 30 tablet 0 07/06/2020 07/13/2020 Active hydroCHLOROthiazide 25 mg oral tablet (19 sources) Thiazide Diuretic Start: 05-28-2023 End: 07-10-2024 hydroCHLOROthiazide 25 mg oral tablet Dose : 25 mg = 1 tab(s), Oral, qDay, # 90 tab(s), 3 Refill(s), Pharmacy: [facility], 169.5, cm, 07/16/23 10:08:00 EDT, Height, kg, 07/16/23 10:08:00 EDT, Dosing Weight Start Date: 07/16/23 Stop Date: 07/10/24 Status: Ordered Start: 10-12-2021 End: 07-10-2024 hydroCHLOROthiazide 25 mg or al tablet Dose : 25 mg = 1 tab(s), Oral, qDay, # 90 tab(s), 1 Refill(s), Pharmacy: [facility], 169.5, cm, 11/19/22 9:28:00 EST, Height Start Date: 11/22/22 Status: Ordered ibuprofen 200 mg oral capsule (10 sources) Nonsteroidal Anti-inflammatory Drug Start: 07-25-2021 ibuprofen 200 mg oral capsule Dose : 400 mg = 2 cap(s), Oral, q4h, PRN as needed for fever, # 120 cap(s), 0 Refill(s) Start Date: 07/25/21 Status: Ordered ibuprofen 800 MG tablet Take 400 mg by mouth every 6 hours as needed for mild pain (1-3). Active icosapent ethyl 1000 mg oral capsule (4 sources) Start: 05-20-2022 End: 11-16-2022 Vascepa 1 g oral capsule Dose : 2 gram(s) = 2 cap(s), Oral, BID, # 360 cap(s), 1 Refill(s), Pharmacy: [facility], 168.8, cm, 05/20/22 11:12:00 EDT, Height Start Date: 05/20/22 Stop Date: 11/16/22 Status: Ordered 200 actuat ipratropium bromide 0.017 mg/actuat metered dose inhaler (2 sources) Anticholinergic Start: 07-06-2020 take 2 puff(s) by inhalation every six hours ipratropium (ATROVENT HFA) 17 MCG/ACT inhaler Inhale 2 puffs into the lungs every 6 hours 1 Inhaler 0 07/06/2020 Active Start: 03-28-2020 take 2 puff(s) by in halation four times daily ipratropium (ATROVENT HFA) 17 mcg/actuation inhaler Indications: Chronic obstructive pulmonary disease, unspecified COPD type (HCC) Inhale 2 (two) puffs 4 (four) times a day . 1 Inhaler 2 03/28/2020 Active lisinopril 40 mg oral tablet (20 sources) Angiotensin Converting Enzyme Inhibitor Start: 07-25-2021 End: 07-10-2024 lisinopril 40 MG tablet Take by mouth every morning (before breakfast). 07/25/2021 Active Start: 07-25-2021 take 1 tablet by adelita th once daily lisinopril 30 mg oral tablet take 1 tablet by mouth once daily Start Date: 07/25/21 Status: Ordered Start: 03-28-2020 take 1 tablet by adelita th once daily lisinopril (PRINIVIL;ZESTRIL) 20 MG tablet Take 1 tablet by mouth daily 30 tablet 0 07/06/2020 Active metFORMIN hydrochloride 500 mg oral tablet (13 sources) Biguanide Start: 11-19-2021 End: 02-16-2023 MetFORMIN (Eqv-Glucophage XR) 500 mg oral tablet, EXTENDED RELEASE Dose : 1,000 mg = 2 tab(s), Oral, qDay, # 180 tab(s), 1 Refill(s), Pharmacy: [facility], 167.5, cm, 08/20/22 8:04:00 EST, Height, kg, 08/20/22 8:04:00 EST, Dosing Weight Start Date: 08/20/22 Stop Date: 02/16/23 Status: Ordered Start: 07-25-2021 take 1 tablet by adelita th twice daily at mealtime metFORMIN 500 mg oral tablet (IR) take 1 tablet by mouth twice a day with food IN THE MORNING and IN THE EVENING Start Date: 07/25/21 Status: Ordered 24 hr metoprolol succinate 100 mg extended release oral tablet (20 sources) beta-Adrenergic Rain Start: 07-16-2023 End: 07-10-2024 metoprolol succinate 100 mg oral TABLET extended release Dose : 100 mg = 1 tab(s), Oral, qDay, # 90 tab(s), 3 Refill(s), Pharmacy: [facility], 169.5, cm, 07/16/23 10:08:00 EDT, Height, kg, 07/16/23 10:08:00 EDT, Dosing Weight Start Date: 07/16/23 Stop Date: 07/10/24 Status: Ordered Start: 05-30-2023 metoprolol suc cinate ER (TOPROL XL) 100 mg Start: 01-07-2022 metoprolol suc cinate 100 mg oral TABLET extended release Dose : 100 mg = 1 tab(s), Oral, qDay, # 90 tab(s), 3 Refill(s), Pharmacy: [facility], 167.5, cm, 08/20/22 8:04:00 EST, Height, kg, 08/20/22 8:04:00 EST, Dosing Weight Start Date: 08/20/22 Status: Ordered Start: 08-29-2021 End: 02-25-2022 metoprolol succinate 100 mg oral TABLET extended release Dose : 100 mg = 1 tab(s), Oral, qDay, # 90 tab(s), 1 Refill(s), Pharmacy: [facility] - [id number], 170.8, cm, 08/29/21 9:11:00 EST, Height, kg, 08/29/21 9:11:00 EST, Dosing Weight Start Date: 08/29/21 Stop Date: 02/25/22 Status: Ordered Start: 07-25-2021 End: 07-10-2024 metoprolol succinate XL (Top rol-XL) 100 MG 24 hr tablet 100 mg every morning (before breakfast). 07/25/2021 Active Start: 07-25-2021 metoprolol suc cinate 100 mg oral TABLET extended release Dose : 100 mg = 1 tab(s), Oral, qDay, # 30 tab(s), 0 Refill(s) Start Date: 07/25/21 Status: Ordered Start: 03-28-2020 take 1 tablet by adelita th once daily metoprolol succinate (TOPROL XL) 50 MG extended release tablet Take 1 tablet by mouth daily 30 tablet 0 07/06/2020 Active Nebulizer (5 sources) Start: 10-12-2021 Nebulizer See Instructions, Dispense one nebulizer and tubing as well as mask, # 1 EA, 0 Refill(s), COPD with exacerbation, 170.8, cm, 10/12/21 14:12:00 EST, Height, 141.6, kg, 10/12/21 14:06:00 EST, Dosing Weight Start Date: 10/12/21 Status: Ordered Nebulizer (Compressor) (2 sources) Start: 10-13-2023 Nebulizer (OurStage pressor) See Instructions, Please supply one nebulizer for COPD, # 1 EA, 0 Refill(s), COPD - Chronic obstructive pulmonary disease, 139.1 Start Date: 10/13/23 Status: Ordered omeprazole 20 mg delayed release oral tablet (20 sources) Proton Pump Inhibitor Start: 05-30-2023 omeprazole (PRILOSEC ) 20 mg capsule Start: 07-25-2021 End: 11-01-2024 omeprazole OTC (PriLOSEC OTC ) 20 MG EC tablet 20 mg every morning (before breakfast). 07/25/2021 11/01/2024 Active polyethylene glycol 3350 75959 mg powder for oral solution (5 sources) Osmotic Laxative Start: 10-13-2023 End: 02-04-2025 take 17 doses by mouth once daily MiraLax oral powder for reconstitution Dose : 17 gram(s) =, Oral, qDay, X 30 day(s), # 510 gram(s), 15 Refill(s), 5/2/25 4:19:00 PM EDT, Pharmacy: [facility], Constipation, 169.5, cm, 10/13/23 15:19:00 EST, Height, kg, 10/13/23 15:19:00 EST, Dosing Weight Start Date: 10/13/23 Stop Date: 02/04/25 Status: Ordered polyethylene gly col, PEG, 3350 (Miralax) 17 g packet Take by mouth. Active polyethylene gly col, PEG, 3350 (Miralax) 17 g packet Take by mouth. 0 Active predniSONE 50 mg oral tablet (1 source) Start: 02-03-2022 End: 02-08-2022 predniSONE 50 mg oral tablet Dose : 50 mg = 1 tab(s), Oral, qDayM, # 5 tab(s), 0 Refill(s), Pain of right ankle joint Start Date: 02/03/22 Stop Date: 02/08/22 Status: Ordered rosuvastatin calcium 10 mg oral tablet (8 sources) HMG-CoA Reductase Inhibitor Start: 03-18-2023 End: 07-10-2024 rosuvastatin (Crestor) 10 MG tablet 10 mg every morning (before breakfast). 03/18/2023 Active Start: 10-08-2022 End: 04-06-2023 rosuvastatin 10 mg oral caps ule Dose : 10 mg = 1 cap(s), Oral, qDay, # 90 cap(s), 1 Refill(s), Pharmacy: [facility], 169, cm, 10/08/22 8:59:00 EST, Height Start Date: 10/08/22 Stop Date: 04/06/23 Status: Ordered 1 mg dose 1.5 ml semaglutide 1.34 mg/ml pen injector (10 sources) Start: 07-08-2022 End: 07-03-2023 inject 1 mg by subcutaneous injection every week Ozempic 2 mg/1.5 mL (1 mg dose) subcutaneous solution 1 mg, Subcutaneous, qWeek, rotate injection sites, # 3 EA, 3 Refill(s), Pharmacy: [facility], 167, cm, 07/08/22 11:16:00 EDT, Height Start Date: 07/08/22 Stop Date: 07/03/23 Status: Ordered Start: 05-21-2022 Ozempic 2 mg/1 .5 mL (0.25 mg or 0.5 mg dose) subcutaneous solution 0.5 mg, Subcutaneous, Friday Start Date: 05/21/22 Status: Ordered Start: 05-03-2022 End: 07-02-2022 inject 0.5 mg by subcutaneous injection every week Ozempic 2 mg/1.5 mL (0.25 mg or 0.5 mg dose) subcutaneous solution 0.5 mg, Subcutaneous, qWeek, rotate injection sites, # 1 EA, 1 Refill(s), [facility], [facility], cm, 05/03/22 13:49:00 EDT, Height, kg, 05/03/22 13:26:00 EDT, Dosing Weight Start Date: 05/03/22 Stop Date: 07/02/22 Status: Ordered sildenafil 50 mg oral tablet (1 source) Phosphodiesterase 5 Inhibitor Start: 07-25-2021 sildenafil 50 mg oral tablet Dose : 50 mg = 1 tab(s), Oral, qDay, PRN as needed for erectile dysfunction, 0 Refill(s) Start Date: 07/25/21 Status: Ordered sulfamethoxazole 800 mg / trimethoprim 160 mg oral tablet (1 source) Dihydrofolate Reductase Inhibitor Antibacterial, Sulfonamide Antimicrobial Start: 02-02-2024 End: 02-12-2024 take 1 tablet by mouth every twelve hours Bactrim DS 800 mg-160 mg oral tablet Dose = 1 tab(s), Oral, q12h, X 10 day(s), # 20 tab(s), 0 Refill(s), [facility]acy: [facility] #[id number], 169.5, cm, 02/02/24 11:04:00 EDT, Height, 136.5, kg, 02/02/24 11:04:00 EDT, Dosing Weight Start Date: 02/02/24 Stop Date: 02/12/24 Status: Ordered Symbicort 160 mcg-4.5 mcg/inh Inhaler (5 sources) Start: 11-13-2021 End: 11-08-2022 take 1 dose by inhalation twice daily Symbicort 160 mcg-4.5 mcg/inh Inhaler Dose = 2 puff(s), Inhalation, BID, # 3 EA, 3 Refill(s), Pharmacy: [facility] 167, cm, 11/13/21 11:08:00 EST, Height, kg, 11/13/21 11:08:00 EST, Dosing Weight Start Date: 11/13/21 Stop Date: 11/08/22 Status: Ordered Simone, herbert (5 sources) Start: 12-03-2021 Simone herbert See Instructions, Dispense one walker, # 1 EA, 0 Refill(s), 141.9 Start Date: 12/03/21 Status: Ordered Completed/Discontinued Medications Medication Drug Class(es) Dates Sig (Normalized) Sig (Original) acetaminophen 500 mg oral tablet (13 sources) Start: 02-12-2024 End: 02-12-2024 acetaminophen (Tylenol) tablet 1,000 mg Start: 05-21-2022 Tylenol Extra Strength 500 mg oral tablet Dose : 2,000 mg = 4 tab(s), Oral, qAM, PRN as needed for fever Start Date: 05/21/22 Status: Ordered albuterol 0.833 mg/ml / ipratropium bromide 0.167 mg/ml inhalation solution (15 sources) Anticholinergic, beta2-Adrenergic Agonist Start: 08-20-2022 End: 12-07-2022 take 1 dose by inhalation every six hours as needed for wheezing albuterol-ipratropium 2.5 mg-0.5 mg/3 mL inhalation solution Dose = 3 mL, Inhalation, q6hr, PRN Shortness of breath or wheezing, # 180 mL, 1 Refill(s), [facility], [facility], cm, 10/08/22 8:59:00 EST, Height, kg, 10/08/22 8:59:00 EST, Dosing Weight Start Date: 10/08/22 Stop Date: 12/07/22 Status: Ordered Start: 10-12-2021 End: 11-11-2021 take 1 dose by inhalation every six hours as needed for wheezing albuterol-ipratropium 2.5 mg-0.5 mg/3 mL inhalation solution Dose = 3 mL, Inhalation, q6hr, PRN Shortness of breath or wheezing, # 180 mL, 0 Refill(s), Pharmacy: [email or web address] 170.8, cm, 10/12/21 14:12:00 EST, Height, kg, 10/12/21 14:06:00 EST, Dosing Weight Start Date: 10/12/21 Stop Date: 11/11/21 Status: Ordered Start: 10-12-2021 End: 11-11-2021 take 1 dose by inhalation every six hours as needed for wheezing albuterol-ipratropium 2.5 mg-0.5 mg/3 mL inhalation solution Dose = 3 mL, Inhalation, q6hr, PRN Shortness of breath or wheezing, # 180 mL, 0 Refill(s), Pharmacy: [facility], 170.8, cm, 10/12/21 14:12:00 EST, Height, kg, 10/12/21 14:06:00 EST, Dosing Weight Start Date: 10/12/21 Stop Date: 11/11/21 Status: Ordered Start: 07-06-2020 End: 07-06-2020 ipratropium-albuterol (DUONE B) nebulizer solution 3 ampule allopurinol 100 mg oral tablet (5 sources) Xanthine Oxidase Inhibitor Start: 05-28-2023 allopurinol (ZYLOPRI M) 100 mg tablet Start: 11-19-2022 End: 05-18-2023 allopurinol 100 mg oral tabl et Dose : 100 mg = 1 tab(s), Oral, BID, # 180 tab(s), 1 Refill(s), Pharmacy: [facility], 169.5, cm, 11/19/22 9:28:00 EST, Height Start Date: 11/19/22 Stop Date: 05/18/23 Status: Ordered calcium chloride 0.0014 meq/ml / potassium chloride 0.004 meq/ml / sodium chloride 0.103 meq/ml / sodium lactate 0.028 meq/ml injectable solution (2 sources) Start: 02-12-2024 End: 02-12-2024 lactated Ringer's (LR) infusion colchicine 0.6 mg oral tablet (1 source) Start: 04-01-2022 take 1 tablet by mouth every hour colchicine 0.6 mg oral tablet See Instructions, take 2 tabs at the first sign of a gout flare followed by 0.6 mg one hour later, # 3 tab(s), 1 Refill(s), Pharmacy: [facility], 167, cm, 04/01/22 15:56:00 EDT, Height Start Date: 04/01/22 Status: Ordered diclofenac sodium 0.01 mg/mg topical gel (15 sources) Nonsteroidal Anti-inflammatory Drug Start: 05-27-2023 diclofenac (VOLTAREN) 1 % topical gel Start: 05-03-2022 End: 04-28-2023 diclofenac 1% topical gel Ap ply 1 zahira, Topical, QID, not to exceed 8 grams/day/single joint of upper extremities not to exceed 16 grams/day/single joint of lower extremities, # 100 gram(s), 11 Refill(s), Pharmacy: [facility], Gel, 167, cm, 05/03/22 13:49:00 EDT, Height,... Start Date: 05/03/22 Stop Date: 04/28/23 Status: Ordered Start: 12-04-2021 End: 02-02-2022 diclofenac 1% topical gel Ap ply 1 zahira, Topical, QID, not to exceed 8 grams/day/single joint of upper extremities not to exceed 16 grams/day/single joint of lower extremities, # 100 gram(s), 1 Refill(s), Pharmacy: [facility], 167, cm, 12/03/21 8:47:00 EST, He... Start Date: 12/04/21 Stop Date: 02/02/22 Status: Ordered 1 ml diphenhydrAMINE hydrochloride 50 mg/ml cartridge (2 sources) Histamine-1 Receptor Antagonist Start: 02-12-2024 End: 02-12-2024 diphenhydrAMINE (BENADryl) injection 12.5 mg 1 ml HYDROmorphone hydrochloride 1 mg/ml cartridge (4 sources) Opioid Agonist Start: 02-12-2024 End: 02-12-2024 HYDROmorphone (Dilaudid) injection 0.5 mg Start: 02-12-2024 End: 02-12-2024 HYDROmorphone (Dilaudid) inj ection 0.25 mg labetalol (Normodyne,Trandate) injection 5 mg (2 sources) Start: 02-12-2024 End: 02-12-2024 labetalol (Normodyne,Trandate) injection 5 mg 10 ml lidocaine hydrochloride 10 mg/ml injection (2 sources) Antiarrhythmic, Amide Local Anesthetic Start: 11-07-2023 End: 11-07-2023 lidocaine PF (Xylocaine) 1 % injection 1 ml LORazepam 2 mg/ml injection (2 sources) Benzodiazepine Start: 02-12-2024 End: 02-12-2024 LORazepam (Ativan) injection 0.5 mg methylPREDNISolone 125 mg injection (1 source) Corticosteroid Start: 07-06-2020 End: 07-06-2020 methylPREDNISolone sodium (SOLU-MEDROL) injection 125 mg 2 ml ondansetron 2 mg/ml injection (2 sources) Serotonin-3 Receptor Antagonist Start: 02-12-2024 End: 02-12-2024 ondansetron (Zofran) injection 4 mg ONE TOUCH VERIO TYREE (5 sources) Start: 10-08-2022 ONE TOUCH VERIO TYREE ONE TOUCH VERIO TYREE, 0 Refill(s), 133 Start Date: 10/08/22 Status: Ordered oxyCODONE (2 sources) Opioid Agonist Start: 02-12-2024 End: 02-12-2024 oxyCODONE (Roxicodone) immediate release tablet 5 mg 50 ml sodium chloride 9 mg/ml injection (8 sources) Start: 02-12-2024 End: 02-12-2024 sodium chloride 0.9 % bolus 500 mL Start: 02-12-2024 End: 02-12-2024 sodium chloride 0.9 % infusi on Start: 02-12-2024 End: 02-12-2024 sodium chloride 0.9% (NS) fl ush 5-40 mL tadalafil 10 mg oral tablet (6 sources) Phosphodiesterase 5 Inhibitor Start: 09-24-2021 End: 10-24-2021 tadalafil 10 mg oral tablet Dose : 10 mg = 1 tab(s), Oral, qDay, PRN as needed for erectile dysfunction, # 5 tab(s), 0 Refill(s), [facility] [id number], 170.8, cm, 08/29/21 9:11:00 EST, Height, kg, 08/29/21 9:11:00 EST, Dosing Weight Start Date: 09/24/21 Stop Date: 10/24/21 Status: Ordered Start: 08-08-2021 End: 09-07-2021 tadalafil 10 mg oral tablet Dose : 10 mg = 1 tab(s), Oral, qDay, PRN as needed for erectile dysfunction, # 5 tab(s), 0 Refill(s), Pharmacy: [facility] [place] - [id number], 168.6, cm, 07/25/21 10:07:00 EDT, Height, kg, 07/25/21 10:07:00 EDT, Dosing Weight Start Date: 08/08/21 Stop Date: 09/07/21 Status: Ordered Problems Problem Classification Problem Date Documented Da te Episodic/Chronic Abdominal pain (5 sources) Flank pain 01-07-2023 Episodic Acute and unspecified renal failure (1 source) Acute renal failure syndrome; Translations: [Acute kidney failure, unspecified] Episodic Cataract (18 sources) Cataract 08-01-2021 Chronic Chronic kidney disease (1 source) Chronic kidney disease stage 2; Translations: [Chronic kidney disease, stage 2 (mild)] Chronic Chronic obstructive pulmonary disease and bronchiectasis (19 sources) Acute exacerbation of chronic obstructive airways disease; Translations: [Chronic obstructive lung disease] 03-28-2020 Chronic Diabetes mellitus with complications (1 source) Chronic kidney disease due to type 2 diabetes mellitus; Translations: [Type 2 diabetes mellitus with diabetic chronic kidney disease] Chronic Diabetes mellitus without complication (20 sources) Type 2 diabetes mellitus; Translations: [Diabetes mellitus] Onset: 04-24-2023 07-25-2021 Chronic Disorders of lipid metabolism (18 sources) Hypertriglyceridemia ; Translations: [Mixed hyperlipidemia] 05-23-2022 Chronic Diverticulosis and diverticulitis (5 sources) Diverticulitis of intestine 01-07-2023 Chronic Essential hypertension (20 sources) Hypertensive disorder; Translations: [Essential (primary) hypertension] Onset: 01-14-2024 03-28-2020 Chronic Fluid and electrolyte disorders (7 sources) Acidosis; Translations: [Acidosis] Episodic Fracture of lower limb (13 sources) Fracture of foot ; Translations: [Unspecified fracture of right foot, subsequent encounter for fracture with routine healing] 05-08-2022 Episodic Gout and other crystal arthropathies (17 sources) Acute gout; Translations: [Gout] 04-05-2022 Chronic Hypertension with complications and secondary hypertension (1 source) Hypertensive urgency ; Translations: [Hypertensive urgency] Chronic Neoplasms of unspecified nature or uncertain behavior (8 sources) Neoplasm of uncertain behavior of thyroid gland; Translations: [Neoplasm of uncertain behavior of thyroid gland] Onset: 02-12-2024 11-07-2023 Episodic Noninfectious gastroenteritis (20 sources) Chronic diarrhea; Translations: [Noninfectious enteritis] 01-18-2022 Episodic Open wounds of extremities (2 sources) Unspecified open wound, unspecified lower leg, initial encounter; Translations: [Unspecified open wound, unspecified lower leg, initial encounter] Onset: 02-02-2024 Episodic Osteoarthritis (1 source) Primary gonarthrosis, bilateral; Translations: [Bilateral primary osteoarthritis of knee] 06-02-2023 Chronic Other circulatory disease (1 source) Low blood pressure; Translations: [Hypotension, unspecified] Episodic Other connective tissue disease (2 sources) Swelling of lower limb; Translations: [Leg swelling] Episodic Other connective tissue disease (15 sources) Recurrent falls 12-04-2021 Episodic Other ear and sense organ disorders (15 sources) Lesion of external ear 01-18-2022 Episodic Other ear and sense organ disorders (15 sources) Lesion of skin of left ear 01-18-2022 Episodic Other gastrointestinal disorders (1 source) Diarrhea; Translations: [Diarrhea, unspecified] Onset: 05-22-2022 Episodic Other liver diseases (5 sources) Steatosis of liver 01-07-2023 Chronic Other lower respiratory disease (5 sources) Rib pain 01-07-2023 Episodic Other non-traumatic joint disorders (1 source) Ankle joint pain; Translations: [Pain in right ankle and joints of right foot] Onset: 02-03-2022 Episodic Other non-traumatic joint disorders (8 sources) Knee pain; Translations: [Pain in right knee] 08-24-2022 Episodic Other non-traumatic joint disorders (2 sources) Pain in right knee; Translations: [Pain in joint, lower leg] Onset: 06-02-2023 06-02-2023 Episodic Other non-traumatic joint disorders (1 source) Pain in left knee; Translations: [Pain in both knees, unspecified chronicity] Onset: 06-02-2023 Episodic Other nutritional; endocrine; and metabolic disorders (13 sources) Body mass index 40+ - severely obese; Translations: [Body mass index (BMI) 45.0-49.9, adult] 05-08-2022 Chronic Other nutritional; endocrine; and metabolic disorders (1 source) Morbid obesity; Translations: [Morbid (severe) obesity due to excess calories] Chronic Other nutritional; endocrine; and metabolic disorders (6 sources) Severe obesity; Translations: [Morbid (severe) obesity due to excess calories] 11-19-2022 Chronic Other screening for suspected conditions (not mental disorders or infectious disease) (11 sources) Imaging of abdomen abnormal; Translations: [Abnormal findings on diagnostic imaging of other abdominal regions, including retroperitoneum] Onset: 05-22-2022 Episodic Pneumonia (except that caused by tuberculosis or sexually transmitted disease) (5 sources) Right lower zone pneumonia 01-07-2023 Episodic Residual codes; unclassified (17 sources) Obstructive sleep apnea syndrome; Translations: [Obstructive sleep apnea (adult) (pediatric)] 08-29-2021 Chronic Residual codes; unclassified (13 sources) Did not attend 03-05-2022 Episodic Comment on above: 03/05/22 06/18/23 Residual codes; unclassified (2 sources) Bilateral lower limb edema 04-18-2023 Episodic Septicemia (except in labor) (13 sources) Sepsis without septic shock; Translations: [Severe sepsis without septic shock] Episodic Skin and subcutaneous tissue infections (1 source) Cellulitis; Translations: [Cellulitis, unspecified] Onset: 08-25-2021 Episodic Skin and subcutaneous tissue infections (1 source) Cellulitis of right lower limb; Translations: [Cellulitis of right lower extremity] Spondylosis; intervertebral disc disorders; other back problems (5 sources) Thoracic back pain 01-07-2023 Episodic Substance-related disorders (17 sources) Cigarette smoker 08-08-2021 Chronic Thyroid disorders (5 sources) Thyroid nodule 01-03-2023 Chronic Unclassified (3 sources) Patient encounter status; Translations: [Eloped from emergency department] 07-16-2023 Unclassified (12 sources) Well adult 05-03-2022 Unclassified (2 sources) Finding of thyroid gland 02-17-2023 Unclassified (2 sources) Pain due to arthritis 02-17-2023 Results Test Name Value Interpretation Reference Range Facility THYROID STIMULATING HORMONEo n 04-21-2024 THYROID STIMULATING HORMONE 2.134 uIU/mL Normal 0.465-4.680 [facility] Comment on above: Performed By: #### L [id number] ####Road Tester: SHARON SHEETS ([id number])[facility] (SWRLAB)[address] [place] [address] TSHon 04-21-2024 TSH Qn 2.134 m[IU]/L [facility] TSH Qnon 04-21-2024 Interpretation and review of laboratory results Normal [facility] Laboratory - Chemistry and C hemistry - challengeon 02-12-2024 Glucose [Mass/Vol] 194 mg/dL High 70 - 100 mg/dL [facility] No Panel Informationon 02-11 Interpretation and review of laboratory results Abnormal [facility] Performed by: [facility], [address] [place] [address] CLIA ID: [id number] [facility] Radiology Study observation (narrative) [facility] Nursing Noteon 02-12-2024 Nursing Note Patient tolerating P O fluids. Rn to assist patient with getting dressed. Assisted patient up to wheelchair and assisted to car with Rn free of injury or complaints. Patient continues to deny pain. Normal [facility] Nursing Note Discharge instructio ns reviewed with patient , and 2 daughters. All verbalize understanding. Incentive Spirometer provided with instructions. Patient and family both states he has used incentive spirometer in the past. Verbalizes understanding. Normal [facility] Nursing Note PO fluids provided Normal [facility] Nursing Note CRD=[id number], QUICK TECHNICIAN aware Normal [facility] Nursing Note Received patient fro m OR to PACU with QUICK TECHNICIAN. Patient is waking up on room air. No respiratory distress noted. Patient is alert, slightly drowsy but follows commands. city wellness coordinator on, safety maintained. Rn remains bedside. 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 The neck is short and very broad. The trachea is a mild curvature to the left. At the time of surgery there is no gross cervical lymphadenopathy appreciated. The left thyroid lobe was relatively unremarkable. The right thyroid lobe was essentially replaced largely by the neoplasm although there is still a cuff of what appeared to be normal thyroid gland tissue superiorly. Specimen included the right thyroid lobe, thyroid isthmus, and portion left thyroid lobe. The neoplasm itself was rather large and extended substernally deep to the clavicle. The neoplasm itself was significantly hypervascular. The vascularity in the large size and body habitus made it very difficult to perform the surgery. There also appears to be fibrosis of the thyroid right lobe to the surrounding deep cervical fascia. DESCRIPTION OF PROCEDURE: The patient was intubated with a Scoreoidtronic endotracheal tube which had electrodes within its lumen. The electrodes were connected to channel 1 and channel 2 of the nerve integrity monitor pod. In addition, grounding and stimulating electrodes were placed over the sternal area and connected to their respective ports of the nerve integrity monitor pod. Proper placement and positioning of each electrode was confirmed. The stimulator was placed at a setting of 1 mA. A support was placed beneath the shoulders for extension in the cervical region. The anterior neck was cleansed with alcohol. A planned incision line was demarcated over the suprasternal area with its long axis running within the relaxed skin tension line. Note that this ran in the standard incision line, that being approximately 2 fingerbreadths superior to the sternal notch but inferior to the cricoid cartilage. This was locally infiltrated using 1% lidocaine with 1: 100,000 epinephrine. Adequate time was allowed for vasoconstriction. During this time the neck was prepped with a Betadine solution and the patient draped in the usual sterile fashion. A #15 scalpel blade was taken. The horizontal incision was carried through the skin and into the subcutaneous tissues. Hemostasis was assured with the electrocautery unit. The platysma muscle was then incised using electrocautery. At this point, the plane was then oriented in a vertical direction. The midline plane was divided vertically along its length. The cervical strap muscles were identified including the sternohyoid and sternothyroid muscles. These were elevated and reflected laterally to expose the thyroid lobe. The thyroid lobe was then identified and isolated. Dissection began in the inferior thyroid triangle. From this point going forward, dissection followed a very predictable and reproducible fashion. Specifically, the tissues were bluntly dissected using a curved hemostat. The tissue was then stimulated with the nerve stimulator. Once there is confirmation that there is no nerve involvement with use of the stimulator and direct visualization, the intervening soft tissue was then divided using either bipolar cautery or the harmonic scalpel. This repetitive process was done throughout the entirety of the dissection. The inferior pole vessels were individually isolated and divided. Dissection was then carried laterally to incorporate the middle thyroid vein. Dissection continued laterally and superiorly as the superior pole vessels were identified, dissected, and divided. The thyroid lobe was then elevated. Blunt dissection was performed along with the posterior aspect. The superior and inferior parathyroid glands were identified and each were bluntly dissected from the posterior aspect of the thyroid lobe leaving their vascular pedicle intact. At this point the thyroid lobe remained intact via the suspensory ligament. The suspensory ligament was also dissected. A hemostat was passed deep to the thyroid isthmus within the pretracheal fascia. The thyroid isthmus was divided using the harmonic scalpel. The thyroid lobe and isthmus were then completely circumscribed and removed for pathology. Given the cytology consistent with malignancy and the rather large size of neoplasm measuring 5.5 cm, a generous cuff of thyroid tissue was included of the left thyroid lobe along with the thyroid isthmus to ensure that the pathology was completely circumscribed within the specimen. The wound was thoroughly irrigated using normal saline irrigation. Hemostasis was confirmed using bipolar cautery. An autologous platelet ti (more content not included)... Normal [facility] BASIC METABOLIC PANELon 05-0 Anion gap [Moles/Vol] 10 mmol/L Normal 3-13 [facility] Comment on above: Performed By: #### L AB15 #### Road Tester: AMINATA TALAVERA ([id number]) [facility] (SBHLAB) [address] Calcium [Mass/Vol] 9.4 mg/dL Normal 8.4-10.4 [facility] Comment on above: Performed By: #### L AB15 #### Road Tester: AMINATA TALAVERA ([id number]) [facility] ([facility]) [address] Chloride [Moles/Vol] 108 mmol/L High 98-107 [facility] Comment on above: Performed By: #### L AB15 #### Road Tester: AMINATA TALAVERA ([id number]) [facility] ([facility]) [address] CO2 [Moles/Vol] 20 mmol/L Low 22-30 [facility] Comment on above: Performed By: #### L AB15 #### Road Tester: AMINATA TALAVERA ([id number]) [facility] ([facility]) [address] Creatinine [Mass/Vol] 0.98 mg/dL Normal 0.66-1.25 [facility] Comment on above: Performed By: #### L AB15 #### Road Tester: AMINATA TALAVERA ([id number]) [facility] [address] GLOMERULAR FILTRATION RATE ML/MIN/1.73 SQ M.PREDICTED 83.0 mL/min/1.73m*2 Normal >60.0 [facility] Comment on above: Result Comment: Calc ulation based on the Chronic Kidney Disease Epidemiology Collaboration (CKD-EPI) equation refit without adjustment for race Performed By: #### L AB15 #### Road Tester: AMINATA TALAVERA ([id number]) [facility] ([facility]) [address] Glucose [Mass/Vol] 157 mg/dL High 70-100 [facility] Comment on above: Performed By: #### L AB15 #### Road Tester: AMINATA TALAVERA ([id number]) [facility] ([facility]) [address] Potassium [Moles/Vol] 3.7 mmol/L Normal 3.5-5.1 [facility] Comment on above: Performed By: #### L AB15 #### Road Tester: AMINATA TALAVERA ([id number]) [facility] ([facility]) [address] Sodium [Moles/Vol] 138 mmol/L Normal 135-145 [facility] Comment on above: Performed By: #### L AB15 #### Road Tester: AMINATA TALAVERA ([id number]) [facility] ([facility]) [address] Urea nitrogen [Mass/Vol] 25 mg/dL High 9-20 [facility] Comment on above: Performed By: #### L AB15 #### Road Tester: AMINATA TALAVERA ([id number]) [facility] ([facility]) [address] CBC (HEMOGRAM)on 02-05-2024 Erythrocyte distribution width (RBC) [Ratio] 13.1 % Normal 11.5-15.0 [facility] Comment on above: Performed By: #### L AB294 ####Road Tester: AMINATA TALAVERA ([id number])[facility] ([facility])[address] Hematocrit (Bld) [Volume fraction] 44.5 % Normal 40.0-52.0 [facility] Comment on above: Performed By: #### L AB294 ####Road Tester: AMINATA TALAVERA ([id number])[facility] ([facility])[address] Hemoglobin (Bld) [Mass/Vol] 15.2 g/dL Normal 13.0-18.0 [facility] Comment on above: Performed By: #### L AB294 ####Road Tester: AMINATA TALAVERA ([id number])[facility] ([facility])[address] MCH (RBC) [Entitic mass] 31.0 pg Normal 26.0-34.0 [facility] Comment on above: Performed By: #### L AB294 ####Road Tester: AMINATA TALAVERA ([id number])[facility] ([facility])[address] MCHC 34.2 % Normal 30.5-36.0 [facility] Comment on above: Performed By: #### L AB294 ####Road Tester: AMINATA TALAVERA ([id number])[facility] (SB[facility])[address] MCV (RBC) [Entitic vol] 90.8 fL Normal 77.0-99.0 [facility] Comment on above: Performed By: #### L AB294 ####Road Tester: AMINATA TALAVERA ([id number])[facility] (SB[facility])[address] Platelet mean volume (Bld) [Entitic vol] 11.7 fL Normal 9.0-12.7 [facility] Comment on above: Performed By: #### L AB294 ####Road Tester: AMINATA TALAVERA ([id number])[facility] ([facility])[address] Platelets (Bld) [#/Vol] 171 10*3/uL Normal 140-440 [facility] Comment on above: Performed By: #### L AB294 ####Road Tester: AMINATA TALAVERA ([id number])[facility] ([facility])[address] [place] [address] [place] RBC (Bld) [#/Vol] 4.90 10*6/uL Normal 4.40-5.90 [facility] Comment on above: Performed By: #### L AB294 ####Road Tester: AMINATA TALAVERA ([id number])[facility] ([facility])[address] [place] [address] [place] WBC (Bld) [#/Vol] 8.9 10*3/uL Normal 3.6-10.7 [facility] Comment on above: Performed By: #### L AB294 ####Road Tester: AMINATA TALAVERA ([id number])[facility] (SBHLAB)[address] [place] [address] [facility] PREPROCINSon 02-05-2024 PREPROCINS Medication List Accurate as of February 05, 2024 1:03 PM. Always use your most recent med list. aspirin 81 MG EC tablet Medication Adjustments for Surgery: Stop 5 days before surgery hydroCHLOROthiazide 25 MG tablet Commonly known as: HYDRODiuril Medication Adjustments for Surgery: Hold morning of surgery ibuprofen 800 MG tablet Medication Adjustments for Surgery: Stop 1 day before surgery lisinopril 40 MG tablet Medication Adjustments for Surgery: Hold morning of surgery metoprolol succinate XL 100 MG 24 hr tablet Commonly known as: Toprol-XL Medication Adjustments for Surgery: Take morning of surgery PriLOSEC OTC 20 MG EC tablet Generic drug: omeprazole OTC rosuvastatin 10 MG tablet Commonly known as: Crestor Additional Instructions: You may take your prescription pain medication. You may take Tylenol for pain. NO Motrin, ibuprofen or Advil for 24 hours prior to surgery or longer if instructed by your surgeon. NO Aleve or Naprosyn for 5 days prior to surgery or longer if instructed by your surgeon. HOLD ASPIRIN 5 DAYS PRIOR TO SURGERY LAST DOSE WILL BE 5/3 HOLD LISINOPRIL AND HYDROCHLOROTHIAZIDE THE MORNING OF SURGERY PLEASE TAKE METOPROLOL THE AM OF SURGERY Shower with an antibacterial soap such as Dial or Safeguard or shower kit provided to you before coming to the hospital. No makeup, lotion, powder, deodorant or body spays. No hair products. Remove all jewelry and leave it at home. Wear loose comfortable clothing to go home in. You may brush your teeth morning of surgery. Do not wear contacts day of surgery. No marijuana (THC), smoking or alcohol for 24 hours prior to surgery. Please arrange for a responsible adult to drive you home after your surgery and that there is a responsible adult with you for 24 hours post discharge. If you have specific questions, please call your surgeon. You will receive a call the day before your surgery to verify your arrival time and date. You will be asked to arrive at least two hours prior to your scheduled surgery time. Please bring your [employer] [facility] folder and medication list with you day of surgery. We encourage you to write down any questions you may have for the surgeon, anesthesiologist, or other members of the surgical team and bring it with you the day of surgery. Please bring photo ID and insurance information. Normal [facility] Progress Noteon 02-05-2024 Progress Note [facility] Gomez : 1955 Primary Care Physician: Mary Boudreaux, BONITA - KHADAR The patient and/or family/surrogate voluntarily agreed to participate in ACP services. Patient?s cognitive capacity: FULL Code Status: [x] [FULL CODE - Continue all advanced life support: CPR,intubation,invasiv e procedures] [_] [DNR-CCA - DO NOT do CPR, intubation] [_] [DNR-FARM FIELD MANAGER - Comfort care only] [_] DNR form [was/was not] signed Summary of discussion: The patient health care POA/ surrogate is the following: None . [Condition that instigated the ACP on this DOS, relevant PMH, functional status, goals of care, and whom this was discussed with including names and relationship to the patient, and any relevant advance care documentation discussion] I answered all the patient/family questions that I could within the range and scope of the current medical situation. We discussed the medical conditions, risks, benefits, outcomes, and goals of care at this time for the patient's medical issues at hand in the face of the patient's chronic issues and current presentation. Total time spent: 10 minutes were spent discussing the patient's resuscitation status, advance care planning, and end of life care, with patient and/or family/surrogate. YOVANY LOPEZ PA-C Acute care [facility] 02/05/2024, 1:37 PM Normal [facility] No Panel Informationon 02-01 Culture Wound Aerobe No growth at 48 hours. [facility] No organisms seen. [facility] Annamarie 01-15-2024 U Creatinine 122.7 mg/dL Normal 39.0-259.0 [facility] ([place]) Comment on above: Performed By: #### M ALBR #### [facility] [address] [place], [place] [address] U Microalb 196 mcg/dL Normal [facility] ([place] Comment on above: Performed By: #### M ALBR #### [facility] [address] [place], [place] [address] U Ratio Alb/Cre 2 mcg/mg Normal 0-30 [facility] ([place] Comment on above: Performed By: #### M ALBR #### [facility] [address] [place], [place] [address] LABORATORYOrdered By: Imelda Mccarthy on 01-14-2024 Albumin DL <= 20 mg/L (U) [Mass/Vol] 196 mcg/dL Invalid Interpretation Code AO ADM SS Albumin/Creatinine DL <= 20 mg/L (U) [Mass ratio] 2 mcg/mg Normal 0 - 30 mcg/mg AO ADM SS Creatinine (U) [Mass/Vol] 122.7 mg/dL Normal 39.0 - 259.0 mg/dL AO ADM SS Nursing Noteon 11-07-2023 Nursing Note Ultrasound: Nelson tolerated his right neck Thyroid Biopsy well. He is alert and in no distress. He denies pain. Band aid to his right neck is dry and intact. No bleeding. No hematoma. He verbalizes understanding of his home going instructions. Cold compress to his right neck. Ambulated out of Ultrasound into the waiting room with no problems, and will go home with his son. Normal [facility] Nursing Note Ultrasound: Nelson is here as an outpatient walk in for a Thyroid Biopsy . He has verbalized understanding of the procedural instructions. Jael FLORES) has spoken to him. History, allergies, medications and lab results reviewed. Informed consent has been signed. Prepped and draped in sterile fashion. Time out performed. He is on a monitor. Patient ready for the procedure. Normal [facility] US GUIDED THYROID NEEDLE COR E BIOPSY W/ REFLEX AFFIRMAon 11-07-2023 US GUIDED THYROID NEEDLE CORE BIOPSY W/ REFLEX AFFIRMA Patient Name: NELSON GOMEZ : 1955 Exam Date/Time: 11/07/2023 09:03 Procedure: US GUIDED THYROID NEEDLE CORE BIOPSY W/ REFLEX AFFIRMA Ordering Provider: SHELDON MARK Reason For Exam: D44.0 CLINICAL HISTORY: Thyroid nodule Procedures: Ultrasound-guided thyroid FNA ZAHIRA: Jael Garrett PA-C Attending provider: Yusuf Garcia M.D. stripping machine operator: Jael Garrett PA-C Attending provider was available in the department if needed. MEDICATIONS: Lidocaine. EBL: Minimal. Contrast: None. Specimen sent: FNA biopsies of a 5.5 cm right mid/lower lobe TI-RADS 3 thyroid nodule. COMPLICATIONS: None Procedural details: All of the risk, benefits, and alternative treatments were explained to the patient and informed consent was obtained and documented. The patient was brought into the ultrasound suite and placed in a supine position. Imaging from 01/13/2023 was reviewed. The patient's thyroid was interrogated with ultrasound and a dominant thyroid nodule suitable for biopsy was identified. A timeout was performed. The overlying skin was then prepped and draped in the usual sterile fashion. The overlying subcutaneous tissues were anesthetized using 2 percent lidocaine. Under real-time ultrasound guidance, a 25-gauge 7.5 cm needle was advanced into the right mid/lower thyroid nodule. 5 sets of FNA passes were performed. 3 passes were prepared for routine cytology and 2 passes were prepared for Afirma. All needles were then removed and hemostasis obtained using manual pressure. Post biopsy images were stored. FINDINGS: Dominant nodule within right mid/lower thyroid lobe IMPRESSION: Impression: Technically successful uncomplicated ultrasound-guided thyroid FNA. Report Dictated on Electronically Signed By: Jael Garrett PA-C Electronically Signed Date/Time: 11/07/2023 9:45 AM [facility] US Guidance for fine needle aspiration of Thyroid glandon 11-07-2023 Impression: Technically successful uncomplicated ultrasound-guided thyroid FNA. Report Dictated on Electronically Signed By: Jael Garrett PA-C Electronically Signed Date/Time: 11/07/2023 9:45 AM [facility] Patient Name: NELSON GOMEZ : 1955 Exam Date/Time: 11/07/2023 09:03 Procedure: US GUIDED THYROID NEEDLE CORE BIOPSY W/ REFLEX AFFIRMA Ordering Provider: SHELDON MARK Reason For Exam: D44.0 CLINICAL HISTORY: Thyroid nodule Procedures: Ultrasound-guided thyroid FNA ZAHIRA: Jael Garrett PA-C Attending provider: Yusuf Garcia M.D. stripping machine operator: Jael Garrett PA-C Attending provider was available in the department if needed. MEDICATIONS: Lidocaine. EBL: Minimal. Contrast: None. Specimen sent: FNA biopsies of a 5.5 cm right mid/lower lobe TI-RADS 3 thyroid nodule. COMPLICATIONS: None Procedural details: All of the risk, benefits, and alternative treatments were explained to the patient and informed consent was obtained and documented. The patient was brought into the ultrasound suite and placed in a supine position. Imaging from 01/13/2023 was reviewed. The patient's thyroid was interrogated with ultrasound and a dominant thyroid nodule suitable for biopsy was identified. A timeout was performed. The overlying skin was then prepped and draped in the usual sterile fashion. The overlying subcutaneous tissues were anesthetized using 2 percent lidocaine. Under real-time ultrasound guidance, a 25-gauge 7.5 cm needle was advanced into the right mid/lower thyroid nodule. 5 sets of FNA passes were performed. 3 passes were prepared for routine cytology and 2 passes were prepared for Afirma. All needles were then removed and hemostasis obtained using manual pressure. Post biopsy images were stored. FINDINGS: Dominant nodule within right mid/lower thyroid lobe [facility] Jael Garrett PA-C - 11/07/2023 Patient Name: NELSON GOMEZ : 1955 Exam Date/Time: 11/07/2023 09:03 Procedure: US GUIDED THYROID NEEDLE CORE BIOPSY W/ REFLEX AFFIRMA Ordering Provider: SHELDON MARK Reason For Exam: D44.0 CLINICAL HISTORY: Thyroid nodule Procedures: Ultrasound-guided thyroid FNA ZAHIRA: Jael Garrett PA-C Attending provider: Yusuf Garcia M.D. stripping machine operator: Jael Garrett PA-C Attending provider was available in the department if needed. MEDICATIONS: Lidocaine. EBL: Minimal. Contrast: None. Specimen sent: FNA biopsies of a 5.5 cm right mid/lower lobe TI-RADS 3 thyroid nodule. COMPLICATIONS: None Procedural details: All of the risk, benefits, and alternative treatments were explained to the patient and informed consent was obtained and documented. The patient was brought into the ultrasound suite and placed in a supine position. Imaging from 01/13/2023 was reviewed. The patient's thyroid was interrogated with ultrasound and a dominant thyroid nodule suitable for biopsy was identified. A timeout was performed. The overlying skin was then prepped and draped in the usual sterile fashion. The overlying subcutaneous tissues were anesthetized using 2 percent lidocaine. Under real-time ultrasound guidance, a 25-gauge 7.5 cm needle was advanced into the right mid/lower thyroid nodule. 5 sets of FNA passes were performed. 3 passes were prepared for routine cytology and 2 passes were prepared for Afirma. All needles were then removed and hemostasis obtained using manual pressure. Post biopsy images were stored. FINDINGS: Dominant nodule within right mid/lower thyroid lobe IMPRESSION: Impression: Technically successful uncomplicated ultrasound-guided thyroid FNA. Report Dictated on Electronically Signed By: Jael Garrett PA-C Electronically Signed Date/Time: 11/07/2023 9:45 AM EST [employer] Radiology Study observation (narrative) [facility] US Guidance for fine needle aspiration of Thyroid glandOrdered By: Jael Garrett on 11-07-2023 [employer] Work Phone: XR KNEE THREE VIEWS RIGHTon 10-29-2023 XR KNEE THREE VIEWS RIGHT ORIGINAL EXAMINATION: THREE XRAY VIEWS OF THE RIGHT KNEE10/28/2023 11:29 am COMPARISON: Right knee radiograph 10/16/2021 HISTORY: ORDERING SYSTEM PROVIDED HISTORY: Reason for Exam: acute on chronic pain, fall yesterday. Anterior right knee pain. FINDINGS: Mild to moderate degenerative changes including osteophyte formation and joint space narrowing of the lateral tibiofemoral and patellofemoral compartment space. Small joint effusion. No acute fracture or dislocation. No aggressive osseous lesions. IMPRESSION: Small joint effusion. [id number] degenerative changes of the lateral tibiofemoral and patellofemoral compartments. I have personally reviewed the images of this examination and agree with the resident's findings and interpretation. Interpreted by: Osman Cespedes MD Preliminary Report By: Scot Alvarado Electronically signed By Osman Cespedes MD Dictated Date: 10/29/2023 8:50:10 AM Prelim Date: 10/29/2023 11:21:58 AM Sign Date: 10/29/2023 11:21:58 AM Ordering Provider: ALDA Benz On [facility] Of [facility] ([place] CNOVon 06-02-2023 CNOV Office Visit (ORTHWS ) NELSON GOMEZ ([id number]) 1955 M DEF Date Time Provider Department 06/02/23 1:40 PM [facility]ONEL During your visit today, we recorded the following information about you: Parish Coronel MD 06/27/2023 3:29 PM Signed Parish Coronel MD Department of Orthopaedics Orthopaedics [address] [facility] [address] Dept: [phone] Dept June 02, 2023 CHIEF COMPLAINT: Knee [...] (BMI) of 45.0 to 49.9 in adult ([facility]) (primary encounter diagnosis) M25.561, M25.562, G89.29 Chronic [...] as to contrast therapies and/or to take analgesics/anti-inflam matories as needed and all contraindications were reviewed. [...] neurovascular exam is normal. IMAGING: IMPRESSION: Osteoarthritis Field Recorder: LUKE Transcribe Date/Time: Jun 05 2023 8:22A Dictated [...] 100 mg tablet aspirin 81 mg chewable tab (more content not included)... Normal [facility] XR KNEE 4V AP/PA/LAT/MERCH B ILon 06-02-2023 XR KNEE 4V AP/PA/LAT/MERCH SIN * * *Final Report* * * DATE [...] hypertrophic spurring. Trace effusion. No acute fracture IMPRESSION: Osteoarthritis Field Recorder: PSCB Transcribe Date/Time: Jun 05 2023 8:22A Dictated by : KOFFI WHITAKER MD This examination was interpreted and the report reviewed and electronically signed by: KOFFI WHITAKER MD on Jun 05 2023 8:24AM EST [id number] Normal [facility] XR KNEE GENERAL 4V AP BOTH/P A BOTH/LAT/MERC BILATERALon 06-02-2023 [facility] .GFRon 04-24-2023 GFR Non- 62 ml/min/1.73sqm Normal On [facility] Of [facility] [place] Comment on above: Result Comment: GFR Population mean for , Non- Americans Ages 20-29 = 116 mL/min/1.73 sq.m. Ages 30-39 = 107 mL/min/1.73 sq.m. Ages 40-49 = 99 mL/min/1.73 sq.m. Ages 50-59 = 93 mL/min/1.73 sq.m. Ages 60-69 = 85 mL/min/1.73 sq.m. Ages 70+ = 75 mL/min/1.73 sq.m. Chronic Kidney Disease: Less than 60 mL/min/1.73 square meters End Stage Renal Disease: Less than 15 mL/min/1.73 square meters Performed By: #### C MP, GFR, VIDH #### [address] [address] GFR 75 ml/min/1.73sqm Normal On [facility] [place] Comment on above: Result Comment: GFR Population mean for , Non- Americans Ages 20-29 = 116 mL/min/1.73 sq.m. Ages 30-39 = 107 mL/min/1.73 sq.m. Ages 40-49 = 99 mL/min/1.73 sq.m. Ages 50-59 = 93 mL/min/1.73 sq.m. Ages 60-69 = 85 mL/min/1.73 sq.m. Ages 70+ = 75 mL/min/1.73 sq.m. Chronic Kidney Disease: Less than 60 mL/min/1.73 square meters End Stage Renal Disease: Less than 15 mL/min/1.73 square meters Performed By: #### C MP, GFR, VIDH #### [address] [address] CMPon 04-24-2023 Albumin Level 3.7 G/dL Normal 3.4-4.8 On [facility] [place] Comment on above: Performed By: #### C MP, GFR, VIDH #### [address] [address] Albumin/Globulin [Mass ratio] 0.8 {ratio} Low 1.1-2.5 On [facility] [place] Comment on above: Performed By: #### C MP, GFR, VIDH #### [address] [address] ALP [Catalytic activity/Vol] 59 U/L Normal 40-135 On [facility] [place] Comment on above: Performed By: #### C MP, GFR, VIDH #### [address] [address] ALT [Catalytic activity/Vol] 34 U/L Normal 16-63 [facility] [place] Comment on above: Performed By: #### C MP, GFR, VIDH #### [address] [address] AST [Catalytic activity/Vol] 31 U/L Normal 10-40 [facility] [place] Comment on above: Performed By: #### C MP, GFR, VIDH #### [address] [address] Bili Total 0.4 mg/dL Normal 0.2-1.0 On [facility] [place] Comment on above: Result Comment: Use of this assay is not recommended for patients undergoing treatment with eltrombopag due to the potential for falsely elevated results. Performed By: #### C MP, GFR, VIDH #### [address] [address] BUN/Creatinine Ratio 26 ratio Normal 7-27 [facility] ([place]) Comment on above: Performed By: #### C MP, GFR, VIDH #### [address] [address] Calcium [Mass/Vol] 10.1 mg/dL Normal 8.4-10.2 [facility] ([place]) Comment on above: Performed By: #### C MP, GFR, VIDH #### [address] [address] Chloride [Moles/Vol] 101 mmol/L Normal 98-107 [facility] ([place] Comment on above: Performed By: #### C MP, GFR, VIDH #### [address] [address] CO2 [Moles/Vol] 29 mmol/L Normal 23-31 On [facility] [place] Comment on above: Performed By: #### C MP, GFR, VIDH #### [address] [address] Creatinine [Mass/Vol] 1.17 mg/dL Normal 0.70-1.30 [facility] ([place]) Comment on above: Performed By: #### C MP, GFR, VIDH #### [address] [address] Electrolyte Balance 8.0 mEq/L Normal 4.0-15.0 [facility] ([place]) Comment on above: Performed By: #### C MP, GFR, VIDH #### [address] [address] Globulin 4.8 G/dL Normal [facility] [place] Comment on above: Performed By: #### C MP, GFR, VIDH #### [address] [address] Glucose [Mass/Vol] 133 mg/dL High 80-115 [facility] ([place] Comment on above: Performed By: #### C MP, GFR, VIDH #### [address] [address] Potassium [Moles/Vol] 4.4 mmol/L Normal 3.5-5.1 [facility] ([place] Comment on above: Performed By: #### C MP, GFR, VIDH #### [address] [address] Sodium [Moles/Vol] 138 mmol/L Normal 136-145 [facility] ([place] Comment on above: Performed By: #### C MP, GFR, VIDH #### [address] [address] Total Protein 8.5 G/dL High 6.4-8.2 On [facility] [place] Comment on above: Performed By: #### C MP, GFR, VIDH #### [address] [place], [place] [address] Urea nitrogen [Mass/Vol] 31 mg/dL High 7-18 On [facility] [place] Comment on above: Performed By: #### C MP, DEYVI, VIDH #### [address] [place], [place] [address] LIPIDon 04-24-2023 Cholesterol [Mass/Vol] 97 mg/dL Normal 0-200 On [facility] [place] Comment on above: Result Comment: Chol esterol Reference Interval: Less than 200 Desirable 200-239 Borderline high risk 240 and above High risk Performed By: #### L IPID #### [address] [address] Cholesterol in HDL [Mass/Vol] 28 mg/dL Low 40-60 [facility] [place] Comment on above: Performed By: #### L IPID #### [address] [address] Cholesterol in LDL [Mass/Vol] 23 mg/dL Normal 0-130 [facility] [place] Comment on above: Performed By: #### L IPID #### [address] [address] Triglyceride [Mass/Vol] 231 mg/dL High 0-150 On [facility] [place] Comment on above: Result Comment: Trig lyceride Reference Interval: Less than 150 Normal 150-199 Borderline high risk 200-499 High risk 500 or higher Very high risk Performed By: #### L IPID #### [address] [address] T3on 04-24-2023 Total T3 148 ng/dL Normal 60-181 On [facility] [place] Comment on above: Performed By: #### T 3, THYAB #### [facility] [address] [place] [address] THYABon 04-24-2023 anti-Thyroid Peroxidase <28 Normal 0-60 On [facility] [place] Comment on above: Result Comment: No te - New Reference Range in effect 20 Performed By: #### T 3, THYAB #### [place] [id number] [place] [address] Thyroglobulin Ab Qn [IU]/mL Normal 15-60 [facility] ([place]) Comment on above: Result Comment: No te - New Reference Range in effect 20 Performed By: #### T 3, THYAB #### [address] [address] VIDHon 04-24-2023 Vit. D 25-Hydroxy 51.6 ng/mL Normal On [facility] [place] Comment on above: Result Comment: Inte rpretive Values Based on Total 25(OH) Vitamin D: Deficient <20 ng/mL Insufficient 20 - <30 ng/mL Sufficient 30-100 ng/mL Performed By: #### C MP, GFR, VIDH #### [address] [place], [place] [address] LABORATORYOrdered By: SYSTEM SYSTEM on 01-13-2023 Albumin BCP dye [Mass/Vol] 3.4 G/dL Invalid Interpretation Code 3.4 - 4.8 G/dL AO ADM SS Albumin/Globulin [Mass ratio] 0.8 {ratio} Invalid Interpretation Code 1.1 - 2.5 ratio AO ADM SS ALP [Catalytic activity/Vol] 54 U/L Invalid Interpretation Code 40 - 135 U/L AO ADM SS ALT With P-5'-P [Catalytic activity/Vol] 41 U/L Invalid Interpretation Code 16 - 63 U/L AO ADM SS AST With P-5'-P [Catalytic activity/Vol] 33 U/L Invalid Interpretation Code 10 - 40 U/L AO ADM SS Bilirubin [Mass/Vol] 0.6 mg/dL Invalid Interpretation Code 0.2 - 1.0 mg/dL AO ADM SS Calcium [Mass/Vol] 9.4 mg/dL Invalid Interpretation Code 8.4 - 10.2 mg/dL AO ADM SS Chloride [Moles/Vol] 100 mmol/L Invalid Interpretation Code 98 - 107 mmol/L AO ADM SS CO2 [Moles/Vol] 28 mmol/L Invalid Interpretation Code 23 - 31 mmol/L AO ADM SS Creatinine [Mass/Vol] 1.11 mg/dL Invalid Interpretation Code 0.70 - 1.30 mg/dL AO ADM SS Electrolyte Balance 11.0 mEq/L Invalid Interpretation Code 4.0 - 15.0 mEq/L AO ADM SS Free T4 [Mass/Vol] 0.84 ng/dL Invalid Interpretation Code 0.76 - 1.46 ng/dL AO ADM SS GFR 80 ml/min/1.73sqm Invalid Interpretation Code AO Chemistry S GFR Non- 66 ml/min/1.73sqm Invalid Interpretation Code AO Chemistry S Globulin 4.5 G/dL Invalid Interpretation Code AO ADM SS Glucose [Mass/Vol] 117 mg/dL Invalid Interpretation Code 80 - 115 mg/dL AO ADM SS Potassium [Moles/Vol] 3.7 mmol/L Invalid Interpretation Code 3.5 - 5.1 mmol/L AO ADM SS Protein [Mass/Vol] 7.9 G/dL Invalid Interpretation Code 6.4 - 8.2 G/dL AO ADM SS Sodium [Moles/Vol] 139 mmol/L Invalid Interpretation Code 136 - 145 mmol/L AO ADM SS TSH Qn 1.79 m[IU]/L Invalid Interpretation Code 0.36 - 3.74 mcIU/mL AO ADM SS Urea nitrogen [Mass/Vol] 14 mg/dL Invalid Interpretation Code 7 - 18 mg/dL AO ADM SS Urea nitrogen/Creatinine [Mass ratio] 13 ratio Invalid Interpretation Code 7 - 27 ratio AO ADM SS Vit. D 25-Hydroxy 48.1 ng/mL Invalid Interpretation Code AO ADM SS LABORATORYOrdered By: Carlie Gan on 01-13-2023 Basophil, Absolute 0.1 103/mcL Invalid Interpretation Code 0.0 - 0.2 10^3/mcL AO Workflow SS Basophils/100 WBC (Bld) 0.6 % Invalid Interpretation Code 0.0 - 2.5 % AO Workflow SS Cholesterol [Mass/Vol] 87 mg/dL Invalid Interpretation Code 0 - 200 mg/dL AO ADM SS Cholesterol in HDL [Mass/Vol] 35 mg/dL Invalid Interpretation Code 40 - 60 mg/dL AO ADM SS Cholesterol in LDL [Mass/Vol] 22 mg/dL Invalid Interpretation Code 0 - 130 mg/dL AO ADM SS Eosinophil, Absolute 0.2 103/mcL Invalid Interpretation Code 0.0 - 0.4 10^3/mcL AO Workflow SS Eosinophils/100 WBC (Bld) 2.4 % Invalid Interpretation Code 0.0 - 7.0 % AO Workflow SS Erythrocyte distribution width (RBC) [Ratio] 13.0 % Invalid Interpretation Code 11.5 - 14.5 % AO Workflow SS Hematocrit (Bld) [Volume fraction] 46.6 % Invalid Interpretation Code 42.0 - 52.0 % AO Workflow SS Hemoglobin (Bld) [Mass/Vol] 16.1 G/dL Invalid Interpretation Code 14.0 - 18.0 G/dL AO Workflow SS Lymphocyte, Absolute 3.4 103/mcL Invalid Interpretation Code 0.8 - 3.9 10^3/mcL AO Workflow SS Lymphocytes/100 WBC (Bld) 35.9 % Invalid Interpretation Code 10.0 - 50.0 % AO Workflow SS MCH (RBC) [Entitic mass] 30.8 pg Invalid Interpretation Code 27.0 - 31.2 pg AO Workflow SS MCHC 34.6 G/dL Invalid Interpretation Code 31.8 - 35.4 G/dL AO Workflow SS MCV (RBC) [Entitic vol] 88.9 fL Invalid Interpretation Code 80.0 - 94.0 fL AO Workflow SS Monocyte, Absolute 0.8 103/mcL Invalid Interpretation Code 0.2 - 1.0 10^3/mcL AO Workflow SS Monocytes/100 WBC (Bld) 8.4 % Invalid Interpretation Code 1.7 - 13.0 % AO Workflow SS Neutrophil, Absolute 4.9 103/mcL Invalid Interpretation Code 2.9 - 6.2 10^3/mcL AO Workflow SS Neutrophils/100 WBC (Bld) 52.7 % Invalid Interpretation Code 37.0 - 80.0 % AO Workflow SS Platelet mean volume (Bld) [Entitic vol] 10.6 fL Invalid Interpretation Code 7.4 - 10.4 fL AO Workflow SS Platelets (Bld) [#/Vol] 185 103/mcL Invalid Interpretation Code 130 - 400 10^3/mcL AO Workflow SS RBC (Bld) [#/Vol] 5.24 106/mcL Invalid Interpretation Code 4.04 - 6.13 10^6/mcL AO Workflow SS Triglyceride [Mass/Vol] 152 mg/dL Invalid Interpretation Code 0 - 150 mg/dL AO ADM SS WBC (Bld) [#/Vol] 9.4 103/mcL Invalid Interpretation Code 4.6 - 10.8 10^3/mcL AO Workflow SS No Panel Informationon 01-07 Culture Urine <10,000 cfu/ml. No Significant growth. Sensitivity not indicated. [facility] LABORATORYOrdered By: Sheron Simons on 08-15-2022 Albumin BCP dye [Mass/Vol] 3.5 G/dL Invalid Interpretation Code 3.4 - 4.8 G/dL AO ADM SS Albumin/Globulin [Mass ratio] 0.8 {ratio} Invalid Interpretation Code 1.1 - 2.5 ratio AO ADM SS ALP [Catalytic activity/Vol] 69 U/L Invalid Interpretation Code 40 - 135 U/L AO ADM SS ALT With P-5'-P [Catalytic activity/Vol] 58 U/L Invalid Interpretation Code 16 - 63 U/L AO ADM SS AST With P-5'-P [Catalytic activity/Vol] 48 U/L Invalid Interpretation Code 10 - 40 U/L AO ADM SS Bilirubin [Mass/Vol] 0.6 mg/dL Invalid Interpretation Code 0.2 - 1.0 mg/dL AO ADM SS Calcium [Mass/Vol] 9.2 mg/dL Invalid Interpretation Code 8.4 - 10.2 mg/dL AO ADM SS Chloride [Moles/Vol] 103 mmol/L Invalid Interpretation Code 98 - 107 mmol/L AO ADM SS Cholesterol [Mass/Vol] 115 mg/dL Invalid Interpretation Code 0 - 200 mg/dL AO ADM SS Cholesterol in HDL [Mass/Vol] 31 mg/dL Invalid Interpretation Code 40 - 60 mg/dL AO ADM SS Cholesterol in LDL [Mass/Vol] 44 mg/dL Invalid Interpretation Code 0 - 130 mg/dL AO ADM SS CO2 [Moles/Vol] 24 mmol/L Invalid Interpretation Code 23 - 31 mmol/L AO ADM SS Creatinine [Mass/Vol] 0.94 mg/dL Invalid Interpretation Code 0.70 - 1.30 mg/dL AO ADM SS Electrolyte Balance 11.0 mEq/L Invalid Interpretation Code 4.0 - 15.0 mEq/L AO ADM SS Globulin 4.2 G/dL Invalid Interpretation Code AO ADM SS Glucose [Mass/Vol] 87 mg/dL Invalid Interpretation Code 80 - 115 mg/dL AO ADM SS Potassium [Moles/Vol] 4.0 mmol/L Invalid Interpretation Code 3.5 - 5.1 mmol/L AO ADM SS Protein [Mass/Vol] 7.7 G/dL Invalid Interpretation Code 6.4 - 8.2 G/dL AO ADM SS Sodium [Moles/Vol] 138 mmol/L Invalid Interpretation Code 136 - 145 mmol/L AO ADM SS Triglyceride [Mass/Vol] 201 mg/dL Invalid Interpretation Code 0 - 150 mg/dL AO ADM SS Urea nitrogen [Mass/Vol] 19 mg/dL Invalid Interpretation Code 7 - 18 mg/dL AO ADM SS Urea nitrogen/Creatinine [Mass ratio] 20 ratio Invalid Interpretation Code 7 - 27 ratio AO ADM SS LABORATORYOrdered By: SYSTEM SYSTEM on 08-15-2022 GFR 96 ml/min/1.73sqm Invalid Interpretation Code AO Chemistry S GFR Non- 80 ml/min/1.73sqm Invalid Interpretation Code AO Chemistry S No Panel Informationon 07-08 Shiga Toxins 1 and 2 Absence of Shiga to celso 1 Absence of Shiga toxin 2 [facility] Comment on above: Testing performed by immunochromatography. Culture Stool/Yersinia Normal stool corbin present - coliforms absent. Salmonella: Negative Shigella: Negative Campylobacter: Negative Yersinia: Negative [facility] Comment on above: Requests for alterna tive pathogens including C. difficile toxin, E. coli 0157 Rotavirus, Giardia and parasites require specific requests. LABORATORYOrdered By: Kusum Fonseca on 05-23-2022 Blood Glucose Testing Reason Routine (05/23/22 11:11 AM) [facility] Glucose [Mass/Vol] 100 mg/dL Invalid Interpretation Code 82 - 115 mg/dL [facility] LABORATORYOrdered By: Stephanie Shields on 05-23-2022 Blood Glucose Testing Reason Routine (05/23/22 7:35 AM) [facility] Glucose [Mass/Vol] 92 mg/dL Invalid Interpretation Code 82 - 115 mg/dL [facility] LABORATORYOrdered By: Fransico Denise on 05-22-2022 Blood Glucose Testing Reason Routine (05/22/22 9:29 PM) [facility] Glucose [Mass/Vol] 140 mg/dL Invalid Interpretation Code 82 - 115 mg/dL [facility] LABORATORYOrdered By: SYSTEM SYSTEM on 05-22-2022 IgA [Mass/Vol] 350 mg/dL Invalid Interpretation Code 40 - 350 mg/dL ADM SS TSH Qn 0.184 mIU/mL Invalid Interpretation Code 0.550 - 4.780 mIU/mL ADM SS Troponin I.cardiac DL <= 0.01 ng/mL [Mass/Vol] 12.23 ng/L Invalid Interpretation Code 0.00 - 54.00 ng/L ADM SS Albumin BCP dye [Mass/Vol] 2.8 G/dL Invalid Interpretation Code 3.2 - 4.8 G/dL ADM SS Albumin/Globulin [Mass ratio] 0.8 {ratio} Invalid Interpretation Code 0.9 - 1.6 ratio ADM SS ALP [Catalytic activity/Vol] 21 U/L Invalid Interpretation Code 38 - 126 U/L ADM SS ALT No additional P-5'-P [Catalytic activity/Vol] 31 U/L Invalid Interpretation Code 12 - 55 U/L ADM SS AST [Catalytic activity/Vol] 27 U/L Invalid Interpretation Code 8 - 34 U/L ADM SS Basophils (Bld) [#/Vol] 0.0 103/mcL Invalid Interpretation Code 0.0 - 0.3 10^3/mcL AH Workflow SS Basophils/100 WBC (Bld) 0.2 % Invalid Interpretation Code 0.0 - 2.5 % Workflow SS Bilirubin [Mass/Vol] 0.50 mg/dL Invalid Interpretation Code 0.20 - 1.20 mg/dL ADM SS Calcium [Mass/Vol] 8.6 mg/dL Invalid Interpretation Code 8.7 - 10.4 mg/dL ADM SS Chloride [Moles/Vol] 111 mmol/L Invalid Interpretation Code 98 - 110 mEq/L ADM SS CO2 [Moles/Vol] 18 mmol/L Invalid Interpretation Code 22 - 32 mEq/L ADM SS Creatinine [Mass/Vol] 1.69 mg/dL Invalid Interpretation Code 0.60 - 1.40 mg/dL ADM SS Electrolyte Balance 10.0 mEq/L Invalid Interpretation Code 4.0 - 15.0 mEq/L ADM SS Eosinophils (Bld) [#/Vol] 0.0 103/mcL Invalid Interpretation Code 0.0 - 0.7 10^3/mcL Workflow SS Eosinophils/100 WBC (Bld) 0.0 % Invalid Interpretation Code 0.0 - 6.0 % Workflow SS Erythrocyte distribution width (RBC) [Ratio] 13.7 % Invalid Interpretation Code 11.5 - 15.5 % AH Workflow SS GFR/1.73 sq M.predicted among blacks MDRD (S/P/Bld) [Vol rate/Area] 49 ml/min/1.73sqm Invalid Interpretation Code Chemistry S GFR/1.73 sq M.predicted among non-blacks MDRD (S/P/Bld) [Vol rate/Area] 41 ml/min/1.73sqm Invalid Interpretation Code Chemistry S Globulin 3.5 G/dL Invalid Interpretation Code 1.5 - 3.8 G/dL ADM SS Glucose [Mass/Vol] 144 mg/dL Invalid Interpretation Code 82 - 115 mg/dL ADM SS Hematocrit (Bld) [Volume fraction] 42.2 % Invalid Interpretation Code 40.0 - 52.0 % Workflow SS Hemoglobin (Bld) [Mass/Vol] 14.1 G/dL Invalid Interpretation Code 13.0 - 17.5 G/dL Workflow SS Lymphocytes (Bld) [#/Vol] 1.4 103/mcL Invalid Interpretation Code 0.9 - 4.3 10^3/mcL Workflow SS Lymphocytes/100 WBC (Bld) 9.5 % Invalid Interpretation Code 20.0 - 40.0 % AH Workflow SS MCH (RBC) [Entitic mass] 30.9 pg Invalid Interpretation Code 27.0 - 33.0 pg AH Workflow SS MCHC 33.4 G/dL Invalid Interpretation Code 32.0 - 36.0 G/dL Workflow SS MCV (RBC) [Entitic vol] 92.5 fL Invalid Interpretation Code 81.0 - 100.0 fL Workflow SS Monocyte distribution width Auto (Bld) [Entitic vol] Not Performed 1 *NA* (05/22/22 2:15 AM) Invalid Interpretation Code 0.00 - 20.00 Hematology S Comment on above: Result Comment: MDW testing performed only on adult ER patients between the ages of 18-89 years. Monocytes (Bld) [#/Vol] 0.4 103/mcL Invalid Interpretation Code 0.1 - 1.4 10^3/mcL Workflow SS Monocytes/100 WBC (Bld) 2.6 % Invalid Interpretation Code 2.0 - 13.0 % Workflow SS Neutrophils (Bld) [#/Vol] 13.3 103/mcL Invalid Interpretation Code 2.3 - 8.1 10^3/mcL Workflow SS Neutrophils/100 WBC (Bld) 87.7 % Invalid Interpretation Code 50.0 - 75.0 % Workflow SS Platelet mean volume (Bld) [Entitic vol] 9.5 fL Invalid Interpretation Code 6.4 - 10.5 fL Workflow SS Platelets (Bld) [#/Vol] 167 103/mcL Invalid Interpretation Code 150 - 450 10^3/mcL Workflow SS Potassium [Moles/Vol] 4.2 mmol/L Invalid Interpretation Code 3.5 - 5.0 mEq/L ADM SS Protein [Mass/Vol] 6.3 G/dL Invalid Interpretation Code 5.7 - 8.2 G/dL ADM SS RBC (Bld) [#/Vol] 4.57 106/mcL Invalid Interpretation Code 4.50 - 6.00 10^6/mcL Workflow SS Sodium [Moles/Vol] 139 mmol/L Invalid Interpretation Code 136 - 145 mEq/L ADM SS Troponin I.cardiac DL <= 0.01 ng/mL [Mass/Vol] 11.27 ng/L Invalid Interpretation Code 0.00 - 54.00 ng/L ADM SS Urea nitrogen [Mass/Vol] 42.0 mg/dL Invalid Interpretation Code 8.0 - 22.0 mg/dL ADM SS Urea nitrogen/Creatinine [Mass ratio] 24.9 ratio Invalid Interpretation Code 10.0 - 22.0 ratio ADM SS WBC 15.2 103/mcL Invalid Interpretation Code 4.5 - 10.8 10^3/mcL Workflow SS LABORATORYOrdered By: Kusum Gomez on 05-22-2022 Hemoglobin.gastrointe stinal 8th specimen Ql (Stl) Positive *ABN* (05/22/22 9:45 AM) Invalid Interpretation Code Negative Manual Urine SS LABORATORYOrdered By: Antoinette barragan on 05-22-2022 Lactate [Moles/Vol] 1.8 mmol/L Invalid Interpretation Code 0.2 - 2.0 mmol/L Auto Chem SS No Panel Informationon 05-22 Cryptosporidium Screen Cryptosporidium Antigen by rapid membrane immunoassay: Absent or below detectable levels. Multiple specimens collected over several days can be tested for patients suspected of cryptosporidiosis. The results obtained should be used in conjunction with other clinical information available. [facility] Shiga Toxins 1 and 2 Absence of Shiga to celso 1 Absence of Shiga toxin 2 [facility] Comment on above: Testing performed by immunochromatography. LABORATORYOrdered By: Eliza López on 05-21-2022 Appearance (U) Clear (05/21/22 11:05 PM) Invalid Interpretation Code Clear AH Auto Urine SS Bilirubin Ql (U) Negative (05/21/22 11:05 PM) Invalid Interpretation Code Neg-Trace AH Auto Urine SS Color (U) Yellow (05/21/22 11:05 PM) Invalid Interpretation Code AH Auto Urine SS Glucose Test strip (U) [Mass/Vol] Negative Invalid Interpretation Code Negativemg/d L AH Auto Urine SS Hemoglobin Auto test strip (U) [Mass/Vol] Trace (05/21/22 11:05 PM) Invalid Interpretation Code Neg-Trace AH Auto Urine SS Ketones Ql (U) Trace mg/dL Invalid Interpretation Code Neg-Tracemg/ dL AH Auto Urine SS UA Leuk Est Negative (05/21/22 11:05 PM) Invalid Interpretation Code Negative AH Auto Urine SS UA Nitrite Negative (05/21/22 11:05 PM) Invalid Interpretation Code Negative AH Auto Urine SS UA pH 5.5 (05/21/22 11:05 PM) Invalid Interpretation Code 5.0 - 8.0 AH Auto Urine SS UA Protein 30 mg/dL Invalid Interpretation Code Negativemg/d L AH Auto Urine SS UA Spec Grav >=1.030 *ABN* (05/21/22 11:05 PM) Invalid Interpretation Code 1.006-1.029 AH Auto Urine SS UA Specimen Type Clean Catch (05/21/22 11:05 PM) Invalid Interpretation Code AH Auto Urine SS UA Urobilinogen 0.2 E.U./dL Invalid Interpretation Code 0.2-1.0E.U./ dL AH Auto Urine SS aPTT Coag (PPP) [Time] 25.8 s Invalid Interpretation Code 25.0 - 35.0 seconds AH Auto Coag SS Heparin dose (APTT) Unknown (05/21/22 10:59 PM) Invalid Interpretation Code AH Auto Coag SS INR Coag (PPP) [Relative time] 1.1 {INR} Invalid Interpretation Code AH Auto Coag SS PT Coag (PPP) [Time] 12.9 s Invalid Interpretation Code 9.0 - 14.9 seconds Auto Coag SS LABORATORYOrdered By: SYSTEM SYSTEM on 05-21-2022 Albumin BCP dye [Mass/Vol] 3.0 G/dL Invalid Interpretation Code 3.2 - 4.8 G/dL ADM SS Albumin/Globulin [Mass ratio] 0.8 {ratio} Invalid Interpretation Code 0.9 - 1.6 ratio ADM SS ALP [Catalytic activity/Vol] 22 U/L Invalid Interpretation Code 38 - 126 U/L ADM SS ALT No additional P-5'-P [Catalytic activity/Vol] 35 U/L Invalid Interpretation Code 12 - 55 U/L ADM SS AST [Catalytic activity/Vol] 33 U/L Invalid Interpretation Code 8 - 34 U/L ADM SS Basophils (Bld) [#/Vol] 0.0 103/mcL Invalid Interpretation Code 0.0 - 0.3 10^3/mcL Workflow SS Basophils/100 WBC (Bld) 0.2 % Invalid Interpretation Code 0.0 - 2.5 % AH Workflow SS Bilirubin [Mass/Vol] 0.60 mg/dL Invalid Interpretation Code 0.20 - 1.20 mg/dL ADM SS Calcium [Mass/Vol] 9.1 mg/dL Invalid Interpretation Code 8.7 - 10.4 mg/dL ADM SS Chloride [Moles/Vol] 110 mmol/L Invalid Interpretation Code 98 - 110 mEq/L ADM SS CK [Catalytic activity/Vol] 286 U/L Invalid Interpretation Code 7 - 185 U/L ADM SS Comment on above: Result Comment: Spec imen slightly hemolyzed. CO2 [Moles/Vol] 18 mmol/L Invalid Interpretation Code 22 - 32 mEq/L ADM SS Creatinine [Mass/Vol] 1.90 mg/dL Invalid Interpretation Code 0.60 - 1.40 mg/dL ADM SS Electrolyte Balance 11.0 mEq/L Invalid Interpretation Code 4.0 - 15.0 mEq/L ADM SS Eosinophils (Bld) [#/Vol] 0.0 103/mcL Invalid Interpretation Code 0.0 - 0.7 10^3/mcL AH Workflow SS Eosinophils/100 WBC (Bld) 0.1 % Invalid Interpretation Code 0.0 - 6.0 % Workflow SS Erythrocyte distribution width (RBC) [Ratio] 13.7 % Invalid Interpretation Code 11.5 - 15.5 % Workflow SS GFR/1.73 sq M.predicted among blacks MDRD (S/P/Bld) [Vol rate/Area] 43 ml/min/1.73sqm Invalid Interpretation Code Chemistry S GFR/1.73 sq M.predicted among non-blacks MDRD (S/P/Bld) [Vol rate/Area] 35 ml/min/1.73sqm Invalid Interpretation Code Chemistry S Globulin 3.9 G/dL Invalid Interpretation Code 1.5 - 3.8 G/dL ADM SS Glucose [Mass/Vol] 153 mg/dL Invalid Interpretation Code 82 - 115 mg/dL ADM SS Hematocrit (Bld) [Volume fraction] 42.7 % Invalid Interpretation Code 40.0 - 52.0 % Workflow SS Hemoglobin (Bld) [Mass/Vol] 14.3 G/dL Invalid Interpretation Code 13.0 - 17.5 G/dL Workflow SS Lymphocytes (Bld) [#/Vol] 1.6 103/mcL Invalid Interpretation Code 0.9 - 4.3 10^3/mcL Workflow SS Lymphocytes/100 WBC (Bld) 9.7 % Invalid Interpretation Code 20.0 - 40.0 % Workflow SS Magnesium [Mass/Vol] 1.4 mg/dL Invalid Interpretation Code 1.6 - 2.4 mg/dL ADM SS MCH (RBC) [Entitic mass] 31.0 pg Invalid Interpretation Code 27.0 - 33.0 pg Workflow SS MCHC 33.4 G/dL Invalid Interpretation Code 32.0 - 36.0 G/dL Workflow SS MCV (RBC) [Entitic vol] 92.8 fL Invalid Interpretation Code 81.0 - 100.0 fL Workflow SS Monocyte distribution width Auto (Bld) [Entitic vol] Not Performed 2 *NA* (05/21/22 10:59 PM) Invalid Interpretation Code 0.00 - 20.00 Hematology S Comment on above: Result Comment: MDW testing performed only on adult ER patients between the ages of 18-89 years. Monocytes (Bld) [#/Vol] 0.3 103/mcL Invalid Interpretation Code 0.1 - 1.4 10^3/mcL Workflow SS Monocytes/100 WBC (Bld) 2.1 % Invalid Interpretation Code 2.0 - 13.0 % Workflow SS Neutrophils (Bld) [#/Vol] 14.8 103/mcL Invalid Interpretation Code 2.3 - 8.1 10^3/mcL Workflow SS Neutrophils/100 WBC (Bld) 87.9 % Invalid Interpretation Code 50.0 - 75.0 % Workflow SS Phosphate [Mass/Vol] 2.3 mg/dL Invalid Interpretation Code 2.4 - 5.1 mg/dL ADM SS Platelet mean volume (Bld) [Entitic vol] 9.5 fL Invalid Interpretation Code 6.4 - 10.5 fL Workflow SS Platelets (Bld) [#/Vol] 193 103/mcL Invalid Interpretation Code 150 - 450 10^3/mcL Workflow SS Potassium [Moles/Vol] 4.4 mmol/L Invalid Interpretation Code 3.5 - 5.0 mEq/L ADM SS Comment on above: Result Comment: Spec imen slightly hemolyzed. Protein [Mass/Vol] 6.9 G/dL Invalid Interpretation Code 5.7 - 8.2 G/dL ADM SS RBC (Bld) [#/Vol] 4.60 106/mcL Invalid Interpretation Code 4.50 - 6.00 10^6/mcL Workflow SS Sodium [Moles/Vol] 139 mmol/L Invalid Interpretation Code 136 - 145 mEq/L ADM SS Troponin I.cardiac DL <= 0.01 ng/mL [Mass/Vol] 10.56 ng/L Invalid Interpretation Code 0.00 - 54.00 ng/L ADM SS Urea nitrogen [Mass/Vol] 42.0 mg/dL Invalid Interpretation Code 8.0 - 22.0 mg/dL ADM SS Urea nitrogen/Creatinine [Mass ratio] 22.1 ratio Invalid Interpretation Code 10.0 - 22.0 ratio ADM SS WBC 16.8 103/mcL Invalid Interpretation Code 4.5 - 10.8 10^3/mcL Workflow SS LABORATORYOrdered By: Antoinette barragan on 05-21-2022 CK.MB [Mass/Vol] 8.68 ng/mL Invalid Interpretation Code 0.00 - 5.00 ng/mL ADM SS Free T4 index Calc [Mass/Vol] 3.0 1 Invalid Interpretation Code 0.0 - 4.5 % Chemistry S Lactate [Moles/Vol] 2.4 mmol/L Invalid Interpretation Code 0.2 - 2.0 mmol/L AH Auto Chem SS No Panel Informationon 05-21 Culture Urine No growth to date [facility] [place] Microscopic examination of blood, culture Culture has been received in lab and is no growth to date. Routine cultures are held for 5 days. [facility] LABORATORYOrdered By: Imelda Mccarthy on 05-09-2022 Albumin BCP dye [Mass/Vol] 3.7 G/dL Invalid Interpretation Code 3.4 - 4.8 G/dL AO ADM SS Albumin/Globulin [Mass ratio] 0.9 {ratio} Invalid Interpretation Code 1.1 - 2.5 ratio AO ADM SS ALP [Catalytic activity/Vol] 48 U/L Invalid Interpretation Code 40 - 135 U/L AO ADM SS ALT With P-5'-P [Catalytic activity/Vol] 51 U/L Invalid Interpretation Code 16 - 63 U/L AO ADM SS AST With P-5'-P [Catalytic activity/Vol] 55 U/L Invalid Interpretation Code 10 - 40 U/L AO ADM SS Bilirubin [Mass/Vol] 0.6 mg/dL Invalid Interpretation Code 0.2 - 1.0 mg/dL AO ADM SS Calcium [Mass/Vol] 9.6 mg/dL Invalid Interpretation Code 8.4 - 10.2 mg/dL AO ADM SS Chloride [Moles/Vol] 100 mmol/L Invalid Interpretation Code 98 - 107 mmol/L AO ADM SS Cholesterol [Mass/Vol] 125 mg/dL Invalid Interpretation Code 0 - 200 mg/dL AO ADM SS Cholesterol in HDL [Mass/Vol] 32 mg/dL Invalid Interpretation Code 40 - 60 mg/dL AO ADM SS Cholesterol in LDL [Mass/Vol] 57 mg/dL Invalid Interpretation Code 0 - 130 mg/dL AO ADM SS CO2 [Moles/Vol] 29 mmol/L Invalid Interpretation Code 23 - 31 mmol/L AO ADM SS Creatinine [Mass/Vol] 1.16 mg/dL Invalid Interpretation Code 0.70 - 1.30 mg/dL AO ADM SS Electrolyte Balance 9.0 mEq/L Invalid Interpretation Code 4.0 - 15.0 mEq/L AO ADM SS Globulin 4.2 G/dL Invalid Interpretation Code AO ADM SS Glucose [Mass/Vol] 109 mg/dL Invalid Interpretation Code 80 - 115 mg/dL AO ADM SS HbA1c (Bld) [Mass fraction] 5.7 % Invalid Interpretation Code 4.3 - 6.4 % AO ADM SS Potassium [Moles/Vol] 4.2 mmol/L Invalid Interpretation Code 3.5 - 5.1 mmol/L AO ADM SS Prostate specific Ag [Mass/Vol] 0.37 ng/mL Invalid Interpretation Code 0.00 - 4.00 ng/mL AO ADM SS Protein [Mass/Vol] 7.9 G/dL Invalid Interpretation Code 6.4 - 8.2 G/dL AO ADM SS Sodium [Moles/Vol] 138 mmol/L Invalid Interpretation Code 136 - 145 mmol/L AO ADM SS Triglyceride [Mass/Vol] 181 mg/dL Invalid Interpretation Code 0 - 150 mg/dL AO ADM SS Urea nitrogen [Mass/Vol] 18 mg/dL Invalid Interpretation Code 7 - 18 mg/dL AO ADM SS Urea nitrogen/Creatinine [Mass ratio] 16 ratio Invalid Interpretation Code 7 - 27 ratio AO ADM SS Uric Acid Lvl 7.5 mg/dL Invalid Interpretation Code 3.5 - 7.2 mg/dL AO ADM SS LABORATORYOrdered By: SYSTEM SYSTEM on 05-09-2022 GFR 76 ml/min/1.73sqm Invalid Interpretation Code AO Chemistry S GFR Non- 63 ml/min/1.73sqm Invalid Interpretation Code AO Chemistry S LABORATORYOrdered By: Debbie Alexander on 01-19-2022 C. difficile toxin B tcdB gene JUNIOR+probe Ql (Stl) Negative 1 (01/19/22 7:33 AM) Invalid Interpretation Code Negative AH Auto Viro/Sero SS Comment on above: Result Comment: Note s [id number] Clostridium difficile PCR Int No tcdB gene DNA detected. Negative test results may occur from improper collection, handling or storage of specimen, technical error, or extremely low levels of target below the limit of detection of the assay. Invalid Interpretation Code AH Auto Viro/Sero SS LABORATORYOrdered By: Imelda Mccarthy on 01-19-2022 Hemoglobin.gastrointe stinal Ql (Stl) Negative (01/19/22 7:33 AM) Invalid Interpretation Code Negative AO Rapid Testing SS LABORATORYOrdered By: Carlie Gan on 08-01-2021 Cholesterol [Mass/Vol] 127 mg/dL Invalid Interpretation Code 0 - 200 mg/dL AO ADM SS Cholesterol in HDL [Mass/Vol] 28 mg/dL Invalid Interpretation Code 40 - 60 mg/dL AO ADM SS Cholesterol in LDL [Mass/Vol] 58 mg/dL Invalid Interpretation Code 0 - 130 mg/dL AO ADM SS Prostate specific Ag [Mass/Vol] 0.27 ng/mL Invalid Interpretation Code 0.00 - 4.00 ng/mL AO ADM SS Triglyceride [Mass/Vol] 203 mg/dL Invalid Interpretation Code 0 - 150 mg/dL AO ADM SS LABORATORYOrdered By: Ritu Yanez on 08-01-2021 Hep C Ab Non-Reactive (08/01/21 8:40 AM) Invalid Interpretation Code Non-Reactive ADM SS Hep C Ab Int Nonreactive: Samples with a value < 0.80 are considered nonreactive (negative) for antibodies to HCV.A negative test result does not exclude the possibility of exposure to or infection with HCV. HCV antibodies may be undetectable in some stages of the infection and in some clinical conditions. Invalid Interpretation Code AH Chemistry S LABORATORYOrdered By: Kusum Gomez on 07-20-2021 Basophil, Absolute 0.10 103/mcL Invalid Interpretation Code 0.00 - 0.19 10^3/mcL AO Auto Heme SS Basophils/100 WBC (Bld) 1.3 % Invalid Interpretation Code 0.0 - 2.5 % AO Auto Heme SS Eosinophil, Absolute 0.40 103/mcL Invalid Interpretation Code 0.00 - 0.40 10^3/mcL AO Auto Heme SS Eosinophils/100 WBC (Bld) 4.0 % Invalid Interpretation Code 0.0 - 7.0 % AO Auto Heme SS Erythrocyte distribution width (RBC) [Ratio] 14.1 % Invalid Interpretation Code 11.5 - 14.5 % AO Auto Heme SS Hematocrit (Bld) [Volume fraction] 45.4 % Invalid Interpretation Code 42.0 - 52.0 % AO Auto Heme SS Hemoglobin (Bld) [Mass/Vol] 15.4 G/dL Invalid Interpretation Code 14.0 - 18.0 G/dL AO Auto Heme SS Lymphocyte, Absolute 2.90 103/mcL Invalid Interpretation Code 0.77 - 3.85 10^3/mcL AO Auto Heme SS Lymphocytes/100 WBC (Bld) 31.5 % Invalid Interpretation Code 10.0 - 50.0 % AO Auto Heme SS MCH (RBC) [Entitic mass] 31.2 pg Invalid Interpretation Code 27.0 - 31.2 pg AO Auto Heme SS MCHC (RBC) [Mass/Vol] 33.9 G/dL Invalid Interpretation Code 31.8 - 35.4 G/dL AO Auto Heme SS MCV (RBC) [Entitic vol] 92.2 fL Invalid Interpretation Code 80.0 - 94.0 fL AO Auto Heme SS Monocyte, Absolute 0.80 103/mcL Invalid Interpretation Code 0.15 - 1.00 10^3/mcL AO Auto Heme SS Monocytes/100 WBC (Bld) 8.5 % Invalid Interpretation Code 1.7 - 13.0 % AO Auto Heme SS Neutrophil, Absolute 5.00 103/mcL Invalid Interpretation Code 2.85 - 6.16 10^3/mcL AO Auto Heme SS Neutrophils/100 WBC (Bld) 54.7 % Invalid Interpretation Code 37.0 - 80.0 % AO Auto Heme SS Platelet mean volume (Bld) [Entitic vol] 10.0 fL Invalid Interpretation Code 7.4 - 10.4 fL AO Auto Heme SS Platelets (Bld) [#/Vol] 191 103/mcL Invalid Interpretation Code 130 - 400 10^3/mcL AO Auto Heme SS RBC (Bld) [#/Vol] 4.92 106/mcL Invalid Interpretation Code 4.04 - 6.13 10^6/mcL AO Auto Heme SS WBC (Bld) [#/Vol] 9.20 103/mcL Invalid Interpretation Code 4.60 - 10.80 10^3/mcL AO Auto Heme SS LABORATORYOrdered By: Bradley Lewis on 07-20-2021 Calcium [Mass/Vol] 8.8 mg/dL Invalid Interpretation Code 8.4 - 10.2 mg/dL AO ADM SS Chloride [Moles/Vol] 104 mmol/L Invalid Interpretation Code 98 - 107 mmol/L AO ADM SS CO2 [Moles/Vol] 27 mmol/L Invalid Interpretation Code 23 - 31 mmol/L AO ADM SS Creatinine [Mass/Vol] 1.09 mg/dL Invalid Interpretation Code 0.70 - 1.30 mg/dL AO ADM SS Electrolyte Balance 10.0 mEq/L Invalid Interpretation Code AO ADM SS Glucose [Mass/Vol] 119 mg/dL Invalid Interpretation Code 80 - 115 mg/dL AO ADM SS Potassium [Moles/Vol] 4.1 mmol/L Invalid Interpretation Code 3.5 - 5.1 mmol/L AO ADM SS Sodium [Moles/Vol] 141 mmol/L Invalid Interpretation Code 136 - 145 mmol/L AO ADM SS Urea nitrogen [Mass/Vol] 21 mg/dL Invalid Interpretation Code 7 - 18 mg/dL AO ADM SS Urea nitrogen/Creatinine [Mass ratio] 19 ratio Invalid Interpretation Code 7 - 27 ratio AO ADM SS LABORATORYOrdered By: SYSTEM SYSTEM on 07-20-2021 GFR 82 ml/min/1.73sqm Invalid Interpretation Code AO Chemistry S GFR Non- 67 ml/min/1.73sqm Invalid Interpretation Code AO Chemistry S No Panel Informationon 07-20 Microscopic examination of blood, culture Culture has been received in lab and is no growth to date. Routine cultures are held for 5 days. [facility] BNPon 07-06-2020 Natriuretic peptide B (Bld) [Mass/Vol] 44 pg/mL Normal 0-125 [facility] Brain Natriuretic Peptideon 07-06-2020 Natriuretic peptide B (Bld) [Mass/Vol] 44 pg/mL 0 - 125 pg/mL [place] CBC With Platelet and Differ entialon 07-06-2020 Abs Imm Granulocytes 0.03 E9/L Normal [facility] Basophils (Bld) [#/Vol] 0.10 E9/L Normal 0.00-0.20 [facility] Basophils/100 WBC (Bld) 1.0 % Normal 0.0-2.0 [facility] Eosinophils (Bld) [#/Vol] 0.38 E9/L Normal 0.05-0.50 [facility] Eosinophils/100 WBC (Bld) 4.0 % Normal 0.0-6.0 [facility] Erythrocyte distribution width (RBC) [Ratio] 13.6 fL Normal 11.5-15.0 [facility] Hematocrit (Bld) [Volume fraction] 49.6 % Normal 37.0-54.0 [facility] Hemoglobin (Bld) [Mass/Vol] 16.5 g/dL Normal 12.5-16.5 [facility] Imm Granulocytes 0.3 % Normal 0.0-5.0 [facility] Lymphocytes (Bld) [#/Vol] 2.90 E9/L Normal 1.50-4.00 [facility] Lymphocytes/100 WBC (Bld) 30.3 % Normal 20.0-42.0 [facility] MCH (RBC) [Entitic mass] 30.6 pg Normal 26.0-35.0 [facility] MCHC (RBC) [Mass/Vol] 33.3 % Normal 32.0-34.5 [facility] MCV (RBC) [Entitic vol] 91.9 fL Normal 80.0-99.9 [facility] Monocytes (Bld) [#/Vol] 0.89 E9/L Normal 0.10-0.95 [facility] Monocytes/100 WBC (Bld) 9.3 % Normal 2.0-12.0 [facility] Neutrophils (Bld) [#/Vol] 5.26 E9/L Normal 1.80-7.30 [facility] Neutrophils/100 WBC (Bld) 55.1 % Normal 43.0-80.0 [facility] Platelet mean volume (Bld) [Entitic vol] 12.2 fL High 7.0-12.0 [facility] Platelets (Bld) [#/Vol] 194 E9/L Normal 130-450 [facility] RBC (Bld) [#/Vol] 5.40 E12/L Normal 3.80-5.80 [facility] WBC (Bld) [#/Vol] 9.6 E9/L Normal 4.5-11.5 [facility] CBC auto differentialon 10-0 -2019 Basophils (Bld) [#/Vol] 0.10 10*3/uL [place] Basophils/100 WBC (Bld) 1.0 % 0 - 2 % [place] Eosinophils (Bld) [#/Vol] 0.38 10*3/uL [place] Eosinophils/100 WBC (Bld) 4 % 0 - 6 % [place] Erythrocyte distribution width (RBC) [Ratio] 13.6 fL 11.5 - 15 fL [place] Hematocrit (Bld) [Volume fraction] 49.6 % 37 - 54 % [place] Hemoglobin (Bld) [Mass/Vol] 16.5 g/dL 12.5 - 16.5 g/dL [place] Immature granulocytes (Bld) [#/Vol] 0.03 10*3/uL E9/L [place] Immature granulocytes/100 WBC (Bld) 0.3 % 0 - 5 % [place] Interpretation and review of laboratory results Abnormal [place] Lymphocytes (Bld) [#/Vol] 2.90 10*3/uL [place] Lymphocytes/100 WBC (Bld) 30.3 % 20 - 42 % [place] MCH (RBC) [Entitic mass] 30.6 pg 26 - 35 pg [place] MCHC (RBC) [Mass/Vol] 33.3 % 32 - 34.5 % [place] MCV (RBC) [Entitic vol] 91.9 fL 80 - 99.9 fL [place] Monocytes (Bld) [#/Vol] 0.89 10*3/uL [place] Monocytes/100 WBC (Bld) 9.3 % 2 - 12 % [place] Neutrophils Absolute 5.26 [place] Neutrophils/100 WBC (Bld) 55.1 % 43 - 80 % [place] Platelet mean volume (Bld) [Entitic vol] 12.2 fL High 7 - 12 fL [place] Platelets (Bld) [#/Vol] 194 10*3/uL [place] RBC (Bld) [#/Vol] 5.40 10*6/uL [place] WBC (Bld) [#/Vol] 9.6 10*3/uL [place] Comprehensive Metabolic Pane l reflex Mgon 07-06-2020 Albumin [Mass/Vol] 3.8 g/dL Normal 3.5-5.2 [facility] ALP [Catalytic activity/Vol] 63 U/L Normal 40-129 [facility] ALT [Catalytic activity/Vol] 38 U/L Normal 0-40 [facility] Anion gap [Moles/Vol] 12 mmol/L Normal 7-16 [facility] AST [Catalytic activity/Vol] 40 U/L High 0-39 [facility] Bilirubin [Mass/Vol] 0.6 mg/dL Normal 0.0-1.2 [facility] Calcium [Mass/Vol] 9.8 mg/dL Normal 8.6-10.2 [facility] Chloride [Moles/Vol] 99 mmol/L Normal 98-107 [facility] CO2 [Moles/Vol] 24 mmol/L Normal 22-29 [facility] Creatinine [Mass/Vol] 0.8 mg/dL Normal 0.7-1.2 [facility] GFR/1.73 sq M predicted among blacks MDRD (S/P/Bld) [Vol rate/Area] mL/min/{1.73_m2} Normal [facility] GFR/1.73 sq M predicted among non-blacks MDRD (S/P/Bld) [Vol rate/Area] mL/min/{1.73_m2} Normal >=60 [facility] Comment on above: Result Comment: Emergency Department Rn nickie Kidney Disease: less than 60 ml/min/1.73 sq.m. Kidney Failure: less than 15 ml/min/1.73 sq.m. Results valid for patients 18 years and older. Glucose [Mass/Vol] 106 mg/dL High 74-99 [facility] Potassium reflex Mg 4.1 mmol/L Normal 3.5-5.0 [facility] Protein [Mass/Vol] 8.2 g/dL Normal 6.4-8.3 [facility] Sodium [Moles/Vol] 135 mmol/L Normal 132-146 [facility] Urea nitrogen [Mass/Vol] 17 mg/dL Normal 8-23 [facility] Comprehensive Metabolic Pane l w/ Reflex to MGon 07-06-2020 Albumin [Mass/Vol] 3.8 g/dL 3.5 - 5.2 g/dL [place] ALP [Catalytic activity/Vol] 63 U/L 40 - 129 U/L [place] ALT [Catalytic activity/Vol] 38 U/L 0 - 40 U/L [place] Anion gap [Moles/Vol] 12 mmol/L 7 - 16 mmol/L [place] AST [Catalytic activity/Vol] 40 U/L High 0 - 39 U/L [place] Bilirubin Ql (U) 0.6 mg/dL 0 - 1.2 mg/dL [place] Calcium [Mass/Vol] 9.8 mg/dL 8.6 - 10. 2 mg/dL [place] Chloride [Moles/Vol] 99 mmol/L 98 - 10 7 mmol/L [place] CO2 [Moles/Vol] 24 mmol/L 22 - 29 mmol/L [place] Creatinine [Mass/Vol] 0.8 mg/dL 0.7 - 1.2 mg/dL [place] GFR >60 [place] GFR Non- >60 >=60 mL/min/1.73 [place] Comment on above: Chronic Kidney Disea se: less than 60 ml/min/1.73 sq.m. Kidney Failure: less than 15 ml/min/1.73 sq.m. Results valid for patients 18 years and older. Glucose [Mass/Vol] 106 mg/dL High 74 - 99 mg/dL [place] Interpretation and review of laboratory results Abnormal [place] Potassium [Moles/Vol] 4.1 mmol/L 3.5 - 5 mmol/L [place] Protein [Mass/Vol] 8.2 g/dL 6.4 - 8.3 g/dL [place] Sodium [Moles/Vol] 135 mmol/L 132 - 146 mmol/L [place] Urea nitrogen [Mass/Vol] 17 mg/dL 8 - 23 mg/dL [place] Lactic Acidon 07-06-2020 Lactate [Moles/Vol] 1.5 mmol/L Normal 0.5-2.2 [facility] Lactic Acid, Plasmaon 2019 Lactate [Moles/Vol] 1.5 mmol/L 0.5 - 2. 2 mmol/L [place] Troponinon 07-06-2020 Troponin I.cardiac [Mass/Vol] ng/mL Normal 0.00-0.03 [facility] Comment on above: Result Comment: TROP ONIN T BLOOD LEVELS: 0.03 ng/mL Upper Reference Limit 0.04 - 0.09 ng/mL Possible myocardial injury >= 0.10 ng/mL Myocardial injury Troponin I.cardiac [Mass/Vol] ng/mL 0 - 0.03 ng/mL [place] Comment on above: TROPONIN T BLOOD LEV ELS: 0.03 ng/mL Upper Reference Limit 0.04 - 0.09 ng/mL Possible myocardial injury >= 0.10 ng/mL Myocardial injury US DUP LOWER EXTREMITIES SIN ATERAL VENOUSon 07-06-2020 US DUP LOWER EXTREMITIES BILATERAL VENOUS Patient : 1955 Age: 65 years Gender: Male Order Date: 07/06/2020 7:46 PM EXAM: US DUP LOWER EXTREMITIES BILATERAL VENOUS NUMBER OF IMAGES: 60 INDICATION: DVT? DVT? What reading provider will be dictating this exam?->[facility] COMPARISON: None There is no evidence for deep venous thrombosis There is good compressibility, there is good augmentation, there is good color flow. There is a hypoechoic region posterior to the popliteal fossa most compatible with a Tran's cyst IMPRESSION: No evidence for deep venous thrombosis Interpreted by: Jordan Pena II, MD Signed by: Jordan Pena II, MD 07/06/20 Final result Normal [facility] [place], [place] Incoming Radiant Results From [email or web address] - 07/06/2020 8:39 PM EDT Patient : 1955 Age: 65 years Gender: Male Order Date: 07/06/2020 7:46 PM EXAM: US DUP LOWER EXTREMITIES BILATERAL VENOUS NUMBER OF IMAGES: 60 INDICATION: DVT? DVT? What reading provider will be dictating this exam?->[facility] COMPARISON: None There is no evidence for deep venous thrombosis There is good compressibility, there is good augmentation, there is good color flow. There is a hypoechoic region posterior to the popliteal fossa most compatible with a Tran's cyst IMPRESSION: No evidence for deep venous thrombosis [facility] Patient 0 : 1955 Age: 65 years Gender: Male Order Date: 07/06/2020 7:46 PM EXAM: US DUP LOWER EXTREMITIES BILATERAL VENOUS NUMBER OF IMAGES: 60 INDICATION: DVT? DVT? What reading provider will be dictating this exam?[facility] COMPARISON: None There is no evidence for deep venous thrombosis There is good compressibility, there is good augmentation, there is good color flow. There is a hypoechoic region posterior to the popliteal fossa most compatible with a Tran's cyst [facility] ERTIAN No evidence for deep venous thrombosis [facility] ERTIAN XR CHEST (2 VW)on 07-06-2020 XR CHEST (2 VW) EXAMINATION: TWO XRAY VIEWS OF THE CHEST 07/06/2020 5:27 pm COMPARISON: None. HISTORY: ORDERING SYSTEM PROVIDED HISTORY: SOB TECHNOLOGIST PROVIDED HISTORY: Reason for exam:->SOB What reading provider will be dictating this exam?->[facility] FINDINGS: No airspace opacity or evidence of pleural effusion. The heart is normal in size. No pneumothorax. IMPRESSION: No evidence pneumonia or pleural effusion. Interpreted by: Patrick Jorgensen DO Signed by: Patrick Jorgensen DO 07/06/20 Final result Normal [facility] [place], [place] Incoming Radiant Results From [employer]acs - 07/06/2020 6:35 PM EDT EXAMINATION: TWO XRAY VIEWS OF THE CHEST 07/06/2020 5:27 pm COMPARISON: None. HISTORY: ORDERING SYSTEM PROVIDED HISTORY: SOB TECHNOLOGIST PROVIDED HISTORY: Reason for exam:->SOB What reading provider will be dictating this exam?->[facility] FINDINGS: No airspace opacity or evidence of pleural effusion. The heart is normal in size. No pneumothorax. IMPRESSION: No evidence pneumonia or pleural effusion. Brandi [facility] ERTIAN EXAMINATION: TWO XRA Y VIEWS OF THE CHEST 07/06/2020 5:27 pm COMPARISON: None. HISTORY: ORDERING SYSTEM PROVIDED HISTORY: SOB TECHNOLOGIST PROVIDED HISTORY: Reason for exam:->SOB What reading provider will be dictating this exam?->[facility] FINDINGS: No airspace opacity or evidence of pleural effusion. The heart is normal in size. No pneumothorax. [place] No evidence pneumoni a or pleural effusion. [place] BNPon 07-04-2020 Natriuretic peptide B (Bld) [Mass/Vol] 38 pg/mL Normal 0-125 [facility] Brain Natriuretic Peptideon 07-04-2020 Natriuretic peptide B (Bld) [Mass/Vol] 38 pg/mL 0 - 125 pg/mL [place] CBC Auto Differentialon 06-07 Basophils (Bld) [#/Vol] 0.07 10*3/uL [place] Basophils/100 WBC (Bld) 0.9 % 0 - 2 % [place] Eosinophils (Bld) [#/Vol] 0.29 10*3/uL [place] Eosinophils/100 WBC (Bld) 3.7 % 0 - 6 % [place] Erythrocyte distribution width (RBC) [Ratio] 13.5 fL 11.5 - 15 fL [place] Hematocrit (Bld) [Volume fraction] 48.7 % 37 - 54 % [place] Hemoglobin (Bld) [Mass/Vol] 15.8 g/dL 12.5 - 16.5 g/dL [place] Immature granulocytes (Bld) [#/Vol] 0.03 10*3/uL E9/L [place] Immature granulocytes/100 WBC (Bld) 0.4 % 0 - 5 % [place] Interpretation and review of laboratory results Abnormal [place] Lymphocytes (Bld) [#/Vol] 2.20 10*3/uL [place] Lymphocytes/100 WBC (Bld) 28.3 % 20 - 42 % [place] MCH (RBC) [Entitic mass] 30.1 pg 26 - 35 pg [place] MCHC (RBC) [Mass/Vol] 32.4 % 32 - 34.5 % [place] MCV (RBC) [Entitic vol] 92.8 fL 80 - 99.9 fL [place] Monocytes (Bld) [#/Vol] 0.58 10*3/uL [place] Monocytes/100 WBC (Bld) 7.5 % 2 - 12 % [place] Neutrophils Absolute 4.61 [place] Neutrophils/100 WBC (Bld) 59.2 % 43 - 80 % [place] Platelet mean volume (Bld) [Entitic vol] 12.8 fL High 7 - 12 fL [place] Platelets (Bld) [#/Vol] 171 10*3/uL [place] RBC (Bld) [#/Vol] 5.25 10*6/uL [place] WBC (Bld) [#/Vol] 7.8 10*3/uL [place] CBC With Platelet and Differ entialon 07-04-2020 Abs Imm Granulocytes 0.03 E9/L Normal [facility] Basophils (Bld) [#/Vol] 0.07 E9/L Normal 0.00-0.20 [facility] Basophils/100 WBC (Bld) 0.9 % Normal 0.0-2.0 [facility] Eosinophils (Bld) [#/Vol] 0.29 E9/L Normal 0.05-0.50 [facility] Eosinophils/100 WBC (Bld) 3.7 % Normal 0.0-6.0 [facility] Erythrocyte distribution width (RBC) [Ratio] 13.5 fL Normal 11.5-15.0 [facility] Hematocrit (Bld) [Volume fraction] 48.7 % Normal 37.0-54.0 [facility] Hemoglobin (Bld) [Mass/Vol] 15.8 g/dL Normal 12.5-16.5 [facility] Imm Granulocytes 0.4 % Normal 0.0-5.0 [facility] Lymphocytes (Bld) [#/Vol] 2.20 E9/L Normal 1.50-4.00 [facility] Lymphocytes/100 WBC (Bld) 28.3 % Normal 20.0-42.0 [facility] MCH (RBC) [Entitic mass] 30.1 pg Normal 26.0-35.0 [facility] MCHC (RBC) [Mass/Vol] 32.4 % Normal 32.0-34.5 [facility] MCV (RBC) [Entitic vol] 92.8 fL Normal 80.0-99.9 [facility] Monocytes (Bld) [#/Vol] 0.58 E9/L Normal 0.10-0.95 [facility] Monocytes/100 WBC (Bld) 7.5 % Normal 2.0-12.0 [facility] Neutrophils (Bld) [#/Vol] 4.61 E9/L Normal 1.80-7.30 [facility] Neutrophils/100 WBC (Bld) 59.2 % Normal 43.0-80.0 [facility] Platelet mean volume (Bld) [Entitic vol] 12.8 fL High 7.0-12.0 [facility] Platelets (Bld) [#/Vol] 171 E9/L Normal 130-450 [facility] RBC (Bld) [#/Vol] 5.25 E12/L Normal 3.80-5.80 [facility] WBC (Bld) [#/Vol] 7.8 E9/L Normal 4.5-11.5 [facility] Comprehensive Metabolic Pane sabiha 07-04-2020 Albumin [Mass/Vol] 3.6 g/dL Normal 3.5-5.2 [facility] ALP [Catalytic activity/Vol] 65 U/L Normal 40-129 [facility] ALT [Catalytic activity/Vol] 35 U/L Normal 0-40 [facility] Anion gap [Moles/Vol] 10 mmol/L Normal 7-16 [facility] AST [Catalytic activity/Vol] 37 U/L Normal 0-39 [facility] Bilirubin [Mass/Vol] 0.4 mg/dL Normal 0.0-1.2 [facility] Calcium [Mass/Vol] 9.5 mg/dL Normal 8.6-10.2 [facility] Chloride [Moles/Vol] 104 mmol/L Normal 98-107 [facility] CO2 [Moles/Vol] 25 mmol/L Normal 22-29 [facility] Creatinine [Mass/Vol] 0.8 mg/dL Normal 0.7-1.2 [facility] GFR/1.73 sq M predicted among blacks MDRD (S/P/Bld) [Vol rate/Area] mL/min/{1.73_m2} Normal [facility] GFR/1.73 sq M predicted among non-blacks MDRD (S/P/Bld) [Vol rate/Area] mL/min/{1.73_m2} Normal >=60 [facility] Comment on above: Result Comment: Emergency Department Rn nickie Kidney Disease: less than 60 ml/min/1.73 sq.m. Kidney Failure: less than 15 ml/min/1.73 sq.m. Results valid for patients 18 years and older. Glucose [Mass/Vol] 185 mg/dL High 74-99 [facility] Potassium [Moles/Vol] 4.2 mmol/L Normal 3.5-5.0 [facility] Protein [Mass/Vol] 7.9 g/dL Normal 6.4-8.3 [facility] Sodium [Moles/Vol] 139 mmol/L Normal 132-146 [facility] Urea nitrogen [Mass/Vol] 20 mg/dL Normal 8-23 [facility] Albumin [Mass/Vol] 3.6 g/dL 3.5 - 5.2 g/dL [place] ALP [Catalytic activity/Vol] 65 U/L 40 - 129 U/L [place] ALT [Catalytic activity/Vol] 35 U/L 0 - 40 U/L [place] Anion gap [Moles/Vol] 10 mmol/L 7 - 16 mmol/L [place] AST [Catalytic activity/Vol] 37 U/L 0 - 39 U/L [place] Bilirubin Ql (U) 0.4 mg/dL 0 - 1.2 mg/dL [place] Calcium [Mass/Vol] 9.5 mg/dL 8.6 - 10. 2 mg/dL [place] Chloride [Moles/Vol] 104 mmol/L 98 - 10 7 mmol/L [place] CO2 [Moles/Vol] 25 mmol/L 22 - 29 mmol/L [place] Creatinine [Mass/Vol] 0.8 mg/dL 0.7 - 1.2 mg/dL [place] GFR >60 [place] GFR Non- >60 >=60 mL/min/1.73 [place] Comment on above: Chronic Kidney Disea se: less than 60 ml/min/1.73 sq.m. Kidney Failure: less than 15 ml/min/1.73 sq.m. Results valid for patients 18 years and older. Glucose [Mass/Vol] 185 mg/dL High 74 - 99 mg/dL [place] Interpretation and review of laboratory results Abnormal [place] Potassium [Moles/Vol] 4.2 mmol/L 3.5 - 5 mmol/L [place] Protein [Mass/Vol] 7.9 g/dL 6.4 - 8.3 g/dL [place] Sodium [Moles/Vol] 139 mmol/L 132 - 146 mmol/L [place] Urea nitrogen [Mass/Vol] 20 mg/dL 8 - 23 mg/dL [place] Troponinon 07-04-2020 Troponin I.cardiac [Mass/Vol] ng/mL Normal 0.00-0.03 [facility] Comment on above: Result Comment: TROP ONIN T BLOOD LEVELS: 0.03 ng/mL Upper Reference Limit 0.04 - 0.09 ng/mL Possible myocardial injury >= 0.10 ng/mL Myocardial injury Troponin I.cardiac [Mass/Vol] ng/mL 0 - 0.03 ng/mL [place] Comment on above: TROPONIN T BLOOD LEV ELS: 0.03 ng/mL Upper Reference Limit 0.04 - 0.09 ng/mL Possible myocardial injury >= 0.10 ng/mL Myocardial injury US DUP LOWER EXTREMITIES SIN ATERAL VENOUSon 07-04-2020 US DUP LOWER EXTREMITIES BILATERAL VENOUS Patient : 1955 Age: 65 years Gender: Male Order Date: 07/04/2020 12:14 PM EXAM: US DUP LOWER EXTREMITIES BILATERAL VENOUS INDICATION: pain, swelling pain, swelling COMPARISON: None FINDINGS: Right and left common femoral, superficial femoral and popliteal veins are identified. They demonstrated Doppler signal, color flow, and compressibility. Proximal trifurcation vessels are normal. There is a Tran's cyst in the left popliteal fossa measuring 6.7 x 3.3 cm. IMPRESSION: No evidence of DVT. Left-sided Tran's cyst Interpreted by: Artis Restrepo MD Signed by: Artis Restrepo MD 07/04/20 Final result Normal [facility] No evidence of DVT. Left-sided Tran's cyst [place], Mhy Incoming Radiant Results From [email or web address] - 07/04/2020 1:15 PM EDT Patient : 1955 Age: 65 years Gender: Male Order Date: 07/04/2020 12:14 PM EXAM: US DUP LOWER EXTREMITIES BILATERAL VENOUS INDICATION: pain, swelling pain, swelling COMPARISON: None FINDINGS: Right and left common femoral, superficial femoral and popliteal veins are identified. They demonstrated Doppler signal, color flow, and compressibility. Proximal trifurcation vessels are normal. There is a Tran's cyst in the left popliteal fossa measuring 6.7 x 3.3 cm. IMPRESSION: No evidence of DVT. Left-sided Tran's cyst [place] Patient 0 : 1955 Age: 65 years Gender: Male Order Date: 07/04/2020 12:14 PM EXAM: US DUP LOWER EXTREMITIES BILATERAL VENOUS INDICATION: pain, swelling pain, swelling COMPARISON: None FINDINGS: Right and left common femoral, superficial femoral and popliteal veins are identified. They demonstrated Doppler signal, color flow, and compressibility. Proximal trifurcation vessels are normal. There is a Tran's cyst in the left popliteal fossa measuring 6.7 x 3.3 cm. [facility] 09-12-2008 Cholesterol [Mass/Vol] FINAL DIAGNOSIS: GALLBLADDER, EXCISION - CHRONIC CHOLECYSTITIS. SPECIMEN: GALLBLADDER [facility] Cholesterol [Mass/Vol] OPERATIVE PROCEDURE: Lap otoniel CLINICAL INFORMATION: Cholelithiasis [facility] Otheron 09-12-2008 CONVERTED ELECTRONIC SIGNATURE JOSE PIERRE M.D., PATHOLOGIST (Electronic signature on file) Final Signed Out: 09/12/2008 16:33 [facility] CONVERTED GROSS DESCRIPTION GROSS DESCRIPTION: Gallbladder The specimen is received in a container labeled gallbladder. Received is an unopened gallbladder measuring 6 x 3 x 3 cm. The surface is shaggy, pink-ibarra. The cystic duct is opened and appears patent. The gallbladder lumen contains approximately 1 cc of green bile. The bile is filtered and no stones are identified. The mucosa is velvety to finely granular, greenish-yellow. The thickness of the wall averages 0.1 cm. A customer assistance representative sample is submitted in a single cassette. PSB/SMS/lrs MICROSCOPIC DESCRIPTION: Slides reviewed. [facility] CONVERTED ORDERING PROVIDER Ordering Provider: DAMI RUSHING [facility] Vital Signs Date Time Vital Sign Value Performing Clinician Facility 02-12-2024 18:10-0400 Diastolic blood pressure 71 mm[Hg] [place] [employer] Phone: [facility] [employer] 02-12-2024 18:10-0400 Heart rate 80 /min [place] [employer] Phone: [facility] [employer] 02-12-2024 18:10-0400 Respiratory rate 20 /min [place] [employer] Phone: [facility] 02-12-2024 18:10-0400 SaO2% (BldA) [Mass fraction] 95 % [place] [employer] Phone: [facility] [employer] 02-12-2024 18:10-0400 Systolic blood pressure 108 mm[Hg] [place] [employer] Phone: [facility] [employer] 02-12-2024 17:55-0400 Body temperature 97.2 [degF] [place] [employer] Phone: [facility] [employer] 02-12-2024 10:31-0400 Body height 172.7 cm [place] [employer] Phone: [facility] [employer] 02-12-2024 10:31-0400 Body mass index (BMI) [Ratio] 45.84 kg/m2 [employer] Phone: [employer] 02-12-2024 10:31-0400 Body weight 136.76 kg [place] [employer] Phone: [employer] 11-07-2023 09:21-0500 Heart rate 61 /min [employer] Phone: [employer] 11-07-2023 09:21-0500 Respiratory rate 17 /min [employer] Phone: [employer] 11-07-2023 08:56-0500 Diastolic blood pressure 74 mm[Hg] [employer] Phone: [employer] 11-07-2023 08:56-0500 SaO2% (BldA) [Mass fraction] 94 % [employer] Phone: [facility] [employer] Comment on above: [employer] 11-07-2023 08:56-0500 Systolic blood pressure 124 mm[Hg] [employer] Phone: [facility] [employer] 05-23-2022 11:08-0400 Body temperature 96.8 [degF] DR YOSSI MOTTA MD [facility] 05-23-2022 11:08-0400 Diastolic blood pressure 90 mm[Hg] DR YOSSI MOTTA MD [facility] 05-23-2022 11:08-0400 Heart rate 63 /min DR YOSSI MOTTA MD [facility] 05-23-2022 11:08-0400 Mean blood pressure 112 mm[Hg] DR YOSSI MOTTA MD [facility] 05-23-2022 11:08-0400 Reason For Taking VItal Signs DR YOSSI MOTTA MD [facility] 05-23-2022 11:08-0400 Respiratory rate 22 /min DR YOSSI MOTTA MD [address] [place] [address] 05-23-2022 11:08-0400 Systolic blood pressure 156 mm[Hg] DR YOSSI MOTTA MD [address] [place] [address] 05-23-2022 10:28-0400 Heart rate 72 /min DR YOSSI MOTTA MD [address] [place] [address] 05-23-2022 10:28-0400 Respiratory rate 18 /min DR YOSSI MOTTA MD [address] [place] [address] 05-23-2022 07:35-0400 Body temperature 98.6 [degF] DR YOSSI MOTTA MD [address] [place] [address] 05-23-2022 07:35-0400 Diastolic blood pressure 66 mm[Hg] DR YOSSI MOTTA MD [address] [place] [address] 05-23-2022 07:35-0400 Heart rate 71 /min DR YOSSI MOTTA MD [address] [place] [address] 05-23-2022 07:35-0400 Mean blood pressure 91 mm[Hg] DR YOSSI MOTTA MD [address] [place] [address] 05-23-2022 07:35-0400 Reason For Taking VItal Signs DR YOSSI MOTTA MD [address] [place] [address] 05-23-2022 07:35-0400 Respiratory rate 18 /min DR YOSSI MOTTA MD [address] [place] [address] 05-23-2022 07:35-0400 Systolic blood pressure 140 mm[Hg] DR YOSSI MOTTA MD [address] [place] [address] 05-23-2022 06:32-0400 Heart rate 67 /min DR YOSSI MOTTA MD [address] [place] [address] 05-23-2022 05:23-0400 Body temperature 98.6 [degF] DR YOSSI MOTTA MD [address] [place] [address] 05-23-2022 05:23-0400 Diastolic blood pressure 91 mm[Hg] DR YOSSI MOTTA MD [address] [place] [address] 05-23-2022 05:23-0400 Heart rate 65 /min DR YOSSI MOTTA MD [address] [place] [address] 05-23-2022 05:23-0400 Mean blood pressure 107 mm[Hg] DR YOSSI MOTTA MD [address] [place] [address] 05-23-2022 05:23-0400 Reason For Taking VItal Signs DR YOSSI MOTTA MD [address] [place] [address] 05-23-2022 05:23-0400 Systolic blood pressure 139 mm[Hg] DR YOSSI MOTTA MD [address] [place] [address] 05-22-2022 18:31-0400 Heart rate 77 /min DR YOSSI MOTTA MD [address] [place] [address] 05-21-2022 22:41-0400 Heart rate 97 /min DR YOSSI MOTTA MD [address] [place] [address] 05-21-2022 19:51-0400 Heart rate 101 /min DR YOSSI MOTTA MD [address] [place] [address] 05-21-2022 19:41-0400 Body height 167.[address] YOSSI MOTTA MD [address] [place] [address] 05-21-2022 19:41-0400 Body weight [address] YOSSI MOTTA MD [address] [place] [address] 05-21-2022 19:41-0400 Body weight 46.99 kg/m2 DR YOSSI MOTTA MD [address] [place] [address] 03-13-2022 23:50-0400 Diastolic blood pressure 78 mm[Hg] OSMAN GOMEZ [facility] 03-13-2022 23:50-0400 Heart rate 66 /min OSMAN GOMEZ DO [facility] 03-13-2022 23:50-0400 Respiratory rate 22 /min OSMAN GOMEZ DO [facility] 03-13-2022 23:50-0400 Systolic blood pressure 125 mm[Hg] OSMAN GOMEZ DO [facility] 03-13-2022 21:59-0400 Body temperature 98.06 [degF] OSMAN GOMEZ DO [facility] 03-13-2022 21:59-0400 Diastolic blood pressure 87 mm[Hg] OSMAN GOMEZ DO [facility] 03-13-2022 21:59-0400 Heart rate 71 /min OSMAN GOMEZ DO [facility] 03-13-2022 21:59-0400 Respiratory rate 20 /min OSMAN GOMEZ DO [facility] 03-13-2022 21:59-0400 Systolic blood pressure 152 mm[Hg] OSMAN GOMEZ DO [facility] 02-03-2022 09:53-0400 Body temperature 98.06 [degF] THAI BRYSON MD [facility] 02-03-2022 09:53-0400 Diastolic blood pressure 92 mm[Hg] THAI BRYSON MD [facility] 02-03-2022 09:53-0400 Heart rate 65 /min THAI BRYSON MD [facility] 02-03-2022 09:53-0400 Respiratory rate 18 /min THAI BRYSON MD [facility] 02-03-2022 09:53-0400 Systolic blood pressure 153 mm[Hg] HTAI BRYSON MD [facility] 08-25-2021 11:52-0500 Body temperature 98.06 [degF] LUIS OLIVER MD [facility] 08-25-2021 11:52-0500 Diastolic blood pressure 73 mm[Hg] LUIS OLIVER MD [facility] 08-25-2021 11:52-0500 Heart rate 82 /min LUIS OLIVER MD [facility] 08-25-2021 11:52-0500 Respiratory rate 18 /min LUIS OLIVER MD [facility] 08-25-2021 11:52-0500 Systolic blood pressure 135 mm[Hg] LUIS OLIVER MD [facility] 07-20-2021 14:30-0400 Diastolic blood pressure 85 mm[Hg] ARMANDO TRAN DO [facility] 07-20-2021 14:30-0400 Heart rate 84 /min ARMANDO TRNA DO [facility] 07-20-2021 14:30-0400 Reason For Taking VItal Signs ARMANDO TRAN DO [facility] 07-20-2021 14:30-0400 Respiratory rate 18 /min ARMANDO TRAN DO [facility] 07-20-2021 14:30-0400 Systolic blood pressure 139 mm[Hg] ARMANDO TRAN DO [facility] 07-20-2021 13:55-0400 Body temperature 97.88 [degF] ARMANDO TRAN DO [facility] 07-20-2021 13:55-0400 Diastolic blood pressure 82 mm[Hg] ARMANDO TRAN DO [facility] 07-20-2021 13:55-0400 Heart rate 78 /min ARMANDO TRAN DO [facility] 07-20-2021 13:55-0400 Mean blood pressure 106 mm[Hg] ARMANDO TRAN DO [facility] 07-20-2021 13:55-0400 Respiratory rate 18 /min ARMANDO TRAN DO [facility] 07-20-2021 13:55-0400 Systolic blood pressure 153 mm[Hg] ARMANDO TRAN DO [facility] 07-06-2020 20:39-0400 Pulse (Heart Rate) 79 /min [facility], [place] 07-06-2020 19:26-0400 Body Temperature 98.29 [degF] [facility] , [place] 07-06-2020 19:26-0400 BP Diastolic 100 mm[Hg] [facility] , [place] 07-06-2020 19:26-0400 BP Systolic 158 mm[Hg] [facility] , [place] 07-06-2020 19:26-0400 Pulse Oximetry 94 % [facility] , [place] 07-06-2020 19:26-0400 Respiratory Rate 18 /min [facility], [place] 07-06-2020 15:30-0400 Height 167.6 cm [facility] , [place] 07-06-2020 15:26-0400 BMI (Body Mass Index) 48.1 kg/m2 [facility] 07-06-2020 15:26-0400 Body weight 135.17 kg [facility] , [place] 07-04-2020 11:57-0400 BP Diastolic 130 mm[Hg] [facility] , [place] 07-04-2020 11:57-0400 BP Systolic 202 mm[Hg] [facility] [place] 07-04-2020 11:54-0400 BMI (Body Mass Index) 51.49 kg/m2 [facility] 07-04-2020 11:54-0400 Body weight 136.08 kg [facility] , [place] 07-04-2020 11:54-0400 Height 162.6 cm [facility] , [place] 07-04-2020 11:54-0400 Respiratory Rate 18 /min [facility] [place] 07-04-2020 11:15-0400 Body Temperature 99.3 [degF] [facility] [place] 07-04-2020 11:15-0400 Pulse (Heart Rate) 91 /min [facility] [place], [place] 07-04-2020 11:15-0400 Pulse Oximetry 95 % [facility] , [place] Encounters Encounter Date Encounter Type Care Provider Facility Start: 04-21-2024 End: 07-21-2024 ambulatory [facility] Comment on above: 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) Start: 02-12-2024 End: 02-12-2024 ambulatory [facility] Start: 02-12-2024 End: 02-12-2024 Subsequent hospital visit by physician Koffi Sheldon DO Work Phone: [facility] Comment on above: 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 Start: 02-05-2024 End: 02-05-2024 ambulatory [facility] Start: 02-05-2024 End: 02-05-2024 Encounter for other preprocedural examination [facility] Start: 02-02-2024 End: 02-07-2024 ambulatory MARY BOUDREAUX APRN-SWITCH CLEANER Facility:B Start: 02-02-2024 End: 02-06-2024 Outreach Lab MARY BOUDREAUX APRN-SWITCH CLEANER [facility] Start: 01-14-2024 End: 01-19-2024 ambulatory MARY BOUDREAUX APRN-SWITCH CLEANER Facility:[facility] Start: 01-14-2024 End: 01-18-2024 Outreach Lab MARY BOUDREAUX 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 [facility] Start: 11-07-2023 End: 11-07-2023 ambulatory [facility] Start: 11-07-2023 End: 11-07-2023 Subsequent hospital visit by physician Koffi Sheldon DO Work Phone: [facility] Comment on above: 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 Start: 06-02-2023 End: 06-02-2023 Subsequent hospital visit by physician Danielle [facility] [place] Work Phone: Radiology Comment on above: Pain in both knees, unspecified chronicity [M25.561, M25.562] Start: 06-02-2023 End: 06-02-2023 Patient encounter procedure Parish Coronel MD Work Phone: Orthopaedics Comment on above: Class 3 severe obesi ty due to excess calories without serious comorbidity with body mass index (BMI) of 45.0 to 49.9 in adult (HCC) (Primary Dx); Chronic pain of both knees; Primary osteoarthritis of both knees Start: 04-24-2023 End: 04-29-2023 ambulatory EMERITA STAUFFER 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 Facility:B Start: 01-13-2023 End: 01-13-2023 Patient encounter procedure EMERITA STAUFFER 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 [facility] Start: 01-07-2023 End: 01-11-2023 Outreach Lab EDELMIRA DESIR ELIGIBILITY CONSULTANT - SWITCH CLEANER [facility] Start: 10-04-2022 End: 10-04-2022 Patient encounter procedure EMERITA STAUFFER 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 Start: 09-25-2022 End: 09-25-2022 Patient encounter procedure EMERITA SEFFENS 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 [facility] Start: 08-15-2022 End: 08-19-2022 Outreach Lab EMERITA SEFFENS 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 [facility] Start: 07-08-2022 End: 07-12-2022 Outreach Lab EMERITA SEFFENS 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 [facility] Start: 07-08-2022 End: 07-12-2022 Outreach Lab EMERITA SEFFENS 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 [facility] Start: 05-21-2022 End: 05-23-2022 Evaluation and management of inpatient DR YOSSI MOTTA MD [facility] Start: 05-09-2022 End: 05-13-2022 Outreach Lab EMERITA SEFFENS 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 [facility] Start: 03-13-2022 End: 03-14-2022 Emergency department patient visit OSMAN GOMEZ DO [facility] Start: 02-03-2022 End: 02-03-2022 Emergency department patient visit THAI BRYSON MD [facility] Start: 01-19-2022 End: 01-19-2022 Patient encounter procedure EMERITA SEFFENS 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 [facility] Start: 12-03-2021 End: 12-03-2021 Patient encounter procedure EMERITA STAUFFER 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 [facility] Start: 08-25-2021 End: 08-25-2021 Emergency department patient visit LUIS OLIVER [facility] Start: 08-01-2021 End: 08-01-2021 Patient encounter procedure EMERITA STAUFFER 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 [facility] Start: 07-20-2021 End: 07-20-2021 Emergency department patient visit ARMANDO TRAN DO [facility] Start: 11-13-2020 End: 11-13-2020 Orders Only Sonal Corrie Schuler Work Phone: [facility] Start: 07-06-2020 End: 07-07-2020 Emergency department [facility] Start: 07-06-2020 End: 07-06-2020 Emergency department patient visit Deidre Marti [facility] Work Phone: [facility] Emergency Department Comment on above: COPD exacerbation (H CC) (Primary Dx); Leg swelling; Hypertensive urgency; Cellulitis of right lower extremity Start: 07-04-2020 End: 07-04-2020 Emergency department patient visit JE GONZALES [facility] Start: 07-04-2020 End: 07-04-2020 Emergency department patient visit Je Gonzales Work Phone: [facility] Emergency Department Comment on above: Eloped from emergenc y department (Primary Dx); Leg swelling Start: 03-28-2020 End: 04-01-2020 Patient encounter procedure KINGA SOOD [facility] Start: 09-08-2008 End: 09-08-2008 Patient encounter procedure Stu Rushing Work Phone: [facility] Start: 09-08-2008 Results Only Stu estrada Work Phone: [facility] Procedures Date Procedure Procedure Detail Performing Clinician Start: 02-12-2024 Glucose quantitative blood xcpt reagent strip Koffi Sheldon DO Work Phone: Start: 02-12-2024 End: 02-12-2024 Total thyroid lobec uni w/contralat stot lobec Koffi Sheldon [employer] Work Phone: Start: 11-07-2023 Biopsy thyroid percutaneous core needle Koffi Sheldon DO Work Phone: Start: 06-02-2023 Radiologic exam knee complete 4/more views Parish Coronel MD Work Phone: Start: 04-15-2022 Bilateral cataracts (disorder) EMERITA STAUFFER ELIGIBILITY CONSULTANT-[employer] Comment on above: right eye Start: 03-06-2022 Colonoscopy EMERITA RICHARDS ELIGIBILITY CONSULTANT[employer] Start: 07-06-2020 AMBULATE PATIENT JE GONZALES Start: 07-06-2020 NEBULIZER TX INTERMITTENT JE GONZALES Start: 07-06-2020 Dup-scan xtr veins complete bilateral study JE CHRISTIAN Start: 07-06-2020 PULSE OXIMETRY SPOT CHECK JE CHRISTIAN Start: 07-06-2020 TELEMETRY MONITORING SAMUEL DOLORES CHRISTIAN Start: 07-06-2020 SALINE LOCK IV JE N OGA Start: 07-06-2020 VITAL SIGNS JE NOG A Start: 07-06-2020 Radiologic exam ches t 2 views JE CHRISTIAN Start: 07-06-2020 Dup-scan xtr veins complete bilateral study Carter Lopes Work Phone: Start: 07-06-2020 Assay of lactate JE GONZALES Start: 07-06-2020 Assay of troponin quantitative JE CHRISTIAN Start: 07-06-2020 Blood count complete auto&auto difrntl wbc JE GONZALES Start: 07-06-2020 BRAIN NATRIURETIC PEPTIDE JE GONZALES Start: 07-06-2020 Intermittent pulse oximetry Carter Lopes Work Phone: Start: 07-06-2020 PULSE OXIMETRY JE HART Start: 07-06-2020 TELEMETRY MONITORING SAMUEL GONZALES Start: 07-06-2020 Ecg routine ecg w/le ast 12 lds w/i&r JE GONZALES Start: 07-06-2020 Radiologic exam ches t 2 views Sona Nelson Work Phone: Start: 07-06-2020 Assay of lactate Lorenan florencetrudi Watsonrg Work Phone: Start: 07-06-2020 Assay of troponin quantitative Sona Watsonrg Work Phone: Start: 07-06-2020 Blood count complete auto&auto difrntl wbc Sona Watsonrg Work Phone: Start: 07-06-2020 Natriuretic peptide Shayla srinivasa [facility] Work Phone: Start: 07-04-2020 Dup-scan xtr veins complete bilateral study JE GONZALES Start: 07-04-2020 Blood count complete auto&auto difrntl wbc JE GONZALES Start: 07-04-2020 Assay of troponin quantitative JE GONZALES Start: 07-04-2020 BRAIN NATRIURETIC PEPTIDE JE GONZALES Start: 07-04-2020 Comprehensive metabo lic panel JE GONZALES Start: 07-04-2020 Ecg routine ecg w/le ast 12 lds w/i&r JE GONZALES Start: 07-04-2020 Radiologic exam ches t 2 views JE GONZALES Start: 07-04-2020 Dup-scan xtr veins complete bilateral study Suzy Machuca Work Phone: Start: 07-04-2020 Blood count complete auto&auto difrntl wbc Suzy Machuca Work Phone: Start: 07-04-2020 Assay of troponin quantitative Suzy Machuca Work Phone: Start: 07-04-2020 Comprehensive metabo lic panel Suzy Machuca Work Phone: Start: 07-04-2020 Natriuretic peptide Bassem Machuca Work Phone: Start: 07-04-2020 Ecg routine ecg w/le ast 12 lds w/i&r Suzy Machuca Work Phone: Start: 09-08-2008 CONVERTED SURGICAL PATHOLOGY Stulachelle Rushing Work Phone: Start: 10-06-1995 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) EMERITA STAUFFER 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 Vaccine refused by patient Immunization not carried out because of patient refusal( Confirmed ) LUIS OLIVER MD Plan of Treatment Date Care Activity Detail Author Start: 02-04-2025 Diabetes: Estimated Glomerular Filtration Rate for Kidney Health Diabetes: Estimated Glomerular Filtration Rate for Kidney Health [facility] Start: 06-06-2024 COVID-19 Vaccine ( season) COVID-19 Vaccine ( season) [facility] Start: 06-06-2024 Influenza vaccination S [facility] Start: 02-12-2024 End: 02-12-2024 Admission to same day surgery center 02/12/2024 12:00 PM EDT - 02/12/2024 3:00 PM EDT Surgery [facility] [address] [place] [address] Koffi Sheldon DO [address] [place] [address] RIGHT SUBTOTAL THYROIDECTOMY [06909 (CPT )] [facility] Comment on above: RIGHT SUBTOTAL THYRO IDECTOMY [74022 (CPT )] Start: 02-12-2024 Subsequent hospital visit by physician 02/12/2024 12:00 PM EDT Hospital Encounter [facility] [address] [place] [address] Koffi Sheldon DO [address] [place], [place] [address] [facility] Start: 02-12-2024 End: 02-12-2024 Total thyroid lobec uni w/contralat stot lobec TOTAL THYROID LOBECTOMY UNILATERAL WITH CONTRALATERAL SUBTOTAL LOBECTOMY Neoplasm of uncertain behavior of thyroid gland 02/12/2024 12:00 PM EDT [facility] Operating Room Start: 02-05-2024 End: 02-05-2024 Admission to establishment 02/05/2024 1:00 PM EDT Pre-Admission Testing [facility] Pre-Admit Testing [address] [place] [address] [facility] Pre-Admit Testing Start: 10-06-2023 Medicare Advantage Annual Wellness Visit Medicare Advantage Annual Wellness Visit [facility] Start: 06-06-2023 COVID-19 Vaccine ( season) COVID-19 Vaccine ( season) [facility] Start: 06-06-2023 Influenza vaccination Influenza Vacc ine (#1) [facility] Start: 10-06-2022 Advance Directive Discussion Advance Directive Discussion [facility] Start: 10-06-2022 Depression Assessment Depression Ass essment [facility] Start: 06-06-2020 Influenza vaccination Flu vaccine (# 1) [facility] [place] Start: 06-06-2020 Influenza vaccinatio n given Sequential Influenza Vaccine (#1) [facility] Start: 2018 Pneumococcal 65+ yea rs Vaccine (1 of 1 - PPSV23) Pneumococcal 65+ years Vaccine (1 of 1 - PPSV23) [facility] [place] Start: 2018 Pneumococcal vaccination Pneum ococcal Vaccine Age 65+ (1 of 2 - PCV13) [facility] Start: 2013 Hepatitis B Vaccines (1 of 3 - Risk 3-dose series) Hepatitis B Vaccines (1 of 3 - Risk 3-dose series) [facility] Start: 2013 RSV Immunization age d 60 or older (1 - 1-dose 60+ series) RSV Immunization aged 60 or older (1 - 1-dose 60+ series) [facility] Start: 2013 RSV Vaccine (1 - 1-d ose 60+ series) RSV Vaccine (1 - 1-dose 60+ series) [facility] Start: 2003 Administration of he rpes zoster vaccine Zoster Vaccines (1 of 2) [facility] Start: 2003 Screening for malign ant neoplasm of colon [place], [place] Start: 2003 Shingles Vaccine (1 of 2) Shingles Vaccine (1 of 2) [place] Start: 2003 Shingrix Vaccine (1 of 2) Shingrix Vaccine (1 of 2) [facility] Start: 2003 Zoster Vaccines (1 of 2) Zoste r Vaccines (1 of 2) [facility] Start: 1998 Cologuard (FIT-DNA) Cologuard (FIT-D NA) [facility] Start: 1998 Colonoscopy Colonoscopy [facility] Start: 1998 Colorectal Cancer Screening Colorectal Cancer Screening [facility] Start: [address] COLONOGRAPHY [facility] Start: 1998 Diabetes Screening Diabetes Screenin g [facility] Start: 1998 Fecal Occult Blood Fecal Occult Bloo d [facility] Start: 1998 SIGMOIDOSCOPY SIGMOIDOSCOPY [facility] Start: 1993 Diabetes screen Diabetes screen [place], [place] Start: 1993 Lipid panel Lipid screen [place], [place] Start: 1988 Lipid 1996 panel - S jordan or Plasma Lipid Screening [facility] Start: 1972 DTaP/Tdap/Td vaccine (1 - Tdap) DTaP/Tdap/Td vaccine (1 - Tdap) [place] Start: 1972 DTaP/Tdap/Td Vaccine s (1 - Tdap) DTaP/Tdap/Td Vaccines (1 - Tdap) [facility] Start: 1972 Hepatitis A Vaccines (1 of 2 - Risk 2-dose series) Hepatitis A Vaccines (1 of 2 - Risk 2-dose series) [facility] Start: 1972 Urine microalbumin profile DTaP,Tdap,Td Vaccine (1 - Tdap) [facility] Start: 1971 Diabetes: Urine Albumin-Creatinine Ratio for Kidney Health Diabetes: Urine Albumin-Creatinine Ratio for Kidney Health [facility] Start: 1971 Hepatitis C antibody , confirmatory test Hepatitis C Screening [facility] Start: 1971 Hepatitis C Screening Hepatitis C Sc [facility] Start: 1971 [facility] Start: 1969 COVID-19 Vaccine (1 of 2) COVID-19 Vaccine (1 of 2) [facility] Start: 1965 Adolescent depressio n screening assessment [facility] Start: 1963 Diabetic foot examination Diabetes: Foot Exam [facility] Start: 1963 Glaucoma screening Diabetes: R etinopathy Screening [facility] Start: 1963 Preventive dental service Diabetes: Dental Exam [facility] Start: 1959 Pneumococcal Vaccine : 65+ (1 - PCV) Pneumococcal Vaccine: 65+ (1 - PCV) [facility] Start: 1959 Pneumococcal Vaccine : 65+ Years (1 of 2 - PCV) Pneumococcal Vaccine: 65+ Years (1 of 2 - PCV) [facility] Start: 1956 History and physical examination, annual for health maintenance Wellness Visit [facility] Start: 1953 Covid-19 Vaccine (#1) Covid-19 Vacci ne (#1) [facility] Start: 1953 Abdominal aortic aneurysm screening AAA screen [facility] [place] Start: 1953 Abdominal Aortic Aneurysm Screening Abdominal Aortic Aneurysm Screening [facility] Start: 1953 Fall risk assessment Falls Risk Asse ssment [facility] Start: 1953 Hemoglobin A1c measurement Diabetes: Hemoglobin A1C [facility] Start: 1953 Hepatitis C screening [facility] [place] Start: 1953 Lipid panel Lipid Panel [facility] Start: 1953 Medicare Advantage Annual Wellness Visit (AWV) Medicare Advantage Annual Wellness Visit (AWV) [facility] Start: 1953 Prostate specific antigen measurement PSA Level [facility] Start: 1953 Screening for malign ant neoplasm of colon [facility] Start: 1953 Tetanus vaccination Tetanus: Every 1 0yrs [facility] Start: 1953 Thyroglobulin Test Thyroglobulin Tyree t [facility] Start: 1953 Thyroid Cancer Ultrasound Thyroid Cancer Ultrasound [facility] Start: 1953 US scan of abdominal aorta Abdominal Aortic Ultrasound [facility] End: 02-12-2024 ECG 12 Lead ECG 12 Lead CV ECG Routine Once for 1 Occurrences starting 02/12/2024 until 02/12/2024 [employer] Work Phone: Comment on above: Once for 1 Occurrenc es starting 02/12/2024 until 02/12/2024 EKG 12 Lead EKG 12 Lead ECG STAT 07/04/2020 12:01 PM EDT [place] [email or web address] Work Phone: Comment on above: Release Upon Orderin g for 1 Occurrences starting 11/07/2023, 1 completed End: 07-06-2020 Nebulizer therapy HHN Treatment Respiratory Care STAT One Time for 1 Occurrences starting 07/06/2020 until 07/06/2020 [place] Comment on above: One Time for 1 Occur rences starting 07/06/2020 until 07/06/2020 Tissue exam Tissue exam Path ology and Cytology Timed Neoplasm of uncertain behavior of thyroid gland Release Upon Ordering for 1 Occurrences starting 02/12/2024 [email or web address] Work Phone: Comment on above: Release Upon Orderin g for 1 Occurrences starting 02/12/2024 End: 07-04-2020 XR CHEST (2 VW) XR CHEST (2 VW) Imaging STAT Once for 1 Occurrences starting 07/04/2020 until 07/04/2020 [place] Comment on above: Once for 1 Occurrenc es starting 07/04/2020 until 07/04/2020 Payers Date Payer Category Payer Private Health Insurance [id number] 2023 Private Health Insurance [id number] 2023 Private Health Insurance [id number] 2023 Medicare [id number] 2020 Medicaid [id number] 2020 Unknown ANTHEM BLUE CROS S AND BLUE SHIELD ANTHEM MEDIBLUE HMO [id number] 2020-Present [phone] [address] [place] [address] HMO [id number] 2020 Unknown [id number] 2020 Medicaid [id number] 2020 Medicaid [id number] 2019 Medicare MEDICARE MEDICAR E PART A & B [id number] 2019-Present [place] [id number] 1953 Unknown [id number] 1953 Unknown [id number] 1953 Unknown [id number] 1953 Unknown [id number] 1953 Unknown [id number] 1953 Unknown [id number] Medicaid [employer] ED MEDICAID [employer] ABD [id number] Effective for all dates [id number] Medicaid MEDICAID [facility] [id number] Effective for all dates [id number] Social History Date Type Detail Facility Tobacco smoking stat us NHIS Unknown if ever smoked [facility]: 1955 Sex Assigned At Not on file C [facility] Start: 07-04-2020 End: 02-12-2024 Tobacco smoking status NHIS Current every day smoker [facility] Start: 07-04-2020 End: 02-05-2024 Cigarettes smoked current (pack per day) - Reported [place] Start: 07-04-2020 End: 02-12-2024 Tobacco use and exposure Never used [place] Start: 07-04-2020 End: 07-06-2020 Alcohol intake Lifetime non-drinker (finding) [place] Start: 07-04-2020 History SDOH Alcohol Frequency 1 [employer] [facility]IAN Exposure to SARS-CoV -2 (event) Not sure [employer] [place] History of tobacco use Cigarette Smoker [facility] Start: 03-28-2020 End: 02-12-2024 Alcohol intake Ex-drinker (finding) [facility] Tobacco Nicotine Use: 1 [facility] Start: 02-08-2022 End: 05-03-2022 Tobacco smoking status Heavy tobacco smoker (finding) [facility] Start: 05-20-2022 Tobacco smoking status Light t obacco smoker (finding) [facility] Start: 08-20-2022 Tobacco smoking status Ex-smoker (fi nding) [facility] Start: 06-02-2023 End: 02-05-2024 Tobacco use panel [facility] National Score (1-10 0), lower number is lower risk 71 [facility] Tobacco smoking stat us UTIS Tobacco smoking consumption unknown [employer] In the past 12 month s, was there a time when you were not able to pay the mortgage or rent on time? No [employer] Medical Equipment Procedure Code Equipment Code Equipment Origin al Text Equipment Identifier Dates See Instructions , 1=2 bottles of 50 Check blood glucose twice per day and as needed, # 1 EA, 11 Refill(s), Pharmacy: [facility], Type 2 diabetes mellitus, 167, cm, 07/08/22 11:16:00 EDT, Height, 135, kg, 07/08/22 11:08:00 EDT, Dosing Weight Start: 07-08-2022 See Instructions , Check blood glucose twice per day and as needed. 1 month supply, # 1 EA, 11 Refill(s), Pharmacy: [facility], Type 2 diabetes mellitus, 167, cm, 05/31/22 16:05:00 EDT, Height, 134.2 Start: 06-21-2022 See Instructions , 1=2 bottles of 50 Check blood glucose twice per day and as needed, # 1 EA, 11 Refill(s), Pharmacy: [facility], Type 2 diabetes mellitus, 167, cm, 07/08/22 11:16:00 EDT, Height, 135, kg, 07/08/22 11:08:00 EDT, Dosing Weight Start: 07-08-2022 See Instructions , Check blood glucose twice per day and as needed. 1 month supply, # 1 EA, 11 Refill(s), Pharmacy: [facility], Type 2 diabetes mellitus, 167, cm, 05/31/22 16:05:00 EDT, Height, 134.2 Start: 06-21-2022 See Instructions , 1=2 bottles of 50 Check blood glucose twice per day and as needed, # 1 EA, 11 Refill(s), Pharmacy: [facility], Type 2 diabetes mellitus, 167, cm, 07/08/22 11:16:00 EDT, Height, 135, kg, 07/08/22 11:08:00 EDT, Dosing Weight Start: 07-08-2022 See Instructions , Check blood glucose twice per day and as needed. 1 month supply, # 1 EA, 11 Refill(s), Pharmacy: [facility], Type 2 diabetes mellitus, 167, cm, 05/31/22 16:05:00 EDT, Height, 134.2 Start: 06-21-2022 See Instructions , 1=2 bottles of 50 Check blood glucose twice per day and as needed, # 1 EA, 11 Refill(s), Pharmacy: [facility], Type 2 diabetes mellitus, 167, cm, 07/08/22 11:16:00 EDT, Height, 135, kg, 07/08/22 11:08:00 EDT, Dosing Weight Start: 07-08-2022 See Instructions , Check blood glucose twice per day and as needed. 1 month supply, # 1 EA, 11 Refill(s), Pharmacy: [facility], Type 2 diabetes mellitus, 167, cm, 05/31/22 16:05:00 EDT, Height, 134.2 Start: 06-21-2022 See Instructions , 1=2 bottles of 50 Check blood glucose twice per day and as needed, # 1 EA, 11 Refill(s), Pharmacy: [facility], Type 2 diabetes mellitus, 167, cm, 07/08/22 11:16:00 EDT, Height, 135, kg, 07/08/22 11:08:00 EDT, Dosing Weight Start: 07-08-2022 See Instructions , Check blood glucose twice per day and as needed. 1 month supply, # 1 EA, 11 Refill(s), Pharmacy: [facility], Type 2 diabetes mellitus, 167, cm, 05/31/22 16:05:00 EDT, Height, 134.2 Start: 06-21-2022 See Instructions , Check blood glucose twice per day and as needed. 1 month supply, # 1 EA, 11 Refill(s), Pharmacy: [facility], Type 2 diabetes mellitus, 167, cm, 05/31/22 16:05:00 EDT, Height, 134.2 Start: 06-21-2022 See Instructions , Check blood glucose twice per day and as needed. 1 month supply, # 1 EA, 11 Refill(s), Pharmacy: [facility], Type 2 diabetes mellitus, 167, cm, 05/31/22 16:05:00 EDT, Height, 134.2 Start: 06-21-2022 See Instructions , Check blood glucose twice per day and as needed. 1 month supply, # 1 EA, 11 Refill(s), Pharmacy: [facility], Type 2 diabetes mellitus, 167, cm, 05/31/22 16:05:00 EDT, Height, 134.2 Start: 06-21-2022 See Instructions , Check blood glucose twice per day and as needed. 1 month supply, # 1 EA, 11 Refill(s), Pharmacy: [facility], Type 2 diabetes mellitus, 170.5, cm, 01/21/23 8:08:00 EDT, Height, 134.9, kg, 01/21/23 8:08:00 EDT, Dosing Weight Start: 02-14-2023 See Instructions , Check blood glucose twice per day and as needed. 1 month supply, # 1 EA, 11 Refill(s), Pharmacy: [facility], Type 2 diabetes mellitus, 170.5, cm, 01/21/23 8:08:00 EDT, Height, 134.9, kg, 01/21/23 8:08:00 EDT, Dosing Weight Start: 02-14-2023 Functional Status Date Assessment Result Facility 05-23-2022 Functional Status Watching TV [facility] 05-23-2022 Functional Status Room check performed [facility] 05-23-2022 Functional Status [facility] 05-23-2022 Functional Status [facility] 05-23-2022 Functional Status [facility] 05-23-2022 Functional Status [facility] 05-23-2022 Functional Status COVID 19 Surge in Effec t Yes [facility] 05-22-2022 Functional Status [facility] 05-22-2022 Functional Status Hospital bed [facility] 05-22-2022 Functional Status Home independe ntly, Lives with spouse [facility] 05-22-2022 Functional Status Done [facility] 05-21-2022 Functional Status Sensory Defici ts Blind, left eye [facility] 03-13-2022 Functional Status Room check performed [facility] 03-13-2022 Functional Status [facility] 02-03-2022 Functional Status [facility] Mental Status Date Assessment Result Facility 05-23-2022 Mental Status Orientation Oriented x 4 [facility] 05-23-2022 Mental Status [facility] 05-22-2022 Mental Status [facility] 03-14-2022 Mental Status Orientation Oriented x 4 [facility] 03-13-2022 Mental Status [facility] 02-03-2022 Mental Status [facility] Clinical Notes 01-14-2020 to 02-12-2024 Perioperative Nursing Note - Zonia Paulson RN - 02/12/2024 6:13 PM EDTPerioperative Nursing Note - Zonia Paulson RN - 02/12/2024 6:13 PM EDTMark Artis Sheldon DO - 02/12/2024 11:06 AM EDTRadiology Note Date & Type Note Facility 02-12-2024 Note Formatting of this n ote might be different from the original. Patient tolerating PO fluids. Rn to assist patient with getting dressed. Assisted patient up to wheelchair and assisted to car with Rn free of injury or complaints. Patient continues to deny pain. [facility] 02-12-2024 Note Formatting of this n ote might be different from the original. Patient tolerating PO fluids. Rn to assist patient with getting dressed. Assisted patient up to wheelchair and assisted to car with Rn free of injury or complaints. Patient continues to deny pain. [facility] 02-12-2024 Miscellaneous Notes Formattin g of this note might be different from the original. Patient tolerating PO fluids. Rn to assist patient with getting dressed. Assisted patient up to wheelchair and assisted to car with Rn free of injury or complaints. Patient continues to deny pain. Discharge instructions reviewed with patient , and 2 daughters. All verbalize understanding. Incentive Spirometer provided with instructions. Patient and family both states he has used incentive spirometer in the past. Verbalizes understanding. PO fluids provided [id number], QUICK TECHNICIAN aware Received patient from OR to PACU with QUICK TECHNICIAN. Patient is waking up on room air. No respiratory distress noted. Patient is alert, slightly drowsy but follows commands. city wellness coordinator on, safety maintained. Rn remains bedside. 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 The neck is short and very broad. The trachea is a mild curvature to the left. At the time of surgery there is no gross cervical lymphadenopathy appreciated. The left thyroid lobe was relatively unremarkable. The right thyroid lobe was essentially replaced largely by the neoplasm although there is still a cuff of what appeared to be normal thyroid gland tissue superiorly. Specimen included the right thyroid lobe, thyroid isthmus, and portion left thyroid lobe. The neoplasm itself was rather large and extended substernally deep to the clavicle. The neoplasm itself was significantly hypervascular. The vascularity in the large size and body habitus made it very difficult to perform the surgery. There also appears to be fibrosis of the thyroid right lobe to the surrounding deep cervical fascia. DESCRIPTION OF PROCEDURE: The patient was intubated with a Scoreoidtronic endotracheal tube which had electrodes within its lumen. The electrodes were connected to channel 1 and channel 2 of the nerve integrity monitor pod. In addition, grounding and stimulating electrodes were placed over the sternal area and connected to their respective ports of the nerve integrity monitor pod. Proper placement and positioning of each electrode was confirmed. The stimulator was placed at a setting of 1 mA. A support was placed beneath the shoulders for extension in the cervical region. The anterior neck was cleansed with alcohol. A planned incision line was demarcated over the suprasternal area with its long axis running within the relaxed skin tension line. Note that this ran in the standard incision line, that being approximately 2 fingerbreadths superior to the sternal notch but inferior to the cricoid cartilage. This was locally infiltrated using 1% lidocaine with 1: 100,000 epinephrine. Adequate time was allowed for vasoconstriction. During this time the neck was prepped with a Betadine solution and the patient draped in the usual sterile fashion. A #15 scalpel blade was taken. The horizontal incision was carried through the skin and into the subcutaneous tissues. Hemostasis was assured with the electrocautery unit. The platysma muscle was then incised using electrocautery. At this point, the plane was then oriented in a vertical direction. The midline plane was divided vertically along its length. The cervical strap muscles were identified including the sternohyoid and sternothyroid muscles. These were elevated and reflected laterally to expose the thyroid lobe. The thyroid lobe was then identified and isolated. Dissection began in the inferior thyroid triangle. From this point going forward, dissection followed a very predictable and reproducible fashion. Specifically, the tissues were bluntly dissected using a curved hemostat. The tissue was then stimulated with the nerve stimulator. Once there is confirmation that there is no nerve involvement with use of the stimulator and direct visualization, the intervening soft tissue was then divided using either bipolar cautery or the harmonic scalpel. This repetitive process was done throughout the entirety of the dissection. The inferior pole vessels were individually isolated and divided. Dissection was then carried laterally to incorporate the middle thyroid vein. Dissection continued laterally and superiorly as the superior pole vessels were identified, dissected, and divided. The thyroid lobe was then elevated. Blunt dissection was performed along with the posterior aspect. The superior and inferior parathyroid glands were identified and each were bluntly dissected from the posterior aspect of the thyroid lobe leaving their vascular pedicle intact. At this point the thyroid lobe remained intact via the suspensory ligament. The suspensory ligament was also dissected. A hemostat was passed deep to the thyroid isthmus within the pretracheal fascia. The thyroid isthmus was divided using the harmonic scalpel. The thyroid lobe and isthmus were then completely circumscribed and removed for pathology. Given the cytology consistent with malignancy and the rather large size of neoplasm measuring 5.5 cm, a generous cuff of thyroid tissue was included of the left thyroid lobe along with the thyroid isthmus to ensure that the pathology was completely circumscribed within the specimen. The wound was thoroughly irrigated using normal saline irrigation. Hemostasis was confirmed using bipolar cautery. An autologous platelet tissue graft was utilized. This was done by withdrawing 50 mL of the patient's blood preoperatively which was centrifuged. The platelet rich layer was decanted and mixed with calcium chloride and thrombin and sprayed within the wound. The wound was closed in a layered fashion. The cervical strap muscles were reapproximated with inverted mattress sutures of 4-0 chromic. The platysma muscle was reapproximated with multiple inverted mattress sutures of 4-0 chromic as was the subcutaneous layer. The skin skin edges were reapproximated with a running subcuticular suture of 5-0 Monocryl. The skin was cleansed and dried followed by application of an adhesive and Steri-Strips. The patient tolerated the thyroid lobectomy well without incident. documented in this encounter [facility] 02-12-2024 Note Formatting of this n ote might be different from the original. Discharge instructions reviewed with patient , and 2 daughters. All verbalize understanding. Incentive Spirometer provided with instructions. Patient and family both states he has used incentive spirometer in the past. Verbalizes understanding. [facility] 02-12-2024 Note Formatting of this n ote might be different from the original. Discharge instructions reviewed with patient , and 2 daughters. All verbalize understanding. Incentive Spirometer provided with instructions. Patient and family both states he has used incentive spirometer in the past. Verbalizes understanding. [facility] 02-12-2024 Note Formatting of this n ote might be different from the original. PO fluids provided [facility] 02-12-2024 Note Formatting of this n ote might be different from the original. 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]) Surgeons: Koffi Sheldon DO Responsible Provider: No Anesthesiologist - Kevin/MD Mateus Anesthesia Type: general, TIVA ASA Status: 3 Anesthesia Type: general, TIVA Vitals Value Taken Time BP 103/65 02/12/24 1655 Temp 36.4 ?C (97.5 ?F) 02/12/24 1640 Pulse 85 02/12/24 1655 Resp 12 02/12/24 1655 SpO2 95 % 02/12/24 1655 Anesthesia Post Evaluation Patient location during evaluation: PACU Patient participation: complete - patient participated Level of consciousness: awake and alert Pain management: satisfactory to patient Airway patency: patent Dental Injury: no Cardiovascular status: acceptable, blood pressure returned to baseline and hemodynamically stable Respiratory status: acceptable and spontaneous ventilation Hydration status: euvolemic Nausea/Vomiting: controlled No notable events documented. Patient can be discharged once all PACU criteria has been met. 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]) Surgeons: Koffi Sheldon DO Responsible Provider: No Anesthesiologist - Kevin/MD Mateus Anesthesia Type: general, TIVA ASA Status: 3 Anesthesia Type: general, TIVA Vitals Value Taken Time BP 103/65 02/12/24 1655 Temp 36.4 ?C (97.5 ?F) 02/12/24 1640 Pulse 85 02/12/24 1655 Resp 12 02/12/24 1655 SpO2 95 % 02/12/24 1655 Anesthesia Post Evaluation Patient location during evaluation: PACU Patient participation: complete - patient participated Level of consciousness: awake and alert Pain score: 0 Pain management: satisfactory to patient Multimodal analgesia pain management approach Airway patency: patent Two or more strategies used to mitigate risk of obstructive sleep apnea Cardiovascular status: acceptable and hemodynamically stable Respiratory status: acceptable Hydration status: acceptable No notable events documented. MIPS #430 PONV Patient received an inhalational anesthetic (4554F) Patient exhibits three or more risk factors for PONV (4556F) Patient received at leaset 2 prophylactic Rx PONV anti-emtic agents of different classes preop and/or intraop (G9775) MIPS # 424 Perioperative Temperature Management Anesthesia time was 60 minutes or longer (4255F) Anesthesai administered was General (inhalational or TIVA) or Neuraxial block (X0424) At least one body temperature greater than 95.8F/35.5C achieved within the 30 mins immediately prior to or the 15 minutes immediately following anesthesia end time (G9771) MIPS #477 Multimodal Pain Management Not emergent case Patient was administered multimodal pain management (two or more drugs and/or interventions excluding systemic opioids) in the periopeartive period occurring at some time between 6 hours prior to anesthesia start time until discharged from PACU (G2148) MIPS #404 Anesthesiology Smoking Abstinence The patient is not a current smoker (e.g. cigarette, cigar, pipe, e-cigarette/vaping/marijuana) If no stop here (XX404) I completed my handoff to the receiving clinician during which we: 1. Identified the patient 2. Identified the responsible provider 3. Reviewed the pertinent medical history 4. Discussed the surgical course 5. Reviewed intra-op anesthesia management and issues during anesthesia 6. Set expectations for post-procedure period 7. Allowed opportunity for questions and acknowledgement of understanding. [facility] 02-12-2024 Note Formatting of this n ote might be different from the original. XXX=[id number], QUICK TECHNICIAN aware [facility] 02-12-2024 Note Formatting of this n ote might be different from the original. [id number], QUICK TECHNICIAN aware [facility] 02-12-2024 Note Formatting of this n ote might be different from the original. Received patient from OR to PACU with QUICK TECHNICIAN. Patient is waking up on room air. No respiratory distress noted. Patient is alert, slightly drowsy but follows commands. city wellness coordinator on, safety maintained. Rn remains bedside. T [facility] 02-12-2024 Note Formatting of this n ote might be different from the original. Received patient from OR to PACU with QUICK TECHNICIAN. Patient is waking up on room air. No respiratory distress noted. Patient is alert, slightly drowsy but follows commands. city wellness coordinator on, safety maintained. Rn remains bedside. T [facility] 02-12-2024 Note Airway Date/Time: 02/12/2024 11:53 AM Urgency: scheduled Airway not difficult General Information and Staff Patient location during procedure: Procedural Resident/QUICK TECHNICIAN: Kenrick Dunham CRNA Performed: QUICK TECHNICIAN Indications and Patient Condition Indications for airway management: anesthesia Sedation level: Asleep Preoxygenated: yes Patient position: sniffing MILS maintained throughout Mask difficulty assessment: 0 - not attempted Final Airway Details Final airway type: endotracheal airway Successful airway: ETT Cuffed: yes Successful intubation technique: video laryngoscopy Facilitating devices/methods: intubating stylet Blade: [place] scope Blade size: #4 ETT size (mm): 8.0 Cormack-Lehane Classification: grade I - full view of glottis Placement verified by: chest auscultation Measured from: gums ETT to gums (cm): 22 Number of attempts at approach: 1 [facility] 02-12-2024 Note Formatting of this n ote might be different from the original. 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 The neck is short and very broad. The trachea is a mild curvature to the left. At the time of surgery there is no gross cervical lymphadenopathy appreciated. The left thyroid lobe was relatively unremarkable. The right thyroid lobe was essentially replaced largely by the neoplasm although there is still a cuff of what appeared to be normal thyroid gland tissue superiorly. Specimen included the right thyroid lobe, thyroid isthmus, and portion left thyroid lobe. The neoplasm itself was rather large and extended substernally deep to the clavicle. The neoplasm itself was significantly hypervascular. The vascularity in the large size and body habitus made it very difficult to perform the surgery. There also appears to be fibrosis of the thyroid right lobe to the surrounding deep cervical fascia. DESCRIPTION OF PROCEDURE: The patient was intubated with a Medtronic endotracheal tube which had electrodes within its lumen. The electrodes were connected to channel 1 and channel 2 of the nerve integrity monitor pod. In addition, grounding and stimulating electrodes were placed over the sternal area and connected to their respective ports of the nerve integrity monitor pod. Proper placement and positioning of each electrode was confirmed. The stimulator was placed at a setting of 1 mA. A support was placed beneath the shoulders for extension in the cervical region. The anterior neck was cleansed with alcohol. A planned incision line was demarcated over the suprasternal area with its long axis running within the relaxed skin tension line. Note that this ran in the standard incision line, that being approximately 2 fingerbreadths superior to the sternal notch but inferior to the cricoid cartilage. This was locally infiltrated using 1% lidocaine with 1: 100,000 epinephrine. Adequate time was allowed for vasoconstriction. During this time the neck was prepped with a Betadine solution and the patient draped in the usual sterile fashion. A #15 scalpel blade was taken. The horizontal incision was carried through the skin and into the subcutaneous tissues. Hemostasis was assured with the electrocautery unit. The platysma muscle was then incised using electrocautery. At this point, the plane was then oriented in a vertical direction. The midline plane was divided vertically along its length. The cervical strap muscles were identified including the sternohyoid and sternothyroid muscles. These were elevated and reflected laterally to expose the thyroid lobe. The thyroid lobe was then identified and isolated. Dissection began in the inferior thyroid triangle. From this point going forward, dissection followed a very predictable and reproducible fashion. Specifically, the tissues were bluntly dissected using a curved hemostat. The tissue was then stimulated with the nerve stimulator. Once there is confirmation that there is no nerve involvement with use of the stimulator and direct visualization, the intervening soft tissue was then divided using either bipolar cautery or the harmonic scalpel. This repetitive process was done throughout the entirety of the dissection. The inferior pole vessels were individually isolated and divided. Dissection was then carried laterally to incorporate the middle thyroid vein. Dissection continued laterally and superiorly as the superior pole vessels were identified, dissected, and divided. The thyroid lobe was then elevated. Blunt dissection was performed along with the posterior aspect. The superior and inferior parathyroid glands were identified and each were bluntly dissected from the posterior aspect of the thyroid lobe leaving their vascular pedicle intact. At this point the thyroid lobe remained intact via the suspensory ligament. The suspensory ligament was also dissected. A hemostat was passed deep to the thyroid isthmus within the pretracheal fascia. The thyroid isthmus was divided using the harmonic scalpel. The thyroid lobe and isthmus were then completely circumscribed and removed for pathology. Given the cytology consistent with malignancy and the rather large size of neoplasm measuring 5.5 cm, a generous cuff of thyroid tissue was included of the left thyroid lobe along with the thyroid isthmus to ensure that the pathology was completely circumscribed within the specimen. The wound was thoroughly irrigated using normal saline irrigation. Hemostasis was confirmed using bipolar cautery. An autologous platelet tissue graft was utilized. This was done by withdrawing 50 mL of the patient's blood preoperatively which was centrifuged. The platelet rich layer was decanted and mixed with calcium chloride and thrombin and sprayed within the wound. The wound was closed in a layered fashion. The cervical strap muscles were reapproximated with inverted mattress sutures of 4-0 chromic. The platysma muscle was reapproximated with multiple inverted mattress sutures of 4-0 chromic as was the subcutaneous layer. The skin skin edges were reapproximated with a running subcuticular suture of 5-0 Monocryl. The skin was cleansed and dried followed by application of an adhesive and Steri-Strips. The patient tolerated the thyroid lobectomy well without incident. [facility] 02-12-2024 Note Formatting of this n ote might be different from the original. 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 The neck is short and very broad. The trachea is a mild curvature to the left. At the time of surgery there is no gross cervical lymphadenopathy appreciated. The left thyroid lobe was relatively unremarkable. The right thyroid lobe was essentially replaced largely by the neoplasm although there is still a cuff of what appeared to be normal thyroid gland tissue superiorly. Specimen included the right thyroid lobe, thyroid isthmus, and portion left thyroid lobe. The neoplasm itself was rather large and extended substernally deep to the clavicle. The neoplasm itself was significantly hypervascular. The vascularity in the large size and body habitus made it very difficult to perform the surgery. There also appears to be fibrosis of the thyroid right lobe to the surrounding deep cervical fascia. DESCRIPTION OF PROCEDURE: The patient was intubated with a Medtronic endotracheal tube which had electrodes within its lumen. The electrodes were connected to channel 1 and channel 2 of the nerve integrity monitor pod. In addition, grounding and stimulating electrodes were placed over the sternal area and connected to their respective ports of the nerve integrity monitor pod. Proper placement and positioning of each electrode was confirmed. The stimulator was placed at a setting of 1 mA. A support was placed beneath the shoulders for extension in the cervical region. The anterior neck was cleansed with alcohol. A planned incision line was demarcated over the suprasternal area with its long axis running within the relaxed skin tension line. Note that this ran in the standard incision line, that being approximately 2 fingerbreadths superior to the sternal notch but inferior to the cricoid cartilage. This was locally infiltrated using 1% lidocaine with 1: 100,000 epinephrine. Adequate time was allowed for vasoconstriction. During this time the neck was prepped with a Betadine solution and the patient draped in the usual sterile fashion. A #15 scalpel blade was taken. The horizontal incision was carried through the skin and into the subcutaneous tissues. Hemostasis was assured with the electrocautery unit. The platysma muscle was then incised using electrocautery. At this point, the plane was then oriented in a vertical direction. The midline plane was divided vertically along its length. The cervical strap muscles were identified including the sternohyoid and sternothyroid muscles. These were elevated and reflected laterally to expose the thyroid lobe. The thyroid lobe was then identified and isolated. Dissection began in the inferior thyroid triangle. From this point going forward, dissection followed a very predictable and reproducible fashion. Specifically, the tissues were bluntly dissected using a curved hemostat. The tissue was then stimulated with the nerve stimulator. Once there is confirmation that there is no nerve involvement with use of the stimulator and direct visualization, the intervening soft tissue was then divided using either bipolar cautery or the harmonic scalpel. This repetitive process was done throughout the entirety of the dissection. The inferior pole vessels were individually isolated and divided. Dissection was then carried laterally to incorporate the middle thyroid vein. Dissection continued laterally and superiorly as the superior pole vessels were identified, dissected, and divided. The thyroid lobe was then elevated. Blunt dissection was performed along with the posterior aspect. The superior and inferior parathyroid glands were identified and each were bluntly dissected from the posterior aspect of the thyroid lobe leaving their vascular pedicle intact. At this point the thyroid lobe remained intact via the suspensory ligament. The suspensory ligament was also dissected. A hemostat was passed deep to the thyroid isthmus within the pretracheal fascia. The thyroid isthmus was divided using the harmonic scalpel. The thyroid lobe and isthmus were then completely circumscribed and removed for pathology. Given the cytology consistent with malignancy and the rather large size of neoplasm measuring 5.5 cm, a generous cuff of thyroid tissue was included of the left thyroid lobe along with the thyroid isthmus to ensure that the pathology was completely circumscribed within the specimen. The wound was thoroughly irrigated using normal saline irrigation. Hemostasis was confirmed using bipolar cautery. An autologous platelet tissue graft was utilized. This was done by withdrawing 50 mL of the patient's blood preoperatively which was centrifuged. The platelet rich layer was decanted and mixed with calcium chloride and thrombin and sprayed within the wound. The wound was closed in a layered fashion. The cervical strap muscles were reapproximated with inverted mattress sutures of 4-0 chromic. The platysma muscle was reapproximated with multiple inverted mattress sutures of 4-0 chromic as was the subcutaneous layer. The skin skin edges were reapproximated with a running subcuticular suture of 5-0 Monocryl. The skin was cleansed and dried followed by application of an adhesive and Steri-Strips. The patient tolerated the thyroid lobectomy well without incident. [facility] 02-12-2024 Attending History and physical note H&P reviewed. The patient was examined and there are no changes to the H&P. Source Note - Yovany Lopez PA-C - 02/05/2024 1:00 PM EDT Comprehensive PreSurgical History and Physical ? Name: Nelson Gomez : 1955 (Age-68 y.o.) Date of Service: Pt seen/examined on 02/05/2024 Procedure Information Date/Time: 02/12/24 1200 Procedure: RIGHT SUBTOTAL THYROIDECTOMY (Right: Neck) - total time 180 minutes Location: [address] Operating Room Surgeons: Koffi Sheldon DO Chief Complaint: THYROID SWELLING AND HAD THYROID BIOPSY AND IT WAS ABNORMAL ASSESSMENT/PLAN: Patient is considered intermediate risk for this intermediate risk procedure/surgery noted above with no reducible risk factors. Based on the above evaluation, the benefits of the planned procedure likely exceed the risks. The patient is medically optimized to proceed with the planned procedure without any further cardiopulmonary testing. 1) NEOPLASM OF UNCERTAIN BEHAVIOR OF THYROID GLAND ; Managed per surgery 2) DM ;DIET CONTROL NO MEDICATIONS 3) HTN ; ON hydrochlorothiazide , TOPROL AND LISINOPRIL 4) HYPERLIPIDEMIA ; ON CRESTOR 5) GERD ; ON PRILOSEC 6) OSTEOARTHRITIS OF BOTH KNEES 7) GIRMA ; ON C-PAP 8) MORBIDLY OBESE ; BMI TO-DAY 45.84 9) CURRENT SMOKER 10 ) MINTO ; NO HEARING AID Visit Type: Pre-Admission Testing Visit Labs Ordered: YES - PER PAT PROTOCOL Sleep Referral Ordered: NO - ALREADY DIAGNOSED WITH GIRMA AND COMPLIANT WITH CPAP Total time spent (which include face to face and non face to face encounters) : 45 minutes Toxic drug monitoring/narrow therapeutic index drug monitoring : # Drug name : LISINOPRIL , HCTZ # Route administered : PO # Method of monitoring : LAB AND EKG PAT Protocol referenced includes: 1. Anesthesia Lab Protocol Orders 2. Perioperative Cardiovascular Risk Assessment 3. Anesthesia Assessment 4. Pain Assessment and Acute Pain Service Consult (if appropriate) 5. Medical Clearance/Consult from Internal Medicine ([facility]) 6. Shower/Wash Order (for designated surgeries) 7. GIRMA Screen and Sleep Clinic Referral (if appropriate) History Of Present Illness: PATIENT CAME TO [facility] ALONG WITH HIS SON 68 y.o. male who presents with chief complaint mentioned above. Patient has been cleared by his PCP ON 01/14/24 ; ALL CLEARANCE PAPER WORK IN FILE CHART Pt has seen the surgeon on and elected for above procedure. Hx problems with anesthesia? 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 Medications Prior to Admission: Current Outpatient Medications: aspirin 81 MG EC tablet, 81 mg., Disp: , Rfl: Diclofenac Sodium (Voltaren) 1 % gel, , Disp: , Rfl: hydroCHLOROthiazide (HYDRODiuril) 25 MG tablet, 25 mg., Disp: , Rfl: lisinopril 40 MG tablet, Take by mouth., Disp: , Rfl: metoprolol succinate XL (Toprol-XL) 100 MG 24 hr tablet, 100 mg., Disp: , Rfl: omeprazole (PriLOSEC) [address] capsule, , Disp: , Rfl: omeprazole OTC (PriLOSEC OTC) 20 MG EC tablet, 20 mg., Disp: , Rfl: rosuvastatin (Crestor) 10 MG tablet, 10 mg., Disp: , Rfl: CHRONIC NARCOTIC USE: No Allergies: Patient has no known allergies. If patient has opioid allergy, is it okay to take Acetaminophen: Yes Social History: TOBACCO: has no history on file for tobacco use. ETOH: has no history on file for alcohol use. Social History Substance and Sexual Activity Drug Use Not on file Family History: No family history on file. REVIEW OF SYSTEMS: Review of Systems Constitutional: Negative for fever. Respiratory: Negative for shortness of breath. Cardiovascular: Negative for chest pain. Gastrointestinal: Negative for nausea. Skin: Negative for pallor and rash. All other systems reviewed and are negative. Pertinent positives as noted in the HPI. Physical Exam: Physical Exam Vitals and nursing note reviewed. Constitutional: Appearance: Normal appearance. HENT: Head: Normocephalic and atraumatic. Mouth/Throat: Mouth: Mucous membranes are moist. Cardiovascular: Rate and Rhythm: Normal rate and regular rhythm. Pulmonary: Effort: Pulmonary effort is normal. Breath sounds: Normal breath sounds. Musculoskeletal: General: Normal range of motion. Cervical back: Normal range of motion and neck supple. Skin: General: Skin is warm. Findings: Lesion present. Comments: LEFT LEG LESION F/U WITH HIS PCP , TOOK ABX AND NEXT APPOINTMENT ON 02/09/24 Neurological: General: No focal deficit present. Mental Status: He is alert and oriented to person, place, and time. Psychiatric: Mood and Affect: Mood normal. Behavior: Behavior normal. Vitals: Vitals Value Taken Time BP 137/82 02/05/24 1258 Temp 37.8 C (100.1 F) 02/05/24 1258 Pulse 98 02/05/24 1258 Resp 16 02/05/24 1258 SpO2 96 % 02/05/24 1258 BP 137/82 Pulse 98 Temp 37.8 C (100.1 F) (Temporal) Resp 16 Ht 1.727 m (5' 8 ) Wt (!) 137 kg (301 lb 8 oz) SpO2 96% BMI 45.84 kg/m Labs: No results found for: WBC , HGB , HCT , MCV , PLT No results found for: NA , K , CL , CO2 , BUN , CREATININE , GLUCOSE , CALCIUM , PROT , BILIRUBINFL , ALKPHOS , AST , ALT , EGFR , GLOB Jayme's Simple Cardiac Risk Index: Interpretation: 0 Points Class I 0.5% 1 Point Class II 1.3% 2 Points Class III 3.6% 3+ Points Class IV 9.1% METS Walk indoors, such as around the house (1.75 METs), Do light work around the house, such as dusting or washing dishes (2.70 METs), Take care of self, that is eating, dressing, bathing, using the toilet (2.75 METs), Do moderate work around the house such as vacuuming, sweeping floors, or carrying in groceries (3.50 METs), Do yardwork, such as raking leaves, weeding,or pushing a power mower (4.50 METs), Climb a flight of stairs or walk up a hill (5.50 METs) PAT Pain Score: Pain Score: 2 Postop Pain Management Plan (Pain consult ordered?): Pain consult not indicated at this time ? EKG: Done on 01/14/24 ;copy in the file chart ECHO and EF:None on file No components found for: LVEF , LVEFMODE Electronically signed by: YOVANY LOPEZ PA-C Date: 02/05/2024 at 1:01 PM [facility] 02-12-2024 Note H&P reviewed. The feroz castillo was examined and there are no changes to the H&P. [facility] 02-12-2024 History and physical note H&P reviewed. The patient was examined and there are no changes to the H&P. Source Note - Yovany Lopez PA-C - 02/05/2024 1:00 PM EDT Comprehensive PreSurgical History and Physical ? Name: Nelson Gomez : 1955 (Age-68 y.o.) Date of Service: Pt seen/examined on 02/05/2024 Procedure Information Date/Time: 02/12/24 1200 Procedure: RIGHT SUBTOTAL THYROIDECTOMY (Right: Neck) - total time 180 minutes Location: [address] Operating Room Surgeons: Koffi Sheldon DO Chief Complaint: THYROID SWELLING AND HAD THYROID BIOPSY AND IT WAS ABNORMAL ASSESSMENT/PLAN: Patient is considered intermediate risk for this intermediate risk procedure/surgery noted above with no reducible risk factors. Based on the above evaluation, the benefits of the planned procedure likely exceed the risks. The patient is medically optimized to proceed with the planned procedure without any further cardiopulmonary testing. 1) NEOPLASM OF UNCERTAIN BEHAVIOR OF THYROID GLAND ; Managed per surgery 2) DM ;DIET CONTROL NO MEDICATIONS 3) HTN ; ON hydrochlorothiazide , TOPROL AND LISINOPRIL 4) HYPERLIPIDEMIA ; ON CRESTOR 5) GERD ; ON PRILOSEC 6) OSTEOARTHRITIS OF BOTH KNEES 7) GIRMA ; ON C-PAP 8) MORBIDLY OBESE ; BMI TO-DAY 45.84 9) CURRENT SMOKER 10 ) MINTO ; NO HEARING AID Visit Type: Pre-Admission Testing Visit Labs Ordered: YES - PER PAT PROTOCOL Sleep Referral Ordered: NO - ALREADY DIAGNOSED WITH GIRMA AND COMPLIANT WITH CPAP Total time spent (which include face to face and non face to face encounters) : 45 minutes Toxic drug monitoring/narrow therapeutic index drug monitoring : # Drug name : LISINOPRIL , HCTZ # Route administered : PO # Method of monitoring : LAB AND EKG PAT Protocol referenced includes: 1. Anesthesia Lab Protocol Orders 2. Perioperative Cardiovascular Risk Assessment 3. Anesthesia Assessment 4. Pain Assessment and Acute Pain Service Consult (if appropriate) 5. Medical Clearance/Consult from Internal Medicine ([facility]) 6. Shower/Wash Order (for designated surgeries) 7. GIRMA Screen and Sleep Clinic Referral (if appropriate) History Of Present Illness: PATIENT CAME TO [facility] ALONG WITH HIS SON 68 y.o. male who presents with chief complaint mentioned above. Patient has been cleared by his PCP ON 01/14/24 ; ALL CLEARANCE PAPER WORK IN FILE CHART Pt has seen the surgeon on and elected for above procedure. Hx problems with anesthesia? 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 Medications Prior to Admission: Current Outpatient Medications: aspirin 81 MG EC tablet, 81 mg., Disp: , Rfl: Diclofenac Sodium (Voltaren) 1 % gel, , Disp: , Rfl: hydroCHLOROthiazide (HYDRODiuril) 25 MG tablet, 25 mg., Disp: , Rfl: lisinopril 40 MG tablet, Take by mouth., Disp: , Rfl: metoprolol succinate XL (Toprol-XL) 100 MG 24 hr tablet, 100 mg., Disp: , Rfl: omeprazole (PriLOSEC) [address] capsule, , Disp: , Rfl: omeprazole OTC (PriLOSEC OTC) 20 MG EC tablet, 20 mg., Disp: , Rfl: rosuvastatin (Crestor) 10 MG tablet, 10 mg., Disp: , Rfl: CHRONIC NARCOTIC USE: No Allergies: Patient has no known allergies. If patient has opioid allergy, is it okay to take Acetaminophen: Yes Social History: TOBACCO: has no history on file for tobacco use. ETOH: has no history on file for alcohol use. Social History Substance and Sexual Activity Drug Use Not on file Family History: No family history on file. REVIEW OF SYSTEMS: Review of Systems Constitutional: Negative for fever. Respiratory: Negative for shortness of breath. Cardiovascular: Negative for chest pain. Gastrointestinal: Negative for nausea. Skin: Negative for pallor and rash. All other systems reviewed and are negative. Pertinent positives as noted in the HPI. Physical Exam: Physical Exam Vitals and nursing note reviewed. Constitutional: Appearance: Normal appearance. HENT: Head: Normocephalic and atraumatic. Mouth/Throat: Mouth: Mucous membranes are moist. Cardiovascular: Rate and Rhythm: Normal rate and regular rhythm. Pulmonary: Effort: Pulmonary effort is normal. Breath sounds: Normal breath sounds. Musculoskeletal: General: Normal range of motion. Cervical back: Normal range of motion and neck supple. Skin: General: Skin is warm. Findings: Lesion present. Comments: LEFT LEG LESION F/U WITH HIS PCP , TOOK ABX AND NEXT APPOINTMENT ON 02/09/24 Neurological: General: No focal deficit present. Mental Status: He is alert and oriented to person, place, and time. Psychiatric: Mood and Affect: Mood normal. Behavior: Behavior normal. Vitals: Vitals Value Taken Time BP 137/82 02/05/24 1258 Temp 37.8 C (100.1 F) 02/05/24 1258 Pulse 98 02/05/24 1258 Resp 16 02/05/24 1258 SpO2 96 % 02/05/24 1258 BP 137/82 Pulse 98 Temp 37.8 C (100.1 F) (Temporal) Resp 16 Ht 1.727 m (5' 8 ) Wt (!) 137 kg (301 lb 8 oz) SpO2 96% BMI 45.84 kg/m Labs: No results found for: WBC , HGB , HCT , MCV , PLT No results found for: NA , K , CL , CO2 , BUN , CREATININE , GLUCOSE , CALCIUM , PROT , BILIRUBINFL , ALKPHOS , AST , ALT , EGFR , GLOB Jayme's Simple Cardiac Risk Index: Interpretation: 0 Points Class I 0.5% 1 Point Class II 1.3% 2 Points Class III 3.6% 3+ Points Class IV 9.1% METS Walk indoors, such as around the house (1.75 METs), Do light work around the house, such as dusting or washing dishes (2.70 METs), Take care of self, that is eating, dressing, bathing, using the toilet (2.75 METs), Do moderate work around the house such as vacuuming, sweeping floors, or carrying in groceries (3.50 METs), Do yardwork, such as raking leaves, weeding,or pushing a power mower (4.50 METs), Climb a flight of stairs or walk up a hill (5.50 METs) PAT Pain Score: Pain Score: 2 Postop Pain Management Plan (Pain consult ordered?): Pain consult not indicated at this time ? EKG: Done on 01/14/24 ;copy in the file chart ECHO and EF:None on file No components found for: LVEF , LVEFMODE Electronically signed by: YOVANY LOPEZ PA-C Date: 02/05/2024 at 1:01 PM documented in this encounter [facility] 02-12-2024 Hospital Discharg e instructions Koffi Sheldon, - 02/12/2024 9:44 AM EDT Incision Custodial Instructions Dr. Koffi Sheldon 1. Keep the area clean and dry. 2. Avoid any heavy lifting, straining, or exertion. This will prevent bleeding. 3. A cold compress may be applied to the area to minimize swelling and bruising. 4. Maintain the steri-strip dressing. 5. If the steri-strips fall off prematurely, then you should begin routine wound care until your first follow-up appointment: A. Clean the area twice daily using warm soap water and then gently pat dry. Do not use peroxide for cleaning. B. Liberally apply Bacitracin Ointment directly to the area to protect it from drying and crusting. C. You do not need to keep a dressing or bandage over the area unless there is potential for dirt or debris contacting it. D. You may shower or bathe directly over the area. 6. Resume all routine home medications unless instructed otherwise. If you have any further questions or concerns regarding comfort or care, please contact our office at any time. 1. If the surgical area develops any pain, redness, bleeding, or drainage 2. If you have any problems, questions, or concerns. OFFICE: [phone] IF YOU HAVE AN EMERGENCY, AND ARE UNABLE TO REACH THE DOCTOR AT THE ABOVE NUMBER, CALL OR GO TO [facility] AT [facility] EMERGENCY ROOM: [phone] Electronically signed by @[email or web address]@ on @[email or web address]@ at [email or web address]@ The following attachments cannot be sent through Care Everywhere.General Anesthesia Discharge Instructions (Tristanian)documented in this encounter [facility] 02-05-2024 Note Patient: Nelson Gomez Procedure Information Date/Time: 02/12/24 1200 Procedure: RIGHT SUBTOTAL THYROIDECTOMY (Right: Neck) - total time 180 minutes Location: [address] Operating Room Surgeons: Koffi Sheldon DO Relevant Problems No relevant active problems Past Medical History: Past Medical History: No date: Arthritis No date: Asthma No date: COPD (chronic obstructive pulmonary disease) (HCC) No date: Diabetes mellitus (HCC) Comment: DIET CONTROLLED No date: GERD (gastroesophageal reflux disease) No date: H/O cardiac catheterization No date: Hyperlipidemia No date: Hypertension No 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 He has been smoking an average of 0.5 packs per day. He has never used smokeless tobacco. ETOH: reports that he does not currently use alcohol. Social History Substance and Sexual Activity Drug Use Never Family History: No family history on file. Screening: unknown Clinical information reviewed: Tobacco Allergies Meds Med Hx Surg Hx Fam Hx Soc Hx Physical Exam Airway Mallampati: IV TM distance: <3 FB Neck ROM: full Mouth Open: normalendotracheal tube not in place Cardiovascular - normal exam Dental (+) Upper Dentures, edentulous Comments: Edentulous bottom Pulmonary (+) decreased breath sounds Abdominal Other findings: Risk factors for difficult mask and airway Anesthesia Plan patient is NPO appropriate Any family history or previous problems with anesthesia no ASA 3 general and TIVA Any family history or previous problems with anesthesia no The patient is a current smoker. Patient was previously instructed to abstain from smoking on day of procedure. Patient did not smoke on day of procedure. Anesthetic plan and risks discussed with patient. GIRMA Screening Labs: Lab Results Component Value Date WBC 8.9 02/05/2024 HGB 15.2 02/05/2024 HCT 44.5 02/05/2024 MCV 90.8 02/05/2024 PLT 171 02/05/2024 No results found for: NA , K , CL , CO2 , BUN , CREATININE , GLUCOSE , CALCIUM , PROT , BILIRUBINFL , ALKPHOS , AST , ALT , EGFR , GLOB Pain Score: 2 No echocardiogram results found for the past 14 days No results found for this or any previous visit. [facility] 02-05-2024 Note Interval History and Physical I have interviewed and examined the patient and reviewed the recent History and Physical. There have been no changes to the recent H&P documentation. The H&P resides on a progress note on this patient's chart. The patient understands the planned operation and its associated risks and benefits and agrees to proceed. The surgical consent form has been signed. BP 137/82 Pulse 98 Temp 37.8 ?C (100.1 ?F) (Temporal) Resp 16 Ht 1.727 m (5' 8 ) Wt (!) 137 kg (301 lb 8 oz) SpO2 96% BMI 45.84 kg/m? [facility] 02-05-2024 Note Interval History and Physical I have interviewed and examined the patient and reviewed the recent History and Physical. There have been no changes to the recent H&P documentation. The H&P resides on a progress note on this patient's chart. The patient understands the planned operation and its associated risks and benefits and agrees to proceed. The surgical consent form has been signed. BP 137/82 Pulse 98 Temp 37.8 ?C (100.1 ?F) (Temporal) Resp 16 Ht 1.727 m (5' 8 ) Wt (!) 137 kg (301 lb 8 oz) SpO2 96% BMI 45.84 kg/m? [facility] 02-05-2024 Note Comprehensive PreSur gical History and Physical ? Name: Nelson Gomez : 1955 (Age-68 y.o.) Date of Service: Pt seen/examined on 02/05/2024 Procedure Information Date/Time: 02/12/24 1200 Procedure: RIGHT SUBTOTAL THYROIDECTOMY (Right: Neck) - total time 180 minutes Location: [address] Operating Room Surgeons: Koffi Sheldon DO Chief Complaint: THYROID SWELLING AND HAD THYROID BIOPSY AND IT WAS ABNORMAL ASSESSMENT/PLAN: Patient is considered intermediate risk for this intermediate risk procedure/surgery noted above with no reducible risk factors. Based on the above evaluation, the benefits of the planned procedure likely exceed the risks. The patient is medically optimized to proceed with the planned procedure without any further cardiopulmonary testing. 1) NEOPLASM OF UNCERTAIN BEHAVIOR OF THYROID GLAND ; Managed per surgery 2) DM ;DIET CONTROL NO MEDICATIONS 3) HTN ; ON hydrochlorothiazide , TOPROL AND LISINOPRIL 4) HYPERLIPIDEMIA ; ON CRESTOR 5) GERD ; ON PRILOSEC 6) OSTEOARTHRITIS OF BOTH KNEES 7) GIRMA ; ON C-PAP 8) MORBIDLY OBESE ; BMI TO-DAY 45.84 9) CURRENT SMOKER 10 ) MINTO ; NO HEARING AID Visit Type: Pre-Admission Testing Visit Labs Ordered: YES - PER PAT PROTOCOL Sleep Referral Ordered: NO - ALREADY DIAGNOSED WITH GIRMA AND COMPLIANT WITH CPAP Total time spent (which include face to face and non face to face encounters) : 45 minutes Toxic drug monitoring/narrow therapeutic index drug monitoring : # Drug name : LISINOPRIL , HCTZ # Route administered : PO # Method of monitoring : LAB AND EKG PAT Protocol referenced includes: 1. Anesthesia Lab Protocol Orders 2. Perioperative Cardiovascular Risk Assessment 3. Anesthesia Assessment 4. Pain Assessment and Acute Pain Service Consult (if appropriate) 5. Medical Clearance/Consult from Internal Medicine ([facility]) 6. Shower/Wash Order (for designated surgeries) 7. GIRMA Screen and Sleep Clinic Referral (if appropriate) History Of Present Illness: PATIENT CAME TO [facility] ALONG WITH HIS SON 68 y.o. male who presents with chief complaint mentioned above. Patient has been cleared by his PCP ON 01/14/24 ; ALL CLEARANCE PAPER WORK IN FILE CHART Pt has seen the surgeon on and elected for above procedure. Hx problems with anesthesia? 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 Medications Prior to Admission: Current Outpatient Medications: aspirin 81 MG EC tablet, 81 mg., Disp: , Rfl: Diclofenac Sodium (Voltaren) 1 % gel, , Disp: , Rfl: hydroCHLOROthiazide (HYDRODiuril) 25 MG tablet, 25 mg., Disp: , Rfl: lisinopril 40 MG tablet, Take by mouth., Disp: , Rfl: metoprolol succinate XL (Toprol-XL) 100 MG 24 hr tablet, 100 mg., Disp: , Rfl: omeprazole (PriLOSEC) [address] capsule, , Disp: , Rfl: omeprazole OTC (PriLOSEC OTC) 20 MG EC tablet, 20 mg., Disp: , Rfl: rosuvastatin (Crestor) 10 MG tablet, 10 mg., Disp: , Rfl: CHRONIC NARCOTIC USE: No Allergies: Patient has no known allergies. If patient has opioid allergy, is it okay to take Acetaminophen: Yes Social History: TOBACCO: has no history on file for tobacco use. ETOH: has no history on file for alcohol use. Social History Substance and Sexual Activity Drug Use Not on file Family History: No family history on file. REVIEW OF SYSTEMS: Review of Systems Constitutional: Negative for fever. Respiratory: Negative for shortness of breath. Cardiovascular: Negative for chest pain. Gastrointestinal: Negative for nausea. Skin: Negative for pallor and rash. All other systems reviewed and are negative. Pertinent positives as noted in the HPI. Physical Exam: Physical Exam Vitals and nursing note reviewed. Constitutional: Appearance: Normal appearance. HENT: Head: Normocephalic and atraumatic. Mouth/Throat: Mouth: Mucous membranes are moist. Cardiovascular: Rate and Rhythm: Normal rate and regular rhythm. Pulmonary: Effort: Pulmonary effort is normal. Breath sounds: Normal breath sounds. Musculoskeletal: General: Normal range of motion. Cervical back: Normal range of motion and neck supple. Skin: General: Skin is warm. Findings: Lesion present. Comments: LEFT LEG LESION F/U WITH HIS PCP , TOOK ABX AND NEXT APPOINTMENT ON 02/09/24 Neurological: General: No focal deficit present. Mental Status: He is alert and oriented to person, place, and time. Psychiatric: Mood and Affect: Mood normal. Behavior: Behavior normal. Vitals: Vitals (more content not included)... [facility] 02-05-2024 Note Comprehensive PreSur gical History and Physical ? Name: Nelson Gomez : 1955 (Age-68 y.o.) Date of Service: Pt seen/examined on 02/05/2024 Procedure Information Date/Time: 02/12/24 1200 Procedure: RIGHT SUBTOTAL THYROIDECTOMY (Right: Neck) - total time 180 minutes Location: [address] Operating Room Surgeons: Koffi Sheldon DO Chief Complaint: THYROID SWELLING AND HAD THYROID BIOPSY AND IT WAS ABNORMAL ASSESSMENT/PLAN: Patient is considered intermediate risk for this intermediate risk procedure/surgery noted above with no reducible risk factors. Based on the above evaluation, the benefits of the planned procedure likely exceed the risks. The patient is medically optimized to proceed with the planned procedure without any further cardiopulmonary testing. 1) NEOPLASM OF UNCERTAIN BEHAVIOR OF THYROID GLAND ; Managed per surgery 2) DM ;DIET CONTROL NO MEDICATIONS 3) HTN ; ON hydrochlorothiazide , TOPROL AND LISINOPRIL 4) HYPERLIPIDEMIA ; ON CRESTOR 5) GERD ; ON PRILOSEC 6) OSTEOARTHRITIS OF BOTH KNEES 7) GIRMA ; ON C-PAP 8) MORBIDLY OBESE ; BMI TO-DAY 45.84 9) CURRENT SMOKER 10 ) MINTO ; NO HEARING AID Visit Type: Pre-Admission Testing Visit Labs Ordered: YES - PER PAT PROTOCOL Sleep Referral Ordered: NO - ALREADY DIAGNOSED WITH GIRMA AND COMPLIANT WITH CPAP Total time spent (which include face to face and non face to face encounters) : 45 minutes Toxic drug monitoring/narrow therapeutic index drug monitoring : # Drug name : LISINOPRIL , HCTZ # Route administered : PO # Method of monitoring : LAB AND EKG PAT Protocol referenced includes: 1. Anesthesia Lab Protocol Orders 2. Perioperative Cardiovascular Risk Assessment 3. Anesthesia Assessment 4. Pain Assessment and Acute Pain Service Consult (if appropriate) 5. Medical Clearance/Consult from Internal Medicine (IMS) 6. Shower/Wash Order (for designated surgeries) 7. GIRMA Screen and Sleep Clinic Referral (if appropriate) History Of Present Illness: PATIENT CAME TO [facility] ALONG WITH HIS SON 68 y.o. male who presents with chief complaint mentioned above. Patient has been cleared by his PCP ON 01/14/24 ; ALL CLEARANCE PAPER WORK IN FILE CHART Pt has seen the surgeon on and elected for above procedure. Hx problems with anesthesia? 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 Medications Prior to Admission: Current Outpatient Medications: aspirin 81 MG EC tablet, 81 mg., Disp: , Rfl: Diclofenac Sodium (Voltaren) 1 % gel, , Disp: , Rfl: hydroCHLOROthiazide (HYDRODiuril) 25 MG tablet, 25 mg., Disp: , Rfl: lisinopril 40 MG tablet, Take by mouth., Disp: , Rfl: metoprolol succinate XL (Toprol-XL) 100 MG 24 hr tablet, 100 mg., Disp: , Rfl: omeprazole (PriLOSEC) [address] capsule, , Disp: , Rfl: omeprazole OTC (PriLOSEC OTC) 20 MG EC tablet, 20 mg., Disp: , Rfl: rosuvastatin (Crestor) 10 MG tablet, 10 mg., Disp: , Rfl: CHRONIC NARCOTIC USE: No Allergies: Patient has no known allergies. If patient has opioid allergy, is it okay to take Acetaminophen: Yes Social History: TOBACCO: has no history on file for tobacco use. ETOH: has no history on file for alcohol use. Social History Substance and Sexual Activity Drug Use Not on file Family History: No family history on file. REVIEW OF SYSTEMS: Review of Systems Constitutional: Negative for fever. Respiratory: Negative for shortness of breath. Cardiovascular: Negative for chest pain. Gastrointestinal: Negative for nausea. Skin: Negative for pallor and rash. All other systems reviewed and are negative. Pertinent positives as noted in the HPI. Physical Exam: Physical Exam Vitals and nursing note reviewed. Constitutional: Appearance: Normal appearance. HENT: Head: Normocephalic and atraumatic. Mouth/Throat: Mouth: Mucous membranes are moist. Cardiovascular: Rate and Rhythm: Normal rate and regular rhythm. Pulmonary: Effort: Pulmonary effort is normal. Breath sounds: Normal breath sounds. Musculoskeletal: General: Normal range of motion. Cervical back: Normal range of motion and neck supple. Skin: General: Skin is warm. Findings: Lesion present. Comments: LEFT LEG LESION F/U WITH HIS PCP , TOOK ABX AND NEXT APPOINTMENT ON 02/09/24 Neurological: General: No focal deficit present. Mental Status: He is alert and oriented to person, place, and time. Psychiatric: Mood and Affect: Mood normal. Behavior: Behavior normal. Vitals: Vitals (more content not included)... [facility] 02-04-2024 Note . MICRO - Microbiology PROCEDURE: Culture Wound Aerobic with Gram Stain [*1] SOURCE: Drainage BODY SITE: Leg COLLECTED DATE/TIME: 02/02/2024 11:27 EDT RECEIVED DATE/TIME: 02/02/2024 19:03 EDT START DATE/TIME: 02/02/2024 19:03 EDT FREE TEXT SOURCE: FINAL REPORTS Final Report [] Verified Date/Time/Personnel: 02/04/2024 08:01 EDT No growth at 48 hours. PRELIMINARY REPORTS Preliminary Report [] Verified Date/Time/Personnel: 02/03/2024 07:59 EDT No growth to date STAINS GS [] Verified Date/Time/Personnel: 02/02/2024 23:24 EDT No organisms seen. Performing Locations *1: This test was performed at: [facility], [address] [place] [address], [id number]- , [facility] ([place]) 11-07-2023 Hospital Discharg e instructions Yoan Valdez RN - 11/07/2023 8:26 AM EST Thyroid Biopsy Discharge Instructions Your Recovery A biopsy is a procedure that is performed to obtain a small piece of tissue from an organ, bone, growth, or tumor. This tissue is sent to the lab where a pathologist can examine it to look for cancer or to diagnose other health problems. The area where the biopsy was taken may be sore for a couple days following the procedure. You may develop a bruise. This care sheet gives you a general idea about how long it will take for you to recover. However, each person recovers at a different pace. How can you care for yourself at home? Activity - Avoid heavy lifting or strenuous activities for 24-48 hours following your procedure Diet - You may resume your normal diet. If your stomach is upset, try bland, low-fat food like plain rice, broiled chicken, toast and yogurt. - Drink plenty of fluids. Medications - You may resume your home medications the day after the procedure unless otherwise instructed by your doctor. Care of Biopsy Site - Keep a bandage over the biopsy site for 24 hours. It is important to keep the site clean and dry during this time. - After 24 hours you may remove the bandage and clean the area with a mild soap. - You may apply heat or ice to the procedure site to help with any soreness. Alternate 20 minutes with heat or ice, and 20 minutes without. Be sure to use a barrier such as a towel between the ice or heat and your skin. - Monitor the site for signs of infection including redness, discharge or swelling. If you are concerned with the site, please contact us. When should you call for help? - For emergent concerns following your procedure please call 911 or go to the nearest emergency room. - For any non-emergent post-procedure questions or concerns, please give us a call between 8am and 5pm. - [facility] Radiology - [phone] - [facility] Radiology - [phone] - For questions after hours, please call [phone] and ask for the on-call Angiography Radiologist. When can I expect to get my test results? - It typically takes 1-2 weeks to get your biopsy results. - All biopsy results will be sent to your doctor that ordered the procedure. For any questions regarding test results, please contact your doctor s office. This handout is intended to provide general educational material to assist you in making informed decisions regarding your medical care. Specific questions about your unique medical conditions should be referred to your primary care physician. The following attachments cannot be sent through Care Everywhere.Needle Biopsy, Thyroid (Tristanian)documented in this encounter [facility] 11-07-2023 Nurse Note Ultrasound: Nelson is here as an outpatient walk in for a Thyroid Biopsy . He has verbalized understanding of the procedural instructions. Jael FLORES) has spoken to him. History, allergies, medications and lab results reviewed. Informed consent has been signed. Prepped and draped in sterile fashion. Time out performed. He is on a monitor. Patient ready for the procedure. [facility] 11-07-2023 Nurse Note Ultrasound: Nelson tolerated his right neck Thyroid Biopsy well. He is alert and in no distress. He denies pain. Band aid to his right neck is dry and intact. No bleeding. No hematoma. He verbalizes understanding of his home going instructions. Cold compress to his right neck. Ambulated out of Ultrasound into the waiting room with no problems, and will go home with his son. [facility] [employer] 11-07-2023 Nurse Note Ultrasound: Nelson is here as an outpatient walk in for a Thyroid Biopsy . He has verbalized understanding of the procedural instructions. Jael FLORES) has spoken to him. History, allergies, medications and lab results reviewed. Informed consent has been signed. Prepped and draped in sterile fashion. Time out performed. He is on a monitor. Patient ready for the procedure. Ultrasound: Nelson tolerated his right neck Thyroid Biopsy well. He is alert and in no distress. He denies pain. Band aid to his right neck is dry and intact. No bleeding. No hematoma. He verbalizes understanding of his home going instructions. Cold compress to his right neck. Ambulated out of Ultrasound into the waiting room with no problems, and will go home with his son. documented in this encounter [facility] 06-02-2023 Note HNO ID: [id number] Author: Parish Coronel MD Service: ? Author Type: Physician Type: Progress Notes Filed: 06/27/2023 3:29 PM Note Text: Parish Coronel MD Department of Orthopaedics Orthopaedics [address] [facility] [address] Dept: [phone] Dept June 02, 2023 CHIEF COMPLAINT: Knee [...] (BMI) of 45.0 to 49.9 in adult ([facility]) (primary encounter diagnosis) M25.561, M25.562, G89.29 Chronic [...] neurovascular exam is normal. IMAGING: IMPRESSION: Osteoarthritis Field Recorder: LUKE Transcribe Date/Time: Jun 05 2023 8:22A Dictated [...] mg omeprazole (P (more content not included)... [facility] 06-02-2023 Note HNO ID: [id number] Author: Mary Lou Rayo RT(R) Service: ? Author Type: Location Manager Type: Progress Notes Filed: 06/02/2023 2:35 PM [...] RT Mariza(R) June 02, 2023 2:01 PM [facility] 06-02-2023 History of Presen t illness Narrative Parish Coronel MD Department of Orthopaedics Orthopaedics [address] [place] [address] Dept: [phone] Dept June 02, 2023 CHIEF COMPLAINT: Knee [...] (BMI) of 45.0 to 49.9 in adult ([facility]) (primary encounter diagnosis) M25.561, M25.562, G89.29 Chronic [...] neurovascular exam is normal. IMAGING: IMPRESSION: Osteoarthritis Field Recorder: CHRISTIANOB Transcribe Date/Time: Jun 05 2023 8:22A Dictated [...] Musculoskeletal (see HPI) Psych (no depression, anxiety) Parish Coronel MD documented in this encounter [facility] 04-18-2023 Evaluation + Plan note Future Scheduled TestsD-Dimer 04/18/23Prostate Specific Antigen 09/03/23Prostate Specific Antigen 01/14/24Complete Blood Count 01/14/24Complete Blood Count 04/18/23Lipid Profile 01/14/24Vitamin D Level 01/14/24Complete Metabolic Panel 01/14/24N-Terminal proBNP 04/18/23US Biopsy Thyroid [facility]23 Note ORIGINAL EXAMINATION: 4 XRAY [...] Date: 01/13/2023 4:18:47 PM Ordering Provider: EDELMIRA DESIR [facility] 01-13-2023 Note ORIGINAL EXAMINATION: TWO XRAY [...] Date: 01/13/2023 4:17:33 PM Ordering Provider: EDELMIRA DESIR [facility] 01-13-2023 Note ORIGINAL EXAMINATION: LIMITED ABDOMINAL [...] 01/13/2023 1:38:38 PM Ordering Provider: EDELMIRA DESIR [facility] 01-13-2023 Note ORIGINAL EXAMINATION: Ultrasound Thyroid COMPARISON: None HISTORY: ORDERING SYSTEM PROVIDED HISTORY: Reason for Exam: incidental thyroid nodules seen on CT at [facility], on Ozempic, FINDINGS: Size right thyroid lobe: [...] Date: 01/13/2023 12:44:04 PM Ordering Provider: EMERITA STAUFFER [facility] 01-13-2023 Note ORIGINAL EXAMINATION: TWO XRAY [...] Date: 01/13/2023 4:17:33 PM Ordering Provider: EDELMIRA DESIR [facility] 01-13-2023 Note ORIGINAL EXAMINATION: 4 XRAY [...] by: Osman Isabel DO Preliminary Report By: Shanazak Walker Electronically signed By Osman Isabel DO Dictated Date: 01/13/2023 2:55:59 PM Prelim Date: 01/13/2023 4:18:47 PM Sign Date: 01/13/2023 4:18:47 PM Ordering Provider: EDELMIRA [facility] 01-13-2023 Note ORIGINAL EXAMINATION: LIMITED ABDOMINAL [...] Date: 01/13/2023 1:38:38 PM Ordering Provider: EDELMIRA [facility] 01-13-2023 Note ORIGINAL EXAMINATION: Ultrasound Thyroid COMPARISON: None HISTORY: ORDERING SYSTEM PROVIDED HISTORY: Reason for Exam: incidental thyroid nodules seen on CT at [facility], on Ozempic, FINDINGS: Size right thyroid lobe: [...] Date: 01/13/2023 12:44:04 PM Ordering Provider: EMERITA STAUFFER [facility] 05-23-2022 Hospital Discharg e instructions Patient Education [...] oral rehydration solution (ORS). This is an hifw-frv-uzorcqx medicine that helps return your body to [...] drinks, sports drinks, and soda. Eat bland, xdih-jp-cysjlw foods in small amounts as you are able. These foods include bananas, applesauce, rice, lean meats, toast, and crackers. Avoid alcohol. Avoid spicy or fatty foods. Medicines Take genm-ajq-atmipnm and prescription medicines only as told by your health care provider. If you were prescribed an antibiotic medicine, take it as told by your health care provider. Do not stop using the antibiotic even if you start to feel better. General instructions Wash your hands often using soap and water. If soap and water are not available, use a hand wood heel back liner. Others in the household should wash their [...] and water are not available, use hand wood heel back liner. Contact a health care provider if your diarrhea gets worse or you have new symptoms. Get help right away if you have signs of dehydration. This information is not intended to replace advice given to you by your health care provider. Make sure you discuss any questions you have with your health care provider. Document Released: 09/12/2003 Document Revised: 02/08/2020 Document Reviewed: 02/26/2019 [email or web address] Patient Education 2020 [employer]. Follow Up Care 05/21/2022 19:24:17 With:EMERITA STAUFFER APRN-SWITCH CLEANER Address: [address] [place] [address]- When:1-2 days Comments:Please call the office to schedule a follow up appointment With:HOME MED- Patient's own med. Please send home with patient on discharge. Address:Unknown When:1-2 days [facility] 05-23-2022 Infectious diseas e Progress note Date of Service 05/22/2022 Chief Complaint Chart Reviewed. Patient is a 66yo M admitted 05/21/2022 for colitis, sepsis, hypotension and JAMES. He has PMH significant for type 2 diabetes mellitus, COPD, tobacco abuse, hypertension, obstructive sleep apnea and morbid obesity. The patient presented to [facility] ED due to c/o nausea, vomiting, and diarrhea. The patient was transferred to [facility] with a chief concern for sepsis likely [...] Michelle Phelps RN on 05/22/2022 07:23 AM [facility] 05-23-2022 Note Discharge Instructions Thank you for allowing [facility] to assist you with your healthcare needs. The following is important discharge information regarding your hospital visit. Your Care Team EMERITA STAUFFER Your Diagnosis Diarrhea Abnormal CT of the abdomen What to do next Scheduled Follow-Up Appointments Appointment Type When With Where Contact InformationPC Nurse Lab 08/15/2022 11:15 AM [facility] Follow Up 08/20/2022 08:00 AM [facility] Follow Up with HOME [...] oral rehydration solution (ORS). This is an fxjl-ket-okddpth medicine that helps return your body to [...] drinks, sports drinks, and soda. Eat bland, ccxj-yi-xqsvxn foods in small amounts as you are able. These foods include bananas, applesauce, rice, lean meats, toast, and crackers. Avoid alcohol. Avoid spicy or fatty foods. Medicines Take oezx-hwh-rocprto and prescription medicines only as told by your health care provider. If you were prescribed an antibiotic medicine, take it as told by your health care provider. Do not stop using the antibiotic even if you start to feel better. General instructions Wash your hands often using soap and water. If soap and water are not available, use a hand wood heel back liner. Others in the household should wash their [...] and water are not available, use hand wood heel back liner. Contact a health care provider if your diarrhea gets worse or you have new symptoms. Get help right away if you have signs of dehydration. This information is not intended to replace advice given to you by your health care provider. Make sure you discuss any questions you have with your health care provider. Document Released: 09/12/2003 Document Revised: 02/08/2020 Document Reviewed: 02/26/2019 [employer] Patient Education 2020 [email or web address] Additional Information VACCINATE! IT SAVES LIVES! Members of the community who have not yet received the COVID-19 vaccine and would like to receive it can visit one of [facility] vaccine clinics. There are many vaccine clinic locations within the [facility]. For locations and available times, please visit [email or web address].o hio.gov/. It is important to note that some COVID mobile vaccine clinics are held outdoors and may be canceled in rainy or stormy conditions. To learn more about pediatric vaccinations (ages 5-11), we invite you to visit the [facility] webpage. https://www.[employer].org/p ages/1827-Ymrvk-Jcjeogwysyi-Freq rusthn-Qcbol-Tlsqmyjwo.html To learn more about the COVID-19 vaccine, we invite you to visit the [facility] website for a list of frequently asked questions. [email or web address] requently_[email or web address] [facility] Patient Portal Access Instructions: Stay connected with your healthcare team and access your personal medical information anytime with the [facility] Patient Portal.If you would like a full copy of your medical records, please contact the [facility] Medical Records Department, Friday through Friday between 8a.m. and 4:30p.m. Please follow the directions below to access the portal: 1.Access the email account you provided upon registration to the [facility].2.Look for an invitation email from [facility].3.Open the email and access the invitation link: Accept Invitation to [facility]4.Fill in the required turk to create your account. Sign into [email or web address] with your username and password that you [...] you will allow to register on the [facility] Patient Portal for access to your information. You can also access the [facility] Patient Portal on the [employer] zahira. Simply click on Health Records under Health Data and then click on the [employer] logo. HOW TO SAFELY DISPOSE OF PRESCRIPTION [...] Call your local pharmacy or go to http://bit.SOLOMO365/5E4Tu4c to find one close to you.3.Make use of household items: Use cat litter or old coffee grounds to dispose medications if other options are not available. Mix your drugs with these household products, seal them in an airtight container and throw it into the garbage. Call [facility]: [phone] to be sure your drugs can be [...] been reviewed and explained to me and I,NELSON GOMEZ SR understand my current condition and have read and understand these discharge instructions. I have received a written copy of the plan/instructions. If I have questions, I am aware that I should contact my doctor. Patient/Quality Assurance Assistant Signature: Date/Time: Relationship to Patient: Witness Name/Signature: Date/Time: [facility] 05-23-2022 Infectious diseas e Progress note Date [...] Michelle Phelps RN on 05/23/2022 10:32 AM [facility] 05-23-2022 Gastroenterology Progress note Date of Service [...] infectious. Chronic diarrhea follows up with his [employer]. High-dose NSAID use. Plan: TSH is low. Defer further recommendations per primary team. IgA within normal limits. Celiac panel is pending. This can be even followed up as an outpatient by his [employer]. Positive FOBT test, patient recently underwent a colonoscopy by his [employer] in March this year. Further recommendations per his [employer] in the outpatient setting. Currently on Zosyn. Stool studies are pending. At the time of discharge, patient needs to follow-up with his [employer] for further recommendations regarding chronic diarrhea and positive FOBT stool. He wants to get home today. Recommendations regarding antibiotic per primary team and ID. We will sign off. Please call us back if needed Digitally Signed by SHANICE HERRERA MD on 05/23/2022 11:42 AM [facility] 05-23-2022 Infectious diseas e Progress note Date [...] Michelle Phelps RN on 05/23/2022 10:32 AM [facility] 05-23-2022 Note Chief Complaint Transition Plan. Transitional [...] 22 22:48)18(MAY 22 11:02)H 22(MAY 22 05:16) OUK715(MAY 22 22:48)94(MAY 22 05:16)140(MAY 22 11:02) DBP76(MAY [...] 90 tab(s), 3 Refill(s). diclofenac topical: 1 zahira, Topical, QID, for 30 day(s), not to [...] 20:40:00 EDT, Full Code, Constant Order I Goran ESPINOSA, am scribing for Jaymie Ogden BLACK PULLER, in the presence of Jaymie Ogden NP, personally performed the services described in this documentation, as described by Goran ESPINOSA in my presence and it is both accurate and complete. This document transcribed using voice recognition software may contain typographical errors. Digitally Signed by JAYMIE OGDEN on 05/23/2022 02:37 PM [facility] 05-23-2022 Note Date of Service 05/22/22 Chief [...] (3 mL) Give 0-10 units/dose, Subcutaneous, TIDAC [facility] communication order Home Meds Verified, Miscellaneous, qDay [...] Acute infectious Enteritis/colitis: Abdominal imaging done at [facility] revealed fluid-filled small and large bowel throughout [...] stage II. Kidney function worsened initially at [facility] with BUNs/creatinine of 23/2.85 in the quality analyst/technical writer of May 21 which eventually improved to [...] for now as patient was hypotensive at [facility] Obstructive sleep apnea: Avoid CPAP for now as it can cause reduced preload that can lead to hypotension Tobacco abuse: Patient continues to smoke one quarter of pack of cigarettes on a daily basis Tobacco service desk specialist consulted, counseled patient to cut down on tobacco use Possible melena: GI consulted DVT prophylaxis: Bilateral SCDs Heparin 5000 units subcutaneous Digitally Signed by BRIGETTE MCKENZIE MD on 05/23/2022 01:38 AM [facility] 05-22-2022 History and physical note Date of Service May 21, 2022 Chief Complaint Nausea and vomiting, chronic diarrhea. History of Present Illness A 66 years old male with past medical history significant for type 2 diabetes mellitus, COPD, tobacco abuse, hypertension, obstructive sleep apnea and morbid obesity was transferred from [facility] to [facility] in the evening of 04/20/2022 with a chief concern for sepsis likely due to enteritis/colitis. Patient presented to the [facility] in the afternoon of May 20, 2022 with a chief concern of nausea and multiple episodes of vomiting. Patient endorsed chronic diarrhea on my evaluation. Patient also noticed 2 episodes of black stools over the past 6 months with last episode happening at [facility]. Patient had CT abdomen/pelvis with contrast done at [facility] that revealed fluid-filled small and large bowel [...] right paracolic gutter. Chest x-ray done at [facility] on May 20 was not clinically significant, initial labs on presentation to [facility] were significant for white count of 16,400 with left shift, potassium of 5.6, BUN/creatinine of 24/1.99 with baseline BUN/creatinine around 18/1.16, lactic acid 3.2. COVID-19 test was negative at [facility]. Stool culture was ordered at [facility]. EKG ordered at [facility] revealed sinus rhythm with evidence of left anterior fascicular block, left ventricular hypertrophy and QTC of 445 ms. Patient also stated that he had a fall couple months ago where he injured his right foot and according to the facility coordinator he is seeing, his right foot is fractured and he has been wearing right lower extremity boot for the past couple of months. During stay at [facility], patient was hypotensive and received total of [...] and Diagnostics As above EKG EKG at [facility] as above EKG pending at [facility]. Assessment/Plan Severe sepsis without septic shock: Patient had features of sepsis at on May 20, 2022 that included hypotension, tachycardia, leukocytosis and lactic acidosis. Patient normotensive on my evaluation Patient received total of 3.5 L IV fluids at [facility] Ordered 2 L additional Normal Saline bolus at [facility] and patient was started on continuous IV fluids. Patient started on IV Zosyn Blood cultures, stool culture, urinalysis and urine culture ordered Infectious disease has been consulted Enteritis/colitis: Abdominal imaging done at [facility] revealed fluid-filled small and large bowel throughout the abdomen with wall thickening of jejunum/ileum with findings consistent with enteritis/colitis. Patient is taking [id number]-[id number] Prilosec at home that increased risk of [...] stage II. Kidney function worsened initially at [facility] with BUNs/creatinine of 23/2.85 in the quality analyst/technical writer of May 21 which eventually improved to [...] for now as patient was hypotensive at [facility] Obstructive sleep apnea: Avoid CPAP for now as it can cause reduced preload that can lead to hypotension Tobacco abuse: Patient continues to smoke one quarter of pack of cigarettes on a daily basis Tobacco service desk specialist consulted, counseled patient to cut down on tobacco use Possible melena: Patient did endorse couple of episodes of black stool in the past 6 months with last episode happening at [facility] Hemoglobin of 14.2 on May 21 Stool for occult blood ordered GI has already been consulted for enteritis/colitis Hold home medication of aspirin for now DVT prophylaxis: Bilateral SCDs Heparin 5000 units subcutaneous every 8 hours due to acute kidney injury Note was written using [employer] drilling inspector software. Some of the meaning of the words and sentences might have changed during drilling inspector, if there was ever some confusion about [...] Oral, qDay diclofenac 1% topical gel 1 zahira, Topical, QID hydroCHLOROthiazide 25 mg oral tablet [...] KIERSTEN BRAUN MD on 05/21/2022 09:09 PM [facility] 05-22-2022 Gastroenterology Consult note Date of Service 05/22/2022 Reason for Consultation Acute on chronic diarrhea, abnormal CT of the abdomen and pelvis Referring Physician Dr. Mckenzie History of Present Illness The patient is a 66-year-old male, who has a past medical history significant for T2DM, COPD, tobacco abuse, HTN, GIRMA and morbid obesity who was transferred to [facility] from [facility] on 04/20/2022 for further evaluation and treatment of severe sepsis. Patient initially presented to [facility] ER on 05/20/2022 for further evaluation and [...] Cipro and Flagyl. Patient was transferred to [facility] for further evaluation antibiotics have been switched [...] of chronic diarrhea and has seen by [employer] Dr. Paz in [place], [place]. Colonoscopy in March 2022 for evaluation [...] chronic diarrhea and has been seen by [employer] Dr. Paz in [facility] for this. There are multiple differentials that [...] bleeding. Certainly outpatient follow-up with his established [employer] for further evaluation of his chronic diarrhea [...] 3 refills diclofenac 1% topical gel, 1 zahira, Topical, QID, 11 refills hydroCHLOROthiazide 25 mg [...] No qualifying data available. Digitally Signed by SONAL CHAIREZ on 05/22/2022 01:34 PM [facility] 05-22-2022 Infectious diseas e Consult note Date of Service 05/22/2022 Reason for Consultation Diarrhea abnormal CT scan Referring Physician Dr. Mckenzie History of Present Illness Patient is a 66yo M admitted 05/21/2022 for colitis, sepsis, hypotension and JAMES. He has PMH significant for type 2 diabetes mellitus, COPD, tobacco abuse, hypertension, obstructive sleep apnea and morbid obesity. The patient presented to [facility] ED due to c/o nausea, vomiting, and diarrhea. Patient reports to me that he has had chronic diarrhea for 1-1/2-year. He reports that he had seen a [employer] and had colonoscopy performed during which time a polyp was removed, the patient is unable to provide any further details regarding the colonoscopy findings. Patient reports that he was in his usual state of health up until last Friday when he suddenly had nausea vomiting and diarrhea. Patient's reports that the prior day on Friday patient had lunch at [employer]. His symptoms started Friday afternoon with profuse vomiting followed by diarrhea. He was admitted to [facility] and subsequently transferred here. Apparently patient did [...] vomiting which started Friday. Initially presented to [facility] where he was noted to have leukocytosis [...] Await results of GI pathogen PCR. Orders: [facility] Lab Send Out (Non-Blood Specimens) [...] 3 refills diclofenac 1% topical gel, 1 zahira, Topical, QID, 11 refills hydroCHLOROthiazide 25 mg [...] JONATHAN MALDONADO MD on 05/22/2022 05:14 PM [facility] 05-22-2022 Gastroenterology Consult note Date of Service 05/22/2022 Reason for Consultation Acute on chronic diarrhea, abnormal CT of the abdomen and pelvis Referring Physician Dr. Mckenzie History of Present Illness The patient is a 66-year-old male, who has a past medical history significant for T2DM, COPD, tobacco abuse, HTN, GIRMA and morbid obesity who was transferred to [facility] from [facility] on 04/20/2022 for further evaluation and treatment of severe sepsis. Patient initially presented to [facility] ER on 05/20/2022 for further evaluation and [...] Cipro and Flagyl. Patient was transferred to [facility] for further evaluation antibiotics have been switched [...] of chronic diarrhea and has seen by [employer] Dr. Paz in [place], [place]. Colonoscopy in March 2022 for evaluation [...] chronic diarrhea and has been seen by [employer] Dr. Paz in [facility] for this. There are multiple differentials that [...] bleeding. Certainly outpatient follow-up with his established [employer] for further evaluation of his chronic diarrhea [...] 3 refills diclofenac 1% topical gel, 1 zahira, Topical, QID, 11 refills hydroCHLOROthiazide 25 mg [...] No qualifying data available. Digitally Signed by SONAL CHAIREZ on 05/22/2022 01:34 PM [facility] 05-22-2022 Infectious diseas e Progress note Date of Service 05/22/2022 Chief Complaint Chart Reviewed. Patient is a 66yo M admitted 05/21/2022 for colitis, sepsis, hypotension and JAMES. He has PMH significant for type 2 diabetes mellitus, COPD, tobacco abuse, hypertension, obstructive sleep apnea and morbid obesity. The patient presented to [facility] ED due to c/o nausea, vomiting, and diarrhea. The patient was transferred to [facility] with a chief concern for sepsis likely [...] Michelle Phelps RN on 05/22/2022 07:23 AM [facility] 05-22-2022 History and physical note Date of Service May 21, 2022 Chief Complaint Nausea and vomiting, chronic diarrhea. History of Present Illness A 66 years old male with past medical history significant for type 2 diabetes mellitus, COPD, tobacco abuse, hypertension, obstructive sleep apnea and morbid obesity was transferred from [facility] to [facility] in the evening of 04/20/2022 with a chief concern for sepsis likely due to enteritis/colitis. Patient presented to the [facility] in the afternoon of May 20, 2022 with a chief concern of nausea and multiple episodes of vomiting. Patient endorsed chronic diarrhea on my evaluation. Patient also noticed 2 episodes of black stools over the past 6 months with last episode happening at [facility]. Patient had CT abdomen/pelvis with contrast done at [facility] that revealed fluid-filled small and large bowel [...] right paracolic gutter. Chest x-ray done at [facility] on May 20 was not clinically significant, initial labs on presentation to [facility] were significant for white count of 16,400 with left shift, potassium of 5.6, BUN/creatinine of 24/1.99 with baseline BUN/creatinine around 18/1.16, lactic acid 3.2. COVID-19 test was negative at [facility]. Stool culture was ordered at [facility]. EKG ordered at [facility] revealed sinus rhythm with evidence of left anterior fascicular block, left ventricular hypertrophy and QTC of 445 ms. Patient also stated that he had a fall couple months ago where he injured his right foot and according to the facility coordinator he is seeing, his right foot is fractured and he has been wearing right lower extremity boot for the past couple of months. During stay at [facility], patient was hypotensive and received total of [...] and Diagnostics As above EKG EKG at [facility] as above EKG pending at [facility]. Assessment/Plan Severe sepsis without septic shock: Patient had features of sepsis at on May 20, 2022 that included hypotension, tachycardia, leukocytosis and lactic acidosis. Patient normotensive on my evaluation Patient received total of 3.5 L IV fluids at [facility] Ordered 2 L additional Normal Saline bolus at [facility] and patient was started on continuous IV fluids. Patient started on IV Zosyn Blood cultures, stool culture, urinalysis and urine culture ordered Infectious disease has been consulted Enteritis/colitis: Abdominal imaging done at [facility] revealed fluid-filled small and large bowel throughout the abdomen with wall thickening of jejunum/ileum with findings consistent with enteritis/colitis. Patient is taking qwko-zcd-klfvsol Prilosec at home that increased risk of [...] stage II. Kidney function worsened initially at [facility] with BUNs/creatinine of 23/2.85 in the quality analyst/technical writer of May 21 which eventually improved to [...] for now as patient was hypotensive at [facility] Obstructive sleep apnea: Avoid CPAP for now as it can cause reduced preload that can lead to hypotension Tobacco abuse: Patient continues to smoke one quarter of pack of cigarettes on a daily basis Tobacco service desk specialist consulted, counseled patient to cut down on tobacco use Possible melena: Patient did endorse couple of episodes of black stool in the past 6 months with last episode happening at [facility] Hemoglobin of 14.2 on May 21 Stool for occult blood ordered GI has already been consulted for enteritis/colitis Hold home medication of aspirin for now DVT prophylaxis: Bilateral SCDs Heparin 5000 units subcutaneous every 8 hours due to acute kidney injury Note was written using [employer] drilling inspector software. Some of the meaning of the words and sentences might have changed during drilling inspector, if there was ever some confusion about [...] Oral, qDay diclofenac 1% topical gel 1 zahira, Topical, QID hydroCHLOROthiazide 25 mg oral tablet [...] KIERSTEN BRAUN MD on 05/21/2022 09:09 PM [facility] 05-21-2022 Note ORIGINAL EXAMINATION: THREE XRAY VIEWS [...] Sign Date: 05/21/2022 10:51:46 PM Ordering Provider: [facility] 05-21-2022 Note ORIGINAL EXAMINATION: THREE XRAY VIEWS [...] 05/21/2022 10:51:46 PM Ordering Provider: KIERSTEN BRAUN [facility] 05-21-2022 History and physical note Date of Service May 21, 2022 Chief Complaint Nausea and vomiting, chronic diarrhea. History of Present Illness A 66 years old male with past medical history significant for type 2 diabetes mellitus, COPD, tobacco abuse, hypertension, obstructive sleep apnea and morbid obesity was transferred from [facility] to [facility] in the evening of 04/20/2022 with a chief concern for sepsis likely due to enteritis/colitis. Patient presented to the [facility] in the afternoon of May 20, 2022 with a chief concern of nausea and multiple episodes of vomiting. Patient endorsed chronic diarrhea on my evaluation. Patient also noticed 2 episodes of black stools over the past 6 months with last episode happening at [facility]. Patient had CT abdomen/pelvis with contrast done at [facility] that revealed fluid-filled small and large bowel [...] right paracolic gutter. Chest x-ray done at [facility] on May 20 was not clinically significant, initial labs on presentation to [facility] were significant for white count of 16,400 with left shift, potassium of 5.6, BUN/creatinine of 24/1.99 with baseline BUN/creatinine around 18/1.16, lactic acid 3.2. COVID-19 test was negative at [facility]. Stool culture was ordered at [facility]. EKG ordered at [facility] revealed sinus rhythm with evidence of left anterior fascicular block, left ventricular hypertrophy and QTC of 445 ms. Patient also stated that he had a fall couple months ago where he injured his right foot and according to the facility coordinator he is seeing, his right foot is fractured and he has been wearing right lower extremity boot for the past couple of months. During stay at [facility], patient was hypotensive and received total of [...] and Diagnostics As above EKG EKG at [facility] as above EKG pending at [facility]. Assessment/Plan Severe sepsis without septic shock: Patient had features of sepsis at on May 20, 2022 that included hypotension, tachycardia, leukocytosis and lactic acidosis. Patient normotensive on my evaluation Patient received total of 3.5 L IV fluids at [facility] Ordered 2 L additional Normal Saline bolus at [facility] and patient was started on continuous IV fluids. Patient started on IV Zosyn Blood cultures, stool culture, urinalysis and urine culture ordered Infectious disease has been consulted Enteritis/colitis: Abdominal imaging done at [facility] revealed fluid-filled small and large bowel throughout the abdomen with wall thickening of jejunum/ileum with findings consistent with enteritis/colitis. Patient is taking prfa-fbs-irzpuyc Prilosec at home that increased risk of [...] stage II. Kidney function worsened initially at [facility] with BUNs/creatinine of 23/2.85 in the quality analyst/technical writer of May 21 which eventually improved to [...] for now as patient was hypotensive at [facility] Obstructive sleep apnea: Avoid CPAP for now as it can cause reduced preload that can lead to hypotension Tobacco abuse: Patient continues to smoke one quarter of pack of cigarettes on a daily basis Tobacco service desk specialist consulted, counseled patient to cut down on tobacco use Possible melena: Patient did endorse couple of episodes of black stool in the past 6 months with last episode happening at [facility] Hemoglobin of 14.2 on May 21 Stool for occult blood ordered GI has already been consulted for enteritis/colitis Hold home medication of aspirin for now DVT prophylaxis: Bilateral SCDs Heparin 5000 units subcutaneous every 8 hours due to acute kidney injury Note was written using [employer] drilling inspector software. Some of the meaning of the words and sentences might have changed during drilling inspector, if there was ever some confusion about [...] Oral, qDay diclofenac 1% topical gel 1 zahira, Topical, QID hydroCHLOROthiazide 25 mg oral tablet [...] KIERSTEN BRAUN MD on 05/21/2022 09:09 PM [facility] 05-21-2022 Evaluation + Plan note Extrac joann from: Title:History and Physical Author:KIERSTEN BRAUN MD Date:05/21/22 Severe sepsis without septic shock: Patient had features of sepsis at on May 20, 2022 that included hypotension, tachycardia, leukocytosis and lactic acidosis. Patient normotensive on my evaluation Patient received total of 3.5 L IV fluids at [facility] Ordered 2 L additional Normal Saline bolus at [facility] and patient was started on continuous IV fluids. Patient started on IV Zosyn Blood cultures, stool culture, urinalysis and urine culture ordered Infectious disease has been consulted Enteritis/colitis: Abdominal imaging done at [facility] revealed fluid-filled small and large bowel throughout the abdomen with wall thickening of jejunum/ileum with findings consistent with enteritis/colitis. Patient is taking xlxi-oww-qiloady Prilosec at home that increased risk of [...] stage II. Kidney function worsened initially at [facility] with BUNs/creatinine of 23/2.85 in the quality analyst/technical writer of May 21 which eventually improved to [...] for now as patient was hypotensive at [facility] Obstructive sleep apnea: Avoid CPAP for now as it can cause reduced preload that can lead to hypotension Tobacco abuse: Patient continues to smoke one quarter of pack of cigarettes on a daily basis Tobacco service desk specialist consulted, counseled patient to cut down on tobacco use Possible melena: Patient did endorse couple of episodes of black stool in the past 6 months with last episode happening at [facility] Hemoglobin of 14.2 on May 21 Stool for occult blood ordered GI has already been consulted for enteritis/colitis Hold home medication of aspirin for now DVT prophylaxis: Bilateral SCDs Heparin 5000 units subcutaneous every 8 hours due to acute kidney injury Note was written using [employer] drilling inspector software. Some of the meaning of the words and sentences might have changed during drilling inspector, if there was ever some confusion about [...] MD on May 22, 2022 19:50:18 EDT [facility] Future Appointments Appointment Date:08/15/2022 11:15:00 AM Scheduled Provider: Location:[facility] Appointment Type:PC Nurse Lab Appointment Date:08/20/2022 08:00:00 AM Scheduled Provider:EMERITA STAUFFER Location:[facility] Appointment Type: OV Follow Up Diagnostic Tests Pending * Giardia Antigen 05/22/22 * TGT Ab (IGA) 05/22/22 * [facility] Lab Send Out (Non-Blood Specimens) 05/22/22 Future [...] XR Wrist Minimum 3 Views Left 12/03/21 [facility] 06-09-2022 Hospital Discharge instructions Patient Education 03/14/2022 [...] injured foot Frequent bruising for unknown reasons [id number] [employer]. [address] [place] [address], [place] [address]. All rights reserved. This information is not intended as a substitute for professional medical care. Always follow yourhealthcare professional's instructions. Follow Up Care 03/13/2022 21:56:28 With:EMERITA STAUFFER APRN-SWITCH CLEANER Address: [address] [place] [phone] When:2-4 days [facility] 05-01-2022 Hospital Discharge instructions Patient Education [...] joint or bear weight on the joint [id number] [employer] [address] [place] [address]. All rights reserved. This information is not [...] vomit or stool (black or red color) [id number] [employer] [address] [place] [address]. All rights reserved. This information is not intended as a substitute for professional medical care. Always follow yourhealthcare professional's instructions. Follow Up Care 02/03/2022 09:45:58 With:EMERITA STAUFFER Address: [address] [facility] [place] [facility] [place] [address] [phone] When:2-4 days [facility] 11-20-2021 Hospital Discharge instructions Patient Education [...] or higher after 2 days on antibiotics [id number] [employer] [address] [place] [address]. All rights reserved. This information is not intended as a substitute for professional medical care. Always follow yourhealthcare professional's instructions. Follow Up Care 08/25/2021 11:46:34 With:EMERITA STAUFFERSWITCH CLEANER Address: [address] [facility] [place] [facility] [place] [address]- [phone] When:2-4 days [facility] 10-15-2021 Hospital Discharge instructions Patient Education [...] or higher after 2 days on antibiotics [id number] [employer] [address] [place] [address], [place] [address]. All rights reserved. This information is not intended as a substitute for professional medical care. Always follow yourhealthcare professional's instructions. Follow Up Care 07/20/2021 13:48:26 With:EMERITA STAUFFER Address: [address] [place] [address] [place] [address]- [phone] When:2-4 days [facility] 04-10-2020 Evaluation + Plan note Future Appointments Appointment Date:01/13/2023 07:30:00 AM Scheduled Provider: Location:[facility] Appointment Type:US Abdomen Limited Appointment Date:01/13/2023 08:00:00 AM Scheduled Provider: Location:[facility] Appointment Type:US Thyroid Appointment Date:01/21/2023 08:00:00 AM Scheduled Provider:EMERITA STAUFFER [facility] Appointment Type:PC OV Follow Up Appointment Date:02/17/2023 08:30:00 AM Scheduled Provider:EMERITA STAUFFER Location:[facility] Appointment Type:PC OV Follow Up Future Scheduled [...] w/o contrast 11/04/22 * US Thyroid 01/13/23 [facility] Future Appointments Appointment Date:07/25/2021 10:00:00 AM Scheduled Provider:EMERITA STAUFFER Location:[facility] Appointment Type:PC [facility] [employer] + Plan note Future Appointments Appointment Date:08/08/2021 11:00:00 AM Scheduled Provider:EMERITA STAUFFER Location:[facility] Appointment Type:PC Wellness Medicare with [facility] Plan note Future Appointments Appointment Date:08/29/2021 07:30:00 AM Scheduled Provider: Location:RAD Appointment Type:US Abdomen/Aorta Appointment Date:10/03/2021 04:00:00 PM Scheduled Provider: Location:XRAY Appointment Type:CT Thorax Screening w/o Contrast Appointment Date:11/07/2021 11:00:00 AM Scheduled Provider:MEERITA STAUFFER Location:[facility] Appointment Type:PC OV Future Scheduled Tests Radiology* US Abdomen and Aorta 08/29/21 * CT Low Dose Lung Cancer Screening (LDCT) 10/03/21 [facility] Future Appointments Appointment Date:12/14/2021 02:00:00 PM Scheduled Provider: Location:XRAY Appointment Type:CT Thorax Screening w/o Contrast Appointment Date:03/05/2022 08:30:00 AM Scheduled Provider:EMERITA STAUFFER Location:[facility] Appointment Type:PC OV Appointment Date:05/09/2022 09:00:00 AM Scheduled Provider: Location:[facility] Appointment Type:PC Nurse Lab Appointment Date:05/20/2022 11:00:00 AM Scheduled Provider:EMERITA STAUFFER Location:[facility] Appointment Type:PC OV Follow Up Future Scheduled Tests Laboratory* Prostate Specific Antigen 11/13/21 * Lipid Profile 11/13/21 * Complete Metabolic Panel 11/13/21 Radiology* XR Elbow Minimum 3 Views Left 12/03/21 * XR Finger Thumb 3 Views Left 12/03/21 * XR Knee 3 Views Right 10/12/21 * XR Wrist Minimum 3 Views Left 12/03/21 * CT Low Dose Lung Cancer Screening (LDCT) 12/14/21 [facility] Future Appointments Appointment Date:03/05/2022 08:30:00 AM Scheduled Provider:EMERITA STAUFFER Location[facility] Appointment Type:PC OV Appointment Date:05/09/2022 09:00:00 AM Scheduled Provider: Location:[facility] Appointment Type:PC Nurse Lab Appointment Date:05/20/2022 11:00:00 AM Scheduled Provider:EMERITA STAUFFER Location[facility] [facility] Appointment Type:PC OV Follow Up Diagnostic Tests [...] XR Wrist Minimum 3 Views Left 12/03/21 [facility] Plan note Future Appointments Appointment Date:03/05/2022 08:30:00 AM Scheduled Provider:EMERITA STAUFFER Location:[facility] Appointment Type:PC OV Appointment Date:05/09/2022 09:00:00 AM Scheduled Provider: Location:[facility] Appointment Type:PC Nurse Lab Appointment Date:05/20/2022 11:00:00 AM Scheduled Provider:EMERITA STAUFFER Location:[facility] Appointment Type:PC OV Follow Up Future Scheduled Tests Laboratory* Prostate Specific Antigen 11/13/21 * Lipid Profile 11/13/21 * Complete Metabolic Panel 11/13/21 Radiology* CT Low Dose Lung Cancer Screening (LDCT) 12/14/21 * XR Elbow Minimum 3 Views Left 12/03/21 * XR Finger Thumb 3 Views Left 12/03/21 * XR Knee 3 Views Right 10/12/21 * XR Wrist Minimum 3 Views Left 12/03/21 [facility] note Future Appointments Appointment Date:05/09/2022 09:00:00 AM Scheduled Provider: Location:[facility] Appointment Type:PC Nurse Lab Appointment Date:05/20/2022 11:00:00 AM Scheduled Provider:EMERITA STAUFFER Location:[employer] [facility] Appointment Type: OV Follow Up Future Scheduled Tests Laboratory* Prostate Specific Antigen 11/13/21 * Lipid Profile 11/13/21 * Complete Metabolic Panel 11/13/21 Radiology* CT Low Dose Lung Cancer Screening (LDCT) 12/14/21 * XR Elbow Minimum 3 Views Left 12/03/21 * XR Finger Thumb 3 Views Left 12/03/21 * XR Knee 3 Views Right 10/12/21 * XR Wrist Minimum 3 Views Left 12/03/21 [facility] + Plan note Future Appointments Appointment Date:05/20/2022 11:00:00 AM Scheduled Provider:EMERITA STAUFFER Location[facility] Appointment Type: OV Follow Up Future Scheduled Tests Laboratory* Lipid Profile 11/13/21 * Complete Metabolic Panel 11/13/21 Radiology* CT Low Dose Lung Cancer Screening (LDCT) 12/14/21 * XR Elbow Minimum 3 Views Left 12/03/21 * XR Finger Thumb 3 Views Left 12/03/21 * XR Knee 3 Views Right 10/12/21 * XR Wrist Minimum 3 Views Left 12/03/21 [facility] note Future Appointments Appointment Date:08/15/2022 11:15:00 AM Scheduled Provider: Location:[facility] Appointment Type:PC Nurse Lab Appointment Date:08/20/2022 08:00:00 AM Scheduled Provider:EMERITA STAUFFER Location:[facility] Appointment Type:PC OV Follow Up Future Scheduled [...] XR Wrist Minimum 3 Views Left 12/03/21 [facility] Plan note Future Appointments Appointment Date:08/20/2022 08:00:00 AM Scheduled Provider:EMERITA STAUFFER Location:[facility] Appointment Type:PC OV Follow Up Future Scheduled Tests Laboratory* Lipid Profile 11/13/21 * Complete Metabolic Panel 11/13/21 Radiology* CT Low Dose Lung Cancer Screening (LDCT) 12/14/21 * XR Elbow Minimum 3 Views Left 12/03/21 * XR Finger Thumb 3 Views Left 12/03/21 * XR Knee 3 Views Right 10/12/21 * XR Wrist Minimum 3 Views Left 12/03/21 [facility] Plan note Future Appointments Appointment Date:09/26/2022 08:30:00 AM Scheduled Provider: Location:[facility] Appointment Type:yyNM Myocard Spect R/S 2 Day S2 - Brittany Appointment Date:10/08/2022 09:00:00 AM Scheduled Provider:EMERITA STAUFFER Location:[facility] Appointment Type:PC OV ED Follow Up Appointment Date:11/19/2022 08:00:00 AM Scheduled Provider:EMERITA STAUFFER Location:[facility] Appointment Type:PC OV Follow Up Future Scheduled [...] XR Wrist Minimum 3 Views Left 12/03/21 [facility] Plan note Future Appointments Appointment Date:10/08/2022 09:00:00 AM Scheduled Provider:EMERITA STAUFFER Location:[employer] [facility] Appointment Type:PC OV ED Follow Up Appointment Date:11/19/2022 08:30:00 AM Scheduled Provider:EMERITA STAUFFER Location:[employer] [facility] Appointment Type:PC OV Follow Up Future Scheduled [...] XR Wrist Minimum 3 Views Left 12/03/21 [facility] Plan note Future Appointments Appointment Date:01/21/2023 08:00:00 AM Scheduled Provider:EMERITA STAUFFER Location:[employer] [facility] Appointment Type:PC OV Follow Up Appointment Date:02/17/2023 08:30:00 AM Scheduled Provider:EMERITA STAUFFER [facility] Appointment Type:PC OV Follow Up Future Scheduled [...] CT Abdomen and Pelvis w/o contrast 11/04/22 [facility] Plan note Future Appointments Appointment Date:02/09/2024 03:00:00 PM Scheduled Provider:MARY BOUDREAUX Location[facility] Appointment Type: OV Future Scheduled Tests Laboratory* D-Dimer 04/18/23 * Prostate Specific Antigen 09/03/23 * Complete Blood Count 04/18/23 * Vitamin D Level 01/14/24 * N-Terminal proBNP 04/18/23 [facility]* Diagnosis Class 3 severe obesity due to excess calories without serious comorbidity with body mass index (BMI) of 45.0 to 49.9 in adult (HCC)- Primary Chronic pain of both knees Primary osteoarthritis of both knees Primary localized osteoarthrosis, lower leg [facility]* Diagnosis Pain in both knees, unspecified chronicity documented in this encounter [facility] note* Diagnosis Neoplasm of uncertain behavior of thyroid gland [facility] Diagnosis Neoplasm of uncertain behavior of thyroid gland- Primary 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 Narrative No data available for this section [facility] Discharge instructions No data available for this section [facility] Progress note No data available for this section [facility] Reason for referral (narrative)* Diagnostic Procedure Only (Routine) - Closed Specialty Diagnoses / Procedures Referred By Contac t Referred To Contact XR IMAGING Diagnoses Pain in both knees, unspecified chronicity Procedures XR KNEE GENERAL 4V AP BOTH/PA BOTH/LAT/MERC BILATERAL RADIOLOGIC EXAM KNEE COMPLETE 4/MORE VIEWS Parish Coronel MD [address] [place] [address] [place] [address] Referral ID Status Reason Start Date Expiration Date V isits Requested Visits Authorized [id number] Closed Auto-Generate d Referral 05/28/2023 06/26/2024 1 1 [facility] for visit Narrative* Diagnostic Procedure Only (Routine) - Closed Specialty Diagnoses / Procedures Referred By Parish t Referred To Contact XR IMAGING Diagnoses Pain in both knees, unspecified chronicity Procedures XR KNEE GENERAL 4V AP BOTH/PA BOTH/LAT/MERC BILATERAL RADIOLOGIC EXAM KNEE COMPLETE 4/MORE VIEWS Parish Coronel MD [address] [place] [address] [place] [address] Referral ID Status Reason Start Date Expiration Date V isits Requested Visits Authorized [id number] Closed Auto-Generate d Referral 05/28/2023 06/26/2024 1 1 [facility] Summary Purpose Family History No Family History Records FoundNo Family History Records FoundNo Family History Records Found No data available for this section No data available for this section No Family History Records FoundNo Family History Records Found Advance Directives Documents on File Type Date Recorded Patient Quality Assurance Assistant Expl anation Advance Directives and Living Will [...] be sent through Care Everywhere. * Cellulitis (Tristanian) * COPD: General Info (Tristanian) * Hypertension: Acute (Tristanian) documented in this encounter Reason for Referral Specialty Diagnoses / Procedures Referred By Contac t Referred To Contact Nutrition Diagnoses Class 3 severe obesity due to excess calories without serious comorbidity with body mass index (BMI) of 45.0 to 49.9 in adult (HCC) Chronic pain of both knees Primary osteoarthritis of both knees Procedures CONSULT TO NUTRITION THERAPY MEDICAL NUTRITION ASSMT&IVNTJ INDIV EACH 15 IN MEDICAL NUTRITION ASSMT&IVNTJ INDIV EACH 15 IN MEDICAL NUTRITION ASSMT&IVNTJ INDIV EACH 15 IN MEDICAL NUTRITION ASSMT&IVNTJ INDIV EACH 15 IN Parish Coronel MD [address] [place] [address] Referral ID Status Reason Start Date Expiration Date Visits Requested Visits Authorized [id number] Pending Review PCP Requested Referral 06/02/2023 06/01/2024 1 1 Additional Source Comments (unrecognized sect ion and content) No Status Records FoundNo Status Records FoundNo Status Records FoundNo Status Records FoundNo Status Records Found INFORMATION SOURCE (unrecogn ized section and content) DATE CREATED AUTHOR 04/24/2020 [facility] DATE CREATED AUTHOR AUTHOR'S ORGANIZ ATION 07/08/2020 [facility] DATE CREATED AUTHOR AUTHOR'S ORGANIZ ATION 06/29/2023 [facility] DATE CREATED AUTHOR AUTHOR'S ORGANIZ ATION 03/03/2024 [facility] ([place] DATE CREATED AUTHOR AUTHOR'S ORGANIZ ATION 04/25/2024 [facility] Source Comments (unrecognize d section and content) In the event this informatio n is protected by the Federal Confidentiality of Alcohol and Drug Abuse Patient Records regulations: The Federal rules restrict any use of the information to criminally investigate or prosecute any alcohol or drug abuse patient.[facility] the event this information is protected by the Federal Confidentiality of Alcohol and Drug Abuse Patient Records regulations: The Federal rules restrict any use of the information to criminally investigate or prosecute any alcohol or drug abuse patient.[facility] the event this information is protected by the Federal Confidentiality of Alcohol and Drug Abuse Patient Records regulations: The Federal rules restrict any use of the information to criminally investigate or prosecute any alcohol or drug abuse patient.[facility] Reason for Visit (unrecogniz ed section and content) Reason Comments Leg Swelling b/l leg swelling x 3 weeks Reason Comments Leg Swelling RLE, swelling starte d 10 days ago per pt, was just seen here on for same but eloped, SOB with exertion Reason Comments Knee Pain Xray taken today Specialty Diagnoses / Procedures Referred By Parish fisher Referred To Contact Diagnoses Neoplasm of uncertain behavior of thyroid gland Procedures SD BIOPSY THYROID PERCUTANEOUS CORE NEEDLE [facility] Ul[facility]ound [address] [place] [address] Referral ID Status Reason Start Date Expiration Date Visits Re quested Visits Authorized [id number] 1 1 Specialty Diagnoses / Procedures Referred By Parish fisher Referred To Contact Diagnoses 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] Procedures SD TOTAL THYROID LOBEC UNI W/CONTRALAT STOT LOBEC RIGHT SUBTOTAL THYROIDECTOMY Koffi Sheldon, DO [address] [place] [address] [facility] [address] [place] [address] Referral ID Status Reason Start Date Expiration Date Visits Re quested Visits Authorized [id number] 1 1 Care Team (unrecognized sect ion and content) Historiographer Relationship Specialty Start Date End Date Mary Boudreaux APRN - CNP [address] [place] [address] PCP - General Family Nurse Practitioner 11/07/23 Historiographer Relationship Specialty Start Date End Date Mary Boudreaux APRN - CNP [address] [place] [address] PCP - General Family Nurse Practitioner 11/07/23 Historiographer Relationship Specialty Start Date End Date Mary Boudreaux APRN - CNP [address] [place] [address] PCP - General Family Nurse Practitioner 11/07/23 Care Team (unrecognized sect ion and content) Care Team Personnel Name: EMERITA STAUFFER Position: P4 Advanced Practice Nurse Med Service: Active Provider Member Role: Primary Care Physician Address: Address: [address] [place] [address]- Care Team Related Persons Name: LEIDY GOMEZ Care Team Personnel Name: EMERITA STAUFFER Position: P4 Advanced Practice Nurse Med Service: Active Provider Member Role: Primary Care Physician Address: Address: [address] [place] [address]- Care Team Related Persons Name: LEIDY GOMZE Care Team Personnel Name: EMERITA STAUFFER Position: P4 Advanced Practice Nurse Med Service: Active Provider Member Role: Primary Care Physician Address: Address: [address] [place] [address] Care Team Related Persons Name: LEIDY GOMEZ Care Team Personnel Name: EMERITA STAUFFER Position: P4 Advanced Practice Nurse Med Service: Active Provider Member Role: Primary Care Physician Address: Address: [address] [place] [address]- Care Team Related Persons Name: LEIDY GOMEZ Care Team Personnel Name: EMERITA STAUFFER APRN-KHADAR Position: P4 Advanced Practice Nurse Member Role: Primary Care Physician Address: Address: [address] [place] [address] Care Team Related Persons Name: LEIDY GOMEZ Care Team Personnel Name: EMERITA STAUFFER APRN-SWITCH CLEANER Position: P4 Advanced Practice Nurse Member Role: Primary Care Physician Address: Address: [address] [place] [address] Care Team Related Persons Name: LEIDY GOMEZ Care Team Personnel Name: EMERITA STAUFFER APRN-KHADAR Position: P4 Advanced Practice Nurse Member Role: Primary Care Physician Address: Address: [address] [place] [address] Care Team Related Persons Name: LEIDY GOMEZ Scheduled Active and Recently Administ ered Medications (unrecognized section and content) Medication Order 02/10/2024 02/11/2024 02/12/2024 acetaminophen (Tylenol) tablet 1,000 mg (COMPLETED) 1,000 mg, Oral, Once, On Mariza 02/12/24 at 1015, For 1 dose, Preprocedure, Administer 60 minutes prior to surgery. 1047 (Given - Provid er: Virginia Rawls RN) famotidine (Pepcid) tablet 20 mg (COMPLETED)(Linked Group 1) 20 mg, Oral, Once, On Mariza 02/12/24 at 1015, For 1 dose, Preprocedure, IV or Oral - Use PO option as first line. If unable to tolerate PO, then okay to use IV. 1047 (Given - Provid er: Virginia Rawls RN) sodium chloride 0.9% (NS) flush 5-40 mL 5-40 mL, IntraVENous, Every 12 hours, First dose on Mariza 02/12/24 at 1015, Preprocedure, For Line Patency: Peripheral IV = 5 mL; Midline or Central Line = 10 mL/lumen. If following IV push medication, administer flush at same rate as the IV push. Flush volume is determined by type of infusion therapy being given. For non-viscous solutions use: Peripheral IV = 5 mL Midline or Central Line = 10 mL/lumen For viscous solutions (i.e. blood components, parenteral nutrition, contrast media, or after obtaining blood sample) use: Peripheral IV = 10 mL Midline or Central Line = 20 mL/lumen 1015 (Canceled Entry - Provider: Automatic Discharge Provider - Comment: Automatically canceled at discontinue of medication order) Continuous Medication Order 02/10/2024 02/11/2024 02/12/2024 lactated Ringer's (LR) infusion 50 mL/hr, IntraVENous, Continuous, Starting on Mariza 02/12/24 at 1015, Preprocedure, Upon admission to sameday - please start iv if patient does not have iv access. Use 500ml NS for patients on dialysis. 1047 (New Bag - Prov ider: Virginia Rawls RN)1142 (Continued by Anesthesia - Provider: Kenrick Dunham CRNA)1644 (Stopped - Provider: Gustavo Bradley CRNA) PRN Medication Order 02/10/2024 02/11/2024 02/12/2024 calcium chloride 10 % injection (CANCELED) As needed, Starting on Mariza 02/12/24 at 1250, Intraprocedure 1250 (Given - Provid er: Koffi Sheldon, - Comment: 5ML MIXED WITH THROMBIN) diphenhydrAMINE (BENADryl) injection 12.5 mg 12.5 mg, IntraVENous, Once PRN, itching, Starting on Mariza 02/12/24 at 1641, For 1 dose, Recovery (only) hydrALAZINE (Apresoline) injection 5 mg(Linked Group 2) 5 mg, IntraVENous, Every 15 min PRN, high blood pressure, for SBP greater than 160 mmHg for 2 consecutive measurements taken from different sites, Starting on Mariza 02/12/24 at 1641, For 2 doses, Recovery (only), PRN for SBP > 160 for 2 consecutive measurements, and if one of the following conditions is met: 1) If IV labetolol is ineffective. 2) If HR is under 60. 3) If patient has heart block, COPD or asthma. If both labetalol and hydralazine ineffective, notify anesthesia provider. HYDROmorphone (Dilaudid) injection 0.25 mg 0.25 mg, IntraVENous, Every 5 min PRN, moderate pain (4-6), Starting on Mariza 02/12/24 at 1641, For 4 doses, Recovery (only), For Phase I. If Phase II oral narcotics have been administered in the last 60 minutes, do not administer IV narcotics unless specifically approved by provider. HYDROmorphone (Dilaudid) injection 0.5 mg 0.5 mg, IntraVENous, Every 5 min PRN, severe pain (7-10), Starting on Mariza 02/12/24 at 1641, For 4 doses, Recovery (only), For Phase I. If Phase II oral narcotics have been administered in the last 60 minutes, do not administer IV narcotics unless specifically approved by provider. labetalol (Normodyne,Trandate) injection 5 mg(Linked Group 2) 5 mg, IntraVENous, Every 10 min PRN, high blood pressure, for SBP greater than 160 mmHg for 2 consecutive measurements taken from different sites., Starting on Mariza 02/12/24 at 1641, For 2 doses, Recovery (only), PRN for SBP >160 for 2 consecutive measurements, if HR is 60 or greater. If beta rain is contraindicated (HR less than 60, heart block, COPD or asthma) use hydralazine IV order. lidocaine-EPINEPHrine (Xylocaine W/EPI) 1 %-1:[id number] injection (CANCELED) As needed, Starting on Mariza 02/12/24 at 1249, Intraprocedure 1249 (Given - Provid er: Koffi Sheldon DO) LORazepam (Ativan) injection 0.5 mg 0.5 mg, IntraVENous, Once PRN, for anxiety or muscle spasm., Starting on Mariza 02/12/24 at 1641, For 1 dose, Recovery (only), For IV doses dilute dose with 1ml NS. ondansetron (Zofran) injection 4 mg 4 mg, IntraVENous, Once PRN, nausea, Starting on Mariza 02/12/24 at 1641, For 1 dose, Recovery (only), Initial antiemetic therapy. oxyCODONE (Roxicodone) immediate release tablet 10 mg(Linked Group 3) 10 mg, Oral, PRN, severe pain (7-10), Starting on Mariza 02/12/24 at 1641, For 1 dose, Recovery (only), PHASE II oxyCODONE (Roxicodone) immediate release tablet 5 mg(Linked Group 3) 5 mg, Oral, PRN, moderate pain (4-6), Starting on Mariza 02/12/24 at 1641, For 1 dose, Recovery (only), PHASE II sodium chloride 0.9 % bolus 500 mL 500 mL, IntraVENous, at 1,000 mL/hr, Administer over 0.5 Hours, PRN, Anti-nausea, Starting on Mariza 02/12/24 at 1641, Recovery (only), Indications: Anti-nausea sodium chloride 0.9 % infusion 5-250 mL/hr, IntraVENous, PRN, if patient receiving piggyback infusions and maintenance fluids are not ordered OR KVO fluids to protect IV site / prevent frequent line interruptions / long duration, Starting on Mariza 02/12/24 at 1007, Preprocedure, For piggyback infusion, administer at same rate as piggyback for a total of 25 mL. Enter 25 mL into dose field and piggyback rate into rate field of order. If piggyback is infusing at a rate less than 100 mL/hr, enter 25 mL into dose field and 100 mL/hr into rate field of order. For KVO fluids, enter rate of 20 mL/hr or less into rate field of order. sodium chloride 0.9% (NS) flush 5-40 mL 5-40 mL, IntraVENous, PRN, line care, After every IV line use, Starting on Mariza 02/12/24 at 1007, Preprocedure, For Line Patency: Peripheral IV = 5 mL; Midline or Central Line = 10 mL/lumen. If following IV push medication, administer flush at same rate as the IV push. Flush volume is determined by type of infusion therapy being given. For non-viscous solutions use: Peripheral IV = 5 mL Midline or Central Line = 10 mL/lumen For viscous solutions (i.e. blood components, parenteral nutrition, contrast media, or after obtaining blood sample) use: Peripheral IV = 10 mL Midline or Central Line = 20 mL/lumen Linked Groups Order Group 1: famotidine (Pepcid) tablet 20 mg (COMPLETED)Jump to med 20 mg, Oral, Once, On Mariza 02/12/24 at 1015, For 1 dose, Preprocedure, IV or Oral - Use PO option as first line. If unable to tolerate PO, then okay to use IV. Or famotidine (Pepcid) 20 mg in sodium chloride (PF) 0.9 % 10 mL injection (COMPLETED) 20 mg, IntraVENous, Administer over 2 Minutes, Once, On Mariza 02/12/24 at 1015, For 1 dose, Preprocedure, IV or Oral Group 2: labetalol (Normodyne,Trandate) injection 5 mgJump to med 5 mg, IntraVENous, Every 10 min PRN, high blood pressure, for SBP greater than 160 mmHg for 2 consecutive measurements taken from different sites., Starting on Mariza 02/12/24 at 1641, For 2 doses, Recovery (only), PRN for SBP >160 for 2 consecutive measurements, if HR is 60 or greater. If beta rain is contraindicated (HR less than 60, heart block, COPD or asthma) use hydralazine IV order. Or hydrALAZINE (Apresoline) injection 5 mgJump to med 5 mg, IntraVENous, Every 15 min PRN, high blood pressure, for SBP greater than 160 mmHg for 2 consecutive measurements taken from different sites, Starting on Mariza 02/12/24 at 1641, For 2 doses, Recovery (only), PRN for SBP > 160 for 2 consecutive measurements, and if one of the following conditions is met: 1) If IV labetolol is ineffective. 2) If HR is under 60. 3) If patient has heart block, COPD or asthma. If both labetalol and hydralazine ineffective, notify anesthesia provider. Group 3: oxyCODONE (Roxicodone) immediate release tablet 5 mgJump to med 5 mg, Oral, PRN, moderate pain (4-6), Starting on Mariza 02/12/24 at 1641, For 1 dose, Recovery (only), PHASE II Or oxyCODONE (Roxicodone) immediate release tablet 10 mgJump to med 10 mg, Oral, PRN, severe pain (7-10), Starting on Mariza 02/12/24 at 1641, For 1 dose, Recovery (only), PHASE II FOR RECORDS PERTAINING TO PATIENTS WHO ARE [...] BE BASED ON THE PRIMARY CLINICAL RECORDS. [facility] [employer] [facility]. provides no warranty or guarantee of the accuracy or completeness of information in this document.
--- NOTE | 2024-07-31 18:16 | RAD_ITS ---
INDICATION: Injury/Pain EXAMINATION/TECHNIQUE: X-RAY - RIGHT XR Wrist Min 3 Views COMPARISON: None. FINDINGS: No acute fracture or malalignment. No blastic or lytic lesions. Mild scattered degenerative changes. Soft tissue swelling of the wrist. RAD/Wrist min 3 Views IMPRESSION: No acute radiographic abnormalities. Electronically Signed: Gary Mead MD at 19:08 EDT ,
[2024-07-31 19:37] VITALS: BP 107/61; PULSE 59; RESP 24; TEMP 36.5; O2SAT 96
== END 2024-07-31 19:38 | disposition home or self-care (01) ==
PROVIDERS: Emergency Provider Emergency Medicine; Visit Provider Emergency Medicine
DX: S63.91XA Sprain of unspecified part of right wrist and hand, initial encounter (principal); F17.210 Nicotine dependence, cigarettes, uncomplicated; W19.XXXA Unspecified fall, initial encounter
CPT/HCPCS: 73110; 99283

== ENCOUNTER → 2024-08-26 | Outpatient (CLI) | payer MEDICARE, MEDICAID, SELFPAY | END | disposition home or self-care (01) | LOC: SL 20:30 | PROVIDERS: PCP Nurse Practitioner Family; Referring Provider Nurse Practitioner Family; Visit Provider Nurse Practitioner Family | DX: G47.33 Obstructive sleep apnea (adult) (pediatric) (principal) | CPT/HCPCS: 95811 ==

== ENCOUNTER 2024-09-24 16:54 | Emergency (ER) | payer MEDICARE, MEDICAID, SELFPAY ==
[2024-09-24 16:54] VITALS: BP 147/68; PULSE 65; RESP 20; TEMP 36.6; O2SAT 97; BMI 48.9
--- NOTE | 2024-09-24 18:03 | ED.VIS.DYS ---
HPI History of Present Illness Chief Complaint: Cough Informant: patient Narrative Narrative: 69-year-old male long-term smoker presenting to the emergency room with a 4 to 5-day history of cough. He states that it turned productive today he describes a yellow sputum. He states he does not wear home oxygen but does have sleep apnea. He does not take daily steroids. He denies any known lung conditions but has used inhalers in the past. Patient denies any fevers. He notes a slight sore throat today. No nausea vomiting or diarrhea. Patient notes his CPAP machine is broken and he is awaiting a new one. This is caused him a lot of distress at night and a feeling of not being rested. [facility] Medical History GERD (gastroesophageal reflux disease) High cholesterol HTN (hypertension) Thyroid cancer Home Medications ?Medication ?Instructions ?Recorded ?Last Taken ?Type lisinopril 40 mg tablet 40 mg PO DAILY 10/11/23 02/14/24 History hydrochlorothiazide 25 mg tablet 25 mg PO DAILY 02/14/24 02/14/24 History metoprolol succinate 100 mg 100 mg PO DAILY 02/14/24 Unknown History tablet,extended release 24 hr omeprazole 20 mg capsule,delayed 20 mg PO DAILY 02/14/24 02/14/24 History release rosuvastatin 10 mg tablet 10 mg PO QHS 02/14/24 02/13/24 History aspirin 81 mg tablet,delayed 81 mg PO DAILY 02/21/24 Unknown History release (Adult Aspirin Regimen) albuterol sulfate 90 mcg/actuation 1 - 2 puff inhalation Q4H PRN PRN 06/07/24 Unknown Rx aerosol inhaler (Ventolin HFA) Wheezing ##1 doxycycline monohydrate 100 mg 100 mg PO BID #14 CAPSULES 06/07/24 Unknown Rx capsule prednisone 20 mg tablet 40 mg (2 x 20 mg) PO BID #10 tabs 06/07/24 Unknown Rx albuterol sulfate 90 mcg/actuation 2 puff inhalation Q4H PRN PRN 09/24/24 Unknown Rx aerosol inhaler (Ventolin HFA) Wheezing ##1 azithromycin 250 mg tablet 250 mg PO DAILY #4 TABLETS 09/24/24 Unknown Rx prednisone 20 mg tablet 60 mg (3 x 20 mg) PO DAILY #12 09/24/24 Unknown Rx TABLETS Allergy/AdvReac Type Severity Reaction Status Date / Time No Known Allergies Allergy Verified 09/24/24 16:54 Surgical History S/P removal of thyroid nodule Social History Smoking Status: Current every day smoker tobacco type: cigarettes ROS ROS ED Constitutional Constitutional ED: Denies chills, fever(s) or weight loss Eyes Eyes: Denies change in vision or diplopia ENT ENT ED: Reports sore throat; Denies ear pain or rhinorrhea Cardiovascular Cardiovascular: Denies chest pain, orthopnea, palpitations or racing heartbeat Respiratory/Chest Respiratory/Chest: Reports cough and dyspnea; Denies orthopnea Gastrointestinal Gastrointestinal: Denies abdominal pain, diarrhea, nausea or vomiting Genitourinary Genitourinary ED: Denies dysuria, hematuria or urinary frequency Musculoskeletal Musculoskeletal: Denies arthralgias or myalgias Integumentary Denies abscess or rash Neurologic Neurologic: Denies headache(s) or weakness Psychiatric Psychiatric: Denies anxiety, depression, suicidal ideation or suicidal thoughts Endocrine Endocrinology: Denies polydipsia, polyphagia or polyuria Allergic/Immunologic Allergic/Immunologic ED: Denies mouth swelling, tongue swelling or urticaria EXAM Physical Exam Const Vital Signs: 09/24/24 16:54 09/24/24 18:24 09/24/24 18:29 Temperature 97.9 F Temperature Source Oral Pulse Rate 65 64 Respiratory Rate 20 H 22 H Respiratory Effort Normal Non-Labored Respiratory Depth Normal Respiratory Pattern Tachypnea Normal Blood Pressure 147/68 H Blood Pressure Mean 94 Pulse Ox 97 Oxygen Delivery Method Room Air Room Air 09/24/24 18:54 09/24/24 20:03 Temperature 98.0 F Temperature Source Pulse Rate 71 64 Respiratory Rate 22 H 18 Respiratory Effort Respiratory Depth Respiratory Pattern Blood Pressure 136/60 H Blood Pressure Mean 85 Pulse Ox 92 93 Oxygen Delivery Method Room Air Positive well nourished, well developed and obese General Appearance ED: well developed and NAD Nutritional Appearance: obese HEENT Reports normocephalic, head/scalp atraumatic and moist mucous membranes Eyes PERRL and EOMs intact bilaterally Neck no lymphadenopathy, supple and no JVD Resp normal respiratory effort and clear to auscultation bilaterally Resp Narrative: There is a prolonged expiration. Cardio regular rate, regular rhythm and no murmurs GI normal to inspection, nondistended, normoactive bowel sounds and non-tender Palpation: soft Back/Spine no CVA tenderness and normal ROM Extremity normal to inspection General Extremety ED: Negative for edema General Extremity: Negative for edema Neuro oriented x3 and CN's II-XII intact bilaterally Sensorium / Orientation: alert Motor Exam: strength 5/5 throughout Psych mental status grossly normal Mood & Affect: Negative for depressed or tearful Skin no rashes or lesions noted and no wounds MDM MDM MDM Narrative Medical decision making narrative: Differential diagnosis includes but not limited to COPD exacerbation pneumonia bronchitis pleural effusion congestive heart failure My independent interpretation of the chest x-ray is no acute process. COPD changes noted. Patient received a DuoNeb as well as azithromycin and prednisone. He is able to ambulate without hypoxia. I am going to discharge him home with albuterol MDI prednisone and continued azithromycin. Smoking cessation discussed. Would recommend PCP follow-up if not improving return if worsening. History & Record Review Discussion w/independent historian: Patient Radiography Diagnostic Testing: Clinical Impression(s) from Imaging Studies Chest X-Ray 09/24/24 18:55 IMPRESSION: There are findings consistent with COPD. There is no evidence of acute chest disease. Electronically Signed: Daniele Mooney MD at 19:18 EST , Discharge Plan Triage Chief Complaint: Cough ED Provider: Keshav Alicia Dx/Rx/DC Orders Clinical Impression: Bronchitis, COPD with acute exacerbation Instructions: ED COPD Flare Prescriptions: New azithromycin 250 mg tablet 250 mg PO DAILY Qty: 4 0RF prednisone 20 mg tablet 60 mg PO DAILY Qty: 12 0RF albuterol sulfate [Ventolin HFA] 90 mcg/actuation HFA aerosol inhaler 2 puff inhalation Q4H PRN PRN (Reason: Wheezing) Qty: 1 0RF Rx Instructions: with spacer No Action lisinopril 40 mg tablet 40 mg PO DAILY aspirin [Adult Aspirin Regimen] 81 mg tablet,delayed release (DR/EC) 81 mg PO DAILY hydrochlorothiazide 25 mg tablet 25 mg PO DAILY metoprolol succinate 100 mg tablet extended release 24 hr 100 mg PO DAILY omeprazole 20 mg capsule,delayed release(DR/EC) 20 mg PO DAILY rosuvastatin 10 mg tablet 10 mg PO QHS doxycycline monohydrate 100 mg capsule 100 mg PO BID Qty: 14 0RF albuterol sulfate [Ventolin HFA] 90 mcg/actuation HFA aerosol inhaler 1 - 2 puff inhalation Q4H PRN PRN (Reason: Wheezing) Qty: 1 0RF prednisone 20 mg tablet 40 mg PO BID Qty: 10 0RF Primary Care Provider: TERESA DEVI Referrals: TERESA DEVI, FURNITURE MANAGER-C [Primary Care Provider] - 3-5 Days if not improving Print Language: Honduran Disposition Disposition: Home, Self Care Discharge Date/Time: 09/24/24 20:03
[2024-09-24 18:24] VITALS: PULSE 64; RESP 22
[2024-09-24] MEDS: Ipratropium/Albuterol Sulfate 3 ML AMPUL.NEB INHALATION (18:24)
[2024-09-24 18:29] VITALS: O2SAT 92
[2024-09-24 18:54] VITALS: PULSE 71; RESP 22; O2SAT 92
--- NOTE | 2024-09-24 18:55 | RAD_ITS ---
STUDY: X-RAY CHEST REASON FOR EXAM: Male, 69 years old. cough TECHNIQUE: Frontal and lateral views of the chest. COMPARISON: 06/07/2024. FINDINGS: There is hyperinflation of the lungs consistent with chronic obstructive lung disease (COPD). No infiltrates or effusions. There is no demonstrated pleural abnormality. Normal size heart. Normal mediastinum and darryl. Normal visualized pulmonary arteries. Normal visualized aortic arch and descending thoracic aorta. There are diffuse degenerative changes of the visualized thoracic spine. Normal visualized ribs, clavicles, and shoulders. There is no demonstrated abnormality of the visualized soft tissue structures of the upper abdomen. RAD/Chest PA and Lateral IMPRESSION: There are findings consistent with COPD. There is no evidence of acute chest disease. Electronically Signed: Daniele Mooney MD at 19:18 EST ,
[2024-09-24 19:34] VITALS: O2SAT 94
[2024-09-24] MEDS: predniSONE 20 MG Tablet 60 MG PO (19:59)
[2024-09-24] MEDS: Azithromycin 250 MG Tablet 500 MG PO (20:00)
[2024-09-24 20:03] VITALS: BP 136/60; PULSE 64; RESP 18; TEMP 36.7; O2SAT 93
== END 2024-09-24 20:03 | disposition home or self-care (01) ==
PROVIDERS: Emergency Provider Emergency Medicine; PCP Nurse Practitioner Family; Visit Provider Emergency Medicine
DX: J40 Bronchitis, not specified as acute or chronic (principal); J44.1 Chronic obstructive pulmonary disease with (acute) exacerbation; Z68.42 Body mass index [BMI] 45.0-49.9, adult; I10 Essential (primary) hypertension; F17.210 Nicotine dependence, cigarettes, uncomplicated; E78.00 Pure hypercholesterolemia, unspecified; E66.9 Obesity, unspecified; Z79.82 Long term (current) use of aspirin; Z79.899 Other long term (current) drug therapy
CPT/HCPCS: 71046; 94640; 99283

== ENCOUNTER → 2024-11-26 | Outpatient (CLI) | payer MEDICARE, SELFPAY ==
[2024-11-26 12:05] LABS: Microalbumin:Creatinine Ratio 12.4 mg/g CRE (<30 mg/g CRE)
[2024-11-26 12:18] LABS: ALB/GLOB Ratio 0.7 RATIO (0.9-2.4); AST(SGOT) 35 U/L (15-37); Alanine Aminotransfer ALT/SGPT 39 U/L (16-61); Albumin, Serum 3.2 g/dL (3.2-5.0); Alkaline Phosphatase 59 U/L (45-117); Anion Gap 6 (5-15); BUN 19 mg/dL (7-18); BUN/Creat Ratio 19.2 RATIO (10-20); Calcium,Total 9.6 mg/dL (8.5-10.1); Chloride 107 mmol/L (98-107); Cholesterol 89 mg/dL (200); Creatinine, Serum 0.99 mg/dL (0.70-1.30); EST Glomerular Filtration Rate 79 mL/min (>60); Est Glom Filt Rate - Afr Amer 96 mL/min (>60); Globulin 4.8 g/dL (2.2-4.2); Glucose 176 mg/dL (74-106); High Density Lipoprotein 31 mg/dL; Potassium 4.1 mmol/L (3.5-5.1); Sodium Level 137 mmol/L (136-145); T4 Free Direct 0.73 ng/dL (0.76-1.46); Triglycerides 210 mg/dL; Very Low Density Lipoprotein 42 mg/dL (5-40)
== END | disposition home or self-care (01) ==
PROVIDERS: PCP Nurse Practitioner Family; Referring Provider Nurse Practitioner Family; Visit Provider Nurse Practitioner Family
DX: I10 Essential (primary) hypertension (principal); E11.9 Type 2 diabetes mellitus without complications; E78.5 Hyperlipidemia, unspecified; Z12.5 Encounter for screening for malignant neoplasm of prostate
CPT/HCPCS: 36415; 80053; 80061; 82043; 82570; 83036; 84439; 84443

== ENCOUNTER 2024-12-06 11:25 | Emergency (ER) | payer MEDICARE, MEDICAID, SELFPAY ==
[2024-12-06 11:26] VITALS: BP 160/91; PULSE 22; RESP 77; TEMP 36.5; O2SAT 96
[2024-12-06 11:28] VITALS: BMI 50.1
--- NOTE | 2024-12-06 11:41 | EDS_ITS ---
<Statement entered by Jeffery Saba DO - 12/08/24 07:33> Patient was seen and examined with physician speech pathology assistant Ledy All components of the history and physical confirmed and agreed. History of present illness and physical exam: Patient is a 69-year-old male past medical history of hypertension, thyroid cancer, GERD, COPD, diabetes, hyperlipidemia who presented to the emergency department chief complaint of abdominal/flank pain on the left side. States that started 2 nights ago and have progressively worsened through the last few days prompting him to come here for evaluation management. Patient has a history of kidney stones. Patient states that last time he had this happen he was evaluated in ER and was told that he was constipated. He states that he tried taking MiraLAX since he had not had a bowel movement recently and noted that he had a bowel movement prior to coming to the emergency department states that this did not help. Review of systems: Agree with above Physical exam: Agree with above MDM Patient is a 69-year-old male who presents to the emergency department chief complaint of left-sided flank pain. On the differential diagnose includes but not limited to AAA, urolithiasis, UTI, pyelonephritis, musculoskeletal strain. Once workup is obtained reviewed he will be reevaluated. Patient CBC reviewed showed no evidence leukocytosis white blood count normal at 9.2, hemoglobin 16, plate count normal at 170. Sodium normal 136, potassium normal 3.9, creatinine normal at 0.94. Patient's urinalysis did not reveal any evidence of infection. Patient did have some blood noted in his urine. Patient CT ab pelvis without contrast showed a small esophageal hiatal hernia hepatomegaly fatty infiltration obstructive uropathy noted. There is colonic diverticulosis without evidence of diverticulitis with degenerative changes in the lumbar spine noted as well.
--- NOTE | 2024-12-06 11:41 | EX.ED.DYSGE1 ---
HPI History of Present Illness Chief Complaint: Flank Pain Narrative Narrative: 69-year-old male with PMH of HTN, HLD, DM2, COPD presents with pain in the left side of his abdomen/flank. States it started gradually 2 nights ago but became more severe yesterday. He gets a sudden sharp pain with no clear pattern. It is not related to movement necessarily. He states the last time this occurred he had right flank pain and he was evaluated in the ER with a CT scan and told he was constipated. Since he had not had a bowel movement recently he decided to try 2 doses of MiraLAX when his current pain started and he had a bowel movement on the way to the emergency room. He denies fever chills nausea or vomiting or abdominal pain. He said no melena or hematochezia. He has no history of kidney stones. [facility] Medical History (Updated 12/06/24 @ 13:45 by BRENDA Ramírez) COPD (chronic obstructive pulmonary disease) Constipation GERD (gastroesophageal reflux disease) High cholesterol HTN (hypertension) Thyroid cancer Home Medications ?Medication ?Instructions ?Recorded ?Last Taken ?Type lisinopril 40 mg tablet 40 mg PO DAILY 10/11/23 02/14/24 History hydrochlorothiazide 25 mg tablet 25 mg PO DAILY 02/14/24 02/14/24 History metoprolol succinate 100 mg 100 mg PO DAILY 02/14/24 Unknown History tablet,extended release 24 hr omeprazole 20 mg capsule,delayed 20 mg PO DAILY 02/14/24 02/14/24 History release rosuvastatin 10 mg tablet 10 mg PO QHS 02/14/24 02/13/24 History aspirin 81 mg tablet,delayed 81 mg PO DAILY 02/21/24 Unknown History release (Adult Aspirin Regimen) albuterol sulfate 90 mcg/actuation 1 - 2 puff inhalation Q4H PRN PRN 06/07/24 Unknown Rx aerosol inhaler (Ventolin HFA) Wheezing ##1 doxycycline monohydrate 100 mg 100 mg PO BID #14 CAPSULES 06/07/24 Unknown Rx capsule prednisone 20 mg tablet 40 mg (2 x 20 mg) PO BID #10 tabs 06/07/24 Unknown Rx albuterol sulfate 90 mcg/actuation 2 puff inhalation Q4H PRN PRN 09/24/24 Unknown Rx aerosol inhaler (Ventolin HFA) Wheezing ##1 azithromycin 250 mg tablet 250 mg PO DAILY #4 TABLETS 09/24/24 Unknown Rx prednisone 20 mg tablet 60 mg (3 x 20 mg) PO DAILY #12 09/24/24 Unknown Rx TABLETS albuterol sulfate 90 mcg/actuation 2 puff inhalation Q4H PRN 09/25/24 Unknown Rx aerosol inhaler (Ventolin HFA) shortness of breath or wheezing #8.5 grams azithromycin 250 mg tablet 250 mg PO DAILY 4 days #4 tabs 09/25/24 Unknown Rx prednisone 20 mg tablet 20 mg PO DAILY 12 days #12 tabs 09/25/24 Unknown Rx Allergy/AdvReac Type Severity Reaction Status Date / Time No Known Allergies Allergy Verified 12/06/24 11:28 Surgical History (Updated 12/06/24 @ 11:35 by Zeina Snow) H/O knee surgery History of cholecystectomy S/P removal of thyroid nodule Social History Smoking Status: Current every day smoker tobacco type: cigarettes ROS ROS ED ROS Narrative Constitutional: Negative for fever, chills, malaise. CVS: Negative for chest pain. Respiratory: Negative for shortness of breath, cough. GI: Negative for abdominal pain, nausea, vomiting, melena, hematochezia. : Negative for dysuria, hematuria or frequency. EXAM Physical Exam Narrative Exam Narrative: CONST: Patient sitting in no acute distress. EYES: Normal inspection. NECK: Normal inspection. RESP: No respiratory distress, CTAB. CVS: Regular rate and rhythm, no murmur, no gallop. ABD: Obese abdomen is soft and nontender, no guarding or rebound, nondistended. Back: Normal inspection, no CVA tenderness. Reproducible tenderness over left lateral thorax between flank and abdomen. SKIN: Color normal, no rash, warm, dry, intact. EXTREMITIES: Normal appearance, 2+ radial and DP pulses. NEURO: Alert and answering questions appropriately. PSYCH: Normal affect. Const Vital Signs: 12/06/24 11:26 12/06/24 13:25 12/06/24 14:06 Temperature 97.7 F L 97.7 F L Temperature Source Temporal Pulse Rate 22 L 22 L Respiratory Rate 77 H 77 H Blood Pressure 160/91 H 135/121 H 135/121 H Blood Pressure Mean 114 125 125 Pulse Ox 96 96 Oxygen Delivery Method Room Air MDM MDM MDM Narrative Medical decision making narrative: 69-year-old male presents with left flank/side pain over the last few days. He appears well and nontoxic. Vital signs stable. He has a normal cardiopulmonary exam. He has reproducible tenderness in an area of his left side. There are no overlying skin changes or signs of zoster. He has no abdominal or CVA tenderness. Differential includes but not limited to kidney stone, intra-abdominal process, musculoskeletal. CBC is unremarkable. BMP shows normal electrolytes, BUN 22, creatinine 0.94. Glucose is 159 consistent with known diabetes. Urinalysis is negative. CT of the abdomen/pelvis shows no acute findings that would correlate with his symptoms. I suspect he has musculoskeletal pain because it is reproducible and localized to 1 small area. He felt better after the initial IV morphine and Zofran and was given a lidocaine patch after result. He states he will take Tylenol/Aleve at home. I discussed return precautions and he was discharged in stable condition Lab Data Attestation: I reviewed the patient's lab results. Labs: Laboratory Results - last 24 hr 12/06/24 12/06/24 11:45 12:23 WBC 9.2 RBC 5.32 Hgb 16.0 Hct 47.5 MCV 89.3 MCH 30.1 MCHC 33.7 RDW Std Deviation 43.9 RDW Coeff of Nena 13.5 Plt Count 170 MPV 11.1 Immature Gran % (Auto) 0.200 Neut % (Auto) 52.6 Lymph % (Auto) 34.9 [place] % (Auto) 9.0 Eos % (Auto) 2.8 Baso % (Auto) 0.5 Absolute Neuts (auto) 4.8 Absolute Lymphs (auto) 3.20 Nucleated RBC % 0 Sodium 136 Potassium 3.9 Chloride Direct 103 Carbon Dioxide 21.7 L Anion Gap 11 BUN 22 H Creatinine 0.94 Estim Creat Clear Calc 96.49 Est GFR (MDRD) Non-Af 86 BUN/Creatinine Ratio 22.9 H Glucose 159 H Calcium 9.5 Urine Color Yellow Urine Clarity Clear Urine pH 6.0 Ur Specific [place] 1.015 Urine Protein 15 H Urine Glucose (UA) Normal Urine Ketones Negative Urine Occult Blood 25 H Urine Nitrite Negative Urine Bilirubin Negative Urine Urobilinogen 8 H Ur Leukocyte Esterase Negative Urine RBC 0-5 SEEN Urine WBC 0 SEEN Ur Squamous Epith Cells 0 SEEN Urine Bacteria RARE Urine Mucus 0 SEEN Radiography Diagnostic Testing: Clinical Impression(s) from Imaging Studies Abdomen/Pelvis CT 12/06/24 12:09 IMPRESSION: 1. Small esophageal hiatal hernia. 2. Hepatomegaly with fatty infiltration. 3. No obstructive uropathy. 4. Colonic diverticulosis without acute diverticulitis. 5. Degenerative changes lumbar spine as described. Reading Location: [facility] Discharge Plan Triage Chief Complaint: Flank Pain ED Midlevel Provider: Ledy Lee ED Provider: Jeffery Saba Dx/Rx/DC Orders Clinical Impression: Musculoskeletal pain, Left flank pain Instructions: ED Flank Pain, Uncertain Cause Prescriptions: No Action lisinopril 40 mg tablet 40 mg PO DAILY aspirin [Adult Aspirin Regimen] 81 mg tablet,delayed release (DR/EC) 81 mg PO DAILY azithromycin 250 mg tablet 250 mg PO DAILY Qty: 4 0RF prednisone 20 mg tablet 60 mg PO DAILY Qty: 12 0RF albuterol sulfate [Ventolin HFA] 90 mcg/actuation HFA aerosol inhaler 2 puff inhalation Q4H PRN PRN (Reason: Wheezing) Qty: 1 0RF Rx Instructions: with spacer albuterol sulfate [Ventolin HFA] 90 mcg/actuation HFA aerosol inhaler 2 puff inhalation Q4H PRN (Reason: shortness of breath or wheezing) Qty: 8.5 0RF prednisone 20 mg tablet 20 mg PO DAILY 12 Days Qty: 12 0RF azithromycin 250 mg tablet 250 mg PO DAILY 4 Days Qty: 4 0RF Rx Instructions: start on day 2 of therapy hydrochlorothiazide 25 mg tablet 25 mg PO DAILY metoprolol succinate 100 mg tablet extended release 24 hr 100 mg PO DAILY omeprazole 20 mg capsule,delayed release(DR/EC) 20 mg PO DAILY rosuvastatin 10 mg tablet 10 mg PO QHS doxycycline monohydrate 100 mg capsule 100 mg PO BID Qty: 14 0RF albuterol sulfate [Ventolin HFA] 90 mcg/actuation HFA aerosol inhaler 1 - 2 puff inhalation Q4H PRN PRN (Reason: Wheezing) Qty: 1 0RF prednisone 20 mg tablet 40 mg PO BID Qty: 10 0RF Primary Care Provider: TERESA DEVI Referrals: TERESA DEVI NP-C [Primary Care Provider] - Activity Restrictions/Additional Instructions: Overall your CT scan is unremarkable with no new findings to explain your pain. It could be musculoskeletal as you are very tender when I touch that area. I recommend Tylenol and [id number] lidocaine patches as needed. Print Language: East Timorese Disposition Disposition: Home, Self Care Discharge Date/Time: 12/06/24 14:06
[2024-12-06] MEDS: Morphine 4 MG/ML Syringe IV (11:50)
[2024-12-06] MEDS: Ondansetron 4 MG/2 ML Vial IV (11:50)
[2024-12-06 11:56] LABS: Absolute Neutrophil Count 4.8 X10^3/uL (2.0-7.7); Basophil# 0.05 X10^3/uL; Basophil% 0.5 % (0-1); Eosinophil# 0.26 X10^3/uL; Eosinophils% 2.8 % (0-5); Hematocrit 47.5 % (40-54); Lymphocyte % 34.9 % (19-41); Mean Corp Hgb Conc 33.7 g/dL (32-36); Mean Corpuscular Hgb 30.1 pg (27.0-32.0); Mean Corpuscular Volume 89.3 fL (80-94); Mean Platelet Vol. 11.1 fl (6.2-12.0); Monocyte# 0.83 X10^3/uL; NRBC Flagged by Analyzer 0 % (0-5); Neutrophil # 4.82 X10^3/uL (2.7-7.7); Neutrophil % 52.6 % (47-70); Platelet Count 170 K/mm3 (150-450); RBC Distribution Width CV 13.5 % (11.6-14.6); RBC Distribution Width SD 43.9 fl (35.1-43.9); Red Blood Count 5.32 M/mm3 (4.6-6.2); White Blood Count 9.2 K/mm3 (4.4-11.0)
--- NOTE | 2024-12-06 12:09 | CT_ITS ---
EXAM: CT Abdomen and Pelvis Without Intravenous Contrast CLINICAL INDICATION: TECHNIQUE: Axial computed tomography images of the abdomen and pelvis without intravenous contrast. This CT exam was performed using one or more of the following dose reduction techniques: automated exposure control, adjustment of the mA and/or kV according to patient size, and/or use of iterative reconstruction technique. COMPARISON: No relevant prior studies available. FINDINGS: LUNG BASES: Unremarkable. No mass. No consolidation. MEDIASTINUM: Small esophageal hiatal hernia. ABDOMEN: LIVER: Hepatomegaly with fatty infiltration. GALLBLADDER AND BILE DUCTS: Gallbladder is surgically absent. No ductal dilation. PANCREAS: Unremarkable. No ductal dilation. SPLEEN: Unremarkable. No splenomegaly. ADRENALS: Unremarkable. No mass. KIDNEYS AND URETERS: Unremarkable. No stones within either kidney. No hydronephrosis. STOMACH AND BOWEL: Colonic diverticulosis without acute diverticulitis. No obstruction. PELVIS: APPENDIX: No findings to suggest acute appendicitis. BLADDER: Unremarkable. No stones. REPRODUCTIVE: Unremarkable as visualized. ABDOMEN and PELVIS: INTRAPERITONEAL SPACE: Unremarkable. No free air. No significant fluid collection. BONES/JOINTS: Degenerative disc disease throughout the lumbar spine. Degenerative facet arthropathy throughout the lumbar spine, most prominent in the lower lumbar spine. No acute fracture. No dislocation. SOFT TISSUES: Unremarkable. VASCULATURE: Unremarkable. No abdominal aortic aneurysm. LYMPH NODES: Unremarkable. No enlarged lymph nodes. CT/Abdomen/Pelvis without Cont IMPRESSION: 1. Small esophageal hiatal hernia. 2. Hepatomegaly with fatty infiltration. 3. No obstructive uropathy. 4. Colonic diverticulosis without acute diverticulitis. 5. Degenerative changes lumbar spine as described. Reading [facility]
[2024-12-06 12:13] LABS: Anion Gap 11 (5-15); BUN 22 mg/dL (4-19); BUN/Creat Ratio 22.9 RATIO (10-20); Calcium 9.5 mg/dL (7.6-11.0); Carbon Dioxide 21.7 mmol/L (22.0-29.0); Chloride 103 mmol/L (96-108); Creatinine, Serum 0.94 mg/dL (0.70-1.20); EST Glomerular Filtration Rate 86 (>60); Estimated Creatinine Clearance 96.49 ml/min (50-250); Glucose 159 mg/dL (70-99); Potassium 3.9 mmol/L (3.3-5.1); Sodium Level 136 mmol/L (133-145)
[2024-12-06 12:33] LABS: Mucous, Urine 0 SEEN /hpf (<or=2+); Squamous Epithelial Cells - UA 0 SEEN /hpf (0-5); White Blood Cells 0 SEEN /hpf (0-5)
[2024-12-06 12:39] LABS: Color, Urine Yellow (Yellow); Glucose, Dipstick Normal (Normal); Ketone-Dipstick Negative (Negative); Leukocyte Esterase-Dipstick Negative /ul (Negative); Nitrite-Dipstick Negative (Negative); Occult Blood-Urine 25 /ul (Negative); Protein-Dipstick 15 mg/dl (Negative); Specific Gravity, Urine 1.015 (1.002-1.030); Urine Bilirubin Dipstick Negative (Negative); Urine Clarity Clear (Clear); Urine Urobilinogen 8 mg/dl (Normal)
[2024-12-06 13:24] LABS: Bacteria RARE /hpf (None Seen); Red Blood Cells-Urine 0-5 SEEN /hpf (0-5)
[2024-12-06 13:25] VITALS: BP 135/121
[2024-12-06] MEDS: Lidocaine 5% Patch 1 PATCH TOPICAL (14:01)
[2024-12-06 14:06] VITALS: BP 135/121; PULSE 22; RESP 77; TEMP 36.5; O2SAT 96
== END 2024-12-06 14:06 | disposition home or self-care (01) ==
PROVIDERS: Physician Assistant; Emergency Provider Emergency Medicine; PCP Nurse Practitioner Family; Visit Provider Emergency Medicine
DX: R10.9 Unspecified abdominal pain (principal); J44.9 Chronic obstructive pulmonary disease, unspecified; I10 Essential (primary) hypertension; E78.00 Pure hypercholesterolemia, unspecified; F17.210 Nicotine dependence, cigarettes, uncomplicated; Z79.52 Long term (current) use of systemic steroids; Z79.82 Long term (current) use of aspirin; Z79.899 Other long term (current) drug therapy
CPT/HCPCS: 74176; 80048; 81001; 85025; 96374; 96375; 99283; A4216; J2405

== ENCOUNTER 2025-09-24 13:48 | Emergency (ER) | payer MEDICARE, SELFPAY ==
[2025-09-24] VITALS (7 sets, daily range): BP systolic 122–132; BP diastolic 70–81; PULSE 67–78; RESP 19–25; TEMP 36.5–36.8; O2SAT 92–98; BMI 47.2
--- NOTE | 2025-09-24 14:19 | EKG12_ITS ---
Test Reason : CP Blood Pressure : */* mmHG Vent. Rate : 73 BPM Atrial Rate : 73 BPM P-R Int : 186 ms QRS Dur : 112 ms QT Int : 386 ms P-R-T Axes : 12 -59 74 degrees QTcB Int : 425 ms Normal sinus rhythm Left anterior fascicular block Nonspecific ST abnormality Abnormal ECG Confirmed by Hugo Canales ([id number]), video effects editor MODESTA DODGE ([id number]) on 09/27/2025 11:23:05 AM Also confirmed by Hugo Canales ([id number]), video effects editor MODESTA DODGE ([id number]) on 09/28/2025 10:46:39 AM Referred By: ARAMIS/HELENA Confirmed By: Hugo Canales
--- NOTE | 2025-09-24 14:32 | RAD_ITS ---
EXAM: XR Chest, 1 View CLINICAL INDICATION: CHEST PAIN TECHNIQUE: Frontal view of the chest. COMPARISON: No relevant prior studies available. FINDINGS: LUNGS AND PLEURAL SPACES: Unremarkable. No consolidation. No pneumothorax. HEART: Unremarkable. No cardiomegaly. MEDIASTINUM: Unremarkable. Normal mediastinal contour. BONES/JOINTS: Unremarkable. No acute fracture. RAD/Chest PA and Lateral IMPRESSION: No acute cardiopulmonary process. Reading Location: [id number]
[2025-09-24 14:33] LABS: Hematocrit 46.1 % (40-54); Hemoglobin 15.8 g/dL (13.0-16.5); Immature Granulocytes Count 0.050 X10^3/uL (0.0-0.0); Mean Corp Hgb Conc 34.3 g/dL (32-36); Mean Corpuscular Volume 88.7 fL (80-94); Mean Platelet Vol. 11.1 fl (6.2-12.0); NRBC Flagged by Analyzer 0 % (0-5); Platelet Count 218 K/mm3 (150-450); RBC Distribution Width CV 12.7 % (11.6-14.6); RBC Distribution Width SD 41.6 fl (35.1-43.9); Red Blood Count 5.20 M/mm3 (4.6-6.2); White Blood Count 11.1 K/mm3 (4.4-11.0)
[2025-09-24 14:44] LABS: Mucous, Urine 0 SEEN /hpf (<or=2+)
[2025-09-24 14:45] LABS: Color, Urine Yellow (Yellow); Glucose, Dipstick Normal (Normal); Ketone-Dipstick Negative (Negative); Leukocyte Esterase-Dipstick Negative /ul (Negative); Nitrite-Dipstick Negative (Negative); Occult Blood-Urine 10 /ul (Negative); Protein-Dipstick 15 mg/dl (Negative); Specific Gravity, Urine 1.015 (1.002-1.030); Urine Bilirubin Dipstick Negative (Negative)
[2025-09-24 14:52] LABS: Red Blood Cells-Urine 0-5 SEEN /hpf (0-5); Squamous Epithelial Cells - UA 0-5 SEEN /hpf (0-5)
[2025-09-24 15:01] LABS: Anion Gap 15 (5-15); BUN 23 mg/dL (4-19); BUN/Creat Ratio 21.1 RATIO (10-20); Calcium,Total 9.3 mg/dL (7.6-11.0); Carbon Dioxide 21.0 mmol/L (21.0-32.0); Chloride 102 mmol/L (98-108); Estimated Creatinine Clearance 79.23 ml/min (50-250); Glucose 117 mg/dL (70-99); Potassium 2.7 mmol/L (3.3-5.1); Troponin T High Sensitivity 23 ng/L (<=22)
[2025-09-24] MEDS: Potassium Chloride Oral Tablet 20 MEQ 60 MEQ PO (15:06)
--- NOTE | 2025-09-24 15:11 | ED.VIS.CHEST ---
HPI <Dr. Eve Bass MD - Last Filed: 09/25/25 08:31> History of Present Illness Chief Complaint: Chest Pain Narrative Narrative: Patient is a 70-year-old male presenting to the emergency department for right sided chest pain for the past 2 days and dry cough. Patient has a past medical history of asthma, COPD and obesity. He is a current smoker. Smokes about half a pack a day. Patient states that he has had consistent chest pain for the past few days. Endorses baseline shortness of breath that has not significantly worsened. Endorses a dry cough. Denies fever, chills, congestion, sore throat. Denies any diaphoresis, abdominal pain, nausea or vomiting. Denies any lower extremity edema. He also endorses tingling when he urinates. He does not endorse painful urination or any hematuria. He is not sexually active. He denies any scrotal pain, swelling, penile discharge. [facility] <Dr. Eve Bass MD - Last Filed: 09/25/25 08:31> [facility] Medical History History of gout Asthma COPD (chronic obstructive pulmonary disease) Constipation GERD (gastroesophageal reflux disease) High cholesterol HTN (hypertension) Thyroid cancer Home Medications ?Medication ?Instructions ?Recorded ?Last Taken ?Type lisinopril 40 mg tablet 40 mg PO DAILY 10/11/23 02/14/24 History hydrochlorothiazide 25 mg tablet 25 mg PO DAILY 02/14/24 02/14/24 History metoprolol succinate 100 mg 100 mg PO DAILY 02/14/24 Unknown History tablet,extended release 24 hr omeprazole 20 mg capsule,delayed 20 mg PO DAILY 02/14/24 02/14/24 History release aspirin 81 mg tablet,delayed 81 mg PO DAILY 02/21/24 Unknown History release (Adult Aspirin Regimen) budesonide 160 mcg-glycopyr 9 inh inhalation 05/04/25 Unknown History mcg-formot 4.8 mcg/actuation HFA inhaler (Breztri Aerosphere) potassium chloride 20 mEq/15 mL 20 meq (15 mL) PO DAILY #473 mL 09/24/25 Unknown Rx oral liquid Allergy/AdvReac Type Severity Reaction Status Date / Time No Known Allergies Allergy Verified 09/24/25 13:52 Family History Other Heart disease Surgical History H/O knee surgery History of cholecystectomy S/P removal of thyroid nodule Social History Smoking Status: Current every day smoker tobacco type: cigarettes alcohol intake: never substance use type: does not use ROS <Dr. Eve Bass MD - Last Filed: 09/25/25 08:31> ROS ED ROS Narrative see HPI EXAM <Dr. Eve Bass MD - Last Filed: 09/25/25 08:31> Physical Exam Narrative Exam Narrative: Vital signs: Reviewed General: Alert and orientedx3. No acute distress. Well appearing, nontoxic. BMI of 47.3. HEENT: Head is normocephalic and atraumatic, sinuses nontender, pupils equal round and reactive. Nares are patent. Oropharynx and throat exams normal. Neck: Supple without lymphadenopathy nontender Cardiovascular: Regular rate and rhythm, no murmurs. No rubs or gallops. Normal S1 and S2 Respiratory: Clear to auscultation bilaterally. No wheezes, rales, rhonchi Abdominal: Soft and nontender. Normal bowel sounds. No guarding or rebound. Nonsurgical abdomen Extremities: No lower extremity edema. No tenderness. No bruising. Normal range of motion. Normal sensation. Skin: No rash or redness. The rest of the physical exam is unremarkable Const Vital Signs: 09/24/25 13:49 09/24/25 13:53 09/24/25 14:19 Temperature 97.7 F L 97.7 F L Temperature Source Oral Oral Pulse Rate 78 78 Respiratory Rate 20 H 20 H Respiratory Effort Short of Breath Respiratory Depth Respiratory Pattern Blood Pressure 132/81 H 132/81 H Blood Pressure Mean 98 98 Pulse Ox 95 95 Oxygen Delivery Method Room Air Room Air 09/24/25 14:22 09/24/25 15:00 09/24/25 16:08 Temperature 98.2 F 98.1 F Temperature Source Oral Oral Pulse Rate 70 67 Respiratory Rate 19 H 25 H Respiratory Effort Normal Respiratory Depth Normal Respiratory Pattern Tachypnea Blood Pressure 125/77 H 122/70 H Blood Pressure Mean 93 87 Pulse Ox 92 Oxygen Delivery Method Room Air Room Air Room Air 09/24/25 17:08 09/24/25 17:45 Temperature 98 F Temperature Source Pulse Rate 72 72 Respiratory Rate 20 H 20 H Respiratory Effort Respiratory Depth Respiratory Pattern Blood Pressure 124/76 H 124/76 H Blood Pressure Mean 92 92 Pulse Ox 98 Oxygen Delivery Method Room Air <Dr. Poncho Tsang MD - Last Filed: 09/24/25 17:26> Physical Exam Const Vital Signs: 09/24/25 13:49 09/24/25 13:53 09/24/25 14:19 Temperature 97.7 F L 97.7 F L Temperature Source Oral Oral Pulse Rate 78 78 Respiratory Rate 20 H 20 H Respiratory Effort Short of Breath Respiratory Depth Respiratory Pattern Blood Pressure 132/81 H 132/81 H Blood Pressure Mean 98 98 Pulse Ox 95 95 Oxygen Delivery Method Room Air Room Air 09/24/25 14:22 09/24/25 15:00 09/24/25 16:08 Temperature 98.2 F 98.1 F Temperature Source Oral Oral Pulse Rate 70 67 Respiratory Rate 19 H 25 H Respiratory Effort Normal Respiratory Depth Normal Respiratory Pattern Tachypnea Blood Pressure 125/77 H 122/70 H Blood Pressure Mean 93 87 Pulse Ox 92 Oxygen Delivery Method Room Air Room Air Room Air 09/24/25 17:08 09/24/25 17:45 Temperature 98 F Temperature Source Pulse Rate 72 72 Respiratory Rate 20 H 20 H Respiratory Effort Respiratory Depth Respiratory Pattern Blood Pressure 124/76 H 124/76 H Blood Pressure Mean 92 92 Pulse Ox 98 Oxygen Delivery Method Room Air <Dr. Eve Bsas MD - Last Filed: 09/25/25 08:31> Heart Score History: Slightly/Non-Suspicious ECG: Normal Age: >/= 65 years Risk Factors: >/= 3 Risk Factors or History of CAD Troponin: </= Normal Limit Score: 4 <Dr. Poncho Tsang MD - Last Filed: 09/24/25 17:26> Heart Score Score: 4 MDM <Dr. Eve Bass MD - Last Filed: 09/25/25 08:31> MDM MDM Narrative Medical decision making narrative: Patient is a 70-year-old male presenting to the emergency department for chest pain and cough. Patient was seen and examined. Vitals are stable. Patient resting bed comfortably no acute distress. Differential includes but is not limited to: Pneumonia, ACS, COPD exacerbation, URI, less likely PE or aortic pathology given vital signs, physical exam and history. EKG shows normal sinus rhythm at a rate of 73 with a left anterior fascicular block and nonspecific ST changes. Nothing meeting STEMI criteria. No dysrhythmia. CBC with white blood cell count of 11.1 and a normal hemoglobin. BMP with hypokalemia at 2.7, oral repletion given. Initial troponin of 23. Urinalysis was ordered given the patient's tingling and shows no evidence of urinary tract infection other than 1+ bacteria. No WBC, leukocyte esterase or nitrites. Chest x-ray reviewed myself, no opacities, pneumothorax or widened mediastinum. Radiology read in agreement. Viral swab is negative. Patient signed out to Dr. Tsang pending 2nd troponin. I anticipate discharge if troponin reflex with no significant delta change. Will also prescribe potassium tablets for 1 week for home given his hypokalemia. Clinical impression: Chest pain Hypokalemia History & Record Review Discussion w/independent historian: Patient Lab Data Attestation: I reviewed the patient's lab results. Labs: Laboratory Results - last 24 hr 09/24/25 09/24/25 09/24/25 14:27 14:37 16:24 WBC 11.1 H RBC 5.20 Hgb 15.8 Hct 46.1 MCV 88.7 MCH 30.4 MCHC 34.3 RDW Std Deviation 41.6 RDW Coeff of Nena 12.7 Plt Count 218 MPV 11.1 Immature Gran % (Auto) 0.400 Neut % (Auto) 54.6 Lymph % (Auto) 30.1 [place] % (Auto) 12.2 H Eos % (Auto) 1.8 Baso % (Auto) 0.9 Absolute Neuts (auto) 6.1 Absolute Lymphs (auto) 3.35 Nucleated RBC % 0 Sodium 138 Potassium 2.7 L* Chloride 102 Carbon Dioxide 21.0 Anion Gap 15 BUN 23 H Creatinine 1.09 Estim Creat Clear Calc 79.23 Est GFR (MDRD) Non-Af 72 BUN/Creatinine Ratio 21.1 H Glucose 117 H Calcium 9.3 Troponin T High Sens 23 H Troponin T Hi Sens 2 Hr 20 Urine Color Yellow Urine Clarity Clear Urine pH 6.5 Ur Specific [place] 1.015 Urine Protein 15 H Urine Glucose (UA) Normal Urine Ketones Negative Urine Occult Blood 10 H Urine Nitrite Negative Urine Bilirubin Negative Urine Urobilinogen 8 H Ur Leukocyte Esterase Negative Urine RBC 0-5 SEEN Urine WBC 0-5 SEEN Ur Squamous Epith Cells 0-5 SEEN Amorphous Sediment 1+ Urine Bacteria 1+ Urine Mucus 0 SEEN Radiography Diagnostic Testing: Clinical Impression(s) from Imaging Studies Chest X-Ray 09/24/25 14:32 IMPRESSION: No acute cardiopulmonary process. Reading Location: [id number] <Dr. Poncho Tsang MD - Last Filed: 09/24/25 17:26> [facility] Lab Data Lab results narrative: Second troponin is 20 which is normal with a delta of -3. Patient was turned over to id at change of shift. Since patient's troponin is normal plan is to discharge to home Labs: Laboratory Results - last 24 hr 09/24/25 09/24/25 09/24/25 14:27 14:37 16:24 WBC 11.1 H RBC 5.20 Hgb 15.8 Hct 46.1 MCV 88.7 MCH 30.4 MCHC 34.3 RDW Std Deviation 41.6 RDW Coeff of Nena 12.7 Plt Count 218 MPV 11.1 Immature Gran % (Auto) 0.400 Neut % (Auto) 54.6 Lymph % (Auto) 30.1 [place] % (Auto) 12.2 H Eos % (Auto) 1.8 Baso % (Auto) 0.9 Absolute Neuts (auto) 6.1 Absolute Lymphs (auto) 3.35 Nucleated RBC % 0 Sodium 138 Potassium 2.7 L* Chloride 102 Carbon Dioxide 21.0 Anion Gap 15 BUN 23 H Creatinine 1.09 Estim Creat Clear Calc 79.23 Est GFR (MDRD) Non-Af 72 BUN/Creatinine Ratio 21.1 H Glucose 117 H Calcium 9.3 Troponin T High Sens 23 H Troponin T Hi Sens 2 Hr 20 Urine Color Yellow Urine Clarity Clear Urine pH 6.5 Ur Specific [place] 1.015 Urine Protein 15 H Urine Glucose (UA) Normal Urine Ketones Negative Urine Occult Blood 10 H Urine Nitrite Negative Urine Bilirubin Negative Urine Urobilinogen 8 H Ur Leukocyte Esterase Negative Urine RBC 0-5 SEEN Urine WBC 0-5 SEEN Ur Squamous Epith Cells 0-5 SEEN Amorphous Sediment 1+ Urine Bacteria 1+ Urine Mucus 0 SEEN Radiography Diagnostic Testing: Clinical Impression(s) from Imaging Studies Chest X-Ray 09/24/25 14:32 IMPRESSION: No acute cardiopulmonary process. Reading Location: [facility] Discharge Plan Triage Chief Complaint: Chest Pain Other Complaint: Cough ED Provider: Eve Bass Dx/Rx/DC Orders Clinical Impression: Chest pain, Hypokalemia, Cough, Adult BMI 45.0-49.9 kg/sq m, Bacteriuria Instructions: ED Chest Pain, Uncertain Cause, ED Hypokalemia Prescriptions: New potassium chloride 20 mEq/15 mL liquid 20 meq PO DAILY Qty: 473 0RF No Action Breztri Aerosphere 160-9-4.8 mcg/actuation HFA aerosol inhaler inhalation lisinopril 40 mg tablet 40 mg PO DAILY aspirin [Adult Aspirin Regimen] 81 mg tablet,delayed release (DR/EC) 81 mg PO DAILY hydrochlorothiazide 25 mg tablet 25 mg PO DAILY metoprolol succinate 100 mg tablet extended release 24 hr 100 mg PO DAILY omeprazole 20 mg capsule,delayed release(DR/EC) 20 mg PO DAILY Primary Care Provider: Mary Dempsey NP Referrals: Mary Dempsey NP, [facility] [Primary Care Provider, Family Practice] - As soon as possible Activity Restrictions/Additional Instructions: Take the potassium tablets daily for the next week. Your evaluation in the Emergency Department did not reveal any acute reason for admission. However, I want to emphasize that you may be early in the course of a disease process or illness even if it is not present. For this reason you should follow-up within 24 hours for reevaluation with either your primary care physician or if necessary back here in the Emergency Department. You should return to the Emergency Department immediately if your symptoms worsen or new symptoms develop. Print Language: Cambodian Disposition Disposition: Home, Self Care Discharge Date/Time: 09/24/25 17:54
[2025-09-24 16:52] LABS: Troponin T High Sens 2 HR 20 ng/L (<=22)
== END 2025-09-24 17:54 | disposition home or self-care (01) ==
PROVIDERS: Emergency Provider Student in an Organized Health Care Education/Training Program; PCP Registered Nurse; Visit Provider Student in an Organized Health Care Education/Training Program
DX: R07.89 Other chest pain (principal); J44.9 Chronic obstructive pulmonary disease, unspecified; Z68.42 Body mass index [BMI] 45.0-49.9, adult; R82.71 Bacteriuria; I10 Essential (primary) hypertension; E78.00 Pure hypercholesterolemia, unspecified; F17.210 Nicotine dependence, cigarettes, uncomplicated; E87.6 Hypokalemia; E66.9 Obesity, unspecified; K21.9 Gastro-esophageal reflux disease without esophagitis; R05.9 Cough, unspecified
CPT/HCPCS: 71046; 80048; 81001; 84484; 85025; 87631; 93005; 99285; A4216